=== PATIENT | male | born 1935 | race Caucasian/White ===

== ENCOUNTER 2018-09-13 08:19 | Inpatient (IN) | payer OTHER, MEDICARE ==
[2018-09-13] MEDS ORDERED: ONDANSETRON 4 MG/2 ML VIAL IVP STA (08:33)
[2018-09-13] MEDS ORDERED: SODIUM CHLORIDE 0.9% 1,000 ML IV STA (08:33)
--- NOTE | 2018-09-13 08:35 | ED ---
Abdominal Pain HPI - General Source: patient, RN notes reviewed Mode of arrival: wheelchair Limitations: no limitations <Wenceslao Pierre - Last Filed: 09/13/18 11:32> <Ashwin Spicer - Last Filed: 09/13/18 12:13> - General Chief Complaint: Abdominal Pain Stated Complaint: abdominal pain/SOB Time Seen by Provider: 09/13/18 08:27 - History of Present Illness Initial Comments: This 82-year-old male presents emergency Department with chief complaint of nausea vomiting diarrhea. Patient states that started shortly after eating some strawberries last night. Patient states he has some abdominal cramping. Patient had multiple episodes of vomiting and diarrhea. Denies any melena, hematochezia, hematemesis or coffee-ground emesis denies chest pain shortness of breath denies any fevers or chills. Patient denies any contacts with some symptoms. Patient states only medication he currently takes his morphine. Lonnie navarrete denies any history of hypertension, hyperlipidemia, diabetes. (Wenceslao Pierre) - Related Data Home Medications Medication Instructions Recorded Confirmed Aspirin [Adult Low Dose Aspirin EC] 81 mg PO DAILY 02/04/16 09/13/18 Ferrous Sulfate [Feosol] 325 mg PO DAILY 02/04/16 09/13/18 Lisinopril [Zestril] 5 mg PO DAILY 02/04/16 09/13/18 Lovastatin [Mevacor] 40 mg PO HS 02/04/16 09/13/18 Morphine Sulfate [Morphine Sulfate 30 mg PO BID 02/04/16 09/13/18 ER] [place]-3 Fatty Acids/Fish Oil [Fish 1 cap PO DAILY 02/04/16 09/13/18 Oil 1,000 mg Softgel] Omeprazole 20 mg PO DAILY 02/04/16 09/13/18 Cholecalciferol [Vitamin D3 (25 1,000 unit PO DAILY 09/13/18 09/13/18 Mcg = 1000 Iu)] Morphine Sulfate ER [Ms Contin] 15 mg PO DAILY@1200 09/13/18 09/13/18 Allergies Allergy/AdvReac Type Severity Reaction Status Date / Time No Known Allergies Allergy Verified 09/13/18 09:16 Review of Systems ROS Other: All systems not noted in ROS Statement are negative. <Wenceslao Pierre - Last Filed: 09/13/18 11:32> ROS Other: All systems not noted in ROS Statement are negative. <NayanAshwin - Last Filed: 09/13/18 12:13> ROS Statement: Those systems with pertinent positive or pertinent negative responses have been documented in the HPI. Past Medical History Past Medical History: Chest Pain / Angina, GI Bleed, Hyperlipidemia, Hypertension History of Any Multi-Drug Resistant Organisms: None Reported Past Surgical History: Back Surgery Past Anesthesia/Blood Transfusion Reactions: No Reported Reaction Smoking Status: Current every day smoker Past Alcohol Use History: None Reported - Past Family History Mother Family Medical History: Cancer <IgnacioWenceslao Avila - Last Filed: 09/13/18 11:32> General Exam Limitations: no limitations General appearance: alert, in no apparent distress Head exam: Present: atraumatic, normocephalic, normal inspection Eye exam: Present: normal appearance, PERRL, EOMI. Absent: scleral icterus, conjunctival injection, periorbital swelling ENT exam: Present: normal exam, normal oropharynx, mucous membranes moist, TM's normal bilaterally Neck exam: Present: normal inspection, full ROM. Absent: tenderness, meningismus, lymphadenopathy Respiratory exam: Present: normal lung sounds bilaterally. Absent: respiratory distress, wheezes, rales, rhonchi, stridor Cardiovascular Exam: Present: normal rhythm, tachycardia, normal heart sounds. Absent: systolic murmur, diastolic murmur, rubs, gallop, clicks GI/Abdominal exam: Present: soft, tenderness (Mild lower abdominal tenderness), normal bowel sounds. Absent: distended, guarding, rebound, rigid Back exam: Absent: CVA tenderness (R), CVA tenderness (L) Neurological exam: Present: alert, oriented X3, CN II-XII intact Skin exam: Present: warm, dry, intact, normal color. Absent: rash <IgnacioWenceslao Avila - Last Filed: 09/13/18 11:32> Course <Ashwin Spicer - Last Filed: 09/13/18 12:13> Vital Signs 09/13/18 09/13/18 09/13/18 08:23 09:26 10:00 Temperature 98.0 F Pulse Rate 120 H 105 H 93 Respiratory 18 22 20 Rate Blood Pressure 143/110 149/91 142/92 O2 Sat by Pulse 98 95 96 Oximetry 09/13/18 09/13/18 11:00 11:32 Temperature Pulse Rate 101 H 105 H Respiratory 20 20 Rate Blood Pressure 143/79 134/88 O2 Sat by Pulse 99 98 Oximetry - Reevaluation(s) Reevaluation #1: 09/13/18 11:53 PA supervision: I proceeded [id number] evaluation the patient did discuss findings with the patient and family as well as with Dr. Medellin and Dr. Rucker. (Ashwin Spicer) Medical Decision Making - Lab Data Result diagrams: 09/13/18 09:00 09/13/18 09:00 <Wenceslao Pierre - Last Filed: 09/13/18 11:32> - Lab Data Result diagrams: 09/13/18 09:00 09/13/18 09:00 <Ashwin Spicer - Last Filed: 09/13/18 12:13> - Medical Decision Making 82-year-old male presented for abdominal discomfort. Patient will be admitted for a NSTEMI, kidney stone possible sepsis. (Wenceslao Pierre) - Lab Data Lab Results 09/13/18 09/13/18 09/13/18 Range/Units 09:00 09:00 09:00 WBC 18.1 H (3.8-10.6) k/uL RBC 5.22 (4.30-5.90) m/uL Hgb 15.6 (13.0-17.5) gm/dL Hct 46.8 (39.0-53.0) % MCV 89.8 (80.0-100.0) fL MCH 30.0 (25.0-35.0) pg MCHC 33.4 (31.0-37.0) g/dL RDW 14.3 (11.5-15.5) % Plt Count 227 (150-450) k/uL Neutrophils % 91 % Lymphocytes % 4 % Monocytes % 4 % Eosinophils % 1 % Basophils % 0 % Neutrophils # 16.5 H (1.3-7.7) k/uL Lymphocytes # 0.6 L (1.0-4.8) k/uL Monocytes # 0.7 (0-1.0) k/uL Eosinophils # 0.1 (0-0.7) k/uL Basophils # 0.0 (0-0.2) k/uL Sodium 139 (137-145) mmol/L Potassium 5.1 (3.5-5.1) mmol/L Chloride 103 (98-107) mmol/L Carbon Dioxide 24 (22-30) mmol/L Anion Gap 12 mmol/L BUN 23 H (9-20) mg/dL Creatinine 1.08 (0.66-1.25) mg/dL Est GFR (CKD-EPI)AfAm 75 (>60 ml/min/1.73 sqM) Est GFR (CKD-EPI)NonAf 64 (>60 ml/min/1.73 sqM) Glucose 187 H (74-99) mg/dL Plasma Lactic Acid Billy 3.1 H* (0.7-2.0) mmol/L Calcium 10.1 (8.4-10.2) mg/dL Total Bilirubin 0.8 (0.2-1.3) mg/dL AST 30 (17-59) U/L ALT 25 (21-72) U/L Alkaline Phosphatase 66 (38-126) U/L Troponin I (0.000-0.034) ng/mL Total Protein 7.3 (6.3-8.2) g/dL Albumin 4.4 (3.5-5.0) g/dL Amylase 35 (30-110) U/L Lipase 25 (23-300) U/L Urine Color Urine Appearance (Clear) Urine pH (5.0-8.0) Ur Specific [place] (1.001-1.035) Urine Protein (Negative) Urine Glucose (UA) (Negative) Urine Ketones (Negative) Urine Blood (Negative) Urine Nitrite (Negative) Urine Bilirubin (Negative) Urine Urobilinogen (<2.0) mg/dL Ur Leukocyte Esterase (Negative) Urine RBC (0-5) /hpf Urine WBC (0-5) /hpf Ur Squamous Epith Cells (0-4) /hpf Hyaline Casts (0-2) /lpf Urine Mucus (None) /hpf 09/13/18 09/13/18 Range/Units 09:00 09:14 WBC (3.8-10.6) k/uL RBC (4.30-5.90) m/uL Hgb (13.0-17.5) gm/dL Hct (39.0-53.0) % MCV (80.0-100.0) fL MCH (25.0-35.0) pg MCHC (31.0-37.0) g/dL RDW (11.5-15.5) % Plt Count (150-450) k/uL Neutrophils % % Lymphocytes % % Monocytes % % Eosinophils % % Basophils % % Neutrophils # (1.3-7.7) k/uL Lymphocytes # (1.0-4.8) k/uL Monocytes # (0-1.0) k/uL Eosinophils # (0-0.7) k/uL Basophils # (0-0.2) k/uL Sodium (137-145) mmol/L Potassium (3.5-5.1) mmol/L Chloride (98-107) mmol/L Carbon Dioxide (22-30) mmol/L Anion Gap mmol/L BUN (9-20) mg/dL Creatinine (0.66-1.25) mg/dL Est GFR (CKD-EPI)AfAm (>60 ml/min/1.73 sqM) Est GFR (CKD-EPI)NonAf (>60 ml/min/1.73 sqM) Glucose (74-99) mg/dL Plasma Lactic Acid Billy (0.7-2.0) mmol/L Calcium (8.4-10.2) mg/dL Total Bilirubin (0.2-1.3) mg/dL AST (17-59) U/L ALT (21-72) U/L Alkaline Phosphatase (38-126) U/L Troponin I 0.371 H* (0.000-0.034) ng/mL Total Protein (6.3-8.2) g/dL Albumin (3.5-5.0) g/dL Amylase (30-110) U/L Lipase (23-300) U/L Urine Color Yellow Urine Appearance Cloudy (Clear) Urine pH 5.5 (5.0-8.0) Ur Specific [place] 1.023 (1.001-1.035) Urine Protein 1+ H (Negative) Urine Glucose (UA) Trace H (Negative) Urine Ketones Trace H (Negative) Urine Blood Moderate H (Negative) Urine Nitrite Negative (Negative) Urine Bilirubin Negative (Negative) Urine Urobilinogen <2.0 (<2.0) mg/dL Ur Leukocyte Esterase Trace H (Negative) Urine RBC 18 H (0-5) /hpf Urine WBC 10 H (0-5) /hpf Ur Squamous Epith Cells 1 (0-4) /hpf Hyaline Casts 4 H (0-2) /lpf Urine Mucus Rare H (None) /hpf - EKG Data EKG Comments: EKG performed at 8:46 wide QRS rhythm with a right bundle block rate of 108 NV 1 28 QTC is QTC 350/469 (Wenceslao Pierre) Critical Care Time Critical Care Time: Yes Total Critical Care Time: 35 <Wenceslao Pierre - Last Filed: 09/13/18 11:32> Critical Care Time: To 35 minutes of critical care time were used to evaluate the patient, discussed history with EMS, review vitals. Labs including CBC, CMP, troponin, lactic acid, urinalysis were ordered along with CT abdomen and pelvis. Patient's found to have lactic acidosis, leukocytosis and tachycardia was likely related to septic stone, sepsis. Patient also found to have an unsteady. Case discussed with admitting hospitalist Dr. Soto, urology Dr. Medellin and cardiology Dr. Rucker patient will be admitted for further evaluation and treatment. Patient was started on heparin, Rocephin antibiotics (Wenceslao Pierre) Disposition <Wenceslao Pierre - Last Filed: 09/13/18 11:32> <Ashwin Spicer - Last Filed: 09/13/18 12:13> Clinical Impression: NSTEMI (non-ST elevated myocardial infarction), Kidney stone on left side, Abdominal pain, Sepsis Disposition: ADMITTED IP TO THIS HOSP Condition: Fair
[2018-09-13 09:20] LABS: Basophils % (A) 0 %; Eosinophils # (A) 0.1 k/uL (0-0.7); Eosinophils % (A) 1 %; HCT 46.8 % (39.0-53.0); HGB 15.6 gm/dL (13.0-17.5); Lymphocytes # (A) 0.6 k/uL (1.0-4.8); Lymphocytes % (A) 4 %; MCHC 33.4 g/dL (31.0-37.0); MCV 89.8 fL (80.0-100.0); Mean Platelet Volume 8.1; Monocytes # (A) 0.7 k/uL (0-1.0); Monocytes % (A) 4 %; Neutrophils # (A) 16.5 k/uL (1.3-7.7); Neutrophils % (A) 91 %; Platelet Count 227 k/uL (150-450); RBC 5.22 m/uL (4.30-5.90); RDW 14.3 % (11.5-15.5); WBC 18.1 k/uL (3.8-10.6)
[2018-09-13 09:31] LABS: Albumin 4.4 g/dL (3.5-5.0); Calcium 10.1 mg/dL (8.4-10.2); Total Bilirubin 0.8 mg/dL (0.2-1.3); Total Protein 7.3 g/dL (6.3-8.2)
[2018-09-13 09:31] LABS: Appearance,Urine Cloudy (Clear); Bilirubin,Urine Negative (Negative); Blood,Urine Moderate (Negative); Color,Urine Yellow; Glucose,Urine (UA) Trace (Negative); Hyaline Casts,Urine 4 /lpf (0-2); Ketones,Urine Trace (Negative); Leukocyte Esterase,Urine Trace (Negative); Mucus,Urine Rare /hpf; Nitrite,Urine Negative (Negative); PH, Urine 5.5 (5.0-8.0); Protein,Urine 1+ (Negative); RBC,Urine 18 /hpf (0-5); Specific Gravity,Urine 1.023 (1.001-1.035); Squamous Epithelial Cell,Urine 1 /hpf (0-4); Urobilinogen,Urine <2.0 mg/dL (<2.0); WBC,Urine 10 /hpf (0-5)
[2018-09-13 09:33] LABS: Potassium 5.1 mmol/L (3.5-5.1)
--- NOTE | 2018-09-13 10:07 | CT ---
EXAMINATION TYPE: CT abdomen pelvis w con DATE OF EXAM: 09/13/2018 COMPARISON: None HISTORY: Left midline to left sided abdominal pain CT DLP: 1188 mGycm CONTRAST: CT scan of the abdomen and pelvis is performed without Oral Contrast and with IV Contrast, patient in jected with 100 mL of Isovue 300. FINDINGS: LUNG BASES-: No visible nodule. No infiltrate. The heart is enlarged. LIVER/GB: The gallbladder surgically absent. No space occupying hepatic lesion. Biliary tree is of normal caliber. PANCREAS: No inflammation. No distinct mass. SPLEEN: No splenic enlargement. No lesion seen. ADRENALS: No nodule. No thickening. KIDNEYS/BLADDER: 3 mm distal left ureteral calculus approximately 2.5 to 3 cm from the left UVJ resul ts in moderate left-sided hydronephrosis and perinephric stranding. Mild left-sided renal edema. Nono bstructing calculus lower pole right kidney. BOWEL: Normal appendix. Normal bowel caliber. No inflammation. GENITAL ORGANS: No gross abnormality. LYMPH NODES: No greater than 1cm abdominal or pelvic lymph nodes are appreciated. AORTA: No significant abnormality. OSSEOUS STRUCTURES: No significant abnormality is seen. OTHER: No significant additional abnormality is seen. IMPRESSION: 1. Obstructing distal left ureteral calculus measuring 3 mm resulting in moderate left-sided hydronep hrosis. There is mild renal edema and perinephric stranding noted.
[2018-09-13] MEDS ORDERED: cefTRIAXone IN SWFI 1,000 MG/10 ML SYRINGE IVP STA (10:11)
[2018-09-13] MEDS ORDERED: NITROGLYCERIN SL TABS 0.4 MG TAB SUBLINGUAL PRN (11:34)
[2018-09-13] MEDS ORDERED: ASPIRIN 81 MG PO STA (11:34)
[2018-09-13] MEDS ORDERED: HEPARIN SODIUM,PORCINE 5,000 UNIT/ML 1 ML VIAL IV ONE (11:34)
[2018-09-13] MEDS: SODIUM CHLORIDE 0.9% 1,000 ML IV SCH (12:57)
[2018-09-13] MEDS: MORPHINE SULFATE 4 MG/ML SYRINGE IV PRN (12:59)
[2018-09-13] MEDS: HEPARIN SOD,PORK IN 0.45% NACL 25,000 UNIT in 0.45% NACL 1 250ML.BAG IV SCH (13:01)
--- NOTE | 2018-09-13 14:38 | P.HPIM ---
History of Present Illness this is a pleasant 82 years old male with past medical history ofGI bleed, status post colonoscopy in 01/2016, diverticular disease, hemorrhoids, osteoarthritis, hypertension, hyperlipidemia, GERD, Status post colonoscopy on 01/2016 whopresents with abdominal painof one-day duration, the pain mainly in the lower abdomen about 8/10 in both sides, more on the left side, nonradiating, with 8/10 in severity, relieved with pain medication down to 2/10, associated with polyuria but no dysuria. He also has nausea and vomited 8 times with no blood in it although he wasn't sure. He had no chest pain or dyspnea, no dizziness, he has chronic cough with mucous phlegm 4 months. On admission patient is moderately tachycardic at 102, blood pressure 161/80, saturating 99% on 2 L and he is afebrile. labs reviewed showing leukocytosis of 18.1, hemoglobin 15.6,creatinine is normal at 1.0, electrolytes within normal limits and lactic acid is elevated at 3.1, troponin is elevated at 0.37.urinalysis is suspicious for infection. EKG s howing wide QRS with right bundle branch block, sinus rhythm at 108, with QTC 469.CAT scan of the abdomen and pelvis showing distal left ureteral stone of 3 mm with moderate left-sided hydronephrosis. And nonobstructive calculus on the right side Review of Systems CONSTITUTIONAL: No fever, no malaise, no fatigue. HEENT: No recent visual problems or hearing problems. Denied any sore throat. CARDIOVASCULAR: No orthopnea, PND, no palpitations, no syncope. PULMONARY: No shortness of breath, no cough, no hemoptysis. GASTROINTESTINAL: No diarrhea, no nausea, no vomiting, no abdominal pain. Normoactive bowel sounds. NEUROLOGICAL: No headaches, no weakness, no numbness. HEMATOLOGICAL: Denies any bleeding or petechiae. GENITOURINARY: Denies any burning micturition, frequency, or urgency. MUSCULOSKELETAL/RHEUMATOLOGICAL: Denies any joint pain, swelling, or any muscle pain. ENDOCRINE: Denies any polyuria or polydipsia. Past Medical History Past Medical History: GERD/Reflux, GI Bleed, Hyperlipidemia, Hypertension, Osteoarthritis (OA) Additional Past Medical History / Comment(s): Fractured back twice, arthritis in hands/wrists/ankles, lower GI bleed, diverticular disease/colon polyps, hemorrhoids, constipation. History of Any Multi-Drug Resistant Organisms: None Reported Past Surgical History: Back Surgery, Cholecystectomy, Orthopedic Surgery Additional Past Surgical History / Comment(s): Lumbar laminectomy, EGD, colonoscopies/benign polypectomies, L shoulder arthroscopy. Past Anesthesia/Blood Transfusion Reactions: No Reported Reaction Smoking Status: Former smoker - Past Family History Mother Family Medical History: Cancer Additional Family Medical History / Comment(s): Mother from some form of cancer at the age of 78yrs. Father History Unknown: Yes Additional Family Medical History / Comment(s): Father left when pt was 7 yrs old. Medications and Allergies Home Medications Medication Instructions Recorded Confirmed Type Aspirin [Adult Low Dose Aspirin EC] 81 mg PO DAILY 02/04/16 09/13/18 History Ferrous Sulfate [Feosol] 325 mg PO DAILY 02/04/16 09/13/18 History Lisinopril [Zestril] 5 mg PO DAILY 02/04/16 09/13/18 History Lovastatin [Mevacor] 40 mg PO HS 02/04/16 09/13/18 History Morphine Sulfate [Morphine Sulfate 30 mg PO BID 02/04/16 09/13/18 History ER] [place]-3 Fatty Acids/Fish Oil [Fish 1 cap PO DAILY 02/04/16 09/13/18 History Oil 1,000 mg Softgel] Omeprazole 20 mg PO DAILY 02/04/16 09/13/18 History Cholecalciferol [Vitamin D3 (25 1,000 unit PO DAILY 09/13/18 09/13/18 History Mcg = 1000 Iu)] Morphine Sulfate ER [Ms Contin] 15 mg PO DAILY@1200 09/13/18 09/13/18 History Allergies Allergy/AdvReac Type Severity Reaction Status Date / Time No Known Allergies Allergy Verified 09/13/18 09:16 Physical Exam Vitals: Vital Signs Temp Pulse Resp BP Pulse Ox 09/13/18 13:00 98.9 F 102 H 20 161/80 99 09/13/18 12:00 99 20 144/82 99 09/13/18 11:32 105 H 20 134/88 98 09/13/18 11:00 101 H 20 143/79 99 09/13/18 10:00 93 20 142/92 96 09/13/18 09:26 105 H 22 149/91 95 09/13/18 08:23 98.0 F 120 H 18 143/110 98 Intake and Output 09/12/18 09/13/18 09/13/18 22:59 06:59 14:59 Other: Weight 96.162 kg GENERAL: The patient is alert and oriented x3, not in any acute distress. Well developed, well nourished. -HEENT: Pupils are round and equally reacting to light. EOMI. No scleral icterus. No conjunctival pallor. Normocephalic, atraumatic. No pharyngeal erythema. No thyromegaly. dehydration CARDIOVASCULAR: S1 and S2 present. No murmurs, rubs, or gallops. PULMONARY: Chest is clear to auscultation, no wheezing or crackles. -ABDOMEN: Soft, mild lower abdominal tenderness, with left flank tenderness, no rebound tenderness, nondistended, normoactive bowel sounds. No palpable organomegaly. no tenderness at CVA angle MUSCULOSKELETAL: No joint swelling or deformity. EXTREMITIES: No cyanosis, clubbing, or pedal edema. NEUROLOGICAL: Gross neurological examination did not reveal any focal deficits. SKIN: No rashes. Results CBC & Chem 7: 09/13/18 09:00 09/13/18 09:00 Labs: Abnormal Lab Results - Last 24 Hours (Table) 09/13/18 09/13/18 09/13/18 Range/Units 09:00 09:00 09:00 WBC 18.1 H (3.8-10.6) k/uL Neutrophils # 16.5 H (1.3-7.7) k/uL Lymphocytes # 0.6 L (1.0-4.8) k/uL BUN 23 H (9-20) mg/dL Glucose 187 H (74-99) mg/dL Plasma Lactic Acid Billy 3.1 H* (0.7-2.0) mmol/L Troponin I (0.000-0.034) ng/mL Urine Protein (Negative) Urine Glucose (UA) (Negative) Urine Ketones (Negative) Urine Blood (Negative) Ur Leukocyte Esterase (Negative) Urine RBC (0-5) /hpf Urine WBC (0-5) /hpf Hyaline Casts (0-2) /lpf Urine Mucus (None) /hpf 09/13/18 09/13/18 Range/Units 09:00 09:14 WBC (3.8-10.6) k/uL Neutrophils # (1.3-7.7) k/uL Lymphocytes # (1.0-4.8) k/uL BUN (9-20) mg/dL Glucose (74-99) mg/dL Plasma Lactic Acid Billy (0.7-2.0) mmol/L Troponin I 0.371 H* (0.000-0.034) ng/mL Urine Protein 1+ H (Negative) Urine Glucose (UA) Trace H (Negative) Urine Ketones Trace H (Negative) Urine Blood Moderate H (Negative) Ur Leukocyte Esterase Trace H (Negative) Urine RBC 18 H (0-5) /hpf Urine WBC 10 H (0-5) /hpf Hyaline Casts 4 H (0-2) /lpf Urine Mucus Rare H (None) /hpf Thrombosis Risk Factor Assmnt - Choose All That Apply Any of the Below Risk Factors Present?: Yes Each Factor Represents 1 point: Acute [place], Obesity (BMI >25), Sepsis (< 1month) Other Risk Factors: Yes Each Risk Factor Represents 3 Points: Age 75 years or older Other congenital or acquired thrombophilia - If yes, enter type in comment: No Thrombosis Risk Factor Assessment Total Risk Factor Score: 6 Thrombosis Risk Factor Assessment Level: High Risk Assessment and Plan Assessment: left hydronephrosis, with obstructive uropathy sepsis with leukocytosis and elevated lactic acid and tachycardia Acute urinary tract infection Kidney stone, on both sides abdominal painsecondary to above elevated troponin, concerning for non-STEMI Elevated lactic acid hypertension Hyperlipidemia History of GI bleed history of diverticular disease History of osteoarthritis chronic hemorrhoids Plan: this is a pleasant 82 years old male who presents with obstructive uropathy and sepsis. start patient on antibiotics ceftriaxone , continue with IV fluids, follow-up blood culture and urine culture. Continue with IV fluids and follow- up lactic acid. Call cardiology consult, serial troponins. Urologist already is been contacted by emergency room team. . Labs and medication were reviewed.. Continue same treatment. Continue with symptomatic treatment. Resume home medication. Monitor lytes and vitals. DVT and GI prophylaxis. Further recommendations of the clinical course of the patient DVT prophylaxis: Subcutaneous heparin GI Prophylaxis: Pepcid PT/OT: Pending Prognosis is guarded
--- NOTE | 2018-09-13 17:34 | CONS ---
CONSULTATION CHIEF COMPLAINT: Elevated troponin. Klaus is an 82-year-old gentleman who is admitted to hospital with lower abdominal pain. Cardiology has been consulted for mildly elevated troponin. The patient denies chest pain, difficulty in breathing, palpitations, dizziness or syncope. His white cell count is elevated at 18.1. His EKG shows wide-complex tachycardia with right bundle branch block which could be due to either an underlying atrial fibrillation or accelerated junctional tachycardia. There is no prior cardiac history. PAST MEDICAL HISTORY: Significant for hypertension, back pain. The patient is on MS Contin, Mevacor, Zestril, iron and aspirin. ALLERGIES: There are NO KNOWN DRUG ALLERGIES. FAMILY HISTORY: Negative for premature coronary artery disease. SOCIAL HISTORY: Negative for current smoking. There is no history of EtOH abuse or drug abuse. REVIEW OF SYSTEMS: HEENT is unremarkable. CARDIAC: As described above. RESPIRATORY: Negative. GI: As described above. GENITOURINARY: Negative. ALLERGY/IMMUNOLOGIC: Negative. SKIN: Negative. MUSCULOSKELETAL: Significant for back pain. PSYCHOSOCIAL: Negative. ENDOCRINE: Negative. DERMATOLOGICAL: Negative. CONSTITUTIONAL: Negative. ONCOLOGICAL: Negative. Rest of the system review is not relevant. PHYSICAL EXAMINATION: Patient's heart rate is 100 beats per minute, blood pressure 134/88, respiratory rate 18. There is no jugular venous distention. Chest exam reveals good air entry bilaterally. Heart exam reveals first and second heart sounds. No gallop. No murmur. Abdomen is soft, nontender. Examination of extremities did not reveal any edema. Peripheral pulses are felt. EKG shows right bundle branch block with tachyarrhythmia. It is unclear if this represents an atrial fibrillation. One set of troponin is elevated. White cell count is elevated. Hemoglobin is 15.6. Creatinine is 1. ASSESSMENT: 1. Elevated troponin of unclear clinical significance. 2. Abdominal pain. Workup per primary. 3. Tachyarrhythmia. PLAN: I will start the patient on a beta ac. I will obtain a 2D echo. I will obtain serial troponins and watch him on telemetry. MMODL / IJN: [id number] /
[2018-09-13] MEDS ORDERED: HEPARIN SODIUM,PORCINE 5,000 UNIT/ML 1 ML VIAL IV PRN (19:02)
--- NOTE | 2018-09-13 20:31 | P.GSCN ---
History of Present Illness Consult date: 09/13/18 Reason for Consult: Left ureteral calculus i History of present illness: The patient is an 82-year-old male who developed left lower quadrant abdominal pain last night at approximately 6 PM. He rated the pain as an 8 out of 10. He also complained of urinary frequency and urgency. He had no gross hematuria or dysuria. He presented to the emergency room for further evaluation. His white blood count was 18,000. BUN/creatinine were 23/1.08. Urinalysis showed microscopic hematuria. CT scan of the abdomen and pelvis with IV contrast id entified a 3-3.5 mm distal ureteral calculus with mild to moderate left hydronephrosis. A 1-1.5 mm nonobstructive calculus was also noted in the lower pole of the right kidney. In addition to the above the patient was noted to have a troponin of 0.371 and a lactic acid of 3.1. He was suspected to have a myocardial infarction without ST elevation and has been admitted for observation and serial troponins. His troponin this afternoon was 0.734. He says that his abdominal pain has decreased and is currently rated as a 2 out of 10. He continues to have some urgency to void. The patient has no previous history of urolithiasis or gross hematuria. He says he usually voids every 2-3 hours during the day and 4 or 5 times at night. Review of Systems - Constitutional Denies chills, Denies fever - Cardiovascular Denies chest pain, Denies shortness of breath - Respiratory Denies wheezing - Gastrointestinal Reports as per HPI, Denies change in bowel habits - Genitourinary Reports as per HPI Past Medical History Past Medical History: GERD/Reflux, GI Bleed, Hyperlipidemia, Hypertension, Osteoarthritis (OA) Additional Past Medical History / Comment(s): Fractured back twice, arthritis in hands/wrists/ankles, lower GI bleed, diverticular disease/colon polyps, hemorrhoids, constipation. History of Any Multi-Drug Resistant Organisms: None Reported Past Surgical History: Back Surgery, Cholecystectomy, Orthopedic Surgery Additional Past Surgical History / Comment(s): Lumbar laminectomy, EGD, c olonoscopies/benign polypectomies, L shoulder arthroscopy. Past Anesthesia/Blood Transfusion Reactions: No Reported Reaction Smoking Status: Former smoker - Past Family History Mother Family Medical History: Cancer Additional Family Medical History / Comment(s): Mother from some form of cancer at the age of 78yrs. Father History Unknown: Yes Additional Family Medical History / Comment(s): Father left when pt was 7 yrs old. Medications and Allergies Home Medications Medication Instructions Recorded Confirmed Type Aspirin [Adult Low Dose Aspirin EC] 81 mg PO DAILY 02/04/16 09/13/18 History Ferrous Sulfate [Feosol] 325 mg PO DAILY 02/04/16 09/13/18 History Lisinopril [Zestril] 5 mg PO DAILY 02/04/16 09/13/18 History Lovastatin [Mevacor] 40 mg PO HS 02/04/16 09/13/18 History Morphine Sulfate [Morphine Sulfate 30 mg PO BID 02/04/16 09/13/18 History ER] [place]-3 Fatty Acids/Fish Oil [Fish 1 cap PO DAILY 02/04/16 09/13/18 History Oil 1,000 mg Softgel] Omeprazole 20 mg PO DAILY 02/04/16 09/13/18 History Cholecalciferol [Vitamin D3 (25 1,000 unit PO DAILY 09/13/18 09/13/18 History Mcg = 1000 Iu)] Morphine Sulfate ER [Ms Contin] 15 mg PO DAILY@1200 09/13/18 09/13/18 History Allergies Allergy/AdvReac Type Severity Reaction Status Date / Time No Known Allergies Allergy Verified 09/13/18 09:16 Surgical - Exam Vital Signs Temp Pulse Resp BP Pulse Ox 98.0 F 120 H 18 143/110 98 09/13/18 08:23 09/13/18 08:23 09/13/18 08:23 09/13/18 08:23 09/13/18 08:23 - General well developed, well nourished, no distress - ENT no hearing loss - Neck no masses, no lymphadectomy - Respiratory normal respiratory effort - Abdomen Abdomen: soft, non tender, no organomegaly Hernia: none - Genitourinary normal penis with no external lesions, testicles non-tender Results - Labs 09/13/18 09:00 09/13/18 09:00 Abnormal Lab Results - Last 24 Hours (Table) 09/13/18 09/13/18 09/13/18 Range/Units 09:00 09:00 09:00 WBC 18.1 H (3.8-10.6) k/uL Neutrophils # 16.5 H (1.3-7.7) k/uL Lymphocytes # 0.6 L (1.0-4.8) k/uL APTT (22.0-30.0) sec BUN 23 H (9-20) mg/dL Glucose 187 H (74-99) mg/dL Plasma Lactic Acid Billy 3.1 H* (0.7-2.0) mmol/L Troponin I (0.000-0.034) ng/mL Urine Protein (Negative) Urine Glucose (UA) (Negative) Urine Ketones (Negative) Urine Blood (Negative) Ur Leukocyte Esterase (Negative) Urine RBC (0-5) /hpf Urine WBC (0-5) /hpf Hyaline Casts (0-2) /lpf Urine Mucus (None) /hpf 09/13/18 09/13/18 09/13/18 Range/Units 09:00 09:14 14:17 WBC (3.8-10.6) k/uL Neutrophils # (1.3-7.7) k/uL Lymphocytes # (1.0-4.8) k/uL APTT (22.0-30.0) sec BUN (9-20) mg/dL Glucose (74-99) mg/dL Plasma Lactic Acid Billy (0.7-2.0) mmol/L Troponin I 0.371 H* 0.734 H* (0.000-0.034) ng/mL Urine Protein 1+ H (Negative) Urine Glucose (UA) Trace H (Negative) Urine Ketones Trace H (Negative) Urine Blood Moderate H (Negative) Ur Leukocyte Esterase Trace H (Negative) Urine RBC 18 H (0-5) /hpf Urine WBC 10 H (0-5) /hpf Hyaline Casts 4 H (0-2) /lpf Urine Mucus Rare H (None) /hpf 09/13/18 Range/Units 18:23 WBC (3.8-10.6) k/uL Neutrophils # (1.3-7.7) k/uL Lymphocytes # (1.0-4.8) k/uL APTT 42.3 H (22.0-30.0) sec BUN (9-20) mg/dL Glucose (74-99) mg/dL Plasma Lactic Acid Billy (0.7-2.0) mmol/L Troponin I (0.000-0.034) ng/mL Urine Protein (Negative) Urine Glucose (UA) (Negative) Urine Ketones (Negative) Urine Blood (Negative) Ur Leukocyte Esterase (Negative) Urine RBC (0-5) /hpf Urine WBC (0-5) /hpf Hyaline Casts (0-2) /lpf Urine Mucus (None) /hpf Microbiology - Last 24 Hours (Table) 09/13/18 10:30 Urine Culture - Preliminary Urine,Voided Diabetes panel 09/13/18 Range/Units 09:00 Sodium 139 (137-145) mmol/L Potassium 5.1 (3.5-5.1) mmol/L Chloride 103 (98-107) mmol/L Carbon Dioxide 24 (22-30) mmol/L BUN 23 H (9-20) mg/dL Creatinine 1.08 (0.66-1.25) mg/dL Glucose 187 H (74-99) mg/dL Calcium 10.1 (8.4-10.2) mg/dL AST 30 (17-59) U/L ALT 25 (21-72) U/L Alkaline Phosphatase 66 (38-126) U/L Total Protein 7.3 (6.3-8.2) g/dL Albumin 4.4 (3.5-5.0) g/dL Calcium panel 09/13/18 Range/Units 09:00 Calcium 10.1 (8.4-10.2) mg/dL Albumin 4.4 (3.5-5.0) g/dL Pituitary panel 09/13/18 Range/Units 09:00 Sodium 139 (137-145) mmol/L Potassium 5.1 (3.5-5.1) mmol/L Chloride 103 (98-107) mmol/L Carbon Dioxide 24 (22-30) mmol/L BUN 23 H (9-20) mg/dL Creatinine 1.08 (0.66-1.25) mg/dL Glucose 187 H (74-99) mg/dL Calcium 10.1 (8.4-10.2) mg/dL Adrenal panel 09/13/18 Range/Units 09:00 Sodium 139 (137-145) mmol/L Potassium 5.1 (3.5-5.1) mmol/L Chloride 103 (98-107) mmol/L Carbon Dioxide 24 (22-30) mmol/L BUN 23 H (9-20) mg/dL Creatinine 1.08 (0.66-1.25) mg/dL Glucose 187 H (74-99) mg/dL Calcium 10.1 (8.4-10.2) mg/dL Total Bilirubin 0.8 (0.2-1.3) mg/dL AST 30 (17-59) U/L ALT 25 (21-72) U/L Alkaline Phosphatase 66 (38-126) U/L Total Protein 7.3 (6.3-8.2) g/dL Albumin 4.4 (3.5-5.0) g/dL Assessment and Plan (1) Left ureteral calculus Narrative/Plan: The patient's left lower quadrant pain and urinary urgency are most likely related to a 3-3.5 mm calculus which was located in the distal left ureter at the time of the CT scan. The patient's pain has improved and is possible that the calculus has migrated even further towards the bladder. The likelihood of spontaneous passage of a calculus this size is very good. I encouraged the patient to strain his urine so that he can tell if he has actually passed the stone. It is likely that the patient may have underlying acute cardiac disease and in view of this further conservative management of the stone would appear the best option, especially as the patient's pain is much less at the present time. Current Visit: Yes Status: Acute Code(s): N20.1 - CALCULUS OF URETER SNOMED Code(s): 62116240
[2018-09-13] MEDS: ATORVASTATIN 10 MG TAB PO SCH (21:06)
[2018-09-13] MEDS ORDERED: traMADol 50 MG TAB PO PRN (21:29)
[2018-09-13] MEDS: ACETAMINOPHEN TAB 325 MG TAB PO PRN (21:57)
[2018-09-13] MEDS ORDERED: traMADol 50 MG TAB PO SCH (22:00)
[2018-09-14] MEDS: ACETAMINOPHEN TAB 325 MG TAB PO PRN ×3 (04:01→21:54)
[2018-09-14] MEDS: HEPARIN SOD,PORK IN 0.45% NACL 25,000 UNIT in 0.45% NACL 1 250ML.BAG IV SCH (04:32)
[2018-09-14] MEDS: PANTOPRAZOLE 40 MG TABLET PO SCH (06:48)
[2018-09-14] MEDS: SODIUM CHLORIDE 0.9% 1,000 ML IV SCH ×3 (07:40→16:33)
[2018-09-14 07:56] LABS: Basophils # (A) 0.1 k/uL (0-0.2); Basophils % (A) 0 %; Eosinophils # (A) 0.1 k/uL (0-0.7); Eosinophils % (A) 1 %; HCT 42.4 % (39.0-53.0); HGB 13.8 gm/dL (13.0-17.5); Lymphocytes # (A) 1.7 k/uL (1.0-4.8); Lymphocytes % (A) 13 %; MCH 29.2 pg (25.0-35.0); MCHC 32.5 g/dL (31.0-37.0); MCV 89.6 fL (80.0-100.0); Mean Platelet Volume 7.8; Monocytes # (A) 0.9 k/uL (0-1.0); Monocytes % (A) 7 %; Neutrophils # (A) 10.5 k/uL (1.3-7.7); Neutrophils % (A) 78 %; Platelet Count 209 k/uL (150-450); RBC 4.73 m/uL (4.30-5.90); RDW 13.3 % (11.5-15.5); WBC 13.4 k/uL (3.8-10.6)
--- NOTE | 2018-09-14 08:30 | P.PN ---
Subjective this is a pleasant 82 years old male with past medical history ofGI bleed, status post colonoscopy in 01/2016, diverticular disease, hemorrhoids, os teoarthritis, hypertension, hyperlipidemia, GERD, Status post colonoscopy on 01/2016 whopresents with abdominal painof one-day duration, the pain mainly in the lower abdomen about 8/10 in both sides, more on the left side, nonradiating, with 8/10 in severity, relieved with pain medication down to 2/10, associated with polyuria but no dysuria. He also has nausea and vomited 8 times with no blood in it although he wasn't sure. He had no chest pain or dyspnea, no dizziness, he has chronic cough with mucous phlegm 4 months. On admission patient is moderately tachycardic at 102, blood pressure 161/80, saturating 99% on 2 L and he is afebrile. labs reviewed showing leukocytosis of 18.1, hemoglobin 15.6,creatinine is normal at 1.0, electrolytes within normal limits and lactic acid is elevated at 3.1, troponin is elevated at 0.37.urinalysis is suspicious for infection. EKG showing wide QRS with right bundle branch block, sinus rhythm at 108, with QTC 469.CAT scan of the abdomen and pelvis showing distal left ureteral stone of 3 mm with moderate left-sided hydronephrosis. And nonobstructive calculus on the right side 09/14/2018 Patient is awake, Patient admitted yesterday with UTI and renal colic secondary to left renal stones and hydronephrosis. Patient has been evaluated by Dr. Bob and he thinks that the stone has pattern is going to pass on. Patient did be cleared by neurology for discharge soon. Patient is to have episodic renal colic in his lower abdomen this morning. No dysuria or change in urinary frequency. No nausea or vomiting. However patient still been treated with IV antibiotics for UTI and he is on heparin drip for elevated troponin. Cardiology team are following the patient closely. Patient denies chest pain or dyspnea this morning. Patient is hemodynamically stable and is afebrile. Left showing improving leukocytosis come to 16.4 K. Troponin is 0.7, 1.0 and 1.7. Review of systems CONSTITUTIONAL: No fever, no malaise, no fatigue. HEENT: No recent visual problems or hearing problems. Denied any sore throat. CARDIOVASCULAR: No orthopnea, PND, no palpitations, no syncope. PULMONARY: No shortness of breath, no cough, no hemoptysis. GASTROINTESTINAL: No diarrhea, no nausea, no vomiting, no abdominal pain. Normoactive bowel sounds. NEUROLOGICAL: No headaches, no weakness, no numbness. HEMATOLOGICAL: Denies any bleeding or petechiae. GENITOURINARY: Denies any burning micturition, frequency, or urgency. MUSCULOSKELETAL/RHEUMATOLOGICAL: Denies any joint pain, swelling, or any muscle pain. ENDOCRINE: Denies any polyuria or polydipsia. Active Medications Generic Name Dose Route Start Last Admin Trade Name Freq PRN Reason Stop Dose Admin Acetaminophen 650 mg 09/13/18 21:11 09/14/18 04:01 Tylenol Tab PO 650 mg Q6HR PRN Administration Fever and/ or MILD Pain Aspirin 325 mg 09/14/18 09:00 Aspirin PO DAILY [facility] Atorvastatin Calcium 10 mg 09/13/18 21:00 09/13/18 21:06 Lipitor PO 10 mg HS LIAT Administration Cholecalciferol 1,000 unit 09/14/18 09:00 Vitamin D3 (25 Mcg = 1000 Iu) PO DAILY [facility] Ferrous Sulfate 325 mg 09/14/18 09:00 Feosol PO DAILY [facility] Heparin Sodium (Porcine) 0 unit 09/13/18 19:02 09/13/18 19:07 Heparin IV 2,337.5 unit PER PROTOCOL PRN Administration Low PTT Protocol Heparin Sodium/Sodium Chloride 250 mls @ 10.001 mls/hr 09/13/18 11:45 09/14/18 08:16 25,000 unit/ Sodium Chloride IV 12.4 units/kg/hr .Q24H LIAT 11.924 mls/hr Titration Protocol 10.4 UNITS/KG/HR Sodium Chloride 1,000 mls @ 75 mls/hr 09/13/18 11:45 09/14/18 07:41 Saline 0.9% IV Not Given .[id number] [facility] Ceftriaxone Sodium 1 gm/ 50 mls @ 100 mls/hr 09/14/18 09:00 Sodium Chloride IVPB Q24HR [facility] Lisinopril 5 mg 09/14/18 09:00 Zestril PO DAILY [facility] Morphine Sulfate 4 mg 09/13/18 11:34 09/13/18 12:59 Morphine Sulfate (Inj) IV 4 mg Q4HR PRN Administration Pain Nitroglycerin 0.4 mg 09/13/18 11:34 Nitrostat SUBLINGUAL Q5M PRN Chest Pain Pantoprazole Sodium 40 mg 09/14/18 07:30 09/14/18 06:48 Protonix PO 40 mg [id number] LIAT Administration Tramadol HCl 50 mg 09/13/18 21:29 Ultram PO QID PRN MODERATE Pain Objective - Vital Signs Vital signs: Vital Signs Temp 98.1 F 09/14/18 08:00 Pulse 59 L 09/14/18 08:00 Resp 16 09/14/18 08:00 BP 155/72 09/14/18 08:00 Pulse Ox 95 09/14/18 08:00 Intake & Output 09/13/18 09/14/18 09/14/18 18:59 06:59 18:59 Intake Total 259.506 414.073 154.516 Output Total 450 Balance 259.506 -35.927 154.516 Weight 93.5 kg 93.5 kg Intake: IV 10 Invasive Line 1 10 Intake, IV Titration 59.506 114.073 44.516 Amount Heparin Sod,Pork in 0.45% 59.506 114.073 44.516 NaCl 25,000 unit In 0.45 % NaCl 1 250ml.bag @ 10.4 UNITS/KG/HR 10.001 mls/ hr IV .Q24H [facility] Rx#: [id number] Oral 200 300 100 Output: Urine 450 Other: Voiding Method Urinal Urinal Urinal - Exam GENERAL: The patient is alert and oriented x3, not in any acute distress. Well developed, well nourished. -HEENT: Pupils are round and equally reacting to light. EOMI. No scleral icterus. No conjunctival pallor. Normocephalic, atraumatic. No pharyngeal erythema. No thyromegaly. dehydration CARDIOVASCULAR: S1 and S2 present. No murmurs, rubs, or gallops. PULMONARY: Chest is clear to auscultation, no wheezing or crackles. -ABDOMEN: Soft, mild lower abdominal tenderness, with left flank tenderness, no rebound tenderness, nondistended, normoactive bowel sounds. No palpable organomegaly. no tenderness at CVA angle MUSCULOSKELETAL: No joint swelling or deformity. EXTREMITIES: No cyanosis, clubbing, or pedal edema. NEUROLOGICAL: Gross neurological examination did not reveal any focal deficits. SKIN: No rashes. - Labs CBC & Chem 7: 09/14/18 07:22 09/13/18 09:00 Labs: Abnormal Lab Results - Last 24 Hours (Table) 09/13/18 09/13/18 09/13/18 Range/Units 09:00 09:00 09:00 WBC 18.1 H (3.8-10.6) k/uL Neutrophils # 16.5 H (1.3-7.7) k/uL Lymphocytes # 0.6 L (1.0-4.8) k/uL APTT (22.0-30.0) sec BUN 23 H (9-20) mg/dL Glucose 187 H (74-99) mg/dL Plasma Lactic Acid Billy 3.1 H* (0.7-2.0) mmol/L Troponin I (0.000-0.034) ng/mL Urine Protein (Negative) Urine Glucose (UA) (Negative) Urine Ketones (Negative) Urine Blood (Negative) Ur Leukocyte Esterase (Negative) Urine RBC (0-5) /hpf Urine WBC (0-5) /hpf Hyaline Casts (0-2) /lpf Urine Mucus (None) /hpf 09/13/18 09/13/18 09/13/18 Range/Units 09:00 09:14 14:17 WBC (3.8-10.6) k/uL Neutrophils # (1.3-7.7) k/uL Lymphocytes # (1.0-4.8) k/uL APTT (22.0-30.0) sec BUN (9-20) mg/dL Glucose (74-99) mg/dL Plasma Lactic Acid Billy (0.7-2.0) mmol/L Troponin I 0.371 H* 0.734 H* (0.000-0.034) ng/mL Urine Protein 1+ H (Negative) Urine Glucose (UA) Trace H (Negative) Urine Ketones Trace H (Negative) Urine Blood Moderate H (Negative) Ur Leukocyte Esterase Trace H (Negative) Urine RBC 18 H (0-5) /hpf Urine WBC 10 H (0-5) /hpf Hyaline Casts 4 H (0-2) /lpf Urine Mucus Rare H (None) /hpf 09/13/18 09/13/18 09/14/18 Range/Units 18:23 21:24 00:40 WBC (3.8-10.6) k/uL Neutrophils # (1.3-7.7) k/uL Lymphocytes # (1.0-4.8) k/uL APTT 42.3 H 70.6 H (22.0-30.0) sec BUN (9-20) mg/dL Glucose (74-99) mg/dL Plasma Lactic Acid Billy (0.7-2.0) mmol/L Troponin I 1.040 H* (0.000-0.034) ng/mL Urine Protein (Negative) Urine Glucose (UA) (Negative) Urine Ketones (Negative) Urine Blood (Negative) Ur Leukocyte Esterase (Negative) Urine RBC (0-5) /hpf Urine WBC (0-5) /hpf Hyaline Casts (0-2) /lpf Urine Mucus (None) /hpf 09/14/18 09/14/18 09/14/18 Range/Units 04:09 07:22 07:22 WBC 13.4 H (3.8-10.6) k/uL Neutrophils # 10.5 H (1.3-7.7) k/uL Lymphocytes # (1.0-4.8) k/uL APTT 60.7 H (22.0-30.0) sec BUN (9-20) mg/dL Glucose (74-99) mg/dL Plasma Lactic Acid Billy (0.7-2.0) mmol/L Troponin I 1.710 H* (0.000-0.034) ng/mL Urine Protein (Negative) Urine Glucose (UA) (Negative) Urine Ketones (Negative) Urine Blood (Negative) Ur Leukocyte Esterase (Negative) Urine RBC (0-5) /hpf Urine WBC (0-5) /hpf Hyaline Casts (0-2) /lpf Urine Mucus (None) /hpf Microbiology - Last 24 Hours (Table) 09/13/18 10:30 Urine Culture - Preliminary Urine,Voided Assessment and Plan Assessment: left hydronephrosis, with obstructive uropathy sepsis with leukocytosis and elevated lactic acid and tachycardia Acute urinary tract infection Kidney stone, on both sides abdominal painsecondary to above elevated troponin, concerning for non-STEMI Elevated lactic acid hypertension Hyperlipidemia History of GI bleed history of diverticular disease History of osteoarthritis chronic hemorrhoids Plan: this is a pleasant 82 years old male who presents with obstructive uropathy and sepsis. start patient on antibiotics ceftriaxone , continue with IV fluids, follow-up blood culture and urine culture. Continue with IV fluids and follow- up lactic acid showing its back to normal level. Urologist input is appreciated and they recommended to continue medical management. Cardiology following the patient will follow the recommendation. Continue with heparin drip and aspirin currently. Labs and medication were reviewed.. Continue same treatment. Continue with symptomatic treatment. Resume home medication. Monitor lytes and vitals. DVT and GI prophylaxis. Further recommendations of the clinical course of the patient DVT prophylaxis:heparin GI Prophylaxis: Pepcid PT/OT: Pending Prognosis is guarded
[2018-09-14] MEDS: LISINOPRIL 5 MG TAB PO SCH (08:41)
[2018-09-14] MEDS: FERROUS SULFATE 325 MG TAB PO SCH (08:41)
[2018-09-14] MEDS: CHOLECALCIFEROL 1,000 UNIT TAB PO SCH (08:42)
[2018-09-14 08:49] LABS: Calcium 9.5 mg/dL (8.4-10.2); Potassium 4.5 mmol/L (3.5-5.1)
[2018-09-14] MEDS ORDERED: ASPIRIN 325 MG TAB PO SCH (09:00)
[2018-09-14] MEDS ORDERED: NON FORMULARY DRUG (Omega-3 Fatty Acids/Fish Oil [Fish Oil 1,000 Mg Softgel] 1 CAP) PO SCH (09:00)
--- NOTE | 2018-09-14 11:49 | ECHOF ---
Referral Reason:EKG MEASUREMENTS -------- HEIGHT: 182.9 cm WEIGHT: 96.2 kg BP: 156/84 RVIDd: 3.1 cm (< 3.3) IVSd: 1.3 cm (0.6 - 1.1) LVIDd: 4.6 cm (3.9 - 5.3) LVPWd: 1.3 cm (0.6 - 1.1) IVSs: 2.1 cm LVIDs: 3.0 cm LVPWs: 1.8 cm LA Diam: 3.7 cm (2.7 - 3.8) LAESV Index (A-L): 26.85 ml/m Ao Diam: 3.2 cm (2.0 - 3.7) AV Cusp: 2.1 cm (1.5 - 2.6) MV EXCURSION: 18.438 mm (> 18.000) MV EF SLOPE: 61 mm/s (70 - 150) EPSS: 0.5 cm MV E Eulogio: 1.13 m/s MV DecT: 97 ms MV A Eulogio: 0.32 m/s MV E/A Ratio: 3.53 RAP: 5.00 mmHg RVSP: 29.49 mmHg FINDINGS -------- Sinus rhythm. This was a technically difficult study with suboptimal views. The left ventricular size is normal. There is mild concentric left ventricular hypertrophy. Overa ll left ventricular systolic function is normal with, an EF between 55 - 60 %. The right ventricle is normal in size. Normal LA size by volume 22+/-6 ml/m2. The right atrium is normal in size. 5 ml of Lumason was utilized for enhancement of images. Interatrial and interventricular septum intact. There is mild aortic valve sclerosis. Mild mitral annular calcification present. Mild mitral regurgitation is present. Mild tricuspid regurgitation present. Right ventricular systolic pressure is normal at < 35 mmHg. Trace/mild (physiologic) pulmonic regurgitation. The aortic root size is normal. IVC Not well visulized. Echo free space indicative of a pericardial fat pad. CONCLUSIONS -------- 1. Sinus rhythm. 2. This was a technically difficult study with suboptimal views. 3. The left ventricular size is normal. 4. There is mild concentric left ventricular hypertrophy. 5. Overall left ventricular systolic function is normal with, an EF between 55 - 60 %. 6. The right ventricle is normal in size. 7. Normal LA size by volume 22+/-6 ml/m2. 8. The right atrium is normal in size. 9. 5 ml of Lumason was utilized for enhancement of images. 10. Interatrial and interventricular septum intact. 11. There is mild aortic valve sclerosis. 12. Mild mitral annular calcification present. 13. Mild mitral regurgitation is present. 14. Mild tricuspid regurgitation present. 15. Right ventricular systolic pressure is normal at < 35 mmHg. 16. Trace/mild (physiologic) pulmonic regurgitation. 17. The aortic root size is normal. 18. IVC Not well visulized. 19. Echo free space indicative of a pericardial fat pad. [employer] SPECIALIST: Elaine Muñoz RDCS
[2018-09-14] MEDS: MORPHINE SULFATE 4 MG/ML SYRINGE IV PRN ×2 (12:04→16:30)
--- NOTE | 2018-09-14 15:11 | P.PN ---
Subjective Progress Note Date: 09/14/18 This is a pleasant 82-year-old gentleman admitted to the hospital with symptoms of lower abdominal discomfort in the left lower quadrant area which started last evening. On presentation he rated the pain 8 out of 10, he also was complaining of some urinary frequency and urgency. He presented to the hospital for further evaluation. No gross hematuria. His white blood cell count was 18,000, BUN 23, creatinine 1.0, urinalysis showed microscopic hematuria. CT of the abdomen and pelvis with IV contrast identified a 3-3.5 mm distal ureteral calculus with mild to moderate left hydronephrosis. A 1-1.5 mm nonobstructive calculus was also noted in the lower pole of the right kidney. In addition to the above the patient was noted to have abnormality in troponin for which cardiology consultation was requested. His lactic acid was also 3.1. According to the patient, his pain dissipated quite a bit through the night last night however at the time of my examination this afternoon he again complains of significant pain in that left lower quadrant area. EKG shows a sinus tachycardia with a right bundle branch block pattern and left anterior fascicular block. Echo cardiac gram with Doppler study was performed which revealed a normal left ventricular systolic function. Blood pressure this morning 155/70 with a heart rate of 60, 95% on room air. White blood cell count 13.4, hemoglobin 13.8, platelet count 209. Sodium 140, potassium 4.5, BUN 24 and creatinine 1.4. Troponins 0.37, 0.73, 1.04, 1.7. Patient denies having any chest discomfort prior to coming to the hospital or at the time of my examination today, his breathing is overall stable. Objective - Vital Signs Vital signs: Vital Signs Temp 98.1 F 09/14/18 08:00 Pulse 60 09/14/18 11:43 Resp 16 09/14/18 11:43 BP 155/72 09/14/18 08:00 Pulse Ox 97 09/14/18 14:00 Intake & Output 09/13/18 09/14/18 09/14/18 18:59 06:59 18:59 Intake Total 259.506 414.073 814.516 Output Total 450 200 Balance 259.506 -35.927 614.516 Weight 93.5 kg 93.5 kg Intake: IV 670 Invasive Line 1 20 Sodium Chloride 0.9% 1, 600 000 ml @ 75 mls/hr IV . [id number] [facility] Rx#:[id number] cefTRIAXone 1 gm In 50 Sodium Chloride 0.9% 50 ml @ 100 mls/hr IVPB Q24HR [facility] Rx#:[id number] Intake, IV Titration 59.506 114.073 44.516 Amount Heparin Sod,Pork in 0.45% 59.506 114.073 44.516 NaCl 25,000 unit In 0.45 % NaCl 1 250ml.bag @ 10.4 UNITS/KG/HR 10.001 mls/ hr IV .Q24H [facility] Rx#: [id number] Oral 200 300 100 Output: Urine 450 200 Other: Voiding Method Urinal Urinal Urinal - Exam PHYSICAL EXAMINATION: GENERAL: 82-year-old gentleman in no acute distress at the time of my examination HEENT: Head is atraumatic, normocephalic. Pupils equal, round. Sclera anicteric. Conjunctiva are clear. Mucous membranes of the mouth are moist. Neck is supple. There is no elevated jugular venous pressure. No carotid bruit is heard. HEART EXAMINATION: Heart S1, S2 normal. No murmur or gallop heard. CHEST EXAMINATION: Lungs are clear to auscultation and precussion. No chest wall tenderness is noted on palpation or with deep breathing. ABDOMEN: Soft, left lower quadrant tenderness. Bowel sounds are heard. No organomegaly noted. EXTREMITIES: 2+ peripheral pulses with no evidence of peripheral edema and no calf tenderness noted. NEUROLOGIC patient is awake, alert and oriented 3 . . - Labs CBC & Chem 7: 09/14/18 07:22 09/14/18 07:22 Labs: Abnormal Lab Results - Last 24 Hours (Table) 09/13/18 09/13/18 09/13/18 Range/Units 14:17 18:23 21:24 WBC (3.8-10.6) k/uL Neutrophils # (1.3-7.7) k/uL APTT 42.3 H (22.0-30.0) sec BUN (9-20) mg/dL Creatinine (0.66-1.25) mg/dL Troponin I 0.734 H* 1.040 H* (0.000-0.034) ng/mL 09/14/18 09/14/18 09/14/18 Range/Units 00:40 04:09 07:22 WBC 13.4 H (3.8-10.6) k/uL Neutrophils # 10.5 H (1.3-7.7) k/uL APTT 70.6 H (22.0-30.0) sec BUN (9-20) mg/dL Creatinine (0.66-1.25) mg/dL Troponin I 1.710 H* (0.000-0.034) ng/mL 09/14/18 09/14/18 Range/Units 07:22 07:22 WBC (3.8-10.6) k/uL Neutrophils # (1.3-7.7) k/uL APTT 60.7 H (22.0-30.0) sec BUN 24 H (9-20) mg/dL Creatinine 1.46 H (0.66-1.25) mg/dL Troponin I (0.000-0.034) ng/mL Microbiology - Last 24 Hours (Table) 09/13/18 11:09 Blood Culture - Preliminary Blood No Growth after 24 hours 09/13/18 10:30 Urine Culture - Final Urine,Voided Assessment and Plan Plan: Assessment and plan #1 abdominal pain with a evidence of left ureteral calculus #2 abnormality in troponin, could be secondary to tachycardia and hypertension, cannot completely rule out underlying coronary artery disease in this 82-year-old gentleman. Patient denied having any chest discomfort, EKG shows a sinus tachycardia with a right bundle branch block pattern and left anterior fascicular block. #3 hypertension #4 hyperlipidemia #5 GERD Plan EchoCardiogram with Doppler study revealed a normal left ventricular systolic function. Once the patient is stable from his ureteral calculus perspective, he will require further cardiac testing in the form of stress test or heart ca theterization. We'll continue IV heparin for 24 hours, continue baby aspirin, statin, lisinopril, add a small dose beta ac. Further recommendations to follow. DNP note has been reviewed, I agree with a documented findings and plan of care. Patient was seen and examined.
--- NOTE | 2018-09-14 19:53 | P.PN ---
Progress Note - Text Progress Note Date: 09/14/18 The patient is afebrile. He denies chest pain however his troponin has risen progressively since he was admitted. He continues to have some left lower quadrant pain however this is much less in intensity than it was at the time of his admission. He continues to have urinary frequency and urgency. BUN/creatinine are 24/1.46. The patient's left lower quadrant pain and urgency appeared to be related to the small calculus in the distal left ureter. Urine culture has grown less than 50,000 colonies of skin contaminants and so his antibiotics can be discontinued. If the patient's pain remains mild I believe that further observation would be reasonable as there is a greater than 70% likelihood that the patient will spontaneously pass the stone. If his pain worsens then ureteroscopy with lithotripsy under general anesthesia could be set up provided that the patient is not felt to have any cardiac issue which would increase his risk.
[2018-09-14] MEDS ORDERED: METOPROLOL TARTRATE 25 MG TAB PO SCH (21:00)
[2018-09-14] MEDS: ATORVASTATIN 10 MG TAB PO SCH (21:54)
[2018-09-14] MEDS: METOPROLOL TARTRATE 12.5 MG TAB PO SCH (21:54)
[2018-09-15] MEDS: HEPARIN SOD,PORK IN 0.45% NACL 25,000 UNIT in 0.45% NACL 1 250ML.BAG IV SCH (01:36)
[2018-09-15 07:54] LABS: Basophils # (A) 0.1 k/uL (0-0.2); Basophils % (A) 0 %; Eosinophils % (A) 0 %; HCT 38.2 % (39.0-53.0); HGB 12.4 gm/dL (13.0-17.5); Lymphocytes # (A) 1.4 k/uL (1.0-4.8); Lymphocytes % (A) 12 %; MCH 29.5 pg (25.0-35.0); MCHC 32.5 g/dL (31.0-37.0); MCV 90.8 fL (80.0-100.0); Mean Platelet Volume 8.5; Monocytes # (A) 0.8 k/uL (0-1.0); Monocytes % (A) 7 %; Neutrophils # (A) 9.4 k/uL (1.3-7.7); Neutrophils % (A) 79 %; Platelet Count 190 k/uL (150-450); RBC 4.21 m/uL (4.30-5.90); RDW 14.4 % (11.5-15.5); WBC 11.9 k/uL (3.8-10.6)
[2018-09-15 07:59] LABS: Calcium 9.2 mg/dL (8.4-10.2); Potassium 4.1 mmol/L (3.5-5.1)
--- NOTE | 2018-09-15 08:05 | P.PN ---
Subjective this is a pleasant 82 years old male with past medical history ofGI bleed, status post colonoscopy in 01/2016, diverticular disease, hemorrhoids, os teoarthritis, hypertension, hyperlipidemia, GERD, Status post colonoscopy on 01/2016 whopresents with abdominal painof one-day duration, the pain mainly in the lower abdomen about 8/10 in both sides, more on the left side, nonradiating, with 8/10 in severity, relieved with pain medication down to 2/10, associated with polyuria but no dysuria. He also has nausea and vomited 8 times with no blood in it although he wasn't sure. He had no chest pain or dyspnea, no dizziness, he has chronic cough with mucous phlegm 4 months. On admission patient is moderately tachycardic at 102, blood pressure 161/80, saturating 99% on 2 L and he is afebrile. labs reviewed showing leukocytosis of 18.1, hemoglobin 15.6,creatinine is normal at 1.0, electrolytes within normal limits and lactic acid is elevated at 3.1, troponin is elevated at 0.37.urinalysis is suspicious for infection. EKG showing wide QRS with right bundle branch block, sinus rhythm at 108, with QTC 469.CAT scan of the abdomen and pelvis showing distal left ureteral stone of 3 mm with moderate left-sided hydronephrosis. And nonobstructive calculus on the right side 09/14/2018 Patient is awake, Patient admitted yesterday with UTI and renal colic secondary to left renal stones and hydronephrosis. Patient has been evaluated by Dr. Bob and he thinks that the stone has pattern is going to pass on. Patient did be cleared by neurology for discharge soon. Patient is to have episodic renal colic in his lower abdomen this morning. No dysuria or change in urinary frequency. No nausea or vomiting. However patient still been treated with IV antibiotics for UTI and he is on heparin drip for elevated troponin. Cardiology team are following the patient closely. Patient denies chest pain or dyspnea this morning. Patient is hemodynamically stable and is afebrile. Left showing improving leukocytosis come to 16.4 K. Troponin is 0.7, 1.0 and 1.7. 09/15/2018 Patient lying in bed feeling better. No chest pain or dyspnea. No abdominal pain. His flank pain has been resolved since yesterday. There is no stone passed and noticed in the urine however he has some bloody urine while he is on heparin drip. He is hemodynamically stable and blood pressure 136/72 and heart rate 72 after starting low-dose metoprolol yesterday. Leukocytosis improvement of 11.9 K, hemoglobin 12.4 and creatinine back to normal at 1.0. We will discontinue the ceftriaxone suspicion is been afebrile and urine culture showing only normal skin wanda. Patient is still on heparin drip for his possible non- STEMI. Cardiology team R following the case closely. Patient will require cardiac workup once his urology problem stabilized. Review of systems CONSTITUTIONAL: No fever, no malaise, no fatigue. HEENT: No recent visual problems or hearing problems. Denied any sore throat. CARDIOVASCULAR: No orthopnea, PND, no palpitations, no syncope. PULMONARY: No shortness of breath, no cough, no hemoptysis. GASTROINTESTINAL: No diarrhea, no nausea, no vomiting, no abdominal pain. Normoactive bowel sounds. NEUROLOGICAL: No headaches, no weakness, no numbness. HEMATOLOGICAL: Denies any bleeding or petechiae. GENITOURINARY: Denies any burning micturition, frequency, or urgency. MUSCULOSKELETAL/RHEUMATOLOGICAL: Denies any joint pain, swelling, or any muscle pain. ENDOCRINE: Denies any polyuria or polydipsia. Active Medications Generic Name Dose Route Start Last Admin Trade Name Freq PRN Reason Stop Dose Admin Acetaminophen 650 mg 09/13/18 21:11 09/14/18 04:01 Tylenol Tab PO 650 mg Q6HR PRN Administration Fever and/ or MILD Pain Aspirin 325 mg 09/14/18 09:00 Aspirin PO DAILY [facility] Atorvastatin Calcium 10 mg 09/13/18 21:00 09/13/18 21:06 Lipitor PO 10 mg HS [facility] Administration Cholecalciferol 1,000 unit 09/14/18 09:00 Vitamin D3 (25 Mcg = 1000 Iu) PO DAILY [facility] Ferrous Sulfate 325 mg 09/14/18 09:00 Feosol PO DAILY [facility] Heparin Sodium (Porcine) 0 unit 09/13/18 19:02 09/13/18 19:07 Heparin IV 2,337.5 unit PER PROTOCOL PRN Administration Low PTT Protocol Heparin Sodium/Sodium Chloride 250 mls @ 10.001 mls/hr 09/13/18 11:45 09/14/18 08:16 25,000 unit/ Sodium Chloride IV 12.4 units/kg/hr .Q24H [facility] 11.924 mls/hr Titration Protocol 10.4 UNITS/KG/HR Sodium Chloride 1,000 mls @ 75 mls/hr 09/13/18 11:45 09/14/18 07:41 Saline 0.9% IV Not Given .[id number] [facility] Ceftriaxone Sodium 1 gm/ 50 mls @ 100 mls/hr 09/14/18 09:00 Sodium Chloride IVPB Q24HR [facility] Lisinopril 5 mg 09/14/18 09:00 Zestril PO DAILY [facility] Morphine Sulfate 4 mg 09/13/18 11:34 09/13/18 12:59 Morphine Sulfate (Inj) IV 4 mg Q4HR PRN Administration Pain Nitroglycerin 0.4 mg 09/13/18 11:34 Nitrostat SUBLINGUAL Q5M PRN Chest Pain Pantoprazole Sodium 40 mg 09/14/18 07:30 09/14/18 06:48 Protonix PO 40 mg [id number] [facility] Administration Tramadol HCl 50 mg 09/13/18 21:29 Ultram PO QID PRN MODERATE Pain Objective - Vital Signs Vital signs: Vital Signs Temp 98 F 09/15/18 04:00 Pulse 72 09/15/18 04:00 Resp 16 09/15/18 04:00 BP 134/72 09/15/18 04:00 Pulse Ox 97 09/15/18 04:00 Intake & Output 09/14/18 09/15/18 09/15/18 18:59 06:59 18:59 Intake Total 924.516 405.484 Output Total 650 500 Balance 274.516 -94.516 Weight 93.4 kg Intake: IV 680 Invasive Line 1 20 Invasive Line 2 10 Sodium Chloride 0.9% 1, 600 000 ml @ 75 mls/hr IV . [id number] [facility] Rx#:[id number] cefTRIAXone 1 gm In 50 Sodium Chloride 0.9% 50 ml @ 100 mls/hr IVPB Q24HR [facility] Rx#:[id number] Intake, IV Titration 44.516 205.484 Amount Heparin Sod,Pork in 0.45% 44.516 205.484 NaCl 25,000 unit In 0.45 % NaCl 1 250ml.bag @ 10.4 UNITS/KG/HR 10.001 mls/ hr IV .Q24H [facility] Rx#: [id number] Oral 200 200 Output: Urine 650 500 Other: Voiding Method Urinal Urinal # Voids 1 1 - Exam GENERAL: The patient is alert and oriented x3, not in any acute distress. Well developed, well nourished. -HEENT: Pupils are round and equally reacting to light. EOMI. No scleral icterus. No conjunctival pallor. Normocephalic, atraumatic. No pharyngeal erythema. No thyromegaly. dehydration CARDIOVASCULAR: S1 and S2 present. No murmurs, rubs, or gallops. PULMONARY: Chest is clear to auscultation, no wheezing or crackles. -ABDOMEN: Soft, mild lower abdominal tenderness, with left flank tenderness, no rebound tenderness, nondistended, normoactive bowel sounds. No palpable organomegaly. no tenderness at CVA angle MUSCULOSKELETAL: No joint swelling or deformity. EXTREMITIES: No cyanosis, clubbing, or pedal edema. NEUROLOGICAL: Gross neurological examination did not reveal any focal deficits. SKIN: No rashes. - Labs CBC & Chem 7: 09/15/18 06:27 09/15/18 06:27 Labs: Abnormal Lab Results - Last 24 Hours (Table) 09/14/18 09/14/18 09/15/18 Range/Units 07:22 07:22 06:27 WBC 11.9 H (3.8-10.6) k/uL RBC 4.21 L (4.30-5.90) m/uL Hgb 12.4 L (13.0-17.5) gm/dL Hct 38.2 L (39.0-53.0) % Neutrophils # 9.4 H (1.3-7.7) k/uL APTT 60.7 H (22.0-30.0) sec BUN 24 H (9-20) mg/dL Creatinine 1.46 H (0.66-1.25) mg/dL 09/15/18 09/15/18 Range/Units 06:27 06:27 WBC (3.8-10.6) k/uL RBC (4.30-5.90) m/uL Hgb (13.0-17.5) gm/dL Hct (39.0-53.0) % Neutrophils # (1.3-7.7) k/uL APTT 52.5 H (22.0-30.0) sec BUN 23 H (9-20) mg/dL Creatinine (0.66-1.25) mg/dL Microbiology - Last 24 Hours (Table) 09/13/18 11:09 Blood Culture - Preliminary Blood No Growth after 24 hours 09/13/18 10:30 Urine Culture - Final Urine,Voided Assessment and Plan Assessment: left hydronephrosis, with obstructive uropathy sepsis with leukocytosis and elevated lactic acid and tachycardia. Improving Acute urinary tract infection. Resolved Kidney stone, on both sides abdominal painsecondary to above. Resolved elevated troponin, concerning for non-STEMI Elevated lactic acid hypertension Hyperlipidemia History of GI bleed history of diverticular disease History of osteoarthritis chronic hemorrhoids Plan: this is a pleasant 82 years old male who presents with obstructive uropathy and sepsis. DC antibiotics ceftriaxone for negative urine culture. Continue with IV fluids . Urologist input is appreciated and they recommended to continue medica l management. Cardiology following the patient will follow the recommendation. Patient will need cartilage workup was his urological problem resolved. Mostly we will discontinue heparin drip and continue with aspirin currently. Labs and medication were reviewed.. Continue same treatment. Continue with symptomatic treatment. Resume home medication. Monitor lytes and vitals. DVT and GI prophylaxis. Further recommendations of the clinical course of the patient DVT prophylaxis:heparin GI Prophylaxis: Pepcid Prognosis is guarded
--- NOTE | 2018-09-15 09:18 | PN ---
PROGRESS NOTE Klaus is an 82-year-old gentleman who was admitted to hospital with abdominal pain secondary to urinary calculus and Cardiology had been consulted because of mildly elevated troponin. The patient does not have any cardiac symptoms. His peak troponin was 1.7, which started off at 0.3, went up to 1 and 1.7. This morning patient appears comfortable at rest. White cell count is coming down. His echocardiogram shows normal LV systolic function. Creatinine has improved to 1. He does not have any cardiac symptoms. PHYSICAL EXAMINATION: On exam, patient is comfortable at rest. Vital signs are stable. There is no jugular venous distention. Chest exam reveals good air entry bilaterally. Heart exam reveals first and second heart sounds. No gallop. No murmur. Abdomen is soft, nontender. Examination of extremities did not reveal any edema. Peripheral pulses are felt. ASSESSMENT: 1. Non ST-segment elevation myocardial infarction. 2. Urinary calculus. 3. Renal insufficiency. PLAN: The patient had a non ST-segment elevation NC on this admission but he never had any chest pain or difficulty in breathing. Echo looks. He will need invasive angiography, but I will wait until his white cell count improves and his creatinine gets better. We may do this over the weekend or if he is still here on Tuesday or this can even be done in the outpatient setting. MMODL / IJN: [id number] /
[2018-09-15] MEDS: SODIUM CHLORIDE 0.9% 1,000 ML IV SCH ×2 (09:20→16:07)
[2018-09-15] MEDS: ASPIRIN 81 MG PO SCH (09:23)
[2018-09-15] MEDS: CHOLECALCIFEROL 1,000 UNIT TAB PO SCH (09:23)
[2018-09-15] MEDS: PANTOPRAZOLE 40 MG TABLET PO SCH (09:23)
[2018-09-15] MEDS: LISINOPRIL 5 MG TAB PO SCH (09:23)
[2018-09-15] MEDS: FERROUS SULFATE 325 MG TAB PO SCH (09:24)
[2018-09-15] MEDS: METOPROLOL TARTRATE 12.5 MG TAB PO SCH ×2 (10:22→21:10)
--- NOTE | 2018-09-15 13:24 | CDI ---
Documentation Clarification Form Date: 09/15/2018 12:48:11 PM From: Nory Norton Phone: '[phone] Admit Date: 09/13/2018 11:34:00 AM Patient Name: Klaus Ni Visit Number: [id number] Discharge Date: ATTENTION: The Clinical Documentation Specialists (CDI) and [employer] Coding Staff appreciate your assistance in clarifying documentation. Please respond to the clarification below the line at the bottom and electronically sign. The CDI & [employer] Coding staff will review the response and follow-up if needed. Please note: Queries are made part of the Legal Health Record. If you have any questions, please contact the author of this message via ITS. Dr. Rg Miramontes Myocardial infarction is documented in your progress note 09/15/2018 Patient History/Risk Factors: 82 year old male presents to the ED with nausea, vomiting and diarrhea. Medical history Gerd, Gi blee, hyperlipidemia , HTN OA, Diverticular disease Clinical Indicators: Troponin: 0.371; 0.734; 1.040; 1.710; EKG Results: Wide QRS rhythm, Right bundle branch block , Left anterior fascicular block Treatment: Heparin ivpb , Nitrostat, Lopressor, Baby Aspirin In order to capture the severity of condition and necessary documentation specificity, please clarify: Type 1 NSTEMI Type 2 NSTEMI ( due to demand ischemia or secondary to ischemic imbalance) Nstemi ruled out Unable to determine Other, please specify (Last Revision: November 2016) MTDD
[2018-09-15] MEDS: ATORVASTATIN 10 MG TAB PO SCH (21:10)
[2018-09-16] MEDS: amLODIPine 5 MG TAB PO SCH ×2 (00:52→08:41)
[2018-09-16] MEDS ORDERED: MELATONIN 3 MG TABLET PO ONE (00:57)
[2018-09-16] MEDS: SODIUM CHLORIDE 0.9% 1,000 ML IV SCH (06:38)
[2018-09-16] MEDS: PANTOPRAZOLE 40 MG TABLET PO SCH (06:40)
[2018-09-16 06:43] LABS: Basophils # (A) 0.1 k/uL (0-0.2); Basophils % (A) 1 %; Eosinophils # (A) 0.1 k/uL (0-0.7); Eosinophils % (A) 1 %; HCT 36.7 % (39.0-53.0); HGB 11.8 gm/dL (13.0-17.5); Lymphocytes # (A) 1.6 k/uL (1.0-4.8); Lymphocytes % (A) 18 %; MCV 90.6 fL (80.0-100.0); Mean Platelet Volume 7.9; Monocytes # (A) 0.5 k/uL (0-1.0); Monocytes % (A) 6 %; Neutrophils # (A) 6.4 k/uL (1.3-7.7); Neutrophils % (A) 73 %; Platelet Count 190 k/uL (150-450); RBC 4.05 m/uL (4.30-5.90); RDW 13.3 % (11.5-15.5); WBC 8.8 k/uL (3.8-10.6)
[2018-09-16 07:18] LABS: African American GFR (CKD) >90 (>60 ml/min/1.73 sqM); Anion Gap 5 mmol/L; Blood Urea Nitrogen 25 mg/dL (9-20); Calcium 9.3 mg/dL (8.4-10.2); Carbon Dioxide 29 mmol/L (22-30); Chloride 107 mmol/L (98-107); Glucose 81 mg/dL (74-99); Non-African American GFR(CKD) 87 (>60 ml/min/1.73 sqM); Potassium 3.7 mmol/L (3.5-5.1); Sodium 141 mmol/L (137-145)
[2018-09-16] MEDS: CHOLECALCIFEROL 1,000 UNIT TAB PO SCH (08:41)
[2018-09-16] MEDS: LISINOPRIL 5 MG TAB PO SCH (08:41)
[2018-09-16] MEDS: METOPROLOL TARTRATE 12.5 MG TAB PO SCH ×2 (08:41→21:39)
[2018-09-16] MEDS: FERROUS SULFATE 325 MG TAB PO SCH (08:41)
[2018-09-16] MEDS: ASPIRIN 81 MG PO SCH (08:41)
[2018-09-16] MEDS ORDERED: NITROGLYCERIN SL TABS 0.4 MG TAB SUBLINGUAL PRN (10:52)
[2018-09-16] MEDS ORDERED: ALPRAZolam 0.5 MG TAB PO PRN (10:52)
[2018-09-16] MEDS ORDERED: SODIUM CHLORIDE 0.9% 1,000 ML in EMPTY BAG 1 BAG IV ONE (10:52)
[2018-09-16] MEDS ORDERED: ASPIRIN 325 MG TAB PO STA (10:52)
[2018-09-16] MEDS ORDERED: ALPRAZolam 0.25 MG TAB PO PRN (10:52)
[2018-09-16] MEDS ORDERED: ATORVASTATIN 80 MG TAB PO STA (10:52)
--- NOTE | 2018-09-16 10:52 | P.PN ---
Subjective Progress Note Date: 09/16/18 This is a pleasant 82-year-old gentleman admitted to the hospital with symptoms of lower abdominal discomfort in the left lower quadrant area which started last evening. On presentation he rated the pain 8 out of 10, he also was complaining of some urinary frequency and urgency. He presented to the hospital for further evaluation. No gross hematuria. His white blood cell count was 18,000, BUN 23, creatinine 1.0, urinalysis showed microscopic hematuria. CT of the abdomen and pelvis with IV contrast identified a 3-3.5 mm distal ureteral calculus with mild to moderate left hydronephrosis. A 1-1.5 mm nonobstructive calculus was also noted in the lower pole of the right kidney. In addition to the above the patient was noted to have abnormality in troponin for which cardiology consultation was requested. His lactic acid was also 3.1. According to the patient, his pain dissipated quite a bit through the night last night however at the time of my examination this afternoon he again complains of significant pain in that left lower quadrant area. EKG shows a sinus tachycardia with a right bundle branch block pattern and left anterior fascicular block. Echo cardiac gram with Doppler study was performed which revealed a normal left ventricular systolic function. Blood pressure this morning 155/70 with a heart rate of 60, 95% on room air. White blood cell count 13.4, hemoglobin 13.8, platelet count 209. Sodium 140, potassium 4.5, BUN 24 and creatinine 1.4. Troponins 0.37, 0.73, 1.04, 1.7. Patient denies having any chest discomfort prior to coming to the hospital or at the time of my examination today, his breathing is overall stable. 09/16/2018 Patient seen and examined this morning, overall feeling considerably better. Denies any further abdominal discomfort. It does appear that the patient has past 2 kidney stones. His white blood cell count this morning is 8.8, hemoglobin 11.8, platelet count 190, sodium 141, potassium 3.7, BUN 25 and creatinine 0.7. Blood pressure this morning 170/70 with a heart rate of 60, 99% on room air. Objective - Vital Signs Vital signs: Vital Signs Temp 98 F 09/16/18 08:30 Pulse 47 L 09/16/18 08:30 Resp 18 09/16/18 08:35 BP 174/73 09/16/18 08:30 Pulse Ox 99 09/16/18 08:30 Intake & Output 09/15/18 09/16/18 09/16/18 18:59 06:59 18:59 Intake Total 1807.014 800 240 Output Total 575 Balance 1807.014 225 240 Weight 92.3 kg Intake: IV 600 Sodium Chloride 0.9% 1, 600 000 ml @ 40 mls/hr IV . Q24H [facility] Rx#:[id number] Intake, IV Titration 167.014 Amount Heparin Sod,Pork in 0.45% 92.014 NaCl 25,000 unit In 0.45 % NaCl 1 250ml.bag @ 10.4 UNITS/KG/HR 10.001 mls/ hr IV .Q24H [facility] Rx#: [id number] Sodium Chloride 0.9% 1, 75 000 ml @ 40 mls/hr IV . Q24H [facility] Rx#:[id number] Oral 1040 800 240 Output: Urine 575 Other: Voiding Method Urinal Urinal Urinal - Exam PHYSICAL EXAMINATION: GENERAL: 82-year-old gentleman in no acute distress at the time of my examination HEENT: Head is atraumatic, normocephalic. Pupils equal, round. Sclera anicteric. Conjunctiva are clear. Mucous membranes of the mouth are moist. Neck is supple. There is no elevated jugular venous pressure. No carotid bruit is heard. HEART EXAMINATION: Heart S1, S2 normal. No murmur or gallop heard. CHEST EXAMINATION: Lungs are clear to auscultation and precussion. No chest wall tenderness is noted on palpation or with deep breathing. ABDOMEN: Soft, no abdominal tenderness, bowel sounds are heard EXTREMITIES: 2+ peripheral pulses with no evidence of peripheral edema and no calf tenderness noted. NEUROLOGIC patient is awake, alert and oriented 3 . . - Labs CBC & Chem 7: 09/16/18 05:36 09/16/18 05:36 Labs: Abnormal Lab Results - Last 24 Hours (Table) 09/16/18 09/16/18 Range/Units 05:36 05:36 RBC 4.05 L (4.30-5.90) m/uL Hgb 11.8 L (13.0-17.5) gm/dL Hct 36.7 L (39.0-53.0) % BUN 25 H (9-20) mg/dL Microbiology - Last 24 Hours (Table) 09/13/18 11:09 Blood Culture - Preliminary Blood No Growth after 48 hours Assessment and Plan Plan: Assessment and plan #1 abdominal pain with a evidence of left ureteral calculus #2 abnormality in troponin, could be secondary to tachycardia and hypertension, cannot completely rule out underlying coronary artery disease in this 82-year-old gentleman. Patient denied having any chest discomfort, EKG shows a sinus tachycardia with a right bundle branch block pattern and left anterior fascicular block. #3 hypertension #4 hyperlipidemia #5 GERD Plan EchoCardiogram with Doppler study revealed a normal left ventricular systolic function. From cardiology's perspective, we'll continue with current medications at this time. Patient will be scheduled to undergo cardiac catheterization on Tuesday. The risks and the benefits were explained to the patient in detail as his family members. DNP note has been reviewed, I agree with a documented findings and plan of care. Patient was seen and examined.
--- NOTE | 2018-09-16 11:19 | P.PN ---
Subjective this is a pleasant 82 years old male with past medical history ofGI bleed, status post colonoscopy in 01/2016, diverticular disease, hemorrhoids, os teoarthritis, hypertension, hyperlipidemia, GERD, Status post colonoscopy on 01/2016 whopresents with abdominal painof one-day duration, the pain mainly in the lower abdomen about 8/10 in both sides, more on the left side, nonradiating, with 8/10 in severity, relieved with pain medication down to 2/10, associated with polyuria but no dysuria. He also has nausea and vomited 8 times with no blood in it although he wasn't sure. He had no chest pain or dyspnea, no dizziness, he has chronic cough with mucous phlegm 4 months. On admission patient is moderately tachycardic at 102, blood pressure 161/80, saturating 99% on 2 L and he is afebrile. labs reviewed showing leukocytosis of 18.1, hemoglobin 15.6,creatinine is normal at 1.0, electrolytes within normal limits and lactic acid is elevated at 3.1, troponin is elevated at 0.37.urinalysis is suspicious for infection. EKG showing wide QRS with right bundle branch block, sinus rhythm at 108, with QTC 469.CAT scan of the abdomen and pelvis showing distal left ureteral stone of 3 mm with moderate left-sided hydronephrosis. And nonobstructive calculus on the right side 09/14/2018 Patient is awake, Patient admitted yesterday with UTI and renal colic secondary to left renal stones and hydronephrosis. Patient has been evaluated by Dr. Bob and he thinks that the stone has pattern is going to pass on. Patient did be cleared by neurology for discharge soon. Patient is to have episodic renal colic in his lower abdomen this morning. No dysuria or change in urinary frequency. No nausea or vomiting. However patient still been treated with IV antibiotics for UTI and he is on heparin drip for elevated troponin. Cardiology team are following the patient closely. Patient denies chest pain or dyspnea this morning. Patient is hemodynamically stable and is afebrile. Left showing improving leukocytosis come to 16.4 K. Troponin is 0.7, 1.0 and 1.7. 09/15/2018 Patient lying in bed feeling better. No chest pain or dyspnea. No abdominal pain. His flank pain has been resolved since yesterday. There is no stone passed and noticed in the urine however he has some bloody urine while he is on heparin drip. He is hemodynamically stable and blood pressure 136/72 and heart rate 72 after starting low-dose metoprolol yesterday. Leukocytosis improvement of 11.9 K, hemoglobin 12.4 and creatinine back to normal at 1.0. We will discontinue the ceftriaxone suspicion is been afebrile and urine culture showing only normal skin wanda. Patient is still on heparin drip for his possible non- STEMI. Cardiology team R following the case closely. Patient will require cardiac workup once his urology problem stabilized. 09/16/2018 Patient is doing well clinically with no chest pain or dyspnea, fully awake. His urinary symptoms have resolved as well as his lower abdominal pain. His urine is bacterial color again with no urinary symptoms. Patient still is a little weak and is pending cardiac cath. Discussed the case with cardiology team possible cardiac cath on Tuesday. Patient is complaining of from insomnia he wants something for sleep. increased melatonin 3 to 6 mg edges Objective - Vital Signs Vital signs: Vital Signs Temp 98 F 09/16/18 08:30 Pulse 47 L 09/16/18 08:30 Resp 18 09/16/18 08:35 BP 174/73 09/16/18 08:30 Pulse Ox 99 09/16/18 08:30 Intake & Output 09/15/18 09/16/18 09/16/18 18:59 06:59 18:59 Intake Total 1807.014 800 240 Output Total 575 Balance 1807.014 225 240 Weight 92.3 kg Intake: IV 600 Sodium Chloride 0.9% 1, 600 000 ml @ 40 mls/hr IV . Q24H LIAT Rx#:[id number] Intake, IV Titration 167.014 Amount Heparin Sod,Pork in 0.45% 92.014 NaCl 25,000 unit In 0.45 % NaCl 1 250ml.bag @ 10.4 UNITS/KG/HR 10.001 mls/ hr IV .Q24H LIAT Rx#: [id number] Sodium Chloride 0.9% 1, 75 000 ml @ 40 mls/hr IV . Q24H LIAT Rx#:[id number] Oral 1040 800 240 Output: Urine 575 Other: Voiding Method Urinal Urinal Urinal - Exam GENERAL: The patient is alert and oriented x3, not in any acute distress. Well developed, well nourished. -HEENT: Pupils are round and equally reacting to light. EOMI. No scleral icterus. No conjunctival pallor. Normocephalic, atraumatic. No pharyngeal erythema. No thyromegaly. dehydration CARDIOVASCULAR: S1 and S2 present. No murmurs, rubs, or gallops. PULMONARY: Chest is clear to auscultation, no wheezing or crackles. -ABDOMEN: Soft, mild lower abdominal tenderness, with left flank tenderness, no rebound tenderness, nondistended, normoactive bowel sounds. No palpable organomegaly. no tenderness at CVA angle MUSCULOSKELETAL: No joint swelling or deformity. EXTREMITIES: No cyanosis, clubbing, or pedal edema. NEUROLOGICAL: Gross neurological examination did not reveal any focal deficits. SKIN: No rashes. - Labs CBC & Chem 7: 09/16/18 05:36 09/16/18 05:36 Labs: Abnormal Lab Results - Last 24 Hours (Table) 09/16/18 09/16/18 Range/Units 05:36 05:36 RBC 4.05 L (4.30-5.90) m/uL Hgb 11.8 L (13.0-17.5) gm/dL Hct 36.7 L (39.0-53.0) % BUN 25 H (9-20) mg/dL Microbiology - Last 24 Hours (Table) 09/13/18 11:09 Blood Culture - Preliminary Blood No Growth after 48 hours Assessment and Plan Assessment: left hydronephrosis, with obstructive uropathy sepsis with leukocytosis and elevated lactic acid and tachycardia. Improving Acute urinary tract infection. Resolved Kidney stone, on both sides abdominal painsecondary to above. Resolved elevated troponin, concerning for non-STEMI Elevated lactic acid hypertension Hyperlipidemia History of GI bleed history of diverticular disease History of osteoarthritis chronic hemorrhoids Plan: this is a pleasant 82 years old male who presents with obstructive uropathy and sepsis. DC antibiotics ceftriaxone for negative urine culture. . Urologist input is appreciated and they recommended to continue medical management. Cardiology following the patient will follow the recommendation. Patient will need cardiac cath on Tuesday. Mostly we will discontinue heparin drip and continue with aspirin currently. Labs and medication were reviewed.. Continue same treatment. Continue with symptomatic treatment. Resume home medication. Monitor lytes and vitals. DVT and GI prophylaxis. Further recommendations of the clinical course of the patient DVT prophylaxis:heparin GI Prophylaxis: Pepcid Prognosis is guarded
[2018-09-16] MEDS: ATORVASTATIN 10 MG TAB PO SCH (20:18)
[2018-09-16] MEDS: MELATONIN 3 MG TABLET PO SCH (20:18)
[2018-09-17 06:14] LABS: Basophils # (A) 0.1 k/uL (0-0.2); Basophils % (A) 1 %; Eosinophils # (A) 0.1 k/uL (0-0.7); Eosinophils % (A) 2 %; HCT 38.5 % (39.0-53.0); HGB 12.3 gm/dL (13.0-17.5); Lymphocytes # (A) 1.6 k/uL (1.0-4.8); Lymphocytes % (A) 17 %; MCH 28.5 pg (25.0-35.0); MCHC 31.8 g/dL (31.0-37.0); MCV 89.7 fL (80.0-100.0); Mean Platelet Volume 8.5; Monocytes # (A) 0.5 k/uL (0-1.0); Monocytes % (A) 6 %; Neutrophils # (A) 6.6 k/uL (1.3-7.7); Neutrophils % (A) 73 %; Platelet Count 210 k/uL (150-450); RBC 4.29 m/uL (4.30-5.90); RDW 13.3 % (11.5-15.5)
[2018-09-17 06:40] LABS: African American GFR (CKD) >90 (>60 ml/min/1.73 sqM); Anion Gap 5 mmol/L; Blood Urea Nitrogen 25 mg/dL (9-20); Calcium 9.4 mg/dL (8.4-10.2); Carbon Dioxide 27 mmol/L (22-30); Chloride 108 mmol/L (98-107); Glucose 86 mg/dL (74-99); Non-African American GFR(CKD) >90 (>60 ml/min/1.73 sqM); Potassium 3.6 mmol/L (3.5-5.1); Sodium 140 mmol/L (137-145)
[2018-09-17] MEDS: ASPIRIN 81 MG PO SCH (09:14)
[2018-09-17] MEDS: LISINOPRIL 5 MG TAB PO SCH (09:14)
[2018-09-17] MEDS: amLODIPine 5 MG TAB PO SCH (09:14)
[2018-09-17] MEDS: METOPROLOL TARTRATE 12.5 MG TAB PO SCH ×2 (09:14→20:01)
[2018-09-17] MEDS: CHOLECALCIFEROL 1,000 UNIT TAB PO SCH (09:14)
[2018-09-17] MEDS: FERROUS SULFATE 325 MG TAB PO SCH (09:14)
[2018-09-17] MEDS: PANTOPRAZOLE 40 MG TABLET PO SCH (09:14)
[2018-09-17] MEDS: SODIUM CHLORIDE 0.9% 1,000 ML IV SCH (09:15)
--- NOTE | 2018-09-17 10:50 | P.PN ---
Subjective this is a pleasant 82 years old male with past medical history ofGI bleed, status post colonoscopy in 01/2016, diverticular disease, hemorrhoids, os teoarthritis, hypertension, hyperlipidemia, GERD, Status post colonoscopy on 01/2016 whopresents with abdominal painof one-day duration, the pain mainly in the lower abdomen about 8/10 in both sides, more on the left side, nonradiating, with 8/10 in severity, relieved with pain medication down to 2/10, associated with polyuria but no dysuria. He also has nausea and vomited 8 times with no blood in it although he wasn't sure. He had no chest pain or dyspnea, no dizziness, he has chronic cough with mucous phlegm 4 months. On admission patient is moderately tachycardic at 102, blood pressure 161/80, saturating 99% on 2 L and he is afebrile. labs reviewed showing leukocytosis of 18.1, hemoglobin 15.6,creatinine is normal at 1.0, electrolytes within normal limits and lactic acid is elevated at 3.1, troponin is elevated at 0.37.urinalysis is suspicious for infection. EKG showing wide QRS with right bundle branch block, sinus rhythm at 108, with QTC 469.CAT scan of the abdomen and pelvis showing distal left ureteral stone of 3 mm with moderate left-sided hydronephrosis. And nonobstructive calculus on the right side 09/14/2018 Patient is awake, Patient admitted yesterday with UTI and renal colic secondary to left renal stones and hydronephrosis. Patient has been evaluated by Dr. Bob and he thinks that the stone has pattern is going to pass on. Patient did be cleared by neurology for discharge soon. Patient is to have episodic renal colic in his lower abdomen this morning. No dysuria or change in urinary frequency. No nausea or vomiting. However patient still been treated with IV antibiotics for UTI and he is on heparin drip for elevated troponin. Cardiology team are following the patient closely. Patient denies chest pain or dyspnea this morning. Patient is hemodynamically stable and is afebrile. Left showing improving leukocytosis come to 16.4 K. Troponin is 0.7, 1.0 and 1.7. 09/15/2018 Patient lying in bed feeling better. No chest pain or dyspnea. No abdominal pain. His flank pain has been resolved since yesterday. There is no stone passed and noticed in the urine however he has some bloody urine while he is on heparin drip. He is hemodynamically stable and blood pressure 136/72 and heart rate 72 after starting low-dose metoprolol yesterday. Leukocytosis improvement of 11.9 K, hemoglobin 12.4 and creatinine back to normal at 1.0. We will discontinue the ceftriaxone suspicion is been afebrile and urine culture showing only normal skin wanda. Patient is still on heparin drip for his possible non- STEMI. Cardiology team R following the case closely. Patient will require cardiac workup once his urology problem stabilized. 09/16/2018 Patient is doing well clinically with no chest pain or dyspnea, fully awake. His urinary symptoms have resolved as well as his lower abdominal pain. His urine is bacterial color again with no urinary symptoms. Patient still is a little weak and is pending cardiac cath. Discussed the case with cardiology team possible cardiac cath on Tuesday. Patient is complaining of from insomnia he wants something for sleep. increased melatonin 3 to 6 mg edges 09/17/2018 Patient urinary problem is been resolving with his urine bacteria low and no urinary symptoms. The lower abdominal pain has gone. Patient is pending cardiac cath tomorrow by cardiology team. He has no chest pain or dyspnea to day. Vitals looks stable. No significant change in the labs. Patient complains from insomnia he wants something stronger than melatonin for sleep. Her start Restoril when necessary Objective - Vital Signs Vital signs: Vital Signs Temp 98.3 F 09/17/18 09:00 Pulse 48 L 09/17/18 09:00 Resp 18 09/17/18 09:00 BP 178/76 09/17/18 09:00 Pulse Ox 99 09/17/18 09:00 Intake & Output 09/16/18 09/17/18 09/17/18 18:59 06:59 18:59 Intake Total 980 1280 Balance 980 1280 Weight 91.8 kg Intake: IV 200 Sodium Chloride 0.9% 1, 200 000 ml @ 40 mls/hr IV . Q24H LIAT Rx#:[id number] Intake, IV Titration 480 Amount Sodium Chloride 0.9% 1, 480 000 ml @ 40 mls/hr IV . Q24H LIAT Rx#:[id number] Oral 780 800 Other: Voiding Method Urinal Urinal Urinal # Voids 2 - Exam GENERAL: The patient is alert and oriented x3, not in any acute distress. Well developed, well nourished. -HEENT: Pupils are round and equally reacting to light. EOMI. No scleral icterus. No conjunctival pallor. Normocephalic, atraumatic. No pharyngeal erythema. No thyromegaly. dehydration CARDIOVASCULAR: S1 and S2 present. No murmurs, rubs, or gallops. PULMONARY: Chest is clear to auscultation, no wheezing or crackles. -ABDOMEN: Soft, mild lower abdominal tenderness, with left flank tenderness, no rebound tenderness, nondistended, normoactive bowel sounds. No palpable organomegaly. no tenderness at CVA angle MUSCULOSKELETAL: No joint swelling or deformity. EXTREMITIES: No cyanosis, clubbing, or pedal edema. NEUROLOGICAL: Gross neurological examination did not reveal any focal deficits. SKIN: No rashes. - Labs CBC & Chem 7: 09/17/18 05:48 09/17/18 05:48 Labs: Abnormal Lab Results - Last 24 Hours (Table) 09/17/18 09/17/18 Range/Units 05:48 05:48 RBC 4.29 L (4.30-5.90) m/uL Hgb 12.3 L (13.0-17.5) gm/dL Hct 38.5 L (39.0-53.0) % Chloride 108 H (98-107) mmol/L BUN 25 H (9-20) mg/dL Creatinine 0.63 L (0.66-1.25) mg/dL Microbiology - Last 24 Hours (Table) 09/13/18 11:09 Blood Culture - Preliminary Blood No Growth after 72 hours Assessment and Plan Assessment: left hydronephrosis, with obstructive uropathy sepsis with leukocytosis and elevated lactic acid and tachycardia. Improving Acute urinary tract infection. Resolved Kidney stone, on both sides abdominal pain secondary to above. Resolved elevated troponin, concerning for non-STEMI Elevated lactic acid hypertension Hyperlipidemia History of GI bleed history of diverticular disease History of osteoarthritis chronic hemorrhoids Plan: this is a pleasant 82 years old male who presents with obstructive uropathy and sepsis. DC antibiotics ceftriaxone for negative urine culture. . Urologist input is appreciated and they recommended to continue medical management. Cardiology following the patient will follow the recommendation. Patient will need cardiac cath on [place]. we will discontinue heparin drip and continue with aspirin currently. Labs and medication were reviewed.. Continue same treatment. Continue with symptomatic treatment. Resume home medication. Monitor lytes and vitals. DVT and GI prophylaxis. Further recommendations of the clinical course of the patient DVT prophylaxis:heparin GI Prophylaxis: Pepcid Prognosis is guarded
--- NOTE | 2018-09-17 11:03 | P.PN ---
Subjective Progress Note Date: 09/17/18 This is a pleasant 82-year-old gentleman admitted to the hospital with symptoms of lower abdominal discomfort in the left lower quadrant area which started last evening. On presentation he rated the pain 8 out of 10, he also was complaining of some urinary frequency and urgency. He presented to the hospital for further evaluation. No gross hematuria. His white blood cell count was 18,000, BUN 23, creatinine 1.0, urinalysis showed microscopic hematuria. CT of the abdomen and pelvis with IV contrast identified a 3-3.5 mm distal ureteral calculus with mild to moderate left hydronephrosis. A 1-1.5 mm nonobstructive calculus was also noted in the lower pole of the right kidney. In addition to the above the patient was noted to have abnormality in troponin for which cardiology consultation was requested. His lactic acid was also 3.1. According to the patient, his pain dissipated quite a bit through the night last night however at the time of my examination this afternoon he again complains of significant pain in that left lower quadrant area. EKG shows a sinus tachycardia with a right bundle branch block pattern and left anterior fascicular block. Echo cardiac gram with Doppler study was performed which revealed a normal left ventricular systolic function. Blood pressure this morning 155/70 with a heart rate of 60, 95% on room air. White blood cell count 13.4, hemoglobin 13.8, platelet count 209. Sodium 140, potassium 4.5, BUN 24 and creatinine 1.4. Troponins 0.37, 0.73, 1.04, 1.7. Patient denies having any chest discomfort prior to coming to the hospital or at the time of my examination today, his breathing is overall stable. 09/16/2018 Patient seen and examined this morning, overall feeling considerably better. Denies any further abdominal discomfort. It does appear that the patient has past 2 kidney stones. His white blood cell count this morning is 8.8, hemoglobin 11.8, platelet count 190, sodium 141, potassium 3.7, BUN 25 and creatinine 0.7. Blood pressure this morning 170/70 with a heart rate of 60, 99% on room air. 09/17/2018 Patient seen and examined this morning, no complaints, no abdominal discomfort, breathing is stable. Blood pressure 178/70 with a heart rate in the 40s, 99% on room air. We will increase the Norvasc to 5 mg daily for more optimal blood pressure control today. White blood cell count is normal, hemoglobin 12.3, platelet count 210, sodium 140, potassium 3.6, BUN 25 creatinine 0.6. Objective - Vital Signs Vital signs: Vital Signs Temp 98.3 F 09/17/18 09:00 Pulse 48 L 09/17/18 09:00 Resp 18 09/17/18 09:00 BP 178/76 09/17/18 09:00 Pulse Ox 99 09/17/18 09:00 Intake & Output 09/16/18 09/17/18 09/17/18 18:59 06:59 18:59 Intake Total 980 1280 Balance 980 1280 Weight 91.8 kg Intake: IV 200 Sodium Chloride 0.9% 1, 200 000 ml @ 40 mls/hr IV . Q24H LIAT Rx#:[id number] Intake, IV Titration 480 Amount Sodium Chloride 0.9% 1, 480 000 ml @ 40 mls/hr IV . Q24H LIAT Rx#:[id number] Oral 780 800 Other: Voiding Method Urinal Urinal Urinal # Voids 2 - Exam PHYSICAL EXAMINATION: GENERAL: 82-year-old gentleman in no acute distress at the time of my examination HEENT: Head is atraumatic, normocephalic. Pupils equal, round. Sclera anicteric. Conjunctiva are clear. Mucous membranes of the mouth are moist. Neck is supple. There is no elevated jugular venous pressure. No carotid bruit is heard. HEART EXAMINATION: Heart S1, S2 normal. No murmur or gallop heard. CHEST EXAMINATION: Lungs are clear to auscultation and precussion. No chest wall tenderness is noted on palpation or with deep breathing. ABDOMEN: Soft, no abdominal tenderness, bowel sounds are heard EXTREMITIES: 2+ peripheral pulses with no evidence of peripheral edema and no calf tenderness noted. NEUROLOGIC patient is awake, alert and oriented 3 . . - Labs CBC & Chem 7: 09/17/18 05:48 09/17/18 05:48 Labs: Abnormal Lab Results - Last 24 Hours (Table) 09/17/18 09/17/18 Range/Units 05:48 05:48 RBC 4.29 L (4.30-5.90) m/uL Hgb 12.3 L (13.0-17.5) gm/dL Hct 38.5 L (39.0-53.0) % Chloride 108 H (98-107) mmol/L BUN 25 H (9-20) mg/dL Creatinine 0.63 L (0.66-1.25) mg/dL Microbiology - Last 24 Hours (Table) 09/13/18 11:09 Blood Culture - Preliminary Blood No Growth after 72 hours Assessment and Plan Plan: Assessment and plan #1 abdominal pain with a evidence of left ureteral calculus #2 abnormality in troponin, could be secondary to tachycardia and hypertension, cannot completely rule out underlying coronary artery disease in this 82-year-old gentleman. Patient denied having any chest discomfort, EKG shows a sinus tachycardia with a right bundle branch block pattern and left anterior fascicular block. #3 hypertension #4 hyperlipidemia #5 GERD Plan EchoCardiogram with Doppler study revealed a normal left ventricular systolic function. From cardiology's perspective, we'll increase the Norvasc to 5 mg daily for more optimal blood pressure control. Patient will be scheduled to undergo cardiac catheterization on Tuesday. The risks and the benefits were explained to the patient in detail as his family members. DNP note has been reviewed, I agree with a documented findings and plan of care. Patient was seen and examined.
[2018-09-17] MEDS ORDERED: TEMAZEPAM 7.5 MG CAP PO PRN (18:38)
[2018-09-17] MEDS: MELATONIN 3 MG TABLET PO SCH (19:52)
[2018-09-17] MEDS: ATORVASTATIN 10 MG TAB PO SCH (20:01)
[2018-09-17] MEDS ORDERED: TEMAZEPAM 7.5 MG CAP PO SCH (21:00)
[2018-09-18] MEDS ORDERED: ATORVASTATIN 80 MG TAB PO STA (06:41)
[2018-09-18] MEDS ORDERED: ASPIRIN 325 MG TAB PO STA (06:41)
[2018-09-18] MEDS: PANTOPRAZOLE 40 MG TABLET PO SCH (06:44)
[2018-09-18] MEDS: LISINOPRIL 5 MG TAB PO SCH (06:44)
[2018-09-18] MEDS: CHOLECALCIFEROL 1,000 UNIT TAB PO SCH (06:44)
[2018-09-18] MEDS: FERROUS SULFATE 325 MG TAB PO SCH (06:44)
[2018-09-18] MEDS: ASPIRIN 81 MG PO SCH (06:45)
[2018-09-18] MEDS: SODIUM CHLORIDE 0.9% 1,000 ML IV SCH (06:46)
[2018-09-18 07:57] LABS: Basophils # (A) 0.1 k/uL (0-0.2); Basophils % (A) 1 %; Eosinophils # (A) 0.2 k/uL (0-0.7); Eosinophils % (A) 2 %; HGB 11.7 gm/dL (13.0-17.5); Lymphocytes # (A) 1.3 k/uL (1.0-4.8); Lymphocytes % (A) 16 %; MCH 29.9 pg (25.0-35.0); MCHC 32.6 g/dL (31.0-37.0); MCV 91.7 fL (80.0-100.0); Mean Platelet Volume 8.5; Monocytes # (A) 0.5 k/uL (0-1.0); Monocytes % (A) 6 %; Neutrophils # (A) 6.1 k/uL (1.3-7.7); Neutrophils % (A) 75 %; Platelet Count 208 k/uL (150-450); RBC 3.92 m/uL (4.30-5.90); RDW 14.1 % (11.5-15.5); WBC 8.2 k/uL (3.8-10.6)
[2018-09-18 08:13] LABS: African American GFR (CKD) >90 (>60 ml/min/1.73 sqM); Anion Gap 6 mmol/L; Blood Urea Nitrogen 22 mg/dL (9-20); Calcium 8.9 mg/dL (8.4-10.2); Carbon Dioxide 28 mmol/L (22-30); Chloride 108 mmol/L (98-107); Glucose 89 mg/dL (74-99); Non-African American GFR(CKD) >90 (>60 ml/min/1.73 sqM); Potassium 3.7 mmol/L (3.5-5.1); Sodium 142 mmol/L (137-145)
[2018-09-18 08:57] VITALS: RESP 18
[2018-09-18] MEDS ORDERED: amLODIPine 5 MG TAB PO SCH (09:00)
[2018-09-18] MEDS ORDERED: amLODIPine 5 MG TAB PO STA (09:24)
[2018-09-18] MEDS: METOPROLOL TARTRATE 12.5 MG TAB PO SCH (09:25)
[2018-09-18] MEDS ORDERED: LIDOCAINE 1% INJ 10MG/ML (20 ML MDV) ONE (09:58)
[2018-09-18] MEDS ORDERED: fentaNYL (PF) 50 MCG/ML 2 ML AMP ONE (10:20)
[2018-09-18] MEDS ORDERED: MIDAZOLAM PF (FBP) 2 MG/2 ML VIAL IVP ONE (10:26)
[2018-09-18] MEDS ORDERED: fentaNYL (PF) 50 MCG/ML 2 ML AMP IVP ONE (10:26)
[2018-09-18] MEDS ORDERED: LIDOCAINE 1% INJ 10MG/ML (20 ML MDV) SQ ONE (10:26)
[2018-09-18] MEDS ORDERED: IV FLUID CONTINUATION 300 ML IV ONE (10:28)
[2018-09-18] MEDS ORDERED: IOPAMIDOL-370 125ML BTL INJ ONE (10:35)
[2018-09-18] MEDS ORDERED: RX INFO: IV CONTRAST WAS GIVEN 1 EACH MISC MISCELLANE PRN (10:42)
[2018-09-18] MEDS ORDERED: SODIUM CHLORIDE 0.9% 1,000 ML IV SCH (10:45)
--- NOTE | 2018-09-18 11:06 | CC ---
CARDIAC CATHETERIZATION REPORT INDICATION: Non ST-segment elevation myocardial infarction. After obtaining informed consent, left heart catheterization, coronary angiogram are performed via the right femoral artery using standard Conrad catheters. Left coronary artery was engaged using a size 4.5 Conrad catheter. Patient tolerated the procedure well without any immediate complications. Patient underwent femoral angiogram and Angio-Seal was deployed for hemostasis. FINDINGS: HEMODYNAMICS: Left ventricular end-diastolic pressure is 12 to 14 mm there is no significant gradient across the aortic valve. LEFT VENTRICULOGRAM: Left ventriculogram was not performed. ANGIOGRAPHIC DATA LEFT MAIN CORONARY ARTERY: Left main coronary artery is a normal-sized vessel and is free of stenosis. Divides into left anterior descending coronary artery and circumflex coronary artery. LAD and its branches, circumflex coronary artery and its branches are free of significant disease. Right coronary artery is a large dominant vessel and is free of significant stenosis. CONCLUSION: 1. Normal left ventricular end-diastolic pressure. 2. Normal coronary arteries. Patient received moderate conscious sedation. Total sedation time was 15 minutes. Patient elevated troponins are of unclear etiology and clinical significance. He needs optimal medical therapy including optimal control of his blood pressures. Please increase the dose of lisinopril to 10 mg daily and Norvasc to 10 mg daily on discharge. Follow up with me in a week's time. MMODL / IJN: [id number] /
[2018-09-18 11:34] VITALS: PULSE 42; TEMP 98.1
[2018-09-18 12:29] VITALS: BP 153/76
--- NOTE | 2018-09-18 17:03 | P.DS ---
Providers Date of admission: 09/13/18 11:34 Expected date of discharge: 09/18/18 Attending physician: Cedric Soto MD Consults: 09/13/18 11:34 Consult Physician Urgent Consulting Provider: Dallin Medellin Consult Reason/Comments: Ureteral calculi Do you want consulting provider notified?: Already Contacted 09/13/18 11:35 Consult Physician Urgent Consulting Provider: Rg Miramontes Consult Reason/Comments: NSTEMI Do you want consulting provider notified?: Already Contacted Primary care physician: [facility] Course: Discharge diagnosis left hydronephrosis, with obstructive uropathy. Patient was able to pass stone. sepsis with leukocytosis and elevated lactic acid and tachycardia. Improved. Acute urinary tract infection. Resolved Kidney stone, on both sides. Seen by urology. No surgical intervention required at this time. abdominal pain secondary to above. Resolved elevated troponin, concerning for non-STEMI. Status post cardiac catheteriza tion showed no significant stenosis. Elevated lactic acid resolved hypertension Hyperlipidemia History of GI bleed history of diverticular disease History of osteoarthritis chronic hemorrhoids Hospital course this is a pleasant 82 years old male with past medical history ofGI bleed, status post colonoscopy in 01/2016, diverticular disease, hemorrhoids, osteoarthritis, hypertension, hyperlipidemia, GERD, Status post colonoscopy on 01/2016 whopresents with abdominal painof one-day duration, the pain mainly in the lower abdomen about 8/10 in both sides, more on the left side, nonradiating, with 8/10 in severity, relieved with pain medication down to 2/10, associated with polyuria but no dysuria. He also has nausea and vomited 8 times with no blood in it although he wasn't sure. He had no chest pain or dyspnea, no dizziness, he has chronic cough with mucous phlegm 4 months. On admission patient is moderately tachycardic at 102, blood pressure 161/80, saturating 99% on 2 L and he is afebrile. labs reviewed showing leukocytosis of 18.1, hemoglobin 15.6,creatinine is normal at 1.0, electrolytes within normal limits and lactic acid is elevated at 3.1, troponin is elevated at 0.37.urinalysis is suspicious for infection. EKG showing wide QRS with right bundle branch block, sinus rhythm at 108, with QTC 469.CAT scan of the abdomen and pelvis showing distal left ureteral stone of 3 mm with moderate left-sided hydronephrosis. And nonobstructive calculus on the right side 09/14/2018 Patient is awake, Patient admitted yesterday with UTI and renal colic secondary to left renal stones and hydronephrosis. Patient has been evaluated by Dr. Bob and he thinks that the stone has pattern is going to pass on. Patient did be cleared by neurology for discharge soon. Patient is to have episodic renal colic in his lower abdomen this morning. No dysuria or change in urinary frequency. No nausea or vomiting. However patient still been treated with IV antibiotics for UTI and he is on heparin drip for elevated troponin. Cardiology team are following the patient closely. Patient denies chest pain or dyspnea this morning. Patient is hemodynamically stable and is afebrile. Left showing improving leukocytosis come to 16.4 K. Troponin is 0.7, 1.0 and 1.7. 09/15/2018 Patient lying in bed feeling better. No chest pain or dyspnea. No abdominal pain. His flank pain has been resolved since yesterday. There is no stone passed and noticed in the urine however he has some bloody urine while he is on heparin drip. He is hemodynamically stable and blood pressure 136/72 and heart rate 72 after starting low-dose metoprolol yesterday. Leukocytosis improvement of 11.9 K, hemoglobin 12.4 and creatinine back to normal at 1.0. We will discontinue the ceftriaxone suspicion is been afebrile and urine culture showing only normal skin wanda. Patient is still on heparin drip for his possible non- STEMI. Cardiology team R following the case closely. Patient will require c ardiac workup once his urology problem stabilized. 09/16/2018 Patient is doing well clinically with no chest pain or dyspnea, fully awake. His urinary symptoms have resolved as well as his lower abdominal pain. His urine is bacterial color again with no urinary symptoms. Patient still is a little weak and is pending cardiac cath. Discussed the case with cardiology team possible cardiac cath on Tuesday. Patient is complaining of from insomnia he wants something for sleep. increased melatonin 3 to 6 mg edges 09/17/2018 Patient urinary problem is been resolving with his urine bacteria low and no urinary symptoms. The lower abdominal pain has gone. Patient is pending cardiac cath tomorrow by cardiology team. He has no chest pain or dyspnea today. Vitals looks stable. No significant change in the labs. Patient complains from insomnia he wants something stronger than melatonin for sleep. Her start Restoril when necessary 09/18/2018 Patient says that he feels better today. Blood pressure is elevated and dose of Norvasc and lisinopril was increased. Patient is status post cardiac catheterization today with no evidence of significant coronary artery disease. Patient be continued on medical management. No complains of abdominal pain. Patient will need to follow with primary care physician and cardiology as outpatient. Patient wants to be discharged home. He mechanically stable currently. PHYSICAL EXAMINATION: Patient is lying in the bed comfortably, no acute distress, awake alert and oriented.. HEENT: Normocephalic. Neck is supple. Pupils reactive. Nostrils clear. Oral cavity is moist. Ears reveal no drainage. Neck reveals no JVD, carotid bruits, or thyromegaly. CHEST EXAMINATION: Trachea is central. Symmetrical expansion. Lung schroeder clear to auscultation and percussion. CARDIAC: Normal S1, S2 with no gallops. No murmurs ABDOMEN: Soft. Bowel sounds normal. No organomegaly. No abdominal bruits. Extremities: reveal no edema. No clubbing or cyanosis Neurologically awake, alert, oriented x3 with well-coordinated movements. No focal deficits noted Skin: No rash or skin lesions. Psychiatric: Coperative. Nonsuicidal Musculoskeletal: No joint swelling or deformity. Normal range of motion. Vital Signs 09/18/18 09/18/18 09/18/18 11:13 11:28 11:33 Temperature 98.1 F Pulse Rate [ 42 L Pulse Oximetery ] Respiratory 18 Rate Blood Pressure 133/74 158/67 158/67 [Left Arm] O2 Sat by Pulse 99 Oximetry 09/18/18 09/18/18 09/18/18 11:58 12:00 12:28 Temperature Pulse Rate [ Pulse Oximetery ] Respiratory 18 Rate Blood Pressure 147/72 153/76 [Left Arm] O2 Sat by Pulse Oximetry Total time taken greater than 35 minutes including 18 minutes for counseling and coordination of care. Patient Condition at Discharge: Fair Plan - Discharge Summary Discharge Rx Participant: No New Discharge Prescriptions: New amLODIPine [Norvasc] 10 mg PO DAILY #30 tab Lisinopril [Zestril] 10 mg PO DAILY #30 tab Metoprolol Tartrate [Lopressor] 12.5 mg PO DAILY #30 tab Continue Lovastatin [Mevacor] 40 mg PO HS Ferrous Sulfate [Iron (65 MG Elemental)] 325 mg PO DAILY Aspirin [Adult Low Dose Aspirin EC] 81 mg PO DAILY Omeprazole 20 mg PO DAILY [place]-3 Fatty Acids/Fish Oil [Fish Oil 1,000 mg Softgel] 1 cap PO DAILY Morphine Sulfate [Morphine Sulfate ER] 30 mg PO BID Morphine Sulfate ER [Ms Contin] 15 mg PO DAILY@1200 Cholecalciferol [Vitamin D3 (25 Mcg = 1000 Iu)] 1,000 unit PO DAILY Discontinued Lisinopril [Zestril] 5 mg PO DAILY Discharge Medication List Aspirin [Adult Low Dose Aspirin EC] 81 mg PO DAILY 02/04/16 [History] Ferrous Sulfate [Iron (65 MG Elemental)] 325 mg PO DAILY 02/04/16 [History] Lovastatin [Mevacor] 40 mg PO HS 02/04/16 [History] Morphine Sulfate [Morphine Sulfate ER] 30 mg PO BID 02/04/16 [History] [place]-3 Fatty Acids/Fish Oil [Fish Oil 1,000 mg Softgel] 1 cap PO DAILY 02/04/16 [History] Omeprazole 20 mg PO DAILY 02/04/16 [History] Cholecalciferol [Vitamin D3 (25 Mcg = 1000 Iu)] 1,000 unit PO DAILY 09/13/18 [History] Morphine Sulfate ER [Ms Contin] 15 mg PO DAILY@1200 09/13/18 [History] Lisinopril [Zestril] 10 mg PO DAILY #30 tab 09/18/18 [Rx] Metoprolol Tartrate [Lopressor] 12.5 mg PO DAILY #30 tab 09/18/18 [Rx] amLODIPine [Norvasc] 10 mg PO DAILY #30 tab 09/18/18 [Rx] Follow up Appointment(s)/Referral(s): Dallin Medellin MD [STAFF PHYSICIAN] - 10 Days (Spoke to fire watcher. Office will call you with appointment time) Rg Miramontes MD [STAFF PHYSICIAN] - 09/26/18 1:30 pm (Tuesday) [facility] [Primary Care Provider] - 09/25/18 10:00 am (Tuesday) Patient Instructions/Handouts: Heart Attack (DC), Kidney Stones (DC) Activity/Diet/Wound Care/Special Instructions: [facility]; may need indigent funds at discharge, contact CM at discharge Discharge Disposition: HOME SELF-CARE
[2018-09-19] MEDS ORDERED: LISINOPRIL 10 MG TAB PO SCH (09:00)
[2018-09-19] MEDS ORDERED: amLODIPine 10 MG TAB PO SCH (09:00)
--- NOTE | 2018-09-19 10:21 | CDI ---
Documentation Clarification Form Date: 09/15/2018 12:48:00 PM From: Nory Norton Phone: [phone] Admit Date: 09/13/2018 11:34:00 AM Patient Name: Klaus Ni Visit Number: [id number] Discharge Date: 09/18/2018 3:57:00 PM ATTENTION: The Clinical Documentation Specialists (CDI) and [facility] Coding Staff appreciate your assistance in clarifying documentation. Please respond to the clarification below the line at the bottom and electronically sign. The CDI & [facility] Coding staff will review the response and follow-up if needed. Please note: Queries are made part of the Legal Health Record. If you have any questions, please contact the author of this message via ITS. Dr. Rg Miramontes Myocardial infarction is documented in your progress note 09/15/2018 Patient History/Risk Factors: 82 year old male presents to the ED with nausea, vomiting and diarrhea. Medical history Gerd, Gi blee, hyperlipidemia , HTN OA, Diverticular disease Clinical Indicators: Troponin: 0.371; 0.734; 1.040; 1.710; EKG Results: Wide QRS rhythm, Right bundle branch block , Left anterior fascicular block Treatment: Heparin ivpb , Nitrostat, Lopressor, Baby Aspirin In order to capture the severity of condition and necessary documentation specificity, please clarify: * Type 1 NSTEMI * Type 2 NSTEMI ( due to demand ischemia or secondary to ischemic imbalance) * Nstemi ruled out * Unable to determine * Other, please specify (Last Revision: November 2016) type1 NSTEMI MTDD
== END 2018-09-18 15:57 | disposition home or self-care (01) | DRG 871 ==
LOC: EC 08:19 → 3SCARD 11:34
PROVIDERS: ADMIT Internal Medicine; ATTEND Internal Medicine
PROC: 4A023N7 Measurement of Cardiac Sampling and Pressure, Left Heart, Percutaneous Approach (ICD-10-PCS; principal; 2018-09-18 10:10)
PROC: B2111ZZ Fluoroscopy of Multiple Coronary Arteries using Low Osmolar Contrast (ICD-10-PCS; principal; 2018-09-18 10:10)
DX: A41.9 Sepsis, unspecified organism (principal); I21.4 Non-ST elevation (NSTEMI) myocardial infarction; N13.6 Pyonephrosis; E78.5 Hyperlipidemia, unspecified; F17.200 Nicotine dependence, unspecified, uncomplicated; G47.00 Insomnia, unspecified; I10 Essential (primary) hypertension; I45.10 Unspecified right bundle-branch block; K21.9 Gastro-esophageal reflux disease without esophagitis; K64.9 Unspecified hemorrhoids; Z79.82 Long term (current) use of aspirin; Z79.899 Other long term (current) drug therapy; Z86.010 Personal history of colon polyps; Z87.442 Personal history of urinary calculi; Z79.891 Long term (current) use of opiate analgesic; Z90.49 Acquired absence of other specified parts of digestive tract
CPT/HCPCS: 36415; 74177; 80048; 80053; 80061; 81001; 82150; 83605; 83690; 84484; 85025; 85730; 87040; 87086; 93005; 93306; 93458; 96361; 96365; 96366; 96375; 96376; 99291

== ENCOUNTER 2018-10-27 15:28 | Emergency (ER) | payer MEDICARE, OTHER ==
[2018-10-27] MEDS ORDERED: SODIUM CHLORIDE 0.9% 1,000 ML IV STA (16:19)
--- NOTE | 2018-10-27 16:19 | ED ---
Dizziness HPI - General Chief Complaint: Syncope Stated Complaint: dizziness x 1 hour Time Seen by Provider: 10/27/18 15:30 Source: patient Mode of arrival: wheelchair Limitations: no limitations - History of Present Illness Initial Comments: The patient is an 83-year-old male with past medical history of NSTEMI and septic stone who presents to the emergency room with reported vertiginous symptoms. The patient states that he was with a friend, ambulate around a store when he had sudden onset of room spinning. He states that he felt off balance while ambulating. He reportedly walked back to the car as he was afraid he was given a fall. He denies the sensation that he was going to pass out. He denies any chest pain or shortness of breath. He denied any vision changes, headache, unilateral numbness or weakness. Denied any generalized weakness. Did admit that his symptoms were worsened with positional changes. No history of similar in the past. He did not take any medications to alleviate his symptoms. He denies any recent head trauma. No ripping or tearing sensation in his back. Denies any weakness in his lower extremities. No back pain. He denies any flank pain or changes in his urination. No hematuria, dysuria or difficulty voiding. Denies any changes in his bowel movements to include diarrhea, constipation, melanotic stools or hematochezia. States he's had a good appetite. No recent weight loss. Symptoms are somewhat improved while sitting down. He also reports to right-sided neck pain for the past 5 days. States it is worse with neck movement. No midline neck pain. Denies any neck stiffness, fevers or chills. Denies any blunt trauma. No recent chiropractic manipulations. Denies any thoracic or lumbar back pain. He does take morphine at home and has for the past 30 years. States he's been taking his home medications which didn't help his pain. There are no other alleviating, precipitating or modifying factors - Related Data Home Medications Medication Instructions Recorded Confirmed Aspirin [Adult Low Dose Aspirin EC] 81 mg PO DAILY 02/04/16 09/13/18 Ferrous Sulfate [Iron (65 MG 325 mg PO DAILY 02/04/16 09/13/18 Elemental)] Lovastatin [Mevacor] 40 mg PO HS 02/04/16 09/13/18 Morphine Sulfate [Morphine Sulfate 30 mg PO BID 02/04/16 09/13/18 ER] [place]-3 Fatty Acids/Fish Oil [Fish 1 cap PO DAILY 02/04/16 09/13/18 Oil 1,000 mg Softgel] Omeprazole 20 mg PO DAILY 02/04/16 09/13/18 Cholecalciferol [Vitamin D3 (25 1,000 unit PO DAILY 09/13/18 09/13/18 Mcg = 1000 Iu)] Morphine Sulfate ER [Ms Contin] 15 mg PO DAILY@1200 09/13/18 09/13/18 Previous Rx's Medication Instructions Recorded Lisinopril [Zestril] 10 mg PO DAILY #30 tab 09/18/18 Metoprolol Tartrate [Lopressor] 12.5 mg PO DAILY #30 tab 09/18/18 amLODIPine [Norvasc] 10 mg PO DAILY #30 tab 09/18/18 Meclizine [Antivert] 25 mg PO TID PRN #15 tab 10/27/18 Allergies Allergy/AdvReac Type Severity Reaction Status Date / Time No Known Allergies Allergy Verified 10/27/18 15:33 Review of Systems ROS Statement: Those systems with pertinent positive or pertinent negative responses have been documented in the HPI. ROS Other: All systems not noted in ROS Statement are negative. Past Medical History Past Medical History: GERD/Reflux, GI Bleed, Hyperlipidemia, Hypertension, Osteoarthritis (OA) Additional Past Medical History / Comment(s): Fractured back twice, arthritis in hands/wrists/ankles, lower GI bleed, diverticular disease/colon polyps, hemorrhoids, constipation. History of Any Multi-Drug Resistant Organisms: None Reported Past Surgical History: Back Surgery, Cholecystectomy, Orthopedic Surgery Additional Past Surgical History / Comment(s): Lumbar laminectomy, EGD, col onoscopies/benign polypectomies, L shoulder arthroscopy. Past Anesthesia/Blood Transfusion Reactions: No Reported Reaction Smoking Status: Former smoker - Past Family History Mother Family Medical History: Cancer Additional Family Medical History / Comment(s): Mother from some form of cancer at the age of 78yrs. Father History Unknown: Yes Additional Family Medical History / Comment(s): Father left when pt was 7 yrs old. General Exam Limitations: no limitations General appearance: alert, in no apparent distress Head exam: Present: atraumatic, normocephalic, normal inspection Eye exam: Present: normal appearance, PERRL, EOMI. Absent: scleral icterus, conjunctival injection, periorbital swelling ENT exam: Present: normal exam, mucous membranes moist Neck exam: Present: normal inspection, tenderness (paraspinal within the trapezius muscle belly on the right). Absent: meningismus, lymphadenopathy Respiratory exam: Present: normal lung sounds bilaterally. Absent: respiratory distress, wheezes, rales, rhonchi, stridor Cardiovascular Exam: Present: regular rate, normal rhythm, normal heart sounds. Absent: systolic murmur, diastolic murmur, rubs, gallop, clicks GI/Abdominal exam: Present: soft, normal bowel sounds. Absent: distended, tenderness, guarding, rebound, rigid Extremities exam: Present: normal inspection, full ROM, normal capillary refill. Absent: tenderness, pedal edema, joint swelling, calf tenderness Back exam: Present: normal inspection Neurological exam: Present: alert, oriented X3, CN II-XII intact, normal gait, other (no pronator drift. No truncal ataxia) Psychiatric exam: Present: normal affect, normal mood Skin exam: Present: warm, dry, intact, normal color. Absent: rash Course Vital Signs 10/27/18 10/27/18 10/27/18 15:29 16:00 16:55 Temperature 98 F Pulse Rate 62 51 L Pulse Rate [ 56 L Sitting Pulse Oximetery] Pulse Rate [ 59 L Standing Pulse Oximetery] Pulse Rate [ 44 L Supine Pulse Oximetery] Respiratory 16 18 Rate Blood Pressure 153/60 120/55 Blood Pressure 104/50 [Right Arm Sitting] Blood Pressure 100/52 [Right Arm Standing] Blood Pressure 113/50 [Right Arm Supine] O2 Sat by Pulse 99 99 Oximetry 10/27/18 10/27/18 10/27/18 17:00 18:00 19:03 Temperature 98.1 F Pulse Rate 52 L 65 69 Pulse Rate [ Sitting Pulse Oximetery] Pulse Rate [ Standing Pulse Oximetery] Pulse Rate [ Supine Pulse Oximetery] Respiratory 20 20 18 Rate Blood Pressure 111/52 155/65 136/64 Blood Pressure [Right Arm Sitting] Blood Pressure [Right Arm Standing] Blood Pressure [Right Arm Supine] O2 Sat by Pulse 100 95 99 Oximetry EKG Findings - EKG Comments: EKG Findings:: EKG demonstrates a sinus rhythm with a ventricular rate of 70. OK interval 368. QRS 140. QTC 449. There is a right bundle branch block present. No acute ST segment elevations. Medical Decision Making - Medical Decision Making Upon arrival the patient is placed in room 2. He is hooked up to continuous pulse ox and cardiac monitoring. A thorough history and physical exam was performed. Peripheral IV was established. A 12-lead EKG was performed which demonstrated no acute findings. The patient was given a liter bolus of 0.9% normal saline, 1 mg of Dilaudid for his neck pain and 25 mg of meclizine for his vertiginous symptoms. I did recommend laboratory studies. I did send the patient over for chest x-ray as well as CT of his brain, C-spine and CT angios of his head and neck. Upon return results I did discuss them with the patient. I did discuss the diagnosis, differential and treatment options. Patient's white blood cell count is mildly elevated 11.7. Remainder of the exam performed is unremarkable. The patient is ambulated around the emergency department. He reports to market improvement with his symptoms. I did recommend hospital a dmission for evaluation of the patient's new onset vertigo and continue to trend the patient's troponins. As neurology is not available at our facility did recommend transfer to a facility with neurology coverage. I informed the patient he may need an MRI. The patient refused stating that he does feel well at this time. He is requesting a prescription meclizine as this did help his symptoms improve. The patient is aware of the risks of refusing transfer and further evaluation. The patient reports that if he has any new or worsening symptoms that he return to the emergency department. I did instruct the patient that he must follow-up with his primary care physician without fail. If he has any new or worsening symptoms, he should return sooner. He he does have his at home who was available to assist him. The patient was then discharged home in stable condition - Lab Data Result diagrams: 10/27/18 16:10 10/27/18 16:10 Lab Results 10/27/18 10/27/18 10/27/18 Range/Units 16:10 16:10 16:10 WBC 11.5 H (3.8-10.6) k/uL RBC 4.65 (4.30-5.90) m/uL Hgb 13.8 (13.0-17.5) gm/dL Hct 41.2 (39.0-53.0) % MCV 88.6 (80.0-100.0) fL MCH 29.7 (25.0-35.0) pg MCHC 33.5 (31.0-37.0) g/dL RDW 13.3 (11.5-15.5) % Plt Count 179 (150-450) k/uL Neutrophils % 75 % Lymphocytes % 16 % Monocytes % 5 % Eosinophils % 2 % Basophils % 1 % Neutrophils # 8.7 H (1.3-7.7) k/uL Lymphocytes # 1.8 (1.0-4.8) k/uL Monocytes # 0.6 (0-1.0) k/uL Eosinophils # 0.2 (0-0.7) k/uL Basophils # 0.1 (0-0.2) k/uL PT (9.0-12.0) sec INR (<1.2) Sodium 137 (137-145) mmol/L Potassium 5.0 (3.5-5.1) mmol/L Chloride 102 (98-107) mmol/L Carbon Dioxide 27 (22-30) mmol/L Anion Gap 8 mmol/L BUN 20 (9-20) mg/dL Creatinine 0.69 (0.66-1.25) mg/dL Est GFR (CKD-EPI)AfAm >90 (>60 ml/min/1.73 sqM) Est GFR (CKD-EPI)NonAf 89 (>60 ml/min/1.73 sqM) Glucose 92 (74-99) mg/dL Calcium 9.7 (8.4-10.2) mg/dL Total Bilirubin 0.7 (0.2-1.3) mg/dL AST 22 (17-59) U/L ALT 22 (21-72) U/L Alkaline Phosphatase 73 (38-126) U/L Troponin I <0.012 (0.000-0.034) ng/mL Total Protein 7.0 (6.3-8.2) g/dL Albumin 4.2 (3.5-5.0) g/dL 10/27/18 Range/Units 16:10 WBC (3.8-10.6) k/uL RBC (4.30-5.90) m/uL Hgb (13.0-17.5) gm/dL Hct (39.0-53.0) % MCV (80.0-100.0) fL MCH (25.0-35.0) pg MCHC (31.0-37.0) g/dL RDW (11.5-15.5) % Plt Count (150-450) k/uL Neutrophils % % Lymphocytes % % Monocytes % % Eosinophils % % Basophils % % Neutrophils # (1.3-7.7) k/uL Lymphocytes # (1.0-4.8) k/uL Monocytes # (0-1.0) k/uL Eosinophils # (0-0.7) k/uL Basophils # (0-0.2) k/uL PT 11.5 (9.0-12.0) sec INR 1.1 (<1.2) Sodium (137-145) mmol/L Potassium (3.5-5.1) mmol/L Chloride (98-107) mmol/L Carbon Dioxide (22-30) mmol/L Anion Gap mmol/L BUN (9-20) mg/dL Creatinine (0.66-1.25) mg/dL Est GFR (CKD-EPI)AfAm (>60 ml/min/1.73 sqM) Est GFR (CKD-EPI)NonAf (>60 ml/min/1.73 sqM) Glucose (74-99) mg/dL Calcium (8.4-10.2) mg/dL Total Bilirubin (0.2-1.3) mg/dL AST (17-59) U/L ALT (21-72) U/L Alkaline Phosphatase (38-126) U/L Troponin I (0.000-0.034) ng/mL Total Protein (6.3-8.2) g/dL Albumin (3.5-5.0) g/dL Disposition Clinical Impression: Vertigo Disposition: HOME SELF-CARE Condition: Stable Additional Instructions: Please follow-up with your primary care doctor in 2-4 days. Return to the emergency room for any new or worsening symptoms. I did recommend hospital admission. If your symptoms persist, you may need further workup. Prescriptions: Meclizine [Antivert] 25 mg PO TID PRN #15 tab PRN Reason: Vertigo Is patient prescribed a controlled substance at d/c from ED?: No Referrals: [facility] [Primary Care Provider] - 1-2 days Time of Disposition: 18:39
[2018-10-27] MEDS ORDERED: HYDROmorphone 1 MG/ML 1 ML SYRINGE IVP STA (16:20)
[2018-10-27 16:53] LABS: Basophils # (A) 0.1 k/uL (0-0.2); Basophils % (A) 1 %; Eosinophils # (A) 0.2 k/uL (0-0.7); Eosinophils % (A) 2 %; HCT 41.2 % (39.0-53.0); HGB 13.8 gm/dL (13.0-17.5); Lymphocytes # (A) 1.8 k/uL (1.0-4.8); Lymphocytes % (A) 16 %; MCH 29.7 pg (25.0-35.0); MCHC 33.5 g/dL (31.0-37.0); MCV 88.6 fL (80.0-100.0); Mean Platelet Volume 7.7; Monocytes # (A) 0.6 k/uL (0-1.0); Monocytes % (A) 5 %; Neutrophils # (A) 8.7 k/uL (1.3-7.7); Neutrophils % (A) 75 %; Platelet Count 179 k/uL (150-450); RBC 4.65 m/uL (4.30-5.90); RDW 13.3 % (11.5-15.5); WBC 11.5 k/uL (3.8-10.6)
[2018-10-27] MEDS ORDERED: MECLIZINE 12.5 MG TAB PO STA ×2 (17:00→18:39)
[2018-10-27 17:02] LABS: ALT 22 U/L (21-72); AST 22 U/L (17-59); African American GFR (CKD) >90 (>60 ml/min/1.73 sqM); Albumin 4.2 g/dL (3.5-5.0); Alkaline Phosphatase 73 U/L (38-126); Anion Gap 8 mmol/L; Blood Urea Nitrogen 20 mg/dL (9-20); Calcium 9.7 mg/dL (8.4-10.2); Carbon Dioxide 27 mmol/L (22-30); Chloride 102 mmol/L (98-107); Glucose 92 mg/dL (74-99); Sodium 137 mmol/L (137-145); Total Bilirubin 0.7 mg/dL (0.2-1.3)
[2018-10-27 17:03] LABS: INR 1.1 (<1.2); Prothrombin Time 11.5 sec (9.0-12.0)
--- NOTE | 2018-10-27 17:39 | XR ---
EXAMINATION TYPE: XR chest 2V DATE OF EXAM: 10/27/2018 COMPARISON: 07/25/2009 HISTORY: Dizziness TECHNIQUE: Frontal and lateral views of the chest are obtained. FINDINGS: There is no heart failure nor confluent pneumonic infiltrate. Costophrenic angles are mike r. Bony thorax is intact. Heart size is normal. IMPRESSION: No active cardiopulmonary disease. No change.
--- NOTE | 2018-10-27 17:40 | CT ---
EXAMINATION TYPE: CT brain ana sharpe DATE OF EXAM: 10/27/2018 COMPARISON: None HISTORY: Dizziness and neck pain. CT DLP: 1429.8 mGycm Automated exposure control for dose reduction was used. TECHNIQUE: CT scan of the head and cervical spine are performed without contrast. FINDINGS: There is diffuse cerebral cortical atrophy. There is no mass effect nor midline shift. Th ere is no sign of intracranial hemorrhage. The calvarium is intact. Atrophy more severe in the frontal and temporal lobes. Cervical vertebra have normal alignment. Disc spaces are fairly normal for age. Posterior elements ar e intact. There is minimal facet arthropathy. Skull base is intact. There is no sign of cervical spin e fracture. IMPRESSION: Cerebral atrophy. No acute intracranial abnormality. Minor degenerative changes in the cervical spine. No fracture.
--- NOTE | 2018-10-27 17:49 | CT ---
EXAMINATION TYPE: CT angio head neck DATE OF EXAM: 10/27/2018 HISTORY: Dizziness and neck pain. COMPARISON: None CT DLP: 486.4 mGycm. Automated Exposure Control for Dose Reduction was Utilized. TECHNIQUE: CTA scan of the neck is performed with IV Contrast, patient injected with 50 mL of Isovue 370, axial images are obtained, coronal and sagittal reformatted images are reviewed. Three-D recons tructed images are created on an independent workstation and reviewed. FINDINGS: There is normal branching pattern of the great vessels on the aortic arch. There is bilateral arteria l flow in the subclavian arteries. There is bilateral arterial flow in the vertebral arteries. There is bilateral arterial flow in the common internal and external carotid arteries. The carotid artery b ifurcations appear widely patent. I see no evidence of carotid or vertebral artery aneurysm or dissec tion. Basilar artery fills more from the left side. There is arterial flow in the anterior middle and posterior cerebral arteries. There is arterial flow in the vertebrobasilar artery system. There is bilateral patency of the posterior communicating baljinder elisa. I see no intracranial mass effect. There is no sign of intracranial aneurysm or neovascularity. There is moderate frontal and temporal lobe cerebral cortical atrophy. I see no evidence of intracra nial arterial stenosis. There is normal contrast opacification of the venous sinuses. IMPRESSION: Negative CT angiogram of the neck. Negative CT angiogram of the brain. No evidence of hemodynamic susan nosis.
[2018-10-27] MEDS ORDERED: MECLIZINE 25 MG TAB PO STA (18:41)
[2018-10-27 19:05] VITALS: BP 136/64; PULSE 69; RESP 18; TEMP 98.1
== END 2018-10-27 19:03 | disposition home or self-care (01) ==
LOC: EC 15:28
DX: D72.829 Elevated white blood cell count, unspecified (principal); M54.2 Cervicalgia; K21.9 Gastro-esophageal reflux disease without esophagitis; E78.5 Hyperlipidemia, unspecified; M19.042 Primary osteoarthritis, left hand; M19.041 Primary osteoarthritis, right hand; M19.032 Primary osteoarthritis, left wrist; M19.031 Primary osteoarthritis, right wrist; M19.072 Primary osteoarthritis, left ankle and foot; M19.071 Primary osteoarthritis, right ankle and foot; Z87.891 Personal history of nicotine dependence; Z53.29 Procedure and treatment not carried out because of patient's decision for other reasons; Z79.82 Long term (current) use of aspirin; Z79.891 Long term (current) use of opiate analgesic; Z79.899 Other long term (current) drug therapy
CPT/HCPCS: 99284; 96374; 96361 ×2; 36415; 93005; 80053; 84484; 85025; 85610; 71046; 72125; 70496; 70450; 70498; J1170; Q9967

== ENCOUNTER → 2018-11-13 | Outpatient (CLI) | payer OTHER ==
[2018-11-13 13:01] LABS: Potassium 5.3 mmol/L (3.5-5.1)
[2018-11-13 13:25] LABS: HCT 41.9 % (39.0-53.0); HGB 13.6 gm/dL (13.0-17.5); MCH 29.4 pg (25.0-35.0); MCHC 32.3 g/dL (31.0-37.0); MCV 90.9 fL (80.0-100.0); Mean Platelet Volume 8.1; Platelet Count 234 k/uL (150-450); RBC 4.61 m/uL (4.30-5.90); RDW 13.6 % (11.5-15.5); WBC 9.3 k/uL (3.8-10.6)
== END | disposition home or self-care (01) ==
LOC: LABPAT 11:46
PROVIDERS: ATTEND Internal Medicine Interventional Cardiology
DX: Z01.812 Encounter for preprocedural laboratory examination (principal); R00.1 Bradycardia, unspecified
CPT/HCPCS: 36415; 80051; 82565; 82947; 84520; 85027

== ENCOUNTER 2018-11-15 08:51 | Day surgery (SDC) | payer OTHER ==
[2018-11-14 11:15] VITALS: BMI 26.8
[2018-11-15] MEDS: SODIUM CHLORIDE 0.9% 1,000 ML IV SCH ×2 (09:07→12:06)
[2018-11-15] MEDS ORDERED: LIDOCAINE 1% INJ 10MG/ML (20 ML MDV) ONE ×4 (09:46→10:56)
[2018-11-15] MEDS ORDERED: fentaNYL (PF) 50 MCG/ML 2 ML AMP ONE (09:47)
[2018-11-15] MEDS ORDERED: IOPAMIDOL-370 50ML BTL INJ ONE (09:55)
[2018-11-15] MEDS: MIDAZOLAM (PF) 2 MG/2 ML VIAL IV ONE ×2 (10:14→10:38)
[2018-11-15] MEDS ORDERED: LIDOCAINE 1% INJ 10MG/ML (20 ML MDV) SQ ONE ×2 (10:27→10:37)
[2018-11-15] MEDS: ceFAZolin 1,000 MG in SODIUM CHLORIDE 0.9% IRRIGATIO 250 ML IRRIGATION ONE ×2 (10:43→10:50)
[2018-11-15] MEDS: LIDOCAINE 1% INJ 10MG/ML (20 ML MDV) SQ ONE ×2 (10:45→10:48)
[2018-11-15] MEDS: fentaNYL (PF) 50 MCG/ML 2 ML AMP IV ONE ×2 (10:47→10:58)
[2018-11-15] MEDS ORDERED: ACETAMINOPHEN TAB 325 MG TAB PO PRN (12:21)
--- NOTE | 2018-11-15 12:47 | XR ---
EXAMINATION TYPE: XR chest 1V portable DATE OF EXAM: 11/15/2018 COMPARISON: Chest x-ray October 27, 2018 HISTORY: Arrhythmia, lead placement check TECHNIQUE: Single AP portable frontal supine view of the chest is obtained. FINDINGS: There is no dual-lead pacemaker with leads projecting over the right atrium and right ventr icle. There is chronic parenchymal change without suspicious new focal air space opacity or pneumoth orax seen. Persistent blunting right lateral costophrenic angle. Left costophrenic angle not included making evaluation suboptimal. The cardiac silhouette size remains enlarged. The osseous structures are intact. IMPRESSION: New pacemaker leads project over right atrium and right ventricle on frontal projection.
--- NOTE | 2018-11-15 12:50 | CC ---
PERMANENT DUAL CHAMBER PACEMAKER REPORT DATE OF SERVICE: 11/15/2018. PROCEDURES PERFORMED: 1. Transvenous temporary pacemaker from right femoral venous approach. 2. Dual-chamber permanent pacemaker from left infraclavicular approach. PERFORMED BY: Dr. Ángela Watkins. SEDATION: Moderate conscious sedation time was 112 minutes. Patient was administered Versed and fentanyl. His oxygen saturation, hemodynamics and EKG were monitored closely. CLINICAL INFORMATION: Mr. Klaus Ni is an 83-year-old gentleman with history of hypertension, hyperlipidemia, and significant symptoms of symptomatic bradycardia with near syncopal episode. He has a high-grade second-degree AV block with an underlying IN interval in the range of 280 milliseconds and a right bundle branch block pattern. He has been hospitalized with several episodes of symptomatic bradycardia because of high- grade AV block and he was advised a dual-chamber pacemaker after due discussion regarding risks, benefits, and options with the patient and his daughter. He was brought in for the procedure electively. PROCEDURE NOTE: Under local anesthesia and strict precautions, a 6-Latvian introducer was placed in the right femoral vein. Under fluoroscopic guidance, a balloon temporary pacemaker was advanced and positioned in the right ventricular apex. Good thresholds were obtained. This pacemaker was set at a backup rate of 40 with a mA of 5.0. The threshold was 0.4 mV. Subsequently, I unscrubbed and rescrubbed and started the permanent pacemaker procedure. Under fluoroscopic guidance, using a micropuncture needle technique, under strict aseptic precautions and local anesthesia, access was achieved in the left axillary vein. Subsequently, a 3 inch linear incision was made medial and parallel to the left deltopectoral groove. Blunt dissection was carried all the way to the level of the fascia. A pocket was made using a combination of blunt dissection and cautery. Good hemostasis was secured. I then obtained a second access point using a micropuncture needle technique and fluoroscopic guidance and 2 guidewires were left in the inferior vena cava. Under fluoroscopic guidance, a 6-Latvian introducer was placed in the axillary vein and through it a ventricular lead was advanced and positioned in the interventricular septum. Good thresholds and sensitivities were obtained. The lead was then screwed in and secured to the underlying muscle with 0 silk suture. The diaphragmatic pacing was performed and the lead position was checked both in the [place] and [place]SON projection. Subsequently, a 6-Latvian introducer was placed over the second guidewire under fluoroscopic guidance and an atrial lead was then advanced and positioned in the right atrium. Good thresholds and sensitivities were obtained. The lead was screwed in. The lead position was checked both in [place] and [place]SON projection. Diaphragmatic pacing was also performed. The lead was then secured to the underlying muscle with 0 silk suture. After rechecking the thresholds and sensitivities of both the leads, the surgical pocket that was made was irrigated with Cefazolin antibiotic. Prior to this, two sponges drenched in antibiotic were kept in the pocket. Subsequently, the pulse generator was attached to the 2 leads. The pulse generator was then secured in the line of the suture with a 0 silk to the underlying muscle. The wound was then closed in 2 layers with a 2.0 and 3.0 Vicryl. Excellent hemostasis was achieved. The lead positions on the pulse generator positions were again rechecked. Patient tolerated the procedure well without complications. He will have a portable chest x-ray today and a repeat two-view chest x-ray tomorrow followed by a device check. 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 Atrial lead, state trooper [employer], model Tendril 2088 TC/46, serial #[id number]. Ventricle lead state trooper. [employer], model Tendril [id number] TC/58 cm serial #[id number]. The atrial threshold was 1.0 V at 0.5 milliseconds. The P-waves were 3.3 mV. Atrial lead impedance was 560 ohms. The ventricular lead threshold was 0.5 V at 0.5 milliseconds. The R-waves were 9.4 mV. The lead impedance was 640 ohms. The pacemaker was set at a low rate of 50, high rate of 120, paced AV delay of 275 milliseconds with the understanding that he would pace in the ventricle pretty much all the time and the ventricular lead is in a septal location. The pacemaker was set at DDD mode. Patient tolerated procedure well without complication. Findings and details were discussed with the patient and family. MMODL / IJN: [id number] / MTDD
[2018-11-15 18:41] LABS: African American GFR (CKD) >90 (>60 ml/min/1.73 sqM); Anion Gap 7 mmol/L; Basophils % (A) 0 %; Blood Urea Nitrogen 16 mg/dL (9-20); Calcium 9.7 mg/dL (8.4-10.2); Carbon Dioxide 29 mmol/L (22-30); Chloride 103 mmol/L (98-107); Eosinophils # (A) 0.3 k/uL (0-0.7); Eosinophils % (A) 3 %; Glucose 115 mg/dL (74-99); HCT 41.1 % (39.0-53.0); HGB 13.6 gm/dL (13.0-17.5); Lymphocytes # (A) 2.4 k/uL (1.0-4.8); Lymphocytes % (A) 24 %; MCH 29.3 pg (25.0-35.0); MCHC 33.2 g/dL (31.0-37.0); MCV 88.4 fL (80.0-100.0); Mean Platelet Volume 7.8; Monocytes # (A) 0.6 k/uL (0-1.0); Monocytes % (A) 6 %; Neutrophils # (A) 6.2 k/uL (1.3-7.7); Neutrophils % (A) 64 %; Platelet Count 220 k/uL (150-450); Potassium 4.4 mmol/L (3.5-5.1); RBC 4.65 m/uL (4.30-5.90); RDW 15.7 % (11.5-15.5); Sodium 139 mmol/L (137-145); WBC 9.7 k/uL (3.8-10.6)
[2018-11-15] MEDS ORDERED: ATORVASTATIN 10 MG TAB PO SCH (21:00)
[2018-11-15] MEDS: MORPHINE SULFATE IR 15 MG TABLET PO SCH (22:38)
[2018-11-16] MEDS: MORPHINE SULFATE IR 15 MG TABLET PO SCH ×3 (00:41→08:04)
[2018-11-16] MEDS: SODIUM CHLORIDE 0.9% 1,000 ML IV SCH ×2 (02:40)
[2018-11-16 08:02] VITALS: BP 149/70; PULSE 60; RESP 16; TEMP 98
--- NOTE | 2018-11-16 08:49 | XR ---
EXAMINATION TYPE: XR chest 2V DATE OF EXAM: 11/16/2018 COMPARISON: 11/15/2018 INDICATION: Pacemaker placement TECHNIQUE: Frontal and lateral views of the chest are obtained. FINDINGS: The heart size is normal. The pulmonary vasculature is normal. The lungs are clear. No pneumothorax is evident. A 2-lead pacemaker is present. No pneumothorax is e vident. IMPRESSION: 1. No pneumothorax post pacemaker placement. 2. No acute pulmonary process.
[2018-11-16] MEDS ORDERED: NON FORMULARY DRUG (Omega-3 Fatty Acids/Fish Oil [Fish Oil 1,000 Mg Softgel] 1 CAP) PO SCH (09:00)
[2018-11-16] MEDS ORDERED: PANTOPRAZOLE 40 MG TABLET PO SCH (09:00)
[2018-11-16] MEDS ORDERED: FERROUS SULFATE 325 MG TAB PO SCH (09:00)
[2018-11-16] MEDS ORDERED: CHOLECALCIFEROL 1,000 UNIT TAB PO SCH (09:00)
[2018-11-16] MEDS ORDERED: amLODIPine 10 MG TAB PO SCH (09:00)
[2018-11-16] MEDS ORDERED: ASPIRIN 81 MG PO SCH (09:00)
--- NOTE | 2018-11-16 09:39 | DS ---
DISCHARGE SUMMARY DATE OF ADMISSION: 11/15/2018 DATE OF DISCHARGE: 11/16/2018 DIAGNOSES: 1. High-grade AV block with symptomatic bradycardia. 2. Hypertension. 3. Hyperlipidemia. PROCEDURES PERFORMED: 1. Transvenous temporary pacemaker from right femoral approach. 2. Permanent dual-chamber pacemaker from left infraclavicular approach. Mr. Ni was brought in electively for a permanent pacemaker yesterday. I performed a temporary pacemaker from the right femoral approach. I then perform the permanent pacemaker on the left infraclavicular approach uneventfully. Postprocedure course was uneventful. The pacemaker device has been checked this morning. It is functioning very well with good thresholds and sensitivities. His chest x-ray is unremarkable. He is ambulating without symptoms. The patient's pacemaker site is clean and dry. Right femoral venous site is also clean and dry. Patient can be discharged and he will see Dr. Miramontes in one week in the office along with a pacemaker check. PHYSICAL EXAMINATION: Revealed blood pressure 130/70, pulse rate is 56 per minute, no JVD or carotid bruit, S1-S2 heard normally. Lungs revealed decent air entry. Abdomen and lower extremity exam is unchanged. Pacemaker site is clean and dry. Right femoral venous access site is clean and dry. Distal pulses are palpable. Patient will be discharged today, same home medications. Discharge instructions regarding activity, diet and medications were given. He will be seen by Dr. Miramontes in one week. DIVINE / KATEN: [id number] /
== END 2018-11-16 09:32 | disposition home or self-care (01) ==
LOC: CATHEP 08:51 → 1SOBS 11:44 → CATHEP 11-16 09:32
PROVIDERS: ATTEND Internal Medicine Interventional Cardiology
DX: I44.39 Other atrioventricular block (principal); I45.10 Unspecified right bundle-branch block; I49.5 Sick sinus syndrome; I10 Essential (primary) hypertension; E78.5 Hyperlipidemia, unspecified; E78.00 Pure hypercholesterolemia, unspecified; F17.220 Nicotine dependence, chewing tobacco, uncomplicated; Z79.82 Long term (current) use of aspirin; Z79.899 Other long term (current) drug therapy; Z79.1 Long term (current) use of non-steroidal anti-inflammatories (NSAID)
CPT/HCPCS: 33208; 80048; 85025; 71045; 71046; C1894; C1769 ×3; C1898; C1785; J0690 ×2; J2001; J3010; Q9967; J2250

== ENCOUNTER 2019-10-05 12:08 | Emergency (ER) | payer OTHER ==
[2019-10-05] MEDS ORDERED: ALBUTEROL NEBULIZED 2.5 MG/3 ML INHALATION STA (13:03)
[2019-10-05] MEDS ORDERED: IPRATROPIUM-ALBUTEROL 3 ML NEB INHALATION STA (13:03)
--- NOTE | 2019-10-05 13:24 | ED ---
General Adult HPI - General Chief complaint: Shortness of Breath Stated complaint: difficulty breathing Time Seen by Provider: 10/05/19 12:50 Source: patient, family, RN notes reviewed, old records reviewed Mode of arrival: ambulatory Limitations: no limitations - History of Present Illness Initial comments: 83-year-old male presenting with dyspnea. He states his back has been ongoing for many months, maybe longer. He himself has minimal smoking history but he was exposed to secondhand smoke for 25 years. He states he's had a cough which is mostly nonproductive. No fever. No chest pain, no lower extremity pain or swelling. - Related Data Home Medications Medication Instructions Recorded Confirmed Aspirin [Adult Low Dose Aspirin EC] 81 mg PO DAILY 02/04/16 11/15/18 Ferrous Sulfate [Iron (65 MG 325 mg PO DAILY 02/04/16 11/15/18 Elemental)] Lovastatin [Mevacor] 40 mg PO HS 02/04/16 11/15/18 Morphine Sulfate [Morphine Sulfate 15 mg PO 5XD 02/04/16 11/15/18 ER] [place]-3 Fatty Acids/Fish Oil [Fish 1 cap PO DAILY 02/04/16 11/15/18 Oil 1,000 mg Softgel] Omeprazole 20 mg PO DAILY 02/04/16 11/15/18 Cholecalciferol [Vitamin D3 (25 1,000 unit PO DAILY 09/13/18 11/15/18 Mcg = 1000 Iu)] Meloxicam [Mobic] 7.5 mg PO DAILY 11/14/18 11/15/18 Prevagen Supplement 1 tab PO DAILY 11/14/18 11/15/18 Previous Rx's Medication Instructions Recorded amLODIPine [Norvasc] 10 mg PO DAILY #30 tab 09/18/18 lisinopriL [Zestril] 10 mg PO DAILY #30 tab 09/18/18 Albuterol Inhaler [Ventolin Hfa 1 - 2 puff INHALATION QID PRN #1 10/05/19 Inhaler] inh predniSONE 50 mg PO DAILY #5 tab 10/05/19 Allergies Allergy/AdvReac Type Severity Reaction Status Date / Time No Known Allergies Allergy Verified 10/05/19 12:26 Review of Systems ROS Statement: Those systems with pertinent positive or pertinent negative responses have been documented in the HPI. ROS Other: All systems not noted in ROS Statement are negative. Past Medical History Past Medical History: GERD/Reflux, GI Bleed, Hyperlipidemia, Hypertension, Osteoarthritis (OA) Additional Past Medical History / Comment(s): Fractured back twice, arthritis in hands/wrists/ankles, lower GI bleed, diverticular disease/colon polyps, h emorrhoids, constipation, kidney stones History of Any Multi-Drug Resistant Organisms: None Reported Past Surgical History: Back Surgery, Cholecystectomy, Orthopedic Surgery Additional Past Surgical History / Comment(s): Lumbar laminectomy, EGD, colonoscopies/benign polypectomies, L shoulder arthroscopy. Past Anesthesia/Blood Transfusion Reactions: No Reported Reaction Past Psychological History: No Psychological Hx Reported Smoking Status: Never smoker Past Alcohol Use History: None Reported Past Drug Use History: None Reported - Past Family History Mother Family Medical History: Cancer Additional Family Medical History / Comment(s): Mother from some form of cancer at the age of 78yrs. Father History Unknown: Yes Additional Family Medical History / Comment(s): Father left when pt was 7 yrs old. General Exam Limitations: no limitations General appearance: alert, in no apparent distress Head exam: Present: atraumatic, normocephalic Eye exam: Present: normal appearance, PERRL ENT exam: Present: normal exam Neck exam: Present: normal inspection. Absent: tenderness, meningismus Respiratory exam: Present: decreased breath sounds. Absent: wheezes, rales Cardiovascular Exam: Present: regular rate, normal rhythm GI/Abdominal exam: Present: soft. Absent: distended, guarding, rebound Extremities exam: Present: normal inspection, normal capillary refill. Absent: pedal edema Neurological exam: Present: alert, oriented X3, CN II-XII intact. Absent: motor sensory deficit Psychiatric exam: Present: normal affect, normal mood Skin exam: Present: warm, dry, intact. Absent: cyanosis, diaphoretic Course Vital Signs 10/05/19 10/05/19 10/05/19 12:21 13:17 13:20 Temperature 98.3 F Pulse Rate 78 69 Respiratory 18 22 Rate Blood Pressure 103/59 O2 Sat by Pulse 98 Oximetry 10/05/19 13:35 Temperature Pulse Rate 72 Respiratory Rate Blood Pressure O2 Sat by Pulse Oximetry EKG Findings - EKG Comments: EKG Findings:: EKG: Sinus rhythm with first-degree AV block, right bundle-branch block, left anterior fascicular block, bifascicular block, LVH, rate of 65, VA interval 213, QRS duration 140 QTC 418, no ST segment elevation. Medical Decision Making - Medical Decision Making 82-year-old male with chronic cough, dyspnea. Workup reveals EKG which is negative for ST segment elevation. Chest x-ray showing hyperinflation consistent with COPD, no focal pneumonia. Patient has a normal white blood cell count, his CO2 is elevated at 32 consistent with chronic CO2 retention. His tro ponin is negative, BNP is normal, d-dimer is 0.32 which is normal. I did offer observation for treatment of COPD and reactive airway. Patient prefers discharge with outpatient follow-up. He will be prescribed an albuterol inhaler, and a course of steroids. He will follow-up with his primary care physician and return with worsening or changing symptoms. - Lab Data Result diagrams: 10/05/19 13:14 10/05/19 13:14 Lab Results 10/05/19 10/05/19 10/05/19 Range/Units 13:14 13:14 13:14 WBC 8.6 (3.8-10.6) k/uL RBC 4.82 (4.30-5.90) m/uL Hgb 14.5 (13.0-17.5) gm/dL Hct 44.6 (39.0-53.0) % MCV 92.6 (80.0-100.0) fL MCH 30.1 (25.0-35.0) pg MCHC 32.5 (31.0-37.0) g/dL RDW 13.1 (11.5-15.5) % Plt Count 210 (150-450) k/uL Neutrophils % 76 % Lymphocytes % 16 % Monocytes % 5 % Eosinophils % 1 % Basophils % 0 % Neutrophils # 6.5 (1.3-7.7) k/uL Lymphocytes # 1.4 (1.0-4.8) k/uL Monocytes # 0.5 (0-1.0) k/uL Eosinophils # 0.1 (0-0.7) k/uL Basophils # 0.0 (0-0.2) k/uL PT 11.0 (9.0-12.0) sec INR 1.1 (<1.2) APTT 24.3 (22.0-30.0) sec D-Dimer 0.32 (<0.60) mg/L FEU Sodium 138 (137-145) mmol/L Potassium 4.3 (3.5-5.1) mmol/L Chloride 101 (98-107) mmol/L Carbon Dioxide 32 H (22-30) mmol/L Anion Gap 5 mmol/L BUN 22 H (9-20) mg/dL Creatinine 0.62 L (0.66-1.25) mg/dL Est GFR (CKD-EPI)AfAm >90 (>60 ml/min/1.73 sqM) Est GFR (CKD-EPI)NonAf >90 (>60 ml/min/1.73 sqM) Glucose 107 H (74-99) mg/dL Plasma Lactic Acid Billy (0.7-2.0) mmol/L Calcium 10.3 H (8.4-10.2) mg/dL Magnesium 2.1 (1.6-2.3) mg/dL Total Bilirubin 0.5 (0.2-1.3) mg/dL AST 25 (17-59) U/L ALT 29 (4-49) U/L Alkaline Phosphatase 71 (38-126) U/L Troponin I (0.000-0.034) ng/mL NT-Pro-B Natriuret Pep pg/mL Total Protein 6.4 (6.3-8.2) g/dL Albumin 3.9 (3.5-5.0) g/dL 10/05/19 10/05/19 10/05/19 Range/Units 13:14 13:14 13:14 WBC (3.8-10.6) k/uL RBC (4.30-5.90) m/uL Hgb (13.0-17.5) gm/dL Hct (39.0-53.0) % MCV (80.0-100.0) fL MCH (25.0-35.0) pg MCHC (31.0-37.0) g/dL RDW (11.5-15.5) % Plt Count (150-450) k/uL Neutrophils % % Lymphocytes % % Monocytes % % Eosinophils % % Basophils % % Neutrophils # (1.3-7.7) k/uL Lymphocytes # (1.0-4.8) k/uL Monocytes # (0-1.0) k/uL Eosinophils # (0-0.7) k/uL Basophils # (0-0.2) k/uL PT (9.0-12.0) sec INR (<1.2) APTT (22.0-30.0) sec D-Dimer (<0.60) mg/L FEU Sodium (137-145) mmol/L Potassium (3.5-5.1) mmol/L Chloride (98-107) mmol/L Carbon Dioxide (22-30) mmol/L Anion Gap mmol/L BUN (9-20) mg/dL Creatinine (0.66-1.25) mg/dL Est GFR (CKD-EPI)AfAm (>60 ml/min/1.73 sqM) Est GFR (CKD-EPI)NonAf (>60 ml/min/1.73 sqM) Glucose (74-99) mg/dL Plasma Lactic Acid Billy 1.3 (0.7-2.0) mmol/L Calcium (8.4-10.2) mg/dL Magnesium (1.6-2.3) mg/dL Total Bilirubin (0.2-1.3) mg/dL AST (17-59) U/L ALT (4-49) U/L Alkaline Phosphatase (38-126) U/L Troponin I <0.012 (0.000-0.034) ng/mL NT-Pro-B Natriuret Pep 73 pg/mL Total Protein (6.3-8.2) g/dL Albumin (3.5-5.0) g/dL Disposition Clinical Impression: Acute exacerbation of chronic obstructive pulmonary disease Disposition: HOME SELF-CARE Condition: Fair Instructions (If sedation given, give patient instructions): COPD (Chronic Obstructive Pulmonary Disease) (ED) Prescriptions: predniSONE 50 mg PO DAILY #5 tab Albuterol Inhaler [Ventolin Hfa Inhaler] 1 - 2 puff INHALATION QID PRN #1 inh PRN Reason: Wheezing Is patient prescribed a controlled substance at d/c from ED?: No Referrals: [facility],Clinic [Primary Care Provider] - 1-2 days Time of Disposition: 14:27
[2019-10-05 13:33] LABS: Basophils % (A) 0 %; Eosinophils # (A) 0.1 k/uL (0-0.7); Eosinophils % (A) 1 %; HCT 44.6 % (39.0-53.0); HGB 14.5 gm/dL (13.0-17.5); Lymphocytes # (A) 1.4 k/uL (1.0-4.8); Lymphocytes % (A) 16 %; MCH 30.1 pg (25.0-35.0); MCHC 32.5 g/dL (31.0-37.0); MCV 92.6 fL (80.0-100.0); Mean Platelet Volume 8.5; Monocytes # (A) 0.5 k/uL (0-1.0); Monocytes % (A) 5 %; Neutrophils # (A) 6.5 k/uL (1.3-7.7); Neutrophils % (A) 76 %; Platelet Count 210 k/uL (150-450); RBC 4.82 m/uL (4.30-5.90); RDW 13.1 % (11.5-15.5); WBC 8.6 k/uL (3.8-10.6)
[2019-10-05 13:35] LABS: ALT 29 U/L (4-49); AST 25 U/L (17-59); African American GFR (CKD) >90 (>60 ml/min/1.73 sqM); Albumin 3.9 g/dL (3.5-5.0); Alkaline Phosphatase 71 U/L (38-126); Anion Gap 5 mmol/L; Blood Urea Nitrogen 22 mg/dL (9-20); Calcium 10.3 mg/dL (8.4-10.2); Carbon Dioxide 32 mmol/L (22-30); Chloride 101 mmol/L (98-107); Glucose 107 mg/dL (74-99); Magnesium 2.1 mg/dL (1.6-2.3); Non-African American GFR(CKD) >90 (>60 ml/min/1.73 sqM); Potassium 4.3 mmol/L (3.5-5.1); Sodium 138 mmol/L (137-145); Total Bilirubin 0.5 mg/dL (0.2-1.3); Total Protein 6.4 g/dL (6.3-8.2)
[2019-10-05 13:43] LABS: D-Dimer 0.32 mg/L FEU (<0.60); INR 1.1 (<1.2); Partial Thromboplastin Time 24.3 sec (22.0-30.0)
--- NOTE | 2019-10-05 14:00 | XR ---
EXAMINATION TYPE: XR chest 2V DATE OF EXAM: 10/05/2019 COMPARISON: 11/16/2018 HISTORY: 83-year-old male shortness of breath, difficulty breathing TECHNIQUE: PA and lateral views FINDINGS: Left anterior chest wall pacemaker generator with right atrial and right ventricular leads. Heart nor mal size. Aorta within normal limits. Mild hyperinflation. Strandy atelectasis right base. No consoli dation or pleural effusion. IMPRESSION: Correlate for underlying COPD. No acute process seen.
[2019-10-05] MEDS ORDERED: DEXAMETHASONE SOD PHOSPHATE 10 MG/ML 1 ML VIAL IV STA (14:18)
[2019-10-05 14:45] VITALS: BP 110/58; PULSE 93; RESP 16; TEMP 98
== END 2019-10-05 14:44 | disposition home or self-care (01) ==
LOC: EC 12:08
DX: J44.1 Chronic obstructive pulmonary disease with (acute) exacerbation (principal); R79.81 Abnormal blood-gas level; M19.90 Unspecified osteoarthritis, unspecified site; E78.5 Hyperlipidemia, unspecified; K21.9 Gastro-esophageal reflux disease without esophagitis; Z79.891 Long term (current) use of opiate analgesic; Z79.82 Long term (current) use of aspirin; Z79.899 Other long term (current) drug therapy; Z79.1 Long term (current) use of non-steroidal anti-inflammatories (NSAID); Z87.891 Personal history of nicotine dependence; Z77.22 Contact with and (suspected) exposure to environmental tobacco smoke (acute) (chronic)
CPT/HCPCS: 99285; 96374; 36415; 94640; 93005; 85379; 83880; 80053; 83605; 83735; 84484; 85025; 85610; 85730; 71046; J1100

== ENCOUNTER 2019-10-06 14:25 | Inpatient (IN) | payer OTHER ==
[2019-10-06] MEDS ORDERED: SODIUM CHLORIDE 0.9% 500 ML 500 ML IV STA (14:47)
[2019-10-06] MEDS ORDERED: methylPREDNISolone SOD SUCCI 125 MG/2 ML VIAL IV STA (14:47)
[2019-10-06] MEDS ORDERED: IPRATROPIUM-ALBUTEROL 3 ML NEB INHALATION STA (14:48)
--- NOTE | 2019-10-06 15:04 | ED ---
General Adult HPI - General Source: patient, RN notes reviewed Mode of arrival: wheelchair Limitations: no limitations <Raul Lemus - Last Filed: 10/06/19 22:45> <Nettie Guerra - Last Filed: 10/08/19 22:36> - General Chief complaint: Shortness of Breath Stated complaint: Revisit SOB Time Seen by Provider: 10/06/19 14:38 - History of Present Illness Initial comments: 83-year-old male presents to the emergency department for multiple complaints. Patient has been short of breath for the last couple months. States that he has had a productive cough as well. Patient was exposed to secondhand smoke for abo ut 25 years but otherwise was not an excessive smoker. He was seen here yesterday and refused admission for reactive airway disease. he went home and subsequently had a near syncopal episode after standing up to go to the bathroom. He hit his head on the door. States he just feels generally weak and short of breath. He states he should've stayed yesterday.Patient has no other complaints at this time including shortness of breath, chest pain, abdominal pain, nausea or vomiting, headache, or visual changes. (Raul Lemus) - Related Data Home Medications Medication Instructions Recorded Confirmed Aspirin [Adult Low Dose Aspirin EC] 81 mg PO DAILY 02/04/16 10/06/19 Lovastatin [Mevacor] 40 mg PO HS 02/04/16 10/06/19 [place]-3 Fatty Acids/Fish Oil [Fish 1 cap PO DAILY 02/04/16 10/06/19 Oil 1,000 mg Softgel] Omeprazole 20 mg PO DAILY 02/04/16 10/06/19 Cholecalciferol [Vitamin D3 (25 1,000 unit PO DAILY 09/13/18 10/06/19 Mcg = 1000 Iu)] Meloxicam [Mobic] 7.5 mg PO DAILY PRN 11/14/18 10/06/19 Albuterol Inhaler [Ventolin Hfa 2 puff INHALATION RT-QID PRN 10/06/19 10/06/19 Inhaler] Ferrous Sulfate [Iron] 325 mg PO DAILY 10/06/19 10/06/19 Meclizine HCl 25 mg PO TID PRN 10/06/19 10/06/19 Morphine Sulfate ER [Ms Contin] 15 mg PO Q12HR 10/06/19 10/06/19 Previous Rx's Medication Instructions Recorded amLODIPine [Norvasc] 10 mg PO DAILY #30 tab 09/18/18 lisinopriL [Zestril] 10 mg PO DAILY #30 tab 09/18/18 predniSONE 50 mg PO DAILY #5 tab 10/05/19 Allergies Allergy/AdvReac Type Severity Reaction Status Date / Time No Known Allergies Allergy Verified 10/06/19 14:29 Review of Systems ROS Other: All systems not noted in ROS Statement are negative. <Raul Lemus P - Last Filed: 10/06/19 22:45> ROS Other: All systems not noted in ROS Statement are negative. <Nettie Guerra - Last Filed: 10/08/19 22:36> ROS Statement: Those systems with pertinent positive or pertinent negative responses have been documented in the HPI. Past Medical History Past Medical History: GERD/Reflux, GI Bleed, Hyperlipidemia, Hypertension, Osteoarthritis (OA) Additional Past Medical History / Comment(s): Fractured back twice, arthritis in hands/wrists/ankles, lower GI bleed, diverticular disease/colon polyps, hemorrhoids, constipation, kidney stones History of Any Multi-Drug Resistant Organisms: None Reported Past Surgical History: Back Surgery, Cholecystectomy, Orthopedic Surgery Additional Past Surgical History / Comment(s): Lumbar laminectomy, EGD, colonoscopies/benign polypectomies, L shoulder arthroscopy. Past Anesthesia/Blood Transfusion Reactions: No Reported Reaction Past Psychological History: No Psychological Hx Reported Smoking Status: Never smoker Past Alcohol Use History: None Reported Past Drug Use History: None Reported - Past Family History Mother Family Medical History: Cancer Additional Family Medical History / Comment(s): Mother from some form of cancer at the age of 78yrs. Father History Unknown: Yes Additional Family Medical History / Comment(s): Father left when pt was 7 yrs old. <Raul Lemus P - Last Filed: 10/06/19 22:45> General Exam Limitations: no limitations General appearance: alert, in no apparent distress Head exam: Present: atraumatic, normocephalic, normal inspection Eye exam: Present: normal appearance, PERRL, EOMI. Absent: scleral icterus, conjunctival injection, periorbital swelling ENT exam: Present: normal exam, mucous membranes moist Neck exam: Present: normal inspection, full ROM. Absent: tenderness, meningismus, lymphadenopathy Respiratory exam: Present: wheezes (minimal wheezing noted in bilateral lower lung schroeder.). Absent: respiratory distress, rales, rhonchi, stridor Cardiovascular Exam: Present: regular rate, normal rhythm, normal heart sounds. Absent: systolic murmur, diastolic murmur, rubs, gallop, clicks GI/Abdominal exam: Present: soft, normal bowel sounds. Absent: distended, tenderness, guarding, rebound, rigid Neurological exam: Present: alert <aRul Lemus - Last Filed: 10/06/19 22:45> Course Vital Signs 10/06/19 10/06/19 10/06/19 14:27 15:21 15:29 Temperature 98.4 F Pulse Rate 101 H 98 81 Respiratory 18 20 Rate Blood Pressure 97/51 102/56 O2 Sat by Pulse 98 97 Oximetry 10/06/19 10/06/19 15:30 17:34 Temperature 98.3 F Pulse Rate 100 78 Respiratory 16 Rate Blood Pressure 110/58 O2 Sat by Pulse 98 Oximetry EKG Findings - EKG Comments: EKG Findings:: EKG shows a sinus rhythm with a first-degree AV block, right bundle branch block, ventricular rate is 89, VT interval 328, QTc 43. This was compared to previous EKG from October 05 2019 at 1311 which is similar in appearance. <Raul Lemus - Last Filed: 10/06/19 22:45> Medical Decision Making - Lab Data Result diagrams: 10/06/19 15:15 10/06/19 15:15 <Raul Lemus - Last Filed: 10/06/19 22:45> - Lab Data Result diagrams: 10/08/19 07:29 10/08/19 07:29 <Nettie Guerra - Last Filed: 10/08/19 22:36> - Medical Decision Making HPI and physical exam as documented. Vitals are stable. Patient is found to have a leukocytosis of 21.4 however did start steroids yesterday. CMP does show evidence of dehydration. Troponin is negative. BNP is 495. Urinalysis does show evidence of urinary tract infection. This will be cultured and patient will be started on Rocephin. chest x-ray is unremarkable.CT brain shows moderate cerebral atrophy without acute intracranial abnormality. CT of the cervical spine is negative. No fracture.at this time patient will be admitted for treatment of reactive airway disease. Cardiology was consulted as patient did have an episode of near syncope earlier today. (Raul Lemus) I was available for consultation in the emergency department. The history and physical exam were done by the midlevel provider. I was consulted for this patients care. I reviewed the case with the midlevel provider and based on their presentation of the patient, I agree with the assessment, medical decision making and plan of care as documented. Chart was dictated using Liquid dictation software. Attempts were made to correct any dictation errors however some typographical errors may persist. Patient was seen during a national state of emergency due to the Covid-19 pandemic. (Nettie Guerra) - Lab Data Lab Results 10/06/19 10/06/19 10/06/19 Range/Units 15:15 15:15 15:15 WBC 21.4 H (3.8-10.6) k/uL RBC 4.56 (4.30-5.90) m/uL Hgb 13.3 (13.0-17.5) gm/dL Hct 42.0 (39.0-53.0) % MCV 92.1 (80.0-100.0) fL MCH 29.2 (25.0-35.0) pg MCHC 31.7 (31.0-37.0) g/dL RDW 13.5 (11.5-15.5) % Plt Count 233 (150-450) k/uL Neutrophils % 95 % Lymphocytes % 3 % Monocytes % 2 % Eosinophils % 0 % Basophils % 0 % Neutrophils # 20.2 H (1.3-7.7) k/uL Lymphocytes # 0.7 L (1.0-4.8) k/uL Monocytes # 0.3 (0-1.0) k/uL Eosinophils # 0.1 (0-0.7) k/uL Basophils # 0.0 (0-0.2) k/uL PT 10.7 (9.0-12.0) sec INR 1.0 (<1.2) APTT 21.8 L (22.0-30.0) sec Sodium 137 (137-145) mmol/L Potassium 4.1 (3.5-5.1) mmol/L Chloride 99 (98-107) mmol/L Carbon Dioxide 29 (22-30) mmol/L Anion Gap 9 mmol/L BUN 38 H (9-20) mg/dL Creatinine 1.23 (0.66-1.25) mg/dL Est GFR (CKD-EPI)AfAm 64 (>60 ml/min/1.73 sqM) Est GFR (CKD-EPI)NonAf 55 (>60 ml/min/1.73 sqM) Glucose 120 H (74-99) mg/dL POC Glucose (mg/dL) (75-99) mg/dL POC Glu Vp [employer] ID Calcium 10.9 H (8.4-10.2) mg/dL Magnesium 2.0 (1.6-2.3) mg/dL Total Bilirubin 0.4 (0.2-1.3) mg/dL AST 24 (17-59) U/L ALT 29 (4-49) U/L Alkaline Phosphatase 61 (38-126) U/L Troponin I (0.000-0.034) ng/mL NT-Pro-B Natriuret Pep pg/mL Total Protein 6.1 L (6.3-8.2) g/dL Albumin 3.8 (3.5-5.0) g/dL Urine Color Urine Appearance (Clear) Urine pH (5.0-8.0) Ur Specific [place] (1.001-1.035) Urine Protein (Negative) Urine Glucose (UA) (Negative) Urine Ketones (Negative) Urine Blood (Negative) Urine Nitrite (Negative) Urine Bilirubin (Negative) Urine Urobilinogen (<2.0) mg/dL Ur Leukocyte Esterase (Negative) Urine RBC (0-5) /hpf Urine WBC (0-5) /hpf Ur Squamous Epith Cells (0-4) /hpf Amorphous Sediment (None) /hpf Urine Bacteria (None) /hpf Hyaline Casts (0-2) /lpf Urine Mucus (None) /hpf 10/06/19 10/06/19 10/06/19 Range/Units 15:15 15:15 16:25 WBC (3.8-10.6) k/uL RBC (4.30-5.90) m/uL Hgb (13.0-17.5) gm/dL Hct (39.0-53.0) % MCV (80.0-100.0) fL MCH (25.0-35.0) pg MCHC (31.0-37.0) g/dL RDW (11.5-15.5) % Plt Count (150-450) k/uL Neutrophils % % Lymphocytes % % Monocytes % % Eosinophils % % Basophils % % Neutrophils # (1.3-7.7) k/uL Lymphocytes # (1.0-4.8) k/uL Monocytes # (0-1.0) k/uL Eosinophils # (0-0.7) k/uL Basophils # (0-0.2) k/uL PT (9.0-12.0) sec INR (<1.2) APTT (22.0-30.0) sec Sodium (137-145) mmol/L Potassium (3.5-5.1) mmol/L Chloride (98-107) mmol/L Carbon Dioxide (22-30) mmol/L Anion Gap mmol/L BUN (9-20) mg/dL Creatinine (0.66-1.25) mg/dL Est GFR (CKD-EPI)AfAm (>60 ml/min/1.73 sqM) Est GFR (CKD-EPI)NonAf (>60 ml/min/1.73 sqM) Glucose (74-99) mg/dL POC Glucose (mg/dL) (75-99) mg/dL POC Glu Vp [employer] ID Calcium (8.4-10.2) mg/dL Magnesium (1.6-2.3) mg/dL Total Bilirubin (0.2-1.3) mg/dL AST (17-59) U/L ALT (4-49) U/L Alkaline Phosphatase (38-126) U/L Troponin I <0.012 (0.000-0.034) ng/mL NT-Pro-B Natriuret Pep 495 pg/mL Total Protein (6.3-8.2) g/dL Albumin (3.5-5.0) g/dL Urine Color [place] Urine Appearance Slightly Cloudy (Clear) Urine pH 5.0 (5.0-8.0) Ur Specific [place] 1.025 (1.001-1.035) Urine Protein 1+ (Negative) Urine Glucose (UA) Negative (Negative) Urine Ketones Negative (Negative) Urine Blood Negative (Negative) Urine Nitrite Negative (Negative) Urine Bilirubin Negative (Negative) Urine Urobilinogen 2.0 (<2.0) mg/dL Ur Leukocyte Esterase Large (Negative) Urine RBC 4 (0-5) /hpf Urine WBC 27 H (0-5) /hpf Ur Squamous Epith Cells 2 (0-4) /hpf Amorphous Sediment Rare H (None) /hpf Urine Bacteria Many H (None) /hpf Hyaline Casts 237 H (0-2) /lpf Urine Mucus Few H (None) /hpf 10/06/19 10/07/19 10/07/19 Range/Units 19:42 06:29 11:34 WBC (3.8-10.6) k/uL RBC (4.30-5.90) m/uL Hgb (13.0-17.5) gm/dL Hct (39.0-53.0) % MCV (80.0-100.0) fL MCH (25.0-35.0) pg MCHC (31.0-37.0) g/dL RDW (11.5-15.5) % Plt Count (150-450) k/uL Neutrophils % % Lymphocytes % % Monocytes % % Eosinophils % % Basophils % % Neutrophils # (1.3-7.7) k/uL Lymphocytes # (1.0-4.8) k/uL Monocytes # (0-1.0) k/uL Eosinophils # (0-0.7) k/uL Basophils # (0-0.2) k/uL PT (9.0-12.0) sec INR (<1.2) APTT (22.0-30.0) sec Sodium (137-145) mmol/L Potassium (3.5-5.1) mmol/L Chloride (98-107) mmol/L Carbon Dioxide (22-30) mmol/L Anion Gap mmol/L BUN (9-20) mg/dL Creatinine (0.66-1.25) mg/dL Est GFR (CKD-EPI)AfAm (>60 ml/min/1.73 sqM) Est GFR (CKD-EPI)NonAf (>60 ml/min/1.73 sqM) Glucose (74-99) mg/dL POC Glucose (mg/dL) 108 H 190 H (75-99) mg/dL POC Glu Vp [employer] ID [address]la [address] [place] Calcium (8.4-10.2) mg/dL Magnesium (1.6-2.3) mg/dL Total Bilirubin (0.2-1.3) mg/dL AST (17-59) U/L ALT (4-49) U/L Alkaline Phosphatase (38-126) U/L Troponin I <0.012 (0.000-0.034) ng/mL NT-Pro-B Natriuret Pep pg/mL Total Protein (6.3-8.2) g/dL Albumin (3.5-5.0) g/dL Urine Color Urine Appearance (Clear) Urine pH (5.0-8.0) Ur Specific [place] (1.001-1.035) Urine Protein (Negative) Urine Glucose (UA) (Negative) Urine Ketones (Negative) Urine Blood (Negative) Urine Nitrite (Negative) Urine Bilirubin (Negative) Urine Urobilinogen (<2.0) mg/dL Ur Leukocyte Esterase (Negative) Urine RBC (0-5) /hpf Urine WBC (0-5) /hpf Ur Squamous Epith Cells (0-4) /hpf Amorphous Sediment (None) /hpf Urine Bacteria (None) /hpf Hyaline Casts (0-2) /lpf Urine Mucus (None) /hpf 10/07/19 10/08/19 10/08/19 Range/Units 21:22 07:15 07:29 WBC 17.1 H (3.8-10.6) k/uL RBC 4.29 L (4.30-5.90) m/uL Hgb 12.8 L (13.0-17.5) gm/dL Hct 39.9 (39.0-53.0) % MCV 93.2 (80.0-100.0) fL MCH 29.8 (25.0-35.0) pg MCHC 32.0 (31.0-37.0) g/dL RDW 13.6 (11.5-15.5) % Plt Count 202 (150-450) k/uL Neutrophils % 95 % Lymphocytes % 3 % Monocytes % 2 % Eosinophils % 0 % Basophils % 0 % Neutrophils # 16.2 H (1.3-7.7) k/uL Lymphocytes # 0.5 L (1.0-4.8) k/uL Monocytes # 0.3 (0-1.0) k/uL Eosinophils # 0.0 (0-0.7) k/uL Basophils # 0.0 (0-0.2) k/uL PT (9.0-12.0) sec INR (<1.2) APTT (22.0-30.0) sec Sodium (137-145) mmol/L Potassium (3.5-5.1) mmol/L Chloride (98-107) mmol/L Carbon Dioxide (22-30) mmol/L Anion Gap mmol/L BUN (9-20) mg/dL Creatinine (0.66-1.25) mg/dL Est GFR (CKD-EPI)AfAm (>60 ml/min/1.73 sqM) Est GFR (CKD-EPI)NonAf (>60 ml/min/1.73 sqM) Glucose (74-99) mg/dL POC Glucose (mg/dL) 198 H 110 H (75-99) mg/dL POC Glu Vp [employer] ID Domingo, Perla [address], Perla Calcium (8.4-10.2) mg/dL Magnesium (1.6-2.3) mg/dL Total Bilirubin (0.2-1.3) mg/dL AST (17-59) U/L ALT (4-49) U/L Alkaline Phosphatase (38-126) U/L Troponin I (0.000-0.034) ng/mL NT-Pro-B Natriuret Pep pg/mL Total Protein (6.3-8.2) g/dL Albumin (3.5-5.0) g/dL Urine Color Urine Appearance (Clear) Urine pH (5.0-8.0) Ur Specific [place] (1.001-1.035) Urine Protein (Negative) Urine Glucose (UA) (Negative) Urine Ketones (Negative) Urine Blood (Negative) Urine Nitrite (Negative) Urine Bilirubin (Negative) Urine Urobilinogen (<2.0) mg/dL Ur Leukocyte Esterase (Negative) Urine RBC (0-5) /hpf Urine WBC (0-5) /hpf Ur Squamous Epith Cells (0-4) /hpf Amorphous Sediment (None) /hpf Urine Bacteria (None) /hpf Hyaline Casts (0-2) /lpf Urine Mucus (None) /hpf 08/17/20 08/17/20 Range/Units 07:29 11:36 WBC (3.8-10.6) k/uL RBC (4.30-5.90) m/uL Hgb (13.0-17.5) gm/dL Hct (39.0-53.0) % MCV (80.0-100.0) fL MCH (25.0-35.0) pg MCHC (31.0-37.0) g/dL RDW (11.5-15.5) % Plt Count (150-450) k/uL Neutrophils % % Lymphocytes % % Monocytes % % Eosinophils % % Basophils % % Neutrophils # (1.3-7.7) k/uL Lymphocytes # (1.0-4.8) k/uL Monocytes # (0-1.0) k/uL Eosinophils # (0-0.7) k/uL Basophils # (0-0.2) k/uL PT (9.0-12.0) sec INR (<1.2) APTT (22.0-30.0) sec Sodium 136 L (137-145) mmol/L Potassium 4.7 (3.5-5.1) mmol/L Chloride 103 (98-107) mmol/L Carbon Dioxide 29 (22-30) mmol/L Anion Gap 4 mmol/L BUN 46 H (9-20) mg/dL Creatinine 0.73 (0.66-1.25) mg/dL Est GFR (CKD-EPI)AfAm >90 (>60 ml/min/1.73 sqM) Est GFR (CKD-EPI)NonAf 87 (>60 ml/min/1.73 sqM) Glucose 108 H (74-99) mg/dL POC Glucose (mg/dL) 126 H (75-99) mg/dL POC Glu Vp [employer] ID Cele Rivera Calcium 10.0 (8.4-10.2) mg/dL Magnesium (1.6-2.3) mg/dL Total Bilirubin (0.2-1.3) mg/dL AST (17-59) U/L ALT (4-49) U/L Alkaline Phosphatase (38-126) U/L Troponin I (0.000-0.034) ng/mL NT-Pro-B Natriuret Pep pg/mL Total Protein (6.3-8.2) g/dL Albumin (3.5-5.0) g/dL Urine Color Urine Appearance (Clear) Urine pH (5.0-8.0) Ur Specific [place] (1.001-1.035) Urine Protein (Negative) Urine Glucose (UA) (Negative) Urine Ketones (Negative) Urine Blood (Negative) Urine Nitrite (Negative) Urine Bilirubin (Negative) Urine Urobilinogen (<2.0) mg/dL Ur Leukocyte Esterase (Negative) Urine RBC (0-5) /hpf Urine WBC (0-5) /hpf Ur Squamous Epith Cells (0-4) /hpf Amorphous Sediment (None) /hpf Urine Bacteria (None) /hpf Hyaline Casts (0-2) /lpf Urine Mucus (None) /hpf Disposition Is patient prescribed a controlled substance at d/c from ED?: No Time of Disposition: 16:57 <Raul Lemus P - Last Filed: 10/06/19 22:45> <Nettie Guerra - Last Filed: 10/08/19 22:36> Clinical Impression: Shortness of breath, Near syncope, UTI (urinary tract infection), Reactive airway disease Disposition: ADMITTED IP TO THIS HOSP Condition: Fair
[2019-10-06 15:43] LABS: Basophils % (A) 0 %; Eosinophils # (A) 0.1 k/uL (0-0.7); Eosinophils % (A) 0 %; HGB 13.3 gm/dL (13.0-17.5); Lymphocytes # (A) 0.7 k/uL (1.0-4.8); Lymphocytes % (A) 3 %; MCH 29.2 pg (25.0-35.0); MCHC 31.7 g/dL (31.0-37.0); MCV 92.1 fL (80.0-100.0); Mean Platelet Volume 8.9; Monocytes # (A) 0.3 k/uL (0-1.0); Monocytes % (A) 2 %; Neutrophils # (A) 20.2 k/uL (1.3-7.7); Neutrophils % (A) 95 %; Platelet Count 233 k/uL (150-450); RBC 4.56 m/uL (4.30-5.90); RDW 13.5 % (11.5-15.5); WBC 21.4 k/uL (3.8-10.6)
[2019-10-06 15:51] LABS: Prothrombin Time 10.7 sec (9.0-12.0)
[2019-10-06 15:53] LABS: Albumin 3.8 g/dL (3.5-5.0); Calcium 10.9 mg/dL (8.4-10.2); Potassium 4.1 mmol/L (3.5-5.1); Total Bilirubin 0.4 mg/dL (0.2-1.3); Total Protein 6.1 g/dL (6.3-8.2)
--- NOTE | 2019-10-06 15:58 | XR ---
EXAMINATION TYPE: XR chest 1V portable DATE OF EXAM: 10/06/2019 COMPARISON: 10/05/2019 HISTORY: Chest pain TECHNIQUE: FINDINGS: There is no heart failure nor confluent pneumonic infiltrate. Costophrenic angles are clear . There is left axillary pacemaker. The bony thorax is intact. There is slight blunting of the costop hrenic angles. IMPRESSION: Minimal pleural reaction or fluid at the lung bases unchanged. Normal heart.
--- NOTE | 2019-10-06 16:02 | CT ---
EXAMINATION TYPE: CT brain cspine wo con DATE OF EXAM: 10/06/2019 COMPARISON: 10/27/2018 HISTORY: Head injury CT DLP: 1313.4 mGycm Automated exposure control for dose reduction was used. There is cerebral cortical atrophy. There is no mass effect nor midline shift. There is no sign of in tracranial hemorrhage. The calvarium is intact. Cervical vertebra have normal alignment. Disc spaces are fairly normal. Posterior elements are intact . Facet joints are intact. There is minimal facet arthropathy. Prevertebral soft tissues appear intac t. IMPRESSION: Moderate cerebral atrophy. No acute intracranial abnormality. Negative CT scan of the cervical spine. No fracture. Brain and cervical spine unchanged compared to old exam.
[2019-10-06 16:03] LABS: Partial Thromboplastin Time 21.8 sec (22.0-30.0)
[2019-10-06 16:46] LABS: Amorphous Sediment,Urine Rare /hpf; Appearance,Urine Slightly Cloudy (Clear); Bacteria,Urine Many /hpf; Color,Urine Amber; Hyaline Casts,Urine 237 /lpf (0-2); Mucus,Urine Few /hpf; RBC,Urine 4 /hpf (0-5); Squamous Epithelial Cell,Urine 2 /hpf (0-4); WBC,Urine 27 /hpf (0-5)
[2019-10-06 16:47] LABS: Bilirubin,Urine Negative (Negative); Blood,Urine Negative (Negative); Glucose,Urine (UA) Negative (Negative); Ketones,Urine Negative (Negative); Nitrite,Urine Negative (Negative); Protein,Urine 1+ (Negative); Specific Gravity,Urine 1.025 (1.001-1.035)
[2019-10-06 16:48] LABS: Leukocyte Esterase,Urine Large (Negative)
[2019-10-06] MEDS ORDERED: SODIUM CHLORIDE 0.9% 1,000 ML IV STA (17:00)
[2019-10-06] MEDS ORDERED: cefTRIAXone IN SWFI 1,000 MG/10 ML SYRINGE IVP STA (17:00)
[2019-10-06] MEDS: methylPREDNISolone SOD SUCCI 125 MG/2 ML VIAL IV SCH (19:53)
[2019-10-06] MEDS ORDERED: ALBUTEROL HFA INHALER INHALATION PRN (19:59)
[2019-10-06] MEDS ORDERED: MELOXICAM 7.5 MG TAB PO PRN (19:59)
[2019-10-06] MEDS: IPRATROPIUM-ALBUTEROL 3 ML NEB INHALATION SCH (20:21)
[2019-10-06] MEDS ORDERED: IPRATROPIUM-ALBUTEROL 3 ML NEB INHALATION PRN (20:23)
[2019-10-06] MEDS: MORPHINE SULFATE ER 15 MG TABLET PO SCH (20:53)
[2019-10-06] MEDS: ATORVASTATIN 10 MG TAB PO SCH (20:54)
[2019-10-07] MEDS ORDERED: MECLIZINE 25 MG TAB PO PRN (00:31)
[2019-10-07] MEDS ORDERED: ALPRAZolam 0.25 MG TAB PO PRN (00:33)
[2019-10-07] MEDS ORDERED: HYDROcodone/APAP 5-325MG 1 EACH TAB PO PRN (00:33)
[2019-10-07] MEDS ORDERED: ACETAMINOPHEN TAB 500 MG TAB PO PRN (00:33)
[2019-10-07] MEDS: methylPREDNISolone SOD SUCCI 125 MG/2 ML VIAL IV SCH ×4 (02:35→18:31)
[2019-10-07] MEDS: HEPARIN SODIUM,PORCINE 5,000 UNIT/ML 1 ML VIAL SQ SCH ×3 (02:36→21:28)
[2019-10-07 06:31] LABS: Glucose,Whole Blood 108 mg/dL (75-99)
[2019-10-07] MEDS: INSULIN ASPART (NovoLOG) 100 UNIT/ML VIAL SQ SCH ×4 (06:32→21:28)
[2019-10-07] MEDS: FORMOTEROL FUMARATE 20 MCG/2 ML NEBU INHALATION SCH ×2 (07:37→19:31)
[2019-10-07] MEDS: BUDESONIDE 1 MG/2 ML NEBU INHALATION SCH ×2 (07:37→19:31)
[2019-10-07] MEDS: IPRATROPIUM-ALBUTEROL 3 ML NEB INHALATION SCH ×4 (07:37→19:31)
--- NOTE | 2019-10-07 08:14 | HP ---
HISTORY AND PHYSICAL DATE OF SERVICE: 10/06/2019 CHIEF COMPLAINTS: Shortness of breath. HISTORY OF PRESENT ILLNESS: This 83-year-old gentleman with a past medical history of GERD, GI bleed, hypertension, DJD, history of ( ), history of back surgery, being followed by Dr. Tamez in the outpatient is complaining of increasing shortness of breath. The patient has been short of breath for the last couple months which is increasing with some productive cough also and the patient was in the ER yesterday but refused admission, went home and had a syncopal episode while going to the bathroom. He hit his head on the floor and the patient was increasing shortness of breath and the patient came back and was admitted for evaluation and treatment. A chest x-ray done today which was reviewed personally by me showed increased bronchovascular markings and a CT of the head and spine was also done which showed no acute abnormality. The patient is started on bronchodilators. There is no history of fever, rigors. No history of headache or seizures at this time. PAST MEDICAL HISTORY: History of GERD, history of GI bleed, hypertension, hyperlipidemia, DJD, history of fractured back twice. MEDICATIONS: 1. Prednisone 50 mg daily. 2. Zestril. 3. Norvasc. 4. Omeprazole. 5. [place]-3 fatty acids. 6. Morphine sulfate. 7. Mobic. 8. Meclizine. 9. Mevacor. 10.Cholecalciferol. 11.Aspirin. 12.Albuterol inhaler. ALLERGIES: None. FAMILY HISTORY: History of cancer in the family. SOCIAL HISTORY: Patient chews tobacco up to 18 a day, according to him cutting down. Previous history of smoking also. No history of any alcohol intake. REVIEW OF SYSTEMS: ENT No history of diminished hearing or vision. CARDIOVASCULAR As mentioned earlier. RESPIRATORY As mentioned earlier. GI No nausea, vomiting, or diarrhea. No dysuria or hematuria. NERVOUS No numbness or weakness. ALLERGY/IMMUNOLOGY No asthma or hayfever. MUSCULOSKELETAL As mentioned earlier. HEMATOLOGY/ONCOLOGY Negative. ENDOCRINE No history of diabetes or hypothyroidism. CONSTITUTIONAL As mentioned earlier. DERMATOLOGY Negative. RHEUMATOLOGY Negative, PSYCHIATRY As mentioned earlier. PHYSICAL EXAMINATION: Alert and oriented x3. Pulse is 88, blood pressure 130/61, respiration 20, temperature 98.2, pulse ox 98% on room air. HEENT: Conjunctivae normal. Oral mucosa moist. NECK: No jugular venous distention. No lymph node enlargement. CARDIOVASCULAR: S1, S2, muffled. No S3, no S4, RESPIRATORY: Diminished breath sounds at the bases. A few scattered rhonchi and crackles. Expiratory wheezing also. ABDOMEN: Soft, nontender. No mass palpable. LEGS: No edema, no swelling. NERVOUS SYSTEM: Higher functions mentioned earlier. Moves all four limbs. No focal motor or sensory deficits. LYMPHATICS: No lymph node in neck or axilla. SKIN: No rash. JOINTS: No active deforming arthropathy. LABS: WBC 21.4, sodium 137, calcium is 10.9. UA noted. ASSESSMENT: 1. Chronic obstructive pulmonary disease acute exacerbation with acute purulent tracheobronchitis with bronchopneumonia with failure of outpatient treatment. 2. Increased WBC. 3. Near syncope for evaluation. Continue on telemetry. 4. Possible acute urinary tract infection present on admission. 5. Increased BUN with possibly dehydration present on admission. 6. Gastroesophageal reflux disease. 7. History of gastrointestinal bleed. 8. Syncope and fall. 9. Hypertension. 10.Hyperlipidemia. 11.History of degenerative joint disease. 12.History of diverticular disease and colonic polyps. 13.History of nephrolithiasis. 14.History of hydronephrosis. 15.History of cholecystectomy. 16.History of lumbar degenerative joint disease. 17.Remote history of nicotine dependence. RECOMMENDATIONS AND DISCUSSION: This 83-year-old gentleman who presented with multiple complex medical issues, we will monitor the patient closely, continue the current management, continue symptomatic treatment, continue empiric antibiotics. Otherwise, I would also recommend IV steroids. Optimize the bronchodilator treatment. Consult Dr. Tipton. Otherwise, consult Cardiology for near-syncope. Overall prognosis extremely guarded because of multiple complex medical issues. Resume the home medications and further recommendations to follow. MMODL / IJN: [id number] /
--- NOTE | 2019-10-07 08:19 | P.HPIM ---
History of Present Illness this is a pleasant 83 years old malewith past medical history of hypertension, hyperlipidemia, high-grade AV block with symptomatic bradycardia, status post permanent pacemaker, GERD, gi bleed, osteoarthritis kidney stones. [facility]. He Is a patient of . He presents because of dyspnea for about 4-5 month getting worse recently, associated with little cough and thick phlegm of unknown color . no chest pain No abdominal pain, he has constipation. No urinary symptoms like urgency or dysuria or increased frequency. Yesterday he fell when he felt dizzy, nonspecific dizziness. He hit his head and his left forearm with 2 small wounds on his left forearm. Patient is nonsmoker however he chews tobacco reactive no alcohol Heart rate is fluctuating between tachycardia-bradycardia +101 yesterday and 58- 62 today. Rest of vitals are stable. Labs showed leukocytosis of 21.4, yesterday was 8.6. BMP is unremarkable with creatinine 1.2, liver enzymes are not elevated. Troponins 2 are negative with less than 0.012, proBNP is 495, urinalysis is suspicious of infections with the Barbara high at 27 and many bacteria. Urine cultures pending. EKG showing first-degree AV block with sinus rhythm at 89, right bundle branch block and left anterior fascicular block and QTC 433. Chest x-ray: Negative computed tomography scan of the cervical spine with no fracture, moderate cerebral atrophy of the brain with no acute intracranial of the multiple radiologist. And the emergency room patient was started on Rocephin and aspirin 81 mg Cardiology and pulmonary were consulted Review of Systems CONSTITUTIONAL: No fever, no malaise, no fatigue. HEENT: No recent visual problems or hearing problems. Denied any sore throat. CARDIOVASCULAR: No orthopnea, PND, no palpitations, no syncope. PULMONARY: No shortness of breath, no cough, no hemoptysis. GASTROINTESTINAL: No diarrhea, no nausea, no vomiting, no abdominal pain. Normoactive bowel sounds. NEUROLOGICAL: No headaches, no weakness, no numbness. HEMATOLOGICAL: Denies any bleeding or petechiae. GENITOURINARY: Denies any burning micturition, frequency, or urgency. MUSCULOSKELETAL/RHEUMATOLOGICAL: Denies any joint pain, swelling, or any muscle pain. ENDOCRINE: Denies any polyuria or polydipsia. Past Medical History Past Medical History: GERD/Reflux, GI Bleed, Hyperlipidemia, Hypertension, Osteoarthritis (OA) Additional Past Medical History / Comment(s): Fractured back twice, arthritis in hands/wrists/ankles, lower GI bleed, diverticular disease/colon polyps, hemorrhoids, constipation, kidney stones Last Myocardial Infarction Date:: 2018 History of Any Multi-Drug Resistant Organisms: None Reported Past Surgical History: Back Surgery, Cholecystectomy, Orthopedic Surgery Additional Past Surgical History / Comment(s): Lumbar laminectomy, EGD, colonoscopies/benign polypectomies, L shoulder arthroscopy. Past Anesthesia/Blood Transfusion Reactions: No Reported Reaction Past Psychological History: No Psychological Hx Reported Smoking Status: Never smoker Past Alcohol Use History: None Reported Past Drug Use History: None Reported - Past Family History Mother Family Medical History: Cancer Additional Family Medical History / Comment(s): Mother from some form of cancer at the age of 78yrs. Father History Unknown: Yes Additional Family Medical History / Comment(s): Father left when pt was 7 yrs old. Medications and Allergies Home Medications Medication Instructions Recorded Confirmed Type Aspirin [Adult Low Dose Aspirin EC] 81 mg PO DAILY 02/04/16 10/06/19 History Lovastatin [Mevacor] 40 mg PO HS 02/04/16 10/06/19 History [place]-3 Fatty Acids/Fish Oil [Fish 1 cap PO DAILY 02/04/16 10/06/19 History Oil 1,000 mg Softgel] Omeprazole 20 mg PO DAILY 02/04/16 10/06/19 History Cholecalciferol [Vitamin D3 (25 1,000 unit PO DAILY 09/13/18 10/06/19 History Mcg = 1000 Iu)] amLODIPine [Norvasc] 10 mg PO DAILY #30 tab 09/18/18 10/06/19 Rx lisinopriL [Zestril] 10 mg PO DAILY #30 tab 09/18/18 10/06/19 Rx Meloxicam [Mobic] 7.5 mg PO DAILY PRN 11/14/18 10/06/19 History predniSONE 50 mg PO DAILY #5 tab 10/05/19 10/06/19 Rx Albuterol Inhaler [Ventolin Hfa 2 puff INHALATION RT-QID PRN 10/06/19 10/06/19 History Inhaler] Ferrous Sulfate [Iron] 325 mg PO DAILY 10/06/19 10/06/19 History Meclizine HCl 25 mg PO TID PRN 10/06/19 10/06/19 History Morphine Sulfate ER [Ms Contin] 15 mg PO Q12HR 10/06/19 10/06/19 History Allergies Allergy/AdvReac Type Severity Reaction Status Date / Time No Known Allergies Allergy Verified 10/06/19 14:29 Physical Exam Vitals: Vital Signs Temp Pulse Pulse Resp BP BP Pulse Ox 10/07/19 03:00 97.9 F 69 18 108/46 99 10/07/19 00:33 97.9 F 69 18 108/46 99 10/06/19 20:33 98.2 F 88 20 112/61 98 10/06/19 20:27 99 10/06/19 20:23 96 10/06/19 18:29 62 16 10/06/19 18:05 97.8 F 62 16 106/56 94 L 10/06/19 17:34 98.3 F 78 16 110/58 98 10/06/19 15:30 100 10/06/19 15:29 81 20 102/56 97 10/06/19 15:21 98 10/06/19 14:27 98.4 F 101 H 18 97/51 98 Intake and Output 10/06/19 10/07/19 10/07/19 22:59 06:59 14:59 Intake Total 240 Balance 240 Intake: Oral 240 Other: Voiding Method Toilet Toilet # Voids 1 Weight 79.379 kg GENERAL: The patient is alert and oriented x3, not in any acute distress. Well developed, well nourished. HEENT: Pupils are round and equally reacting to light. EOMI. No scleral icterus. No conjunctival pallor. Normocephalic, atraumatic. No pharyngeal erythema. No thyromegaly. CARDIOVASCULAR: S1 and S2 present. No murmurs, rubs, or gallops. PULMONARY: Chest is clear to auscultation, no wheezing or crackles. ABDOMEN: Soft, nontender, nondistended, normoactive bowel sounds. No palpable organomegaly. MUSCULOSKELETAL: No joint swelling or deformity. EXTREMITIES: No cyanosis, clubbing, or pedal edema. NEUROLOGICAL: Gross neurological examination did not reveal any focal deficits. SKIN: No rashes. No petechiae Results CBC & Chem 7: 10/06/19 15:15 10/06/19 15:15 Labs: Abnormal Lab Results - Last 24 Hours (Table) 10/06/19 10/06/19 10/06/19 Range/Units 15:15 15:15 15:15 WBC 21.4 H (3.8-10.6) k/uL Neutrophils # 20.2 H (1.3-7.7) k/uL Lymphocytes # 0.7 L (1.0-4.8) k/uL APTT 21.8 L (22.0-30.0) sec BUN 38 H (9-20) mg/dL Glucose 120 H (74-99) mg/dL POC Glucose (mg/dL) (75-99) mg/dL Calcium 10.9 H (8.4-10.2) mg/dL Total Protein 6.1 L (6.3-8.2) g/dL Urine WBC (0-5) /hpf Amorphous Sediment (None) /hpf Urine Bacteria (None) /hpf Hyaline Casts (0-2) /lpf Urine Mucus (None) /hpf 10/06/19 10/07/19 Range/Units 16:25 06:29 WBC (3.8-10.6) k/uL Neutrophils # (1.3-7.7) k/uL Lymphocytes # (1.0-4.8) k/uL APTT (22.0-30.0) sec BUN (9-20) mg/dL Glucose (74-99) mg/dL POC Glucose (mg/dL) 108 H (75-99) mg/dL Calcium (8.4-10.2) mg/dL Total Protein (6.3-8.2) g/dL Urine WBC 27 H (0-5) /hpf Amorphous Sediment Rare H (None) /hpf Urine Bacteria Many H (None) /hpf Hyaline Casts 237 H (0-2) /lpf Urine Mucus Few H (None) /hpf Microbiology - Last 24 Hours (Table) 10/06/19 16:25 Urine Culture - Preliminary Urine,Voided Thrombosis Risk Factor Assmnt - Choose All That Apply Any of the Below Risk Factors Present?: No Other Risk Factors: Yes Each Risk Factor Represents 3 Points: Age 75 years or older Thrombosis Risk Factor Assessment Total Risk Factor Score: 3 Thrombosis Risk Factor Assessment Level: Moderate Risk Assessment and Plan Assessment: Possible acute purulent tracheobronchitis Near syncope Asymptomatic abnormal UA, bacteriuria Tachycardia-bradycardia with Bifascicular block on EKG Hypertension Hyperlipidemia History of high-grade AV block with symptomatic bradycardia status post pacemaker GERD Osteoarthritis Kidney stone Diverticular disease with history of GI bleed Plan: This is a pleasant and 22s old male who presents with respiratory symptoms and no syncope. Has also possible elements of UTI or reactive airway disease/acute bronchitis. Continue with ceftriaxone, and follow-up culture results. continue with steroids. Serial troponins. Cardiology and pulmonary consult is called and follow the recommendation. Labs and medication were reviewed.. Continue same treatment. Continue with symptomatic treatment. Resume home medication. Monitor lytes and vitals. DVT and GI prophylaxis. Further recommendations of the clinical course of the patient DVT prophylaxis: Subcutaneous heparin GI Prophylaxis: Ppi PT/OT: Pending Prognosis is guarded
[2019-10-07] MEDS: MORPHINE SULFATE ER 15 MG TABLET PO SCH ×2 (08:20→21:38)
[2019-10-07] MEDS: ASPIRIN 81 MG PO SCH (08:20)
[2019-10-07] MEDS: CHOLECALCIFEROL 1,000 UNIT TAB PO SCH (08:20)
[2019-10-07] MEDS: lisinopriL 10 MG TAB PO SCH (08:21)
[2019-10-07] MEDS: PANTOPRAZOLE 40 MG TABLET PO SCH (08:21)
[2019-10-07] MEDS: amLODIPine 10 MG TAB PO SCH (08:21)
[2019-10-07] MEDS: FERROUS SULFATE 325 MG TAB PO SCH (08:21)
[2019-10-07] MEDS ORDERED: cefTRIAXone 1,000 MG VIAL (IM USE) IM SCH (09:00)
[2019-10-07] MEDS ORDERED: predniSONE 50 MG TAB PO SCH (09:00)
[2019-10-07] MEDS ORDERED: NON FORMULARY DRUG (Omega-3 Fatty Acids/Fish Oil [Fish Oil 1,000 Mg Softgel] 1 CAP) PO SCH (09:00)
--- NOTE | 2019-10-07 09:43 | P.CRDCN ---
History of Present Illness Consult date: 10/07/19 Requesting physician: Rios Antony Reason for Consult (text): near syncope Chief complaint: shortness of breath History of present illness: This is a pleasant 83-year-old gentleman who is somewhat poor historian and therefore most of the patient's history were obtained from the chart. [facility] but also says that he follows with a polysilicon preparation worker here who he believes is Dr. garcia but when asked when the last time he saw him once he said it was yesterday. It is unclear when his last device interrogation was I'm not sure she's even had an in office device interrogation since implant. He has a history of an admission about a year ago at which time he had some l ower abdominal pain as well as evidence of a wide complex tachycardia with right bundle branch block on EKG that was felt to be due to either underlying atrial fibrillation or accelerated junctional tachycardia at that time he also had elevated troponins. He underwent coronary angiography which showed normal coronaries. He also has a history of hypertension, hyperlipidemia and symptomatic bradycardia with near syncopal episode at that time and evidence of high-grade second-degree AV block and subsequent placement of dual-chamber pacemaker. He presented to the emergency department this admission with complaints of shortness of breath that he been experiencing over the last 4 months or so. Apparently he presented initially on 10/05/2019 for the same complaint but signed out as he did not want to stay in hospital. He subsequently went home and was using the bathroom at which time he stood became quite dizzy and fell hitting his head on the floor. The patient has apparently been experiencing a decreased appetite and has not been eating or drinking well recently. Chest x-ray on admission showed minimal pleural reaction or fluid at the lung bases unchanged, normal heart. Computed tomography scan of the brain and C-spine showed moderate cerebral atrophy, no acute intracranial abnormality, negative computed tomography scan of the cervical spine, no fracture, brain and cervical spine unchanged compared to old exam. Labs on admission showed a white blood cell count 21,400, recently started on prednisone, potassium 4.1, BUN 38, creatinine 1.23, troponin negative 2 and NT proBNP of 495. Blood pressure was low on admission 97/51 with a heart rate of 101. He has been afebrile. Upon examination this morning patient is resting comfortably in bed. He has no current complaints. Past Medical History Past Medical History: GERD/Reflux, GI Bleed, Hyperlipidemia, Hypertension, Osteoarthritis (OA) Additional Past Medical History / Comment(s): Fractured back twice, arthritis in hands/wrists/ankles, lower GI bleed, diverticular disease/colon polyps, hemorrhoids, constipation, kidney stones Last Myocardial Infarction Date:: 2018 History of Any Multi-Drug Resistant Organisms: None Reported Past Surgical History: Back Surgery, Cholecystectomy, Orthopedic Surgery Additional Past Surgical History / Comment(s): Lumbar laminectomy, EGD, colonoscopies/benign polypectomies, L shoulder arthroscopy. Past Anesthesia/Blood Transfusion Reactions: No Reported Reaction Past Psychological History: No Psychological Hx Reported Smoking Status: Never smoker Past Alcohol Use History: None Reported Past Drug Use History: None Reported - Past Family History Mother Family Medical History: Cancer Additional Family Medical History / Comment(s): Mother from some form of cancer at the age of 78yrs. Father History Unknown: Yes Additional Family Medical History / Comment(s): Father left when pt was 7 yrs old. Medications and Allergies Home Medications Medication Instructions Recorded Confirmed Type Aspirin [Adult Low Dose Aspirin EC] 81 mg PO DAILY 02/04/16 10/06/19 History Lovastatin [Mevacor] 40 mg PO HS 02/04/16 10/06/19 History [place]-3 Fatty Acids/Fish Oil [Fish 1 cap PO DAILY 02/04/16 10/06/19 History Oil 1,000 mg Softgel] Omeprazole 20 mg PO DAILY 02/04/16 10/06/19 History Cholecalciferol [Vitamin D3 (25 1,000 unit PO DAILY 09/13/18 10/06/19 History Mcg = 1000 Iu)] amLODIPine [Norvasc] 10 mg PO DAILY #30 tab 09/18/18 10/06/19 Rx lisinopriL [Zestril] 10 mg PO DAILY #30 tab 09/18/18 10/06/19 Rx Meloxicam [Mobic] 7.5 mg PO DAILY PRN 11/14/18 10/06/19 History predniSONE 50 mg PO DAILY #5 tab 10/05/19 10/06/19 Rx Albuterol Inhaler [Ventolin Hfa 2 puff INHALATION RT-QID PRN 10/06/19 10/06/19 History Inhaler] Ferrous Sulfate [Iron] 325 mg PO DAILY 10/06/19 10/06/19 History Meclizine HCl 25 mg PO TID PRN 10/06/19 10/06/19 History Morphine Sulfate ER [Ms Contin] 15 mg PO Q12HR 10/06/19 10/06/19 History Allergies Allergy/AdvReac Type Severity Reaction Status Date / Time No Known Allergies Allergy Verified 10/06/19 14:29 Physical Exam Vitals: Vital Signs Temp Pulse Pulse Resp BP BP Pulse Ox 10/07/19 08:48 73 16 10/07/19 08:15 97.6 F 73 16 125/61 95 10/07/19 07:56 63 18 10/07/19 07:46 62 18 10/07/19 07:38 58 L 18 10/07/19 03:00 97.9 F 69 18 108/46 99 10/07/19 00:33 97.9 F 69 18 108/46 99 10/06/19 20:33 98.2 F 88 20 112/61 98 10/06/19 20:27 99 10/06/19 20:23 96 10/06/19 18:29 62 16 10/06/19 18:05 97.8 F 62 16 106/56 94 L 10/06/19 17:34 98.3 F 78 16 110/58 98 10/06/19 15:30 100 10/06/19 15:29 81 20 102/56 97 10/06/19 15:21 98 10/06/19 14:27 98.4 F 101 H 18 97/51 98 Intake and Output 10/06/19 10/07/19 10/07/19 22:59 06:59 14:59 Intake Total 240 Balance 240 Intake: Oral 240 Other: Voiding Method Toilet Toilet Toilet # Voids 1 Weight 79.379 kg PHYSICAL EXAMINATION: This is a 83-year-old male in no apparent distress at the time of my examination. VITAL SIGNS: Blood pressure 125/60, heart rate 73, respirations 16, temp 97.6F. Patient is 95 % on room air. HEENT: Head is atraumatic, normocephalic. Pupils are equal, round. Sclerae anicteric. Conjunctivae are clear. Mucous membranes of the mouth are moist. Neck is supple. There is no elevated jugular venous pressure. No carotid bruit is heard. CHEST EXAMINATION: Clear to auscultation bilaterally. No wheezes rales or rhonchi. Respirations even and nonlabored. HEART EXAMINATION: Heart regular, positive S1 and S2 with a systolic murmur. ABDOMEN: Soft, nontender. Bowel sounds are heard. No organomegaly noted. EXTREMITIES: 2+ peripheral pulses with no evidence of peripheral edema and no calf tenderness noted. NEUROLOGIC EXAMINATION: Patient is awake, alert and oriented x3 but patient is a poor historian. Results 10/06/19 15:15 10/06/19 15:15 Cardiac Enzymes 10/06/19 10/06/19 10/06/19 Range/Units 15:15 15: 19:42 AST 24 (17-59) U/L Troponin I <0.012 <0.012 (0.000-0.034) ng/mL Coagulation 10/06/19 Range/Units 15:15 PT 10.7 (9.0-12.0) sec APTT 21.8 L (22.0-30.0) sec CBC 10/06/19 Range/Units 15:15 WBC 21.4 H (3.8-10.6) k/uL RBC 4.56 (4.30-5.90) m/uL Hgb 13.3 (13.0-17.5) gm/dL Hct 42.0 (39.0-53.0) % Plt Count 233 (150-450) k/uL Comprehensive Metabolic Panel 10/06/19 Range/Units 15:15 Sodium 137 (137-145) mmol/L Potassium 4.1 (3.5-5.1) mmol/L Chloride 99 (98-107) mmol/L Carbon Dioxide 29 (22-30) mmol/L BUN 38 H (9-20) mg/dL Creatinine 1.23 (0.66-1.25) mg/dL Glucose 120 H (74-99) mg/dL Calcium 10.9 H (8.4-10.2) mg/dL AST 24 (17-59) U/L ALT 29 (4-49) U/L Alkaline Phosphatase 61 (38-126) U/L Total Protein 6.1 L (6.3-8.2) g/dL Albumin 3.8 (3.5-5.0) g/dL Current Medications Generic Name Dose Route Start Last Admin Trade Name Freq PRN Reason Stop Dose Admin Acetaminophen 500 mg 10/07/19 00:33 Tylenol Tab PO Q6HR PRN Fever and/ or Pain Hydrocodone Bitart/Acetaminophen 1 each 10/07/19 00:33 [place] 5-325 PO Q6HR PRN Pain Albuterol/Ipratropium 3 ml 10/06/19 20:00 10/07/19 07:37 Duoneb 0.5 Mg-3 Mg/3 Ml Soln INHALATION 3 ml RT-QID LIAT Administration Albuterol/Ipratropium 3 ml 10/06/19 20:23 Duoneb 0.5 Mg-3 Mg/3 Ml Soln INHALATION RT-Q2H PRN Shortness Of Breath Or Wheezing Alprazolam 0.25 mg 10/07/19 00:33 Xanax PO TID PRN Anxiety Amlodipine Besylate 10 mg 10/07/19 09:00 10/07/19 08:21 Norvasc PO 10 mg DAILY LIAT Administration Aspirin 81 mg 10/07/19 09:00 10/07/19 08:20 Aspirin PO 81 mg DAILY LIAT Administration Atorvastatin Calcium 10 mg 10/06/19 21:00 10/06/19 20:54 Lipitor PO 10 mg HS LIAT Administration Budesonide 1 mg 10/07/19 08:00 10/07/19 07:37 Pulmicort INHALATION 1 mg RT-BID LIAT Administration Cholecalciferol 1,000 unit 10/07/19 09:00 10/07/19 08:20 Vitamin D3 (25 Mcg = 1000 Iu) PO 1,000 unit DAILY LIAT Administration Ferrous Sulfate 325 mg 10/07/19 09:00 10/07/19 08:21 Feosol PO 325 mg DAILY LIAT Administration Formoterol Fumarate 20 mcg 10/07/19 08:00 10/07/19 07:37 Perforomist INHALATION 20 mcg RT-BID LIAT Administration Heparin Sodium (Porcine) 5,000 unit 10/07/19 00:45 10/07/19 08:21 Heparin SQ 5,000 unit Q12HR LIAT Administration Ceftriaxone Sodium 1 gm/ 50 mls @ 100 mls/hr 10/07/19 09:00 10/07/19 08:21 Sodium Chloride IVPB 100 mls/hr DAILY LIAT Administration Insulin Aspart 0 unit 10/07/19 07:30 10/07/19 06:32 Novolog SQ 10/08/19 12:00 Not Given ACHS LIAT Protocol Lisinopril 10 mg 10/07/19 09:00 10/07/19 08:21 Zestril PO 10 mg DAILY LIAT Administration Meclizine HCl 25 mg 10/07/19 00:31 Antivert PO TID PRN Vertigo Meloxicam 7.5 mg 10/06/19 19:59 Mobic PO DAILY PRN Pain Methylprednisolone Sodium Succinate 60 mg 10/06/19 19:30 10/07/19 07:02 Solu-Medrol IV 60 mg Q6HR LIAT Administration Morphine Sulfate 15 mg 10/06/19 21:00 10/07/19 08:20 Ms Contin PO Not Given Q12HR LIAT Pantoprazole Sodium 40 mg 10/07/19 09:00 10/07/19 08:21 Protonix PO 40 mg DAILY LIAT Administration Intake and Output 10/06/19 10/07/19 10/07/19 22:59 06:59 14:59 Intake Total 240 Balance 240 Intake: Oral 240 Other: Voiding Method Toilet Toilet Toilet # Voids 1 Weight 79.379 kg 10/06/19 15:15 10/06/19 15:15 EKG Interpretations (text) Sinus rhythm, right bundle branch block, first-degree AV block Assessment and Plan Assessment: #1 symptoms of shortness of breath with exertion, NT proBNP normal and evidence of underlying COPD and chest x-ray #2 symptoms of dizziness and fall, positional #3 permanent pacemaker implantation in October 2018 #4 hypertension #5 hyperlipidemia #6 normal coronaries seen on cardiac catheterization in August 2018 Plan: From cardiology perspective we'll obtain a 2-D echo with Doppler to assess cardiac structure and function. No clinical evidence to suggest congestive hea rt failure however patient could have pacemaker induced cardiomyopathy if he has a high pacing percentage with RV pacing only. We will check orthostatic blood pressures which are likely positive. Patient is likely somewhat dehydrated and would benefit from some IV fluids. We will interrogate the pacemaker to assess for arrhythmias and to assess RV pacing percentage. Further recommendations to follow. GLASS TECHNICIAN note has been reviewed, I agree with a documented findings and plan of care. Patient was seen and examined.
[2019-10-07] MEDS: SODIUM CHLORIDE 0.9% 1,000 ML IV SCH (10:47)
[2019-10-07 11:36] LABS: Glucose,Whole Blood 190 mg/dL (75-99)
--- NOTE | 2019-10-07 13:13 | P.CNPUL ---
History of Present Illness Consult date: 10/07/19 Requesting physician: Cedric E Sheet Reason for consult: dyspnea Chief complaint: Shortness of breath chronic. 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 Questionable history of underlying COPD, usually followed at the OR. Patient presented to the ER, initially on 10/05/19, and he was complaining of chronic shortness of breath with dry hacking cough. No fever no chills no hemoptysis no chest pain. Patient signed himself out, did not want to stay in the hospital, however as he went home, he developed an episode of what seems to be orthostatic hypotension, patient passed out or nearly passed out when he was trying to go to the bathroom, felt lightheaded, dizzy, and he fell hitting his head and his left forearm with 2 small ones on his left forearm. And he came back to the ER, workup is basically nondiagnostic including chest x-ray, d-dimer, and troponins were all negative. Patient was admitted, and this consult was initiated. Seen by cardiology, landing echocardiogram and planning to interrogate his pacemaker. Patient was also noted to have a urinary tract infection based on his urinalysis, final cultures are pending. EKG on this admission showed basically a first-degree AV block and bifascicular block. Patient was empirically started on Rocephin for presumptive urinary tract infection, he is also placed on bronchodilators, again he had a remote smoking history, and now he chews tobacco. Has been on inhalers by his OR physician, cannot recall what inhalers he was placed on. Review of Systems CONSTITUTIONAL: No fever, no malaise, no fatigue. However he describes about 25 pound weight loss over the last couple of years. HEENT: Denies sore throat headaches or blurred vision dizziness.. CARDIOVASCULAR: As noted in HPI. PULMONARY: As noted in HPI. GASTROINTESTINAL: Denies nausea vomiting abdominal pain melena or hematemesis. NEUROLOGICAL: No headaches, no weakness, no numbness. HEMATOLOGICAL: Denies any bleeding or petechiae. GENITOURINARY: Denies any burning micturition, frequency, or urgency. MUSCULOSKELETAL/RHEUMATOLOGICAL: Denies any joint pain, swelling, or any muscle pain. ENDOCRINE: Denies any polyuria or polydipsia. Past Medical History Past Medical History: GERD/Reflux, GI Bleed, Hyperlipidemia, Hypertension, Osteoarthritis (OA) Additional Past Medical History / Comment(s): Fractured back twice, arthritis in hands/wrists/ankles, lower GI bleed, diverticular disease/colon polyps, hemorrhoids, constipation, kidney stones Last Myocardial Infarction Date:: 2018 History of Any Multi-Drug Resistant Organisms: None Reported Past Surgical History: Back Surgery, Cholecystectomy, Orthopedic Surgery Additional Past Surgical History / Comment(s): Lumbar laminectomy, EGD, colonoscopies/benign polypectomies, L shoulder arthroscopy. Past Anesthesia/Blood Transfusion Reactions: No Reported Reaction Past Psychological History: No Psychological Hx Reported Smoking Status: Never smoker Past Alcohol Use History: None Reported Past Drug Use History: None Reported - Past Family History Mother Family Medical History: Cancer Additional Family Medical History / Comment(s): Mother from some form of cancer at the age of 78yrs. Father History Unknown: Yes Additional Family Medical History / Comment(s): Father left when pt was 7 yrs old. Medications and Allergies Home Medications Medication Instructions Recorded Confirmed Type Aspirin [Adult Low Dose Aspirin EC] 81 mg PO DAILY 02/04/16 10/06/19 History Lovastatin [Mevacor] 40 mg PO HS 02/04/16 10/06/19 History Challis-3 Fatty Acids/Fish Oil [Fish 1 cap PO DAILY 02/04/16 10/06/19 History Oil 1,000 mg Softgel] Omeprazole 20 mg PO DAILY 02/04/16 10/06/19 History Cholecalciferol [Vitamin D3 (25 1,000 unit PO DAILY 09/13/18 10/06/19 History Mcg = 1000 Iu)] amLODIPine [Norvasc] 10 mg PO DAILY #30 tab 09/18/18 10/06/19 Rx lisinopriL [Zestril] 10 mg PO DAILY #30 tab 09/18/18 10/06/19 Rx Meloxicam [Mobic] 7.5 mg PO DAILY PRN 11/14/18 10/06/19 History predniSONE 50 mg PO DAILY #5 tab 10/05/19 10/06/19 Rx Albuterol Inhaler [Ventolin Hfa 2 puff INHALATION RT-QID PRN 10/06/19 10/06/19 History Inhaler] Ferrous Sulfate [Iron] 325 mg PO DAILY 10/06/19 10/06/19 History Meclizine HCl 25 mg PO TID PRN 10/06/19 10/06/19 History Morphine Sulfate ER [Ms Contin] 15 mg PO Q12HR 10/06/19 10/06/19 History Allergies Allergy/AdvReac Type Severity Reaction Status Date / Time No Known Allergies Allergy Verified 10/06/19 14:29 Physical Exam Vitals: Vital Signs Temp Pulse Pulse Pulse Pulse Pulse Resp 10/07/19 11:48 85 16 10/07/19 11:41 83 16 10/07/19 09:30 65 94 63 10/07/19 08:48 73 16 10/07/19 08:15 97.6 F 73 16 10/07/19 07:56 63 18 10/07/19 07:46 62 18 10/07/19 07:38 58 L 18 10/07/19 03:00 97.9 F 69 18 10/07/19 00:33 97.9 F 69 18 10/06/19 20:33 98.2 F 88 20 10/06/19 20:27 99 10/06/19 20:23 96 10/06/19 18:29 62 16 10/06/19 18:05 97.8 F 62 16 10/06/19 17:34 98.3 F 78 16 10/06/19 15:30 100 10/06/19 15:29 81 20 10/06/19 15:21 98 10/06/19 14:27 98.4 F 101 H 18 BP BP BP BP BP Pulse Ox 10/07/19 11:48 10/07/19 11:41 10/07/19 09:30 119/61 98/58 124/62 10/07/19 08:48 10/07/19 08:15 125/61 95 10/07/19 07:56 10/07/19 07:46 10/07/19 07:38 10/07/19 03:00 108/46 99 10/07/19 00:33 108/46 99 10/06/19 20:33 112/61 98 10/06/19 20:27 10/06/19 20:23 10/06/19 18:29 10/06/19 18:05 106/56 94 L 10/06/19 17:34 110/58 98 10/06/19 15:30 10/06/19 15:29 102/56 97 10/06/19 15:21 10/06/19 14:27 97/51 98 Intake and Output 10/06/19 10/07/19 10/07/19 22:59 06:59 14:59 Intake Total 240 240 Balance 240 240 Intake: Oral 240 240 Other: Voiding Method Toilet Toilet Toilet # Voids 1 2 Weight 79.379 kg Physical Exam: Revealed an 83-year-old white male in no distress. Head: Atraumatic, normocephalic. HEENT:[Neck is supple.] [No neck masses.] [No thyromegaly.] [No JVD.] Chest: [Symmetrical chest expansion, diminished at the bases, rhonchi on forced expiratory maneuver, patient seems to cough with every exhalation. Cardiac Exam: [Normal S1 and S2, no S3 gallop, 2/6 systolic murmur thought the precordium. Abdomen: [Soft, nontender, no megaly, no rebound, no guarding, normal bowel sounds.] Extremities: [No clubbing, no edema, no cyanosis.] Neurological Exam: [No focal neurologic deficit.] Alert and oriented 3, no gross focal neurologic deficits. Psychiatric: Normal mood, affect and normal mental status examination. Skin: No rashes. Lymphatics: No cervical or supraclavicular lymphadenopathy. Results - Laboratory Findings CBC and BMP: 10/06/19 15:15 10/06/19 15:15 PT/INR, D-dimer PT 10.7 sec (9.0-12.0) 10/06/19 15:15 INR 1.0 (<1.2) 10/06/19 15:15 Abnormal lab findings: Abnormal Labs 10/06/19 10/06/19 10/06/19 15:15 15:15 15:15 WBC 21.4 H Neutrophils # 20.2 H Lymphocytes # 0.7 L APTT 21.8 L BUN 38 H Glucose 120 H POC Glucose (mg/dL) Calcium 10.9 H Total Protein 6.1 L Urine WBC Amorphous Sediment Urine Bacteria Hyaline Casts Urine Mucus 10/06/19 10/07/19 10/07/19 16:25 06:29 11:34 WBC Neutrophils # Lymphocytes # APTT BUN Glucose POC Glucose (mg/dL) 108 H 190 H Calcium Total Protein Urine WBC 27 H Amorphous Sediment Rare H Urine Bacteria Many H Hyaline Casts 237 H Urine Mucus Few H - Diagnostic Findings Chest x-ray: image reviewed (As noted in HPI) Assessment and Plan Assessment: Impression: Suspect underlying chronic obstructive pulmonary disease, severity of which is not clear, and his symptoms are chronic. Possible acute tracheobronchitis with intermittent episodes of cough. Suspect acute urinary tract infection/asymptomatic. History of tachycardia bradycardia syndrome, and pacemaker implantation. Being investigated by cardiology. Possible cardiomyopathy and LV dysfunction, and that is yet to be further addressed by cardiology, echocardiogram is pending. Near syncopal episode most likely secondary to orthostatic hypotension. History of degenerative joint disease. Remote smoking history, patient presently chews tobacco. Dyslipidemia. Benign essential hypertension. History of diverticular disease. Recommendation: Continue present treatment plan, Agree with bronchodilators. Agree with antibiotics. Consider further evaluation on outpatient basis and have the patient go through a full PFT and assess his underlying COPD. Cardiology to address his pacemaker and echocardiogram. Consider discharge planning in the next 24 hours, and follow-up on outpatient basis. If discharged home, would consider a trial of bronchodilators including DuoNeb updrafts 4 times a day and when necessary, Symbicort 160/4.52 puffs twice a day, and prednisone 30 mg tapered over 2 weeks. Please arrange for follow-up with me in the office in 2 weeks Time with Patient: Greater than 30
[2019-10-07 14:07] VITALS: BMI 23.7
--- NOTE | 2019-10-07 16:17 | PN ---
PROGRESS NOTE DATE OF SERVICE: 10/07/2019 This 83-year-old gentleman who was admitted with COPD acute exacerbation as well as possible bronchopneumonia, is being closely monitored at this time. Cardiology/pulmonary following the patient closely. The patient on broad spectrum IV antibiotics. White count is elevated up to 21. UA is also abnormal. Cultures are pending at this time. The patient also had a near syncopal episode. Past medical history reviewed. REVIEW OF SYSTEMS: CARDIOVASCULAR: No angina. RESPIRATORY: as mentioned earlier. GI: As mentioned. no dysuria. NERVOUS SYSTEM: No numbness, weakness. CURRENT MEDICATIONS: 1. Tylenol. 2. Dragoon 5 mg. 3. DuoNeb q.i.d. 4. Xanax. 5. Norvasc. 6. Aspirin. 7. Lipitor. 8. Pulmicort. 9. Rocephin. 10.Perforomist. 11.Heparin. 13.Solu-Medrol. 14.MS Contin. 15.Protonix. PHYSICAL EXAM: Patient is alert and oriented times three. Pulse 75, blood pressure 110/62, orthostatic changes present. Respiration 20, temperature normal, pulse ox 98% on room air. HEENT: Normal. Oral mucosa moist. NECK is no jugular venous distention. No carotid bruit. No lymph node enlargement. CARDIOVASCULAR: S1, S2 muffled. RESPIRATION: Breath sounds diminished in the bases. Scattered rhonchi and crackles. ABDOMEN: Soft. Nontender. LEGS are no edema. No swelling. NERVOUS SYSTEM: No focal deficits. LABS: At this time shows WBC 21.4. Sodium 137 and glucose 120, calcium is 10.9. ASSESSMENT: 1. Chronic obstructive pulmonary disease acute exacerbation with acute purulent tracheobronchitis with possible bronchopneumonia with failure of outpatient treatment. 2. Increased WBC. 3. Near syncope secondary to orthostatic hypotension. 4. Possible acute urinary tract infection present on admission. 5. Increased BUN, possibly dehydration present on admission. 6. Gastroesophageal reflux disease. 7. History of gastrointestinal bleed. 8. Syncope and fall. 9. Diminished p.o. intake. 10.Hypertension. 11.Hyperlipidemia. 12.History of degenerative joint disease. 13.History of diverticular disease and no colonic polyps. 14.History of nephrolithiasis. 15.History of hydronephrosis. 16.History of cholecystectomy. 17.History of lumbar degenerative joint disease. 18.Remote history of nicotine dependence. RECOMMENDATIONS AND DISCUSSION: Recommend to continue current medications. Continue with monitoring and symptomatic treatment. Otherwise at this time I recommend to continue the IV fluids cautiously. Monitor blood pressure closely. Continue the rest of the medications. Continue empiric antibiotics. Follow the cultures. Follow closely. Bronchodilators. Prognosis guarded because of multiple complex medical issues. Further recommendations to follow. MMODL / IJN: [id number] / VENUS
[2019-10-07 21:25] LABS: Glucose,Whole Blood 198 mg/dL (75-99)
[2019-10-07] MEDS: ATORVASTATIN 10 MG TAB PO SCH (21:28)
[2019-10-08] MEDS: methylPREDNISolone SOD SUCCI 125 MG/2 ML VIAL IV SCH ×5 (00:03→23:17)
[2019-10-08] MEDS: IPRATROPIUM-ALBUTEROL 3 ML NEB INHALATION SCH ×4 (05:58→19:05)
[2019-10-08] MEDS: BUDESONIDE 1 MG/2 ML NEBU INHALATION SCH ×2 (06:03→19:05)
[2019-10-08] MEDS: FORMOTEROL FUMARATE 20 MCG/2 ML NEBU INHALATION SCH ×2 (06:03→19:05)
[2019-10-08] MEDS: SODIUM CHLORIDE 0.9% 1,000 ML IV SCH ×2 (07:01→23:27)
[2019-10-08 07:17] LABS: Glucose,Whole Blood 110 mg/dL (75-99)
[2019-10-08] MEDS: amLODIPine 10 MG TAB PO SCH (08:10)
[2019-10-08] MEDS: FERROUS SULFATE 325 MG TAB PO SCH (08:10)
[2019-10-08] MEDS: lisinopriL 10 MG TAB PO SCH (08:10)
[2019-10-08] MEDS: ASPIRIN 81 MG PO SCH (08:10)
[2019-10-08] MEDS: PANTOPRAZOLE 40 MG TABLET PO SCH (08:10)
[2019-10-08] MEDS: HEPARIN SODIUM,PORCINE 5,000 UNIT/ML 1 ML VIAL SQ SCH ×2 (08:11→20:55)
[2019-10-08] MEDS: CHOLECALCIFEROL 1,000 UNIT TAB PO SCH (08:11)
[2019-10-08] MEDS: MORPHINE SULFATE ER 15 MG TABLET PO SCH ×2 (08:14→20:50)
[2019-10-08 08:23] LABS: Basophils % (A) 0 %; Eosinophils % (A) 0 %; HCT 39.9 % (39.0-53.0); HGB 12.8 gm/dL (13.0-17.5); Lymphocytes # (A) 0.5 k/uL (1.0-4.8); Lymphocytes % (A) 3 %; MCH 29.8 pg (25.0-35.0); MCV 93.2 fL (80.0-100.0); Mean Platelet Volume 10.3; Monocytes # (A) 0.3 k/uL (0-1.0); Monocytes % (A) 2 %; Neutrophils # (A) 16.2 k/uL (1.3-7.7); Neutrophils % (A) 95 %; Platelet Count 202 k/uL (150-450); RBC 4.29 m/uL (4.30-5.90); RDW 13.6 % (11.5-15.5); WBC 17.1 k/uL (3.8-10.6)
[2019-10-08 08:34] LABS: African American GFR (CKD) >90 (>60 ml/min/1.73 sqM); Anion Gap 4 mmol/L; Blood Urea Nitrogen 46 mg/dL (9-20); Carbon Dioxide 29 mmol/L (22-30); Chloride 103 mmol/L (98-107); Glucose 108 mg/dL (74-99); Non-African American GFR(CKD) 87 (>60 ml/min/1.73 sqM); Potassium 4.7 mmol/L (3.5-5.1); Sodium 136 mmol/L (137-145)
--- NOTE | 2019-10-08 08:50 | P.PN ---
Subjective Progress Note Date: 10/08/19 Principal diagnosis: Syncope This is a very pleasant 83-year-old gentleman with a past medical history significant for chronic obstructive pulmonary disease as well as history of permanent pacemaker was admitted to the hospital with increasing in the shortness of breath as well as symptoms of dizziness and lightheadedness and presyncope. The patient was seen today October [id number]. He stated that he is feeling better indeterminable shortness of breath and he denies any symptoms of chest pain or chest discomfort. The pressure continues to be marginal. He underwent an echocardiogram and will follow-up on that. The pacemaker was interrogated yesterday and seems to be functioning normally. Also orthostatic blood pressure was checked and came in to be unremarkable Objective - Vital Signs Vital signs: Vital Signs Temp 97.8 F 10/08/19 03:00 Pulse 76 10/08/19 06:07 Resp 17 10/08/19 03:00 BP 138/68 10/08/19 03:00 Pulse Ox 95 10/08/19 03:00 Intake & Output 10/07/19 10/08/19 10/08/19 18:59 06:59 18:59 Intake Total 460 780 Balance 460 780 Weight 79.379 kg Intake: Oral 460 780 Other: Voiding Method Toilet Toilet # Voids 2 2 - Constitutional General appearance: Present: no acute distress - Respiratory Respiratory: bilateral: diminished - Cardiovascular Rhythm: regular Heart sounds: normal: S1, S2 - Labs CBC & Chem 7: 10/08/19 07:29 10/08/19 07:29 Labs: Abnormal Lab Results - Last 24 Hours (Table) 10/07/19 10/07/19 10/08/19 Range/Units 11:34 21:22 07:15 WBC (3.8-10.6) k/uL RBC (4.30-5.90) m/uL Hgb (13.0-17.5) gm/dL Neutrophils # (1.3-7.7) k/uL Lymphocytes # (1.0-4.8) k/uL Sodium (137-145) mmol/L BUN (9-20) mg/dL Glucose (74-99) mg/dL POC Glucose (mg/dL) 190 H 198 H 110 H (75-99) mg/dL 08/17/20 08/17/20 Range/Units 07:29 07:29 WBC 17.1 H (3.8-10.6) k/uL RBC 4.29 L (4.30-5.90) m/uL Hgb 12.8 L (13.0-17.5) gm/dL Neutrophils # 16.2 H (1.3-7.7) k/uL Lymphocytes # 0.5 L (1.0-4.8) k/uL Sodium 136 L (137-145) mmol/L BUN 46 H (9-20) mg/dL Glucose 108 H (74-99) mg/dL POC Glucose (mg/dL) (75-99) mg/dL Microbiology - Last 24 Hours (Table) 10/06/19 16:25 Urine Culture - Preliminary Urine,Voided Gram Neg Bacilli 10/07/19 19:00 Gram Stain - Preliminary Sputum Sputum Culture - Preliminary 10/06/19 17:23 Blood Culture - Preliminary Blood No Growth after 24 hours Assessment and Plan Assessment: Assessment Shortness of breath Dizziness and lightheadedness and presyncope Status post permanent pacemaker implantation Plan Orthostatic blood pressure was performed and came in to be unremarkable Follow-up on the echocardiogram Follow-up with the patient
[2019-10-08] MEDS: INSULIN ASPART (NovoLOG) 100 UNIT/ML VIAL SQ SCH (09:02)
--- NOTE | 2019-10-08 10:21 | ECHOF ---
Referral Reason:near syncope MEASUREMENTS -------- HEIGHT: 182.9 cm WEIGHT: 79.4 kg BP: RVIDd: 3.8 cm (< 3.3) IVSd: 1.3 cm (0.6 - 1.1) LVIDd: 4.5 cm (3.9 - 5.3) LVPWd: 1.1 cm (0.6 - 1.1) EDV(Teich): 90 ml IVSs: 1.6 cm LVIDs: 3.8 cm LVPWs: 1.9 cm %IVS Thck: 30 % ESV(Teich): 62 ml EF(Teich): 31 % %FS: 15 % SV(Teich): 28 ml MV EXCURSION: 22.560 mm (> 18.000) MV EF SLOPE: 80 mm/s (70 - 150) EPSS: 0.7 cm MV E Eulogio: 0.48 m/s MV DecT: 216 ms MV Dec Bladen: 2.2 m/s MV A Eulogio: 0.97 m/s MV E/A Ratio: 0.50 MV PHT: 63 ms TR Vmax: 1.66 m/s TR maxP.07 mmHg RAP: 5.00 mmHg RVSP: 16.07 mmHg FINDINGS -------- Paced rhythm. This was a techncally difficult study with suboptimal views, , Lumason utilized for enhancement of im ages. There is mild concentric left ventricular hypertrophy. Overall left ventricular systolic function i s low-normal with, an EF between 50 - 55 %. The right ventricle is mildly enlarged. The left atrial size is normal. The right atrial size is normal. 5.0mg OF Lumason UTLIZED: 2 OR MORE WALL SEGMENTS NOT VISUALIZED. The aortic valve is trileaflet, and appears structurally normal. No aortic stenosis or regurgitation. Mild mitral regurgitation is present. Mild tricuspid regurgitation present. Right ventricular systolic pressure is normal at < 35 mmHg. The pulmonic valve was not well visualized. The aortic root size is normal. There is no pericardial effusion. CONCLUSIONS -------- 1. This was a techncally difficult study with suboptimal views, , Lumason utilized for enhancement of images. 2. There is mild concentric left ventricular hypertrophy. 3. Overall left ventricular systolic function is low-normal with, an EF between 50 - 55 %. 4. The right ventricle is mildly enlarged. 5. The left atrial size is normal. 6. The right atrial size is normal. 7. 5.0mg OF Lumason UTLIZED: 2 OR MORE WALL SEGMENTS NOT VISUALIZED. 8. Mild mitral regurgitation is present. 9. Mild tricuspid regurgitation present. PHARMACY GRADUATE INTERN: Maribeth Corona RDCS
[2019-10-08 11:38] LABS: Glucose,Whole Blood 126 mg/dL (75-99)
--- NOTE | 2019-10-08 13:07 | PN ---
PROGRESS NOTE DATE OF SERVICE: 10/08/2019 This 83-year-old gentleman was admitted with COPD acute exacerbation and also had near syncope. The patient is also being evaluated by Cardiology. A 2D echo with Doppler was done which showed ejection fraction about 50-55 percent and only minimal valvular abnormalities. Patient is being closely monitored at this time. The patient is complaining of weakness. PT OT is evaluating the patient. There is also some dizziness. PHYSICAL EXAMINATION: GENERAL: Patient is alert and oriented times three. VITAL SIGNS: Pulse 67, blood pressure 149/65, respirations 16, temperature is normal, pulse ox 94% on room air. HEENT: Conjunctivae normal. NECK: No jugular venous distention. RESPIRATORY: Breath sounds diminished at the bases. A few scattered rhonchi and crackles. HEART: S1 and S2, muffled. ABDOMEN: Soft, no tenderness. EXTREMITIES: No edema, no swelling. NERVOUS: No focal deficits. LABS: WBC 17.2, hemoglobin 12.8, sodium 136. ASSESSMENT: 1. Chronic obstructive pulmonary disease acute exacerbation with acute purulent tracheobronchitis with possible bronchopneumonia with failure of outpatient treatment. 2. Increased WBC. 3. Near-syncope secondary to orthostatic hypotension. 4. Possible acute urinary tract infection present on admission. 5. Increased BUN, possibly dehydration present on admission. 6. Gastroesophageal reflux disease. 7. History of gastrointestinal bleed. 8. History of syncope and fall. 9. Diminished p.o. intake. 10.Hypertension. 11.Hyperlipidemia. 12.History of degenerative joint disease. 13.History of diverticular disease and colonic polyps. 14.History of nephrolithiasis. 15.History of hydronephrosis. 16.History of cholecystectomy. 17.History of lumbar degenerative joint disease. 18.Remote history of nicotine dependence. RECOMMENDATIONS AND DISCUSSION: I recommend to continue current medications, continue symptomatic treatment, continue bronchodilators. Continue the rest of the medications. Repeat labs. PT/OT evaluation. Cardiology input appreciated. Prognosis guarded. Further recommendations to follow. MMODL / IJN: [id number] /
--- NOTE | 2019-10-08 13:52 | PN ---
PROGRESS NOTE PULMONARY/CRITICAL CARE PROGRESS NOTE: DATE OF SERVICE: October 08, 2019 This is an 83-year-old gentleman who was seen by my partner yesterday in consultation. His impression was that the patient had underlying COPD, acute tracheobronchitis, and possible urinary tract infection. The patient does have a history of tachy- ferdinand syndrome and is being evaluated by Cardiology. He is status post pacemaker implantation. In addition, he has a history of cardiomyopathy, near syncope, DJD, remote tobacco use, hyperlipidemia, hypertension, and diverticular disease. The patient is doing relatively well. The patient is not on any supplemental oxygen. His respiratory status is stable. He denies being short of breath. He is not coughing or wheezing. Not coughing up any phlegm. There is no fever or chills. There is no chest pain. PHYSICAL EXAMINATION: VITAL SIGNS: Current vital signs are reviewed. Temperature is 98.2, heart rate 67, respiratory rate 16, blood pressure 149/65 with a mean 93 and room air saturation 94%. GENERAL: Appears in no acute distress. HEENT: Examination is grossly unremarkable. NECK: Supple. Full range of motion. Neck veins are flat. CARDIOVASCULAR: Examination reveals regular rhythm and rate. Heart rate 67 beats per minute. Heart sounds are distant. S1, S2 normal. LUNGS: A few scattered rhonchi. No wheezes or crackles. Breath sounds equal bilaterally. ABDOMEN: Soft. Bowel sounds are heard. EXTREMITIES are intact. No cyanosis, clubbing, or edema. SKIN: Without rash. NEUROLOGIC: Neurologic examination for all practical purposes is nonfocal. LABORATORY DATA: White count 17.1, hemoglobin 12.8, hematocrit 39.9, platelet count 202,000. Sodium 136, potassium 4.7, chloride 103, CO2 29, anion gap is 4. BUN and creatinine were 46 and 0.73. Microbiology showing gram-negative bacilli in the urine. It has not been identified yet. No recent chest x-rays to report. Chest x-ray done back on October 05 shows some minimal pleural reaction at the lung bases. Medications are reviewed. ASSESSMENT: 1. Probable underlying chronic obstructive pulmonary disease, the severity of which is not known. 2. Mild acute tracheobronchitis. 3. Gram-negative bacilli in the urine, consistent with a possible urinary tract infection. 4. History of tachy-ferdinand syndrome, status post pacemaker implantation. 5. 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 6. Near syncope. 7. History of degenerative joint disease. 8. History of remote tobacco use, currently chews tobacco. 9. Hyperlipidemia. 10.Benign essential hypertension. 11.History of diverticular disease. Plan: Currently, the patient looks like he is doing very well. He states that his breathing is fine. He denies any shortness of breath difficulty breathing coughing wheezing or phlegm production. He is fine. He is currently on DuoNeb 4 times a day and p.r.n. as well as Symbicort 160/4.5, two puffs twice a day. He is also on a prednisone taper. He will need follow up with Dr. Tipton post discharge. MMODL / IJN: [id number] / VENUS
[2019-10-08 16:43] LABS: Glucose,Whole Blood 151 mg/dL (75-99)
[2019-10-08] MEDS: ATORVASTATIN 10 MG TAB PO SCH (20:55)
[2019-10-08 21:03] LABS: Glucose,Whole Blood 186 mg/dL (75-99)
[2019-10-09] MEDS: methylPREDNISolone SOD SUCCI 125 MG/2 ML VIAL IV SCH ×2 (06:00→12:45)
[2019-10-09 06:12] LABS: Glucose,Whole Blood 94 mg/dL (75-99)
[2019-10-09 06:33] LABS: Basophils % (A) 0 %; Eosinophils # (A) 0.1 k/uL (0-0.7); Eosinophils % (A) 0 %; HCT 42.5 % (39.0-53.0); HGB 13.5 gm/dL (13.0-17.5); Lymphocytes # (A) 0.4 k/uL (1.0-4.8); Lymphocytes % (A) 2 %; MCH 29.8 pg (25.0-35.0); MCHC 31.8 g/dL (31.0-37.0); MCV 93.7 fL (80.0-100.0); Monocytes # (A) 0.3 k/uL (0-1.0); Monocytes % (A) 2 %; Neutrophils # (A) 15.8 k/uL (1.3-7.7); Neutrophils % (A) 95 %; Platelet Count 205 k/uL (150-450); RBC 4.54 m/uL (4.30-5.90); RDW 13.6 % (11.5-15.5); WBC 16.6 k/uL (3.8-10.6)
[2019-10-09 06:48] LABS: African American GFR (CKD) >90 (>60 ml/min/1.73 sqM); Anion Gap 3 mmol/L; Blood Urea Nitrogen 46 mg/dL (9-20); Calcium 10.5 mg/dL (8.4-10.2); Carbon Dioxide 32 mmol/L (22-30); Chloride 104 mmol/L (98-107); Glucose 110 mg/dL (74-99); Non-African American GFR(CKD) 87 (>60 ml/min/1.73 sqM); Potassium 4.7 mmol/L (3.5-5.1); Sodium 139 mmol/L (137-145)
[2019-10-09] MEDS ORDERED: NITROGLYCERIN SL TABS 0.4 MG TAB SUBLINGUAL STA (06:50)
[2019-10-09] MEDS: IPRATROPIUM-ALBUTEROL 3 ML NEB INHALATION SCH ×2 (07:09→11:06)
[2019-10-09] MEDS: FORMOTEROL FUMARATE 20 MCG/2 ML NEBU INHALATION SCH (07:13)
[2019-10-09] MEDS: BUDESONIDE 1 MG/2 ML NEBU INHALATION SCH (07:13)
[2019-10-09] MEDS ORDERED: NITROGLYCERIN SL TABS 0.4 MG TAB SUBLINGUAL ONE (07:30)
[2019-10-09 08:01] VITALS: BP 122/62; RESP 18; TEMP 98.4
[2019-10-09] MEDS: CHOLECALCIFEROL 1,000 UNIT TAB PO SCH (09:27)
[2019-10-09] MEDS: amLODIPine 10 MG TAB PO SCH (09:27)
[2019-10-09] MEDS: PANTOPRAZOLE 40 MG TABLET PO SCH (09:27)
[2019-10-09] MEDS: ASPIRIN 81 MG PO SCH (09:27)
[2019-10-09] MEDS: HEPARIN SODIUM,PORCINE 5,000 UNIT/ML 1 ML VIAL SQ SCH (09:28)
[2019-10-09] MEDS: lisinopriL 10 MG TAB PO SCH (09:28)
[2019-10-09] MEDS: FERROUS SULFATE 325 MG TAB PO SCH (09:28)
[2019-10-09] MEDS: MORPHINE SULFATE ER 15 MG TABLET PO SCH (09:34)
--- NOTE | 2019-10-09 09:58 | P.PN ---
Subjective Progress Note Date: 10/09/19 Principal diagnosis: Syncope This is a very pleasant 83-year-old gentleman with a past medical history significant for chronic obstructive pulmonary disease as well as history of permanent pacemaker was admitted to the hospital with increasing in the shortness of breath as well as symptoms of dizziness and lightheadedness and presyncope. The patient was seen today October [id number]. Overall he is feeling better. He denies any symptoms of chest pain or chest discomfort. Hemodynamically he continues to be stable with normal blood pressure and heart rate. Orthostatic blood pressure was checked and came in to be unremarkable. From a cardiovascular standpoint of view, the patient can be discharged home. Objective - Vital Signs Vital signs: Vital Signs Temp 98.4 F 10/09/19 07:59 Pulse 94 10/09/19 07:59 Resp 18 10/09/19 07:59 BP 122/62 10/09/19 07:59 Pulse Ox 98 10/09/19 07:59 Intake & Output 10/08/19 10/09/19 10/09/19 18:59 06:59 18:59 Output Total 0 Balance 0 Output: Urine 0 Other: Voiding Method Toilet Toilet Toilet # Voids 2 0 - Constitutional General appearance: Present: no acute distress - Respiratory Respiratory: bilateral: CTA - Cardiovascular Rhythm: regular Heart sounds: normal: S1, S2 - Labs CBC & Chem 7: 10/09/19 06:15 10/09/19 06:15 Labs: Abnormal Lab Results - Last 24 Hours (Table) 10/08/19 10/08/19 10/08/19 Range/Units 11:36 16:41 21:01 WBC (3.8-10.6) k/uL Neutrophils # (1.3-7.7) k/uL Lymphocytes # (1.0-4.8) k/uL Carbon Dioxide (22-30) mmol/L BUN (9-20) mg/dL Glucose (74-99) mg/dL POC Glucose (mg/dL) 126 H 151 H 186 H (75-99) mg/dL Calcium (8.4-10.2) mg/dL 10/09/19 10/09/19 Range/Units 06:15 06:15 WBC 16.6 H (3.8-10.6) k/uL Neutrophils # 15.8 H (1.3-7.7) k/uL Lymphocytes # 0.4 L (1.0-4.8) k/uL Carbon Dioxide 32 H (22-30) mmol/L BUN 46 H (9-20) mg/dL Glucose 110 H (74-99) mg/dL POC Glucose (mg/dL) (75-99) mg/dL Calcium 10.5 H (8.4-10.2) mg/dL Microbiology - Last 24 Hours (Table) 10/07/19 19:00 Gram Stain - Final Sputum Sputum Culture - Final 10/06/19 16:25 Urine Culture - Final Urine,Voided Escherichia coli 10/06/19 17:23 Blood Culture - Preliminary Blood No Growth after 48 hours Assessment and Plan Assessment: Assessment Shortness of breath Dizziness and lightheadedness and presyncope Status post permanent pacemaker implantation Plan Orthostatic blood pressure was performed and came in to be unremarkable Follow-up on the echocardiogram Follow-up with the patient
--- NOTE | 2019-10-09 10:34 | PN ---
PROGRESS NOTE PULMONARY/CRITICAL CARE PROGRESS NOTE: DATE OF SERVICE: 10/09/2019 This is an 83-year-old male who was seen by my partner over the weekend. The patient has a history of underlying COPD and acute tracheobronchitis. He also may have a urinary tract infection. From the pulmonary standpoint, doing much better. He has been weaned off of O2. The patient has been seen by Cardiology as well. The patient is feeling much improved. He denies any shortness of breath, cough, wheezing, or phlegm production. Currently, the patient is not requiring any supplemental oxygen. There is no fever or chills. He is not coughing up any phlegm. PHYSICAL EXAMINATION: VITAL SIGNS: His current vital signs appear to be stable. Temperature 98.4, heart rate 76, respiratory rate 18, blood pressure 122/62, mean 82, 2 L saturation 98%. Appears in no acute distress. HEENT: Examination is grossly unremarkable. NECK: Supple. Full range of motion. CARDIOVASCULAR: Examination reveals regular rhythm and rate. Lungs are relatively clear. A few scattered rhonchi. No wheezes or crackles. ABDOMEN: Soft. Bowel sounds are heard. EXTREMITIES: Intact. There is no cyanosis, clubbing, or edema. SKIN: Without rash. NEUROLOGIC: Examination is brief but nonfocal. LABS: Reviewed. White count 16.6, hemoglobin 13.5, hematocrit 42.5, platelet count 205,000. Sodium, potassium, chloride normal. CO2 32, anion gap is 3. BUN and creatinine were 46 and 0.73. Calcium 10.5. Urine is positive for E coli. The E coli is sensitive to most antibiotics. Currently, the patient is on Rocephin which is effective against the E coli in the urine. IMAGING: No recent chest x-ray to report. ASSESSMENT: 1. Chronic obstructive pulmonary disease, probable, the severity of which is not known. 2. Mild acute tracheobronchitis, resolved. 3. E coli urinary tract infection, currently on ceftriaxone, which is effective. 4. History of tachy-ferdinand syndrome, status post pacemaker implantation. 5. Cardiomyopathy with left ventricular dysfunction. 6. Near syncope. 7. History of degenerative joint disease. 8. History of remote tobacco use, currently chews tobacco. 9. Hyperlipidemia. 10.Benign essential hypertension. 11.History of diverticular disease. PLAN: The patient has been weaned off oxygen. She is doing very well. The patient has currently been weaned off oxygen. He feels much better. The patient could possibly be discharged in next day or so. The patient should follow up with Dr. Tipton in the office. He will need a complete pulmonary function test. We encourage him to stop chewing tobacco. He does not smoke anymore. Additional recommendations and suggestions are forthcoming. Overall prognosis is guarded. MMODL / IJN: [id number] /
[2019-10-09 10:50] LABS: Glucose,Whole Blood 106 mg/dL (75-99)
[2019-10-09 11:08] VITALS: PULSE 74
--- NOTE | 2019-10-09 14:53 | P.DS ---
Providers Date of admission: 10/08/19 13:34 Expected date of discharge: 10/09/19 Attending physician: Rios Antony Consults: 10/06/19 16:56 Consult Physician Routine Consulting Provider: [facility] Consult Reason/Comments: near synope Do you want consulting provider notified?: Yes 10/07/19 00:32 Consult Physician Routine Consulting Provider: Becca Tipton Reason/Comments: copd Do you want consulting provider notified?: Yes Primary care physician: [facility] Hospital Course: Final diagnosis COPD acute exacerbation with acute purulent tracheobronchitis with possible bronchopneumonia with failure of outpatient treatment Increased WBC Near syncope secondary to orthostatic hypotension Possible acute urinary tract infection, present on admission Increased BUN, possibly dehydration, present on admission GERD History of GI bleed History of syncope and fall Diminished by mouth intake Hypertension Hyperlipidemia history of DJD History of diverticular disease and colonic polyps History of nephrolithiasis History of hydronephrosis history of cholecystectomy Remote history of nicotine dependence Discharge disposition Patient is being discharged in a stable condition with guarded prognosis to home. Patient will follow-up with [facility] upon discharge. Patient will continue on oral antibiotics in the form o Ceftin 500 mg twice daily for the next 5 days to complete the course. patient instructed to follow-up wit pulmonary along with cardiology in the outpatient setting. patient will continue with breathing inhalational treatments along with a prednisone taper upon discharge. Total time taken is 35 minutes. History of present illness This is a 83-year-old male who was recently admitted with COPD acute exacerbation and also syncope and was being closely monitored. She was evaluated by pulmonary along with cardiology and underwent a 2-D echo showing ejection fraction of 50-55% with some minimal valvular abnormalities. Patient was also evaluated by pulmonary recommending continued breathing inhalational treatments along with steroids. Patient follows with the [facility] and will need to fax documents to receive a nebulizer. Per patient will also need to follow-up at the [facility] clinic to be able to follow with pulmonary and cardiology in the outpatient setting. Patient will continue with inhalers along with a prednisone taper upon discharge. Patient will be following up with cardiology in the outpatient setting for further testing once approved by the [facility]. Currently no reports of chest pain, shortness of breath, or palpitations. Patient is afebrile. No reports of nausea or vomiting and patient is tolerating diet. Guarded prognosis. On exam vital signs are stable. Temp is 98.4F, pulse is 94, respirations are 18, blood pressure is 122/62, oxygen saturation is 93% on room air. Cardio S1, S2 are muffled. Respiratory shows diminished breath sounds at the bases with some wheezing and rhonchi noted. Abdomen is soft and nontender. Nervous system shows no focal deficits. Please refer to medication reconciliation sheet for a list of medications. Patient Condition at Discharge: Fair Plan - Discharge Summary Discharge Rx Participant: Yes New Discharge Prescriptions: New Fluticasone/Salmeterol [Airduo Respiclick 232-14 Mcg] 1 puff INHALATION BID 30 Days #1 device Cefuroxime Axetil [Ceftin] 500 mg PO BID 5 Days #10 tab predniSONE 10 mg PO DIRECTED #30 tab Continue Lovastatin [Mevacor] 40 mg PO HS Aspirin [Adult Low Dose Aspirin EC] 81 mg PO DAILY Omeprazole 20 mg PO DAILY [place]-3 Fatty Acids/Fish Oil [Fish Oil 1,000 mg Softgel] 1 cap PO DAILY Cholecalciferol [Vitamin D3 (25 Mcg = 1000 Iu)] 1,000 unit PO DAILY amLODIPine [Norvasc] 10 mg PO DAILY #30 tab lisinopriL [Zestril] 10 mg PO DAILY #30 tab Meloxicam [Mobic] 7.5 mg PO DAILY PRN PRN Reason: Pain Morphine Sulfate ER [Ms Contin] 15 mg PO Q12HR Albuterol Inhaler [Ventolin Hfa Inhaler] 2 puff INHALATION RT-QID PRN PRN Reason: Wheezing Ferrous Sulfate [Iron] 325 mg PO DAILY Meclizine HCl 25 mg PO TID PRN PRN Reason: Vertigo Discontinued predniSONE 50 mg PO DAILY #5 tab Discharge Medication List Aspirin [Adult Low Dose Aspirin EC] 81 mg PO DAILY 02/04/16 [History] Lovastatin [Mevacor] 40 mg PO HS 02/04/16 [History] Wy[place]o-3 Fatty Acids/Fish Oil [Fish Oil 1,000 mg Softgel] 1 cap PO DAILY 02/04/16 [History] Omeprazole 20 mg PO DAILY 02/04/16 [History] Cholecalciferol [Vitamin D3 (25 Mcg = 1000 Iu)] 1,000 unit PO DAILY 09/13/18 [History] amLODIPine [Norvasc] 10 mg PO DAILY #30 tab 09/18/18 [Rx] lisinopriL [Zestril] 10 mg PO DAILY #30 tab 09/18/18 [Rx] Meloxicam [Mobic] 7.5 mg PO DAILY PRN 11/14/18 [History] Albuterol Inhaler [Ventolin Hfa Inhaler] 2 puff INHALATION RT-QID PRN 10/06/19 [History] Ferrous Sulfate [Iron] 325 mg PO DAILY 10/06/19 [History] Meclizine HCl 25 mg PO TID PRN 10/06/19 [History] Morphine Sulfate ER [Ms Contin] 15 mg PO Q12HR 10/06/19 [History] Cefuroxime Axetil [Ceftin] 500 mg PO BID 5 Days #10 tab 10/09/19 [Rx] Fluticasone/Salmeterol [Airduo Respiclick 232-14 Mcg] 1 puff INHALATION BID 30 Days #1 device 10/09/19 [Rx] predniSONE 10 mg PO DIRECTED #30 tab 10/09/19 [Rx] Follow up Appointment(s)/Referral(s): Becca Tipton MD [STAFF PHYSICIAN] - 10/12/19 9:45 am Rg Miramontes MD [STAFF PHYSICIAN] - 10/25/19 3:00 pm [facility] [Primary Care Provider] - 10/18/19 2:30 pm (This was next available appointment, will be a telephone call. ) Patient Instructions/Handouts: How to Quit Using Smokeless Tobacco (DC) Activity/Diet/Wound Care/Special Instructions: Contact CM at id if indigent funds needed Activity Limited until follow-up Follow-up with PRIMARY care provider upon discharge Follow-up with cardiology and pulmonary in the outpatient setting Continue with antibiotics for 5 days until finished Continue with prednisone taper Discharge Disposition: HOME SELF-CARE
== END 2019-10-09 14:31 | disposition home or self-care (01) | DRG 194 ==
LOC: EC 14:25 → 3NCARDOBS 17:02 → OBSVTOIN 10-08 13:34
PROVIDERS: ADMIT Hospitalist; ATTEND Hospitalist
PROC: 4B02XSZ Measurement of Cardiac Pacemaker, External Approach (ICD-10-PCS; principal; 2019-10-07)
DX: J18.0 Bronchopneumonia, unspecified organism (principal); J44.0 Chronic obstructive pulmonary disease with (acute) lower respiratory infection; N39.0 Urinary tract infection, site not specified; I45.2 Bifascicular block; I42.9 Cardiomyopathy, unspecified; J44.1 Chronic obstructive pulmonary disease with (acute) exacerbation; I49.5 Sick sinus syndrome; I11.9 Hypertensive heart disease without heart failure; I44.1 Atrioventricular block, second degree; J20.9 Acute bronchitis, unspecified; N20.0 Calculus of kidney; I95.1 Orthostatic hypotension; B96.20 Unspecified Escherichia coli [E. coli] as the cause of diseases classified elsewhere; E86.0 Dehydration; K21.9 Gastro-esophageal reflux disease without esophagitis; E78.5 Hyperlipidemia, unspecified; M19.042 Primary osteoarthritis, left hand; M19.041 Primary osteoarthritis, right hand; M19.032 Primary osteoarthritis, left wrist; M19.031 Primary osteoarthritis, right wrist; M19.072 Primary osteoarthritis, left ankle and foot; M19.071 Primary osteoarthritis, right ankle and foot; M47.816 Spondylosis without myelopathy or radiculopathy, lumbar region; K57.90 Diverticulosis of intestine, part unspecified, without perforation or abscess without bleeding; K64.9 Unspecified hemorrhoids; I25.2 Old myocardial infarction; K59.00 Constipation, unspecified; F17.220 Nicotine dependence, chewing tobacco, uncomplicated; Z79.82 Long term (current) use of aspirin; Z79.1 Long term (current) use of non-steroidal anti-inflammatories (NSAID); Z79.891 Long term (current) use of opiate analgesic; Z79.899 Other long term (current) drug therapy; Z77.22 Contact with and (suspected) exposure to environmental tobacco smoke (acute) (chronic); Z87.19 Personal history of other diseases of the digestive system; Z87.442 Personal history of urinary calculi; Z90.49 Acquired absence of other specified parts of digestive tract; Z86.010 Personal history of colon polyps; Z87.448 Personal history of other diseases of urinary system; Z87.81 Personal history of (healed) traumatic fracture; Z87.39 Personal history of other diseases of the musculoskeletal system and connective tissue; Z95.0 Presence of cardiac pacemaker; Z98.890 Other specified postprocedural states; W18.30XA Fall on same level, unspecified, initial encounter; Y92.002 Bathroom of unspecified non-institutional (private) residence as the place of occurrence of the external cause; Z80.9 Family history of malignant neoplasm, unspecified
CPT/HCPCS: 36415; 70450; 71045; 72125; 80048; 80053; 81001; 83735; 83880; 84484; 85025; 85610; 85730; 87040; 87070; 87077; 87086; 87186; 87205; 93005; 93306; 94640; 94760; 96361; 96374; 96375; 99285

== ENCOUNTER 2019-10-19 21:09 | Emergency (ER) | payer OTHER ==
[2019-10-19 21:24] VITALS: TEMP 98.3
[2019-10-19] MEDS ORDERED: IPRATROPIUM-ALBUTEROL 3 ML NEB INHALATION STA (22:15)
[2019-10-19] MEDS ORDERED: SODIUM CHLORIDE 0.9% 1,000 ML IV STA (22:15)
--- NOTE | 2019-10-19 22:16 | ED ---
SOB HPI - General Chief Complaint: Shortness of Breath Stated Complaint: SOB, Near Syncope Time Seen by Provider: 10/19/19 22:13 Source: patient, family, RN notes reviewed, old records reviewed Limitations: no limitations - History of Present Illness Initial Comments: This is an 82-year-old male DF for shortness of breath patient is in shortness with anxiety while at home prior to arrival patient came the ER with daughter on Route ER patient's symptoms apparently improved he states he felt good enough to go home. No chest pain shortness of breath no recent fevers multiple recent hospital admissions. MD Complaint: shortness of breath, cough, anxiety -: hour(s) Severity: mild Severity scale (1-10): 3 Consistency: constant, now resolved Improves With: oxygen (Patient felt better once placed on oxygen) Worsens With: nothing Context: recent URI Associated Symptoms: denies other symptoms - Related Data Home Medications Medication Instructions Recorded Confirmed Aspirin [Adult Low Dose Aspirin EC] 81 mg PO DAILY 02/04/16 10/19/19 Lovastatin [Mevacor] 40 mg PO DAILY 02/04/16 10/19/19 [place]-3 Fatty Acids/Fish Oil [Fish 1 cap PO DAILY 02/04/16 10/19/19 Oil 1,000 mg Softgel] Omeprazole 20 mg PO DAILY 02/04/16 10/19/19 Cholecalciferol [Vitamin D3 (25 1,000 unit PO DAILY 09/13/18 10/19/19 Mcg = 1000 Iu)] Meloxicam [Mobic] 7.5 mg PO DAILY PRN 11/14/18 10/19/19 Albuterol Inhaler [Ventolin Hfa 2 puff INHALATION RT-QID PRN 10/06/19 10/19/19 Inhaler] Ferrous Sulfate [Iron] 325 mg PO DAILY 10/06/19 10/19/19 Meclizine HCl 25 mg PO TID PRN 10/06/19 10/19/19 Previous Rx's Medication Instructions Recorded amLODIPine [Norvasc] 10 mg PO DAILY #30 tab 09/18/18 lisinopriL [Zestril] 10 mg PO DAILY #30 tab 09/18/18 Allergies Allergy/AdvReac Type Severity Reaction Status Date / Time No Known Allergies Allergy Verified 10/19/19 23:11 Review of Systems ROS Statement: Those systems with pertinent positive or pertinent negative responses have been documented in the HPI. ROS Other: All systems not noted in ROS Statement are negative. Past Medical History Past Medical History: GERD/Reflux, GI Bleed, Hyperlipidemia, Hypertension, Osteoarthritis (OA) Additional Past Medical History / Comment(s): Fractured back twice, arthritis in hands/wrists/ankles, lower GI bleed, diverticular disease/colon polyps, hemorrhoids, constipation, kidney stones Last Myocardial Infarction Date:: 2018 History of Any Multi-Drug Resistant Organisms: None Reported Past Surgical History: Back Surgery, Cholecystectomy, Orthopedic Surgery Additional Past Surgical History / Comment(s): Lumbar laminectomy, EGD, colonoscopies/benign polypectomies, L shoulder arthroscopy. Past Anesthesia/Blood Transfusion Reactions: No Reported Reaction Past Psychological History: No Psychological Hx Reported Smoking Status: Never smoker Past Alcohol Use History: None Reported Past Drug Use History: None Reported - Past Family History Mother Family Medical History: Cancer Additional Family Medical History / Comment(s): Mother from some form of cancer at the age of 78yrs. Father History Unknown: Yes Additional Family Medical History / Comment(s): Father left when pt was 7 yrs old. General Exam Limitations: no limitations General appearance: alert, in no apparent distress Head exam: Present: atraumatic, normocephalic, normal inspection Eye exam: Present: normal appearance, PERRL, EOMI. Absent: scleral icterus, conjunctival injection, periorbital swelling ENT exam: Present: normal exam, mucous membranes moist Neck exam: Present: normal inspection. Absent: tenderness, meningismus, lymphadenopathy Respiratory exam: Present: normal lung sounds bilaterally. Absent: respiratory distress, wheezes, rales, rhonchi, stridor Cardiovascular Exam: Present: regular rate, normal rhythm, normal heart sounds. Absent: systolic murmur, diastolic murmur, rubs, gallop, clicks GI/Abdominal exam: Present: soft, normal bowel sounds. Absent: distended, tenderness, guarding, rebound, rigid Extremities exam: Present: normal inspection, full ROM, normal capillary refill. Absent: tenderness, pedal edema, joint swelling, calf tenderness Back exam: Present: normal inspection Neurological exam: Present: alert, oriented X3, CN II-XII intact Psychiatric exam: Present: normal affect, normal mood Skin exam: Present: warm, dry, intact, normal color. Absent: rash Course Vital Signs 10/19/19 10/19/19 10/19/19 21:22 22:05 23:29 Temperature 98.3 F Pulse Rate 87 87 76 Respiratory 18 22 Rate Blood Pressure 109/72 125/73 O2 Sat by Pulse 98 99 Oximetry 10/19/19 23:45 Temperature Pulse Rate 71 Respiratory Rate Blood Pressure O2 Sat by Pulse Oximetry - Reevaluation(s) Reevaluation #1: 10/19/19 23:53 Medical record is reviewed 10/19/19 23:53 Hospitalization is reviewed Reevaluation #2: 10/19/19 23:53 Patient feels better with oxygen breathing treatment here in the ER Reevaluation #3: 10/19/19 23:53 Reevaluated, patient states he would prefer discharged Reevaluation #4: 10/19/19 23:53 Spoke with patient and daughter state patient is at baseline, questions answered Medical Decision Making - Medical Decision Making 84 male for shortness of breath symptoms resolved here in the ER, patient be discharged home - Lab Data Result diagrams: 10/19/19 22:24 10/19/19 22:24 Lab Results 10/19/19 10/19/19 10/19/19 Range/Units 22:24 22:24 22:24 WBC 14.1 H (3.8-10.6) k/uL RBC 4.72 (4.30-5.90) m/uL Hgb 14.0 (13.0-17.5) gm/dL Hct 43.9 (39.0-53.0) % MCV 93.0 (80.0-100.0) fL MCH 29.5 (25.0-35.0) pg MCHC 31.8 (31.0-37.0) g/dL RDW 13.8 (11.5-15.5) % Plt Count 213 (150-450) k/uL Neutrophils % 82 % Lymphocytes % 13 % Monocytes % 4 % Eosinophils % 1 % Basophils % 0 % Neutrophils # 11.5 H (1.3-7.7) k/uL Lymphocytes # 1.8 (1.0-4.8) k/uL Monocytes # 0.5 (0-1.0) k/uL Eosinophils # 0.1 (0-0.7) k/uL Basophils # 0.0 (0-0.2) k/uL PT 11.0 (9.0-12.0) sec INR 1.1 (<1.2) APTT 23.9 (22.0-30.0) sec Sodium 138 (137-145) mmol/L Potassium 4.0 (3.5-5.1) mmol/L Chloride 101 (98-107) mmol/L Carbon Dioxide 33 H (22-30) mmol/L Anion Gap 4 mmol/L BUN 26 H (9-20) mg/dL Creatinine 0.65 L (0.66-1.25) mg/dL Est GFR (CKD-EPI)AfAm >90 (>60 ml/min/1.73 sqM) Est GFR (CKD-EPI)NonAf >90 (>60 ml/min/1.73 sqM) Glucose 149 H (74-99) mg/dL Plasma Lactic Acid Billy (0.7-2.0) mmol/L Calcium 10.2 (8.4-10.2) mg/dL Magnesium 2.1 (1.6-2.3) mg/dL Total Bilirubin 0.8 (0.2-1.3) mg/dL AST 25 (17-59) U/L ALT 40 (4-49) U/L Alkaline Phosphatase 60 (38-126) U/L Creatine Kinase <20 L (55-170) U/L Troponin I (0.000-0.034) ng/mL NT-Pro-B Natriuret Pep pg/mL Total Protein 5.6 L (6.3-8.2) g/dL Albumin 3.5 (3.5-5.0) g/dL 10/19/19 10/19/19 10/19/19 Range/Units 22:24 22:24 22:24 WBC (3.8-10.6) k/uL RBC (4.30-5.90) m/uL Hgb (13.0-17.5) gm/dL Hct (39.0-53.0) % MCV (80.0-100.0) fL MCH (25.0-35.0) pg MCHC (31.0-37.0) g/dL RDW (11.5-15.5) % Plt Count (150-450) k/uL Neutrophils % % Lymphocytes % % Monocytes % % Eosinophils % % Basophils % % Neutrophils # (1.3-7.7) k/uL Lymphocytes # (1.0-4.8) k/uL Monocytes # (0-1.0) k/uL Eosinophils # (0-0.7) k/uL Basophils # (0-0.2) k/uL PT (9.0-12.0) sec INR (<1.2) APTT (22.0-30.0) sec Sodium (137-145) mmol/L Potassium (3.5-5.1) mmol/L Chloride (98-107) mmol/L Carbon Dioxide (22-30) mmol/L Anion Gap mmol/L BUN (9-20) mg/dL Creatinine (0.66-1.25) mg/dL Est GFR (CKD-EPI)AfAm (>60 ml/min/1.73 sqM) Est GFR (CKD-EPI)NonAf (>60 ml/min/1.73 sqM) Glucose (74-99) mg/dL Plasma Lactic Acid Billy 1.4 (0.7-2.0) mmol/L Calcium (8.4-10.2) mg/dL Magnesium (1.6-2.3) mg/dL Total Bilirubin (0.2-1.3) mg/dL AST (17-59) U/L ALT (4-49) U/L Alkaline Phosphatase (38-126) U/L Creatine Kinase (55-170) U/L Troponin I <0.012 (0.000-0.034) ng/mL NT-Pro-B Natriuret Pep 141 pg/mL Total Protein (6.3-8.2) g/dL Albumin (3.5-5.0) g/dL - EKG Data -: EKG Interpreted by Me (EKG shows sinus rhythm rate of 89, [place] 08 QRS 122 QTC 445) - Radiology Data Radiology results: report reviewed (Chest x-rays negative for acute disease), image reviewed Disposition Clinical Impression: Acute exacerbation of chronic obstructive pulmonary disease Disposition: HOME SELF-CARE Condition: Good Instructions (If sedation given, give patient instructions): Chronic Bronchitis (ED) Is patient prescribed a controlled substance at d/c from ED?: No Referrals: [facility] [Primary Care Provider] - 1-2 days
[2019-10-19 22:32] LABS: Basophils % (A) 0 %; Eosinophils # (A) 0.1 k/uL (0-0.7); Eosinophils % (A) 1 %; HCT 43.9 % (39.0-53.0); Lymphocytes # (A) 1.8 k/uL (1.0-4.8); Lymphocytes % (A) 13 %; MCH 29.5 pg (25.0-35.0); MCHC 31.8 g/dL (31.0-37.0); Mean Platelet Volume 8.6; Monocytes # (A) 0.5 k/uL (0-1.0); Monocytes % (A) 4 %; Neutrophils # (A) 11.5 k/uL (1.3-7.7); Neutrophils % (A) 82 %; Platelet Count 213 k/uL (150-450); RBC 4.72 m/uL (4.30-5.90); RDW 13.8 % (11.5-15.5); WBC 14.1 k/uL (3.8-10.6)
[2019-10-19 22:41] LABS: INR 1.1 (<1.2); Partial Thromboplastin Time 23.9 sec (22.0-30.0)
[2019-10-19 22:42] LABS: ALT 40 U/L (4-49); AST 25 U/L (17-59); African American GFR (CKD) >90 (>60 ml/min/1.73 sqM); Albumin 3.5 g/dL (3.5-5.0); Alkaline Phosphatase 60 U/L (38-126); Anion Gap 4 mmol/L; Blood Urea Nitrogen 26 mg/dL (9-20); Calcium 10.2 mg/dL (8.4-10.2); Carbon Dioxide 33 mmol/L (22-30); Chloride 101 mmol/L (98-107); Creatine Kinase <20 U/L (55-170); Glucose 149 mg/dL (74-99); Magnesium 2.1 mg/dL (1.6-2.3); Non-African American GFR(CKD) >90 (>60 ml/min/1.73 sqM); Sodium 138 mmol/L (137-145); Total Bilirubin 0.8 mg/dL (0.2-1.3); Total Protein 5.6 g/dL (6.3-8.2)
--- NOTE | 2019-10-19 23:17 | XR ---
EXAMINATION TYPE: XR chest 1V portable DATE OF EXAM: 10/19/2019 COMPARISON: 10/12/2019 HISTORY: COPD. Short of breath TECHNIQUE: FINDINGS: There is no heart failure nor confluent pneumonic infiltrate. Costophrenic angles are clear . There is a left axillary pacemaker. There are chest leads. IMPRESSION: No active cardiopulmonary disease. Normal heart. No change.
[2019-10-19] MEDS ORDERED: DEXAMETHASONE SOD PHOSPHATE 10 MG/ML 1 ML VIAL IV STA (23:54)
[2019-10-20 00:10] VITALS: BP 141/66; PULSE 76; RESP 20
== END 2019-10-20 00:12 | disposition home or self-care (01) ==
LOC: EC 21:09
DX: J44.1 Chronic obstructive pulmonary disease with (acute) exacerbation (principal); K21.9 Gastro-esophageal reflux disease without esophagitis; E78.5 Hyperlipidemia, unspecified; I10 Essential (primary) hypertension; M19.90 Unspecified osteoarthritis, unspecified site; F41.9 Anxiety disorder, unspecified; Z79.82 Long term (current) use of aspirin; Z79.51 Long term (current) use of inhaled steroids; Z79.899 Other long term (current) drug therapy; Z87.19 Personal history of other diseases of the digestive system; Z90.49 Acquired absence of other specified parts of digestive tract
CPT/HCPCS: 36415; 94640; 93005; 83880; 80053; 82550; 83605; 83735; 84484; 85025; 85610; 85730; 71045; 99285; 96374; 96361 ×2; J1100

== ENCOUNTER 2019-10-21 06:48 | Observation (INO) | payer OTHER ==
[2019-10-21] MEDS ORDERED: methylPREDNISolone SOD SUCCI 125 MG/2 ML VIAL IV STA (07:03)
[2019-10-21] MEDS ORDERED: IPRATROPIUM-ALBUTEROL 3 ML NEB INHALATION STA (07:03)
--- NOTE | 2019-10-21 07:06 | ED ---
SOB HPI - General Source: patient, RN notes reviewed Mode of arrival: wheelchair Limitations: no limitations <Wenceslao Pierre - Last Filed: 10/21/19 07:40> <Ashwin Spicer - Last Filed: 10/21/19 07:45> - General Chief Complaint: Shortness of Breath Stated Complaint: JASPREET Time Seen by Provider: 10/21/19 06:51 - History of Present Illness Initial Comments: 84-year-old male presents emergency Department chief complaint of shortness of breath. Patient has had multiple recent ER visits and hospital stays. Patient's has a history of COPD. Patient states his been using his inhaler but states is not helping. Patient denies any fevers or chills she's had increased congestion. Denies any abdominal pain no leg swelling or leg pain. Denies any history of PE or DVT. Patient states that oxygen does help him but he does not have oxygen at home. Patient denies any other complaints. (Wenceslao Pierre) - Related Data Home Medications Medication Instructions Recorded Confirmed Aspirin [Adult Low Dose Aspirin EC] 81 mg PO DAILY 02/04/16 10/19/19 Lovastatin [Mevacor] 40 mg PO DAILY 02/04/16 10/19/19 [place]-3 Fatty Acids/Fish Oil [Fish 1 cap PO DAILY 02/04/16 10/19/19 Oil 1,000 mg Softgel] Omeprazole 20 mg PO DAILY 02/04/16 10/19/19 Cholecalciferol [Vitamin D3 (25 1,000 unit PO DAILY 09/13/18 10/19/19 Mcg = 1000 Iu)] Meloxicam [Mobic] 7.5 mg PO DAILY PRN 11/14/18 10/19/19 Albuterol Inhaler [Ventolin Hfa 2 puff INHALATION RT-QID PRN 10/06/19 10/19/19 Inhaler] Ferrous Sulfate [Iron] 325 mg PO DAILY 10/06/19 10/19/19 Meclizine HCl 25 mg PO TID PRN 10/06/19 10/19/19 Previous Rx's Medication Instructions Recorded amLODIPine [Norvasc] 10 mg PO DAILY #30 tab 09/18/18 lisinopriL [Zestril] 10 mg PO DAILY #30 tab 09/18/18 Allergies Allergy/AdvReac Type Severity Reaction Status Date / Time No Known Allergies Allergy Verified 10/21/19 06:59 Review of Systems ROS Other: All systems not noted in ROS Statement are negative. <Wenceslao Pierre - Last Filed: 10/21/19 07:40> ROS Other: All systems not noted in ROS Statement are negative. <NayanAshwin - Last Filed: 10/21/19 07:45> ROS Statement: Those systems with pertinent positive or pertinent negative responses have been documented in the HPI. Past Medical History Past Medical History: GERD/Reflux, GI Bleed, Hyperlipidemia, Hypertension, Os teoarthritis (OA) Additional Past Medical History / Comment(s): Fractured back twice, arthritis in hands/wrists/ankles, lower GI bleed, diverticular disease/colon polyps, hemo rrhoids, constipation, kidney stones Last Myocardial Infarction Date:: 2019 History of Any Multi-Drug Resistant Organisms: None Reported Past Surgical History: Back Surgery, Cholecystectomy, Orthopedic Surgery Additional Past Surgical History / Comment(s): Lumbar laminectomy, EGD, colonoscopies/benign polypectomies, L shoulder arthroscopy. Past Anesthesia/Blood Transfusion Reactions: No Reported Reaction Past Psychological History: No Psychological Hx Reported Smoking Status: Never smoker Past Alcohol Use History: None Reported Past Drug Use History: None Reported - Past Family History Mother Family Medical History: Cancer Additional Family Medical History / Comment(s): Mother from some form of cancer at the age of 78yrs. Father History Unknown: Yes Additional Family Medical History / Comment(s): Father left when pt was 7 yrs old. <Wenceslao Pierre Austin - Last Filed: 10/21/19 07:40> General Exam Limitations: no limitations General appearance: alert, in no apparent distress Head exam: Present: atraumatic, normocephalic, normal inspection Eye exam: Present: normal appearance, PERRL, EOMI. Absent: scleral icterus, conjunctival injection, periorbital swelling ENT exam: Present: normal exam, normal oropharynx, mucous membranes moist Neck exam: Present: normal inspection, full ROM. Absent: tenderness, meningismus, lymphadenopathy Respiratory exam: Present: wheezes, decreased breath sounds. Absent: normal lung sounds bilaterally, respiratory distress, rales, rhonchi, stridor Cardiovascular Exam: Present: regular rate, normal rhythm, normal heart sounds. Absent: systolic murmur, diastolic murmur, rubs, gallop, clicks Extremities exam: Absent: pedal edema Neurological exam: Present: alert, oriented X3 <Wenceslao Pierre - Last Filed: 10/21/19 07:40> Course <Ashwin Spicer - Last Filed: 10/21/19 07:45> Vital Signs 10/21/19 10/21/19 10/21/19 06:56 07:17 07:20 Temperature 97.8 F Pulse Rate 86 72 Respiratory 16 18 18 Rate Blood Pressure 151/80 141/57 O2 Sat by Pulse 96 98 Oximetry 10/21/19 07:41 Temperature Pulse Rate 74 Respiratory Rate Blood Pressure O2 Sat by Pulse Oximetry - Reevaluation(s) Reevaluation #1: 10/21/19 07:44 PA supervision: I proceeded [id number] evaluation the patient did present with complaints of shortness of breath that was refractory to his home medication. He has had problems like this multiple times recently. X-ray shows no definite infiltrate. He does have elevated white blood cell count. He denies any fevers chills or sweats. Patient will be admitted I did discuss the case with Dr. Soto (Ashwin Spicer) Medical Decision Making - Lab Data Result diagrams: 10/21/19 07:15 10/21/19 07:15 - EKG Data -: EKG Interpreted by Me <Wenceslao Pierre - Last Filed: 10/21/19 07:40> - Lab Data Result diagrams: 10/21/19 07:15 10/21/19 07:15 <Ashwin Spicer - Last Filed: 10/21/19 07:45> - Medical Decision Making 84-year-old male presented from for shortness breath. Patient has acute exacerbation of COPD. X-ray doesn't show definite infiltrate. Patient does have mild leukocytosis. Patient will be admitted for IV steroids, breathing treatment (Wenceslao Pierre) - Lab Data Lab Results 10/21/19 10/21/19 10/21/19 Range/Units 07:15 07:15 07:15 WBC 15.0 H (3.8-10.6) k/uL RBC 4.71 (4.30-5.90) m/uL Hgb 13.5 (13.0-17.5) gm/dL Hct 43.5 (39.0-53.0) % MCV 92.4 (80.0-100.0) fL MCH 28.7 (25.0-35.0) pg MCHC 31.0 (31.0-37.0) g/dL RDW 14.0 (11.5-15.5) % Plt Count 207 (150-450) k/uL Neutrophils % 86 % Lymphocytes % 10 % Monocytes % 3 % Eosinophils % 0 % Basophils % 0 % Neutrophils # 12.9 H (1.3-7.7) k/uL Lymphocytes # 1.5 (1.0-4.8) k/uL Monocytes # 0.4 (0-1.0) k/uL Eosinophils # 0.0 (0-0.7) k/uL Basophils # 0.0 (0-0.2) k/uL Sodium 143 (137-145) mmol/L Potassium 4.1 (3.5-5.1) mmol/L Chloride 101 (98-107) mmol/L Carbon Dioxide 36 H (22-30) mmol/L Anion Gap 6 mmol/L BUN 36 H (9-20) mg/dL Creatinine 0.69 (0.66-1.25) mg/dL Est GFR (CKD-EPI)AfAm >90 (>60 ml/min/1.73 sqM) Est GFR (CKD-EPI)NonAf 89 (>60 ml/min/1.73 sqM) Glucose 104 H (74-99) mg/dL Plasma Lactic Acid Billy 2.8 H* (0.7-2.0) mmol/L Calcium 10.7 H (8.4-10.2) mg/dL Magnesium 2.2 (1.6-2.3) mg/dL Total Bilirubin 0.8 (0.2-1.3) mg/dL AST 23 (17-59) U/L ALT 36 (4-49) U/L Alkaline Phosphatase 62 (38-126) U/L Total Protein 6.3 (6.3-8.2) g/dL Albumin 4.1 (3.5-5.0) g/dL - EKG Data EKG Comments: EKG performed at 07/23/1953 sinus rhythm with first-degree block, bifascicular block, rate of 84 VA 304 QRS 126 QT/QTC 380/449 (Wenceslao Pierre) Disposition <Wenceslao Pierre - Last Filed: 10/21/19 07:40> <Ashwin Spiecr - Last Filed: 10/21/19 07:45> Clinical Impression: Acute exacerbation of chronic obstructive pulmonary disease, Dehydration, Lactic acidosis Disposition: ADMITTED IP TO THIS HOSP Condition: Fair Referrals: [facility],Clinic [Primary Care Provider] - 1-2 days
[2019-10-21 07:23] LABS: Basophils % (A) 0 %; Eosinophils % (A) 0 %; HCT 43.5 % (39.0-53.0); HGB 13.5 gm/dL (13.0-17.5); Lymphocytes # (A) 1.5 k/uL (1.0-4.8); Lymphocytes % (A) 10 %; MCH 28.7 pg (25.0-35.0); MCV 92.4 fL (80.0-100.0); Mean Platelet Volume 8.4; Monocytes # (A) 0.4 k/uL (0-1.0); Monocytes % (A) 3 %; Neutrophils # (A) 12.9 k/uL (1.3-7.7); Neutrophils % (A) 86 %; Platelet Count 207 k/uL (150-450); RBC 4.71 m/uL (4.30-5.90)
[2019-10-21 07:33] LABS: ALT 36 U/L (4-49); AST 23 U/L (17-59); African American GFR (CKD) >90 (>60 ml/min/1.73 sqM); Albumin 4.1 g/dL (3.5-5.0); Alkaline Phosphatase 62 U/L (38-126); Anion Gap 6 mmol/L; Blood Urea Nitrogen 36 mg/dL (9-20); Calcium 10.7 mg/dL (8.4-10.2); Carbon Dioxide 36 mmol/L (22-30); Chloride 101 mmol/L (98-107); Glucose 104 mg/dL (74-99); Magnesium 2.2 mg/dL (1.6-2.3); Non-African American GFR(CKD) 89 (>60 ml/min/1.73 sqM); Potassium 4.1 mmol/L (3.5-5.1); Sodium 143 mmol/L (137-145); Total Bilirubin 0.8 mg/dL (0.2-1.3); Total Protein 6.3 g/dL (6.3-8.2)
--- NOTE | 2019-10-21 07:39 | XR ---
EXAMINATION TYPE: XR chest 2V DATE OF EXAM: 10/21/2019 COMPARISON: 10/19/2019 INDICATION: Difficulty breathing short of breath TECHNIQUE: Frontal and lateral views of the chest are obtained. FINDINGS: The heart size is normal. The pulmonary vasculature is normal. The lungs are clear. Pacemaker overlies left chest. IMPRESSION: 1. No acute pulmonary process.
[2019-10-21] MEDS ORDERED: cefTRIAXone IN SWFI 1,000 MG/10 ML SYRINGE IVP STA (07:40)
[2019-10-21] MEDS: IPRATROPIUM-ALBUTEROL 3 ML NEB INHALATION SCH ×4 (07:43→19:07)
[2019-10-21 07:49] LABS: Prothrombin Time 10.5 sec (9.0-12.0)
[2019-10-21 07:51] LABS: Partial Thromboplastin Time 20.3 sec (22.0-30.0)
--- NOTE | 2019-10-21 08:25 | P.HPIM ---
History of Present Illness This is a pleasant 84 years old male with past medical history of hypertension, history of heart block status post permanent pacemaker, COPD. Hyperlipidemia. He follow-up with the [facility] Presents because of dyspnea of one-day duration, he could not sleep last night. the fifth attack of acute dyspnea this year. This is associated with coughing and thick phlegm, not sure about the color. No chest pain. He chews tobacco with no smoking, and recently he cut back. He denies alcohol Vitas looks stable and he is saturating 98% on 2 L oxygen via nasal cannula. Labs showing mild leukocytosis of 15 K, however patient has chronic leukocytosis since 10/05 where it was 20 1.4K. INR is 1.0, BMP is unremarkable, elevated lactic acid 2.8, liver enzymes not elevated. Troponin is negative less than 0.012. Chest x-ray: No acute process. EKG showing sinus rhythm with first- degree AV block, bifascicular block In the emergency room he received Rocephin, bronchodilator and Solu-Medrol 60 mg Review of Systems CONSTITUTIONAL: No fever, no malaise, no fatigue. HEENT: No recent visual problems or hearing problems. Denied any sore throat. CARDIOVASCULAR: No orthopnea, PND, no palpitations, no syncope. PULMONARY: no hemoptysis. GASTROINTESTINAL: No diarrhea, no nausea, no vomiting, no abdominal pain. Normoactive bowel sounds. NEUROLOGICAL: No headaches, no weakness, no numbness. HEMATOLOGICAL: Denies any bleeding or petechiae. GENITOURINARY: Denies any burning micturition, frequency, or urgency. MUSCULOSKELETAL/RHEUMATOLOGICAL: Denies any joint pain, swelling, or any muscle pain. ENDOCRINE: Denies any polyuria or polydipsia. Past Medical History Past Medical History: GERD/Reflux, GI Bleed, Hyperlipidemia, Hypertension, Os teoarthritis (OA) Additional Past Medical History / Comment(s): Fractured back twice, arthritis in hands/wrists/ankles, lower GI bleed, diverticular disease/colon polyps, hemo rrhoids, constipation, kidney stones Last Myocardial Infarction Date:: 2018 History of Any Multi-Drug Resistant Organisms: None Reported Past Surgical History: Back Surgery, Cholecystectomy, Orthopedic Surgery Additional Past Surgical History / Comment(s): Lumbar laminectomy, EGD, colonoscopies/benign polypectomies, L shoulder arthroscopy. Past Anesthesia/Blood Transfusion Reactions: No Reported Reaction Past Psychological History: No Psychological Hx Reported Smoking Status: Never smoker Past Alcohol Use History: None Reported Past Drug Use History: None Reported - Past Family History Mother Family Medical History: Cancer Additional Family Medical History / Comment(s): Mother from some form of cancer at the age of 78yrs. Father History Unknown: Yes Additional Family Medical History / Comment(s): Father left when pt was 7 yrs old. Medications and Allergies Home Medications Medication Instructions Recorded Confirmed Type Aspirin [Adult Low Dose Aspirin EC] 81 mg PO DAILY 02/04/16 10/19/19 History Lovastatin [Mevacor] 40 mg PO DAILY 02/04/16 10/19/19 History [place]-3 Fatty Acids/Fish Oil [Fish 1 cap PO DAILY 02/04/16 10/19/19 History Oil 1,000 mg Softgel] Omeprazole 20 mg PO DAILY 02/04/16 10/19/19 History Cholecalciferol [Vitamin D3 (25 1,000 unit PO DAILY 09/13/18 10/19/19 History Mcg = 1000 Iu)] amLODIPine [Norvasc] 10 mg PO DAILY #30 tab 09/18/18 10/19/19 Rx lisinopriL [Zestril] 10 mg PO DAILY #30 tab 09/18/18 10/19/19 Rx Meloxicam [Mobic] 7.5 mg PO DAILY PRN 11/14/18 10/19/19 History Albuterol Inhaler [Ventolin Hfa 2 puff INHALATION RT-QID PRN 10/06/19 10/19/19 History Inhaler] Ferrous Sulfate [Iron] 325 mg PO DAILY 10/06/19 10/19/19 History Meclizine HCl 25 mg PO TID PRN 10/06/19 10/19/19 History Allergies Allergy/AdvReac Type Severity Reaction Status Date / Time No Known Allergies Allergy Verified 10/21/19 06:59 Physical Exam Vitals: Vital Signs Temp Pulse Resp BP Pulse Ox 10/21/19 07:41 74 10/21/19 07:20 72 18 141/57 98 10/21/19 07:17 18 10/21/19 06:56 97.8 F 86 16 151/80 96 Intake and Output 10/20/19 10/21/1920 22:59 06:59 14:59 Other: Weight 74.843 kg GENERAL: The patient is alert and oriented x3, not in any acute distress. Well developed, well nourished. HEENT: Pupils are round and equally reacting to light. EOMI. No scleral icterus. No conjunctival pallor. Normocephalic, atraumatic. No pharyngeal erythema. No thyromegaly. CARDIOVASCULAR: S1 and S2 present. No murmurs, rubs, or gallops. -PULMONARY: Chest is clear to auscultation, bilateral scattered wheezing ABDOMEN: Soft, nontender, nondistended, normoactive bowel sounds. No palpable organomegaly. MUSCULOSKELETAL: No joint swelling or deformity. EXTREMITIES: No cyanosis, clubbing, or pedal edema. NEUROLOGICAL: Gross neurological examination did not reveal any focal deficits. SKIN: No rashes. No petechiae Results CBC & Chem 7: 10/21/19 07:15 10/21/19 07:15 Labs: Abnormal Lab Results - Last 24 Hours (Table) 10/21/19 10/21/19 10/21/19 Range/Units 07:15 07:15 07:15 WBC 15.0 H (3.8-10.6) k/uL Neutrophils # 12.9 H (1.3-7.7) k/uL APTT 20.3 L (22.0-30.0) sec Carbon Dioxide 36 H (22-30) mmol/L BUN 36 H (9-20) mg/dL Glucose 104 H (74-99) mg/dL Plasma Lactic Acid Billy (0.7-2.0) mmol/L Calcium 10.7 H (8.4-10.2) mg/dL 10/21/19 Range/Units 07:15 WBC (3.8-10.6) k/uL Neutrophils # (1.3-7.7) k/uL APTT (22.0-30.0) sec Carbon Dioxide (22-30) mmol/L BUN (9-20) mg/dL Glucose (74-99) mg/dL Plasma Lactic Acid Billy 2.8 H* (0.7-2.0) mmol/L Calcium (8.4-10.2) mg/dL Assessment and Plan Assessment: Acute COPD exacerbation Leukocytosis, due to steroid effect, reactive or tracheobronchitis Elevated lactic acid Hypertension Hyperlipidemia History of heart block status post permanent pacemaker. With normal cardiac cath in 2019 Plan: This is a pleasant 84 years old male with acute COPD exacerbation. Continue with steroids, bronchodilators, oxygen as needed. Pulmonary consult Labs and medication were reviewed.. Continue same treatment. Continue with symptomatic treatment. Resume home medication. Monitor lytes and vitals. DVT and GI prophylaxis. Further recommendations of the clinical course of the patient DVT prophylaxis: Subcutaneous heparin GI Prophylaxis: Pepcid PT/OT: Pending Prognosis is guarded
[2019-10-21] MEDS ORDERED: ONDANSETRON 4 MG/2 ML VIAL IVP PRN (09:05)
[2019-10-21] MEDS ORDERED: RX INFO: IV CONTRAST WAS GIVEN 1 EACH MISC MISCELLANE PRN (09:28)
--- NOTE | 2019-10-21 10:30 | P.CNPUL ---
History of Present Illness Consult date: 10/21/19 Reason for consult: COPD History of present illness: 84-year-old male patient with known history of COPD and previous history of a pacemaker insertion for a high degree AV block, an ex-smoker used to smoke cigars and chewing tobacco, comes in to the hospital because of worsening shortness of breath. The patient was in the hospital few weeks ago for the same. No chest pain. No pleurisy. No hemoptysis. He was having some mild leukocytosis with a white cell count of 15.0. Coagulation profile is within normal limits. BUN is at 36 her creatinine is 0.69. The lactic acid level was slightly elevated at 2.8 and this is being monitored. Calcium level is at 10.7, slightly elevated. 2 sets of troponins are negative. The EKG showing normal sinus rhythm with a first-degree AV block. There is a right bundle branch block pattern and no paced rhythm, the chest x-ray shows some nonspecific pleural abnormality the left lower lobe. The pacemaker is located in the left anterior chest area. He is afebrile. No exposure to covid 19. Somewhat depressed and the patient lost his . The patient was discharged home from his last admis nehemiah when nebulizer and he was asked to complete a prednisone burst taper and start the maintenance of AIrduo. . He was supposed to follow with Dr. Tipton in the office and he hasn't done that still. Review of Systems CONSTITUTIONAL: No fever, no malaise, no fatigue. However he describes about 25 pound weight loss over the last couple of years. HEENT: Denies sore throat headaches or blurred vision dizziness.. CARDIOVASCULAR: As noted in HPI. PULMONARY: As noted in HPI. GASTROINTESTINAL: Denies nausea vomiting abdominal pain melena or hematemesis. NEUROLOGICAL: No headaches, no weakness, no numbness. HEMATOLOGICAL: Denies any bleeding or petechiae. GENITOURINARY: Denies any burning micturition, frequency, or urgency. MUSCULOSKELETAL/RHEUMATOLOGICAL: Denies any joint pain, swelling, or any muscle pain. ENDOCRINE: Denies any polyuria or polydipsia. Past Medical History Past Medical History: COPD, GERD/Reflux, GI Bleed, Hyperlipidemia, Hypertension, Osteoarthritis (OA) Additional Past Medical History / Comment(s): Fractured back twice, arthritis in hands/wrists/ankles, lower GI bleed, diverticular disease/colon polyps, hemorrhoids, constipation, kidney stones. 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 Past Anesthesia/Blood Transfusion Reactions: No Reported Reaction Past Psychological History: No Psychological Hx Reported Smoking Status: Former smoker (chews tobacco and smoked cigars ) Past Alcohol Use History: None Reported Past Drug Use History: None Reported - Past Family History Mother Family Medical History: Cancer Additional Family Medical History / Comment(s): Mother from some form of cancer at the age of 78yrs. Father History Unknown: Yes Additional Family Medical History / Comment(s): Father left when pt was 7 yrs old. Medications and Allergies Home Medications Medication Instructions Recorded Confirmed Type Aspirin [Adult Low Dose Aspirin EC] 81 mg PO DAILY 02/04/16 10/21/19 History Lovastatin [Mevacor] 40 mg PO DAILY 02/04/16 10/21/19 History [place]-3 Fatty Acids/Fish Oil [Fish 1 cap PO DAILY 02/04/16 10/21/19 History Oil 1,000 mg Softgel] Omeprazole 20 mg PO DAILY 02/04/16 10/21/19 History Cholecalciferol [Vitamin D3 (25 1,000 unit PO DAILY 09/13/18 10/21/19 History Mcg = 1000 Iu)] amLODIPine [Norvasc] 10 mg PO DAILY #30 tab 09/18/18 10/21/19 Rx lisinopriL [Zestril] 10 mg PO DAILY #30 tab 09/18/18 10/21/19 Rx Meloxicam [Mobic] 7.5 mg PO DAILY PRN 11/14/18 10/21/19 History Albuterol Inhaler [Ventolin Hfa 2 puff INHALATION RT-QID PRN 10/06/19 10/21/19 History Inhaler] Ferrous Sulfate [Iron] 325 mg PO DAILY 10/06/19 10/21/19 History Meclizine HCl 25 mg PO TID PRN 10/06/19 10/21/19 History Fluticasone/Salmeterol [Airduo 1 puff INHALATION RT-BID 10/21/19 10/21/19 History Respiclick 232-14 Mcg] predniSONE See Taper PO DAILY 10/21/19 10/21/19 History Allergies Allergy/AdvReac Type Severity Reaction Status Date / Time No Known Allergies Allergy Verified 10/21/19 09:14 Physical Exam Vitals: Vital Signs Temp Pulse Pulse Resp BP BP Pulse Ox 10/21/19 08:47 97.6 F 70 16 130/63 93 L 10/21/19 08:09 97.7 F 68 18 137/54 96 10/21/19 07:55 68 10/21/19 07:41 74 10/21/19 07:20 72 18 141/57 98 10/21/19 07:17 18 10/21/19 06:56 97.8 F 86 16 151/80 96 Intake and Output 10/20/19 10/21/19 10/21/19 22:59 06:59 14:59 Other: Weight 74.843 kg 74.843 kg Physical Exam: Revealed an 83-year-old white male in no distress. Head: Atraumatic, normocephalic. HEENT:[Neck is supple.] [No neck masses.] [No thyromegaly.] [No JVD.] Chest: [Symmetrical chest expansion, diminished at the bases, rhonchi on forced expiratory maneuver, patient seems to cough with every exhalation. Cardiac Exam: [Normal S1 and S2, no S3 gallop, 2/6 systolic murmur thought the precordium. Abdomen: [Soft, nontender, no megaly, no rebound, no guarding, normal bowel sounds.] Extremities: [No clubbing, no edema, no cyanosis.] Neurological Exam: [No focal neurologic deficit.] Alert and oriented 3, no gross focal neurologic deficits. Psychiatric: Normal mood, affect and normal mental status examination. Skin: No rashes. Lymphatics: No cervical or supraclavicular lymphadenopathy. Results - Laboratory Findings CBC and BMP: 10/21/19 07:15 10/21/19 07:15 PT/INR, D-dimer PT 10.5 sec (9.0-12.0) 10/21/19 07:15 INR 1.0 (<1.2) 10/21/19 07:15 Abnormal lab findings: Abnormal Labs 10/21/19 10/21/19 10/21/19 07:15 07:15 07:15 WBC 15.0 H Neutrophils # 12.9 H APTT 20.3 L Carbon Dioxide 36 H BUN 36 H Glucose 104 H Plasma Lactic Acid Billy Calcium 10.7 H 10/21/19 07:15 WBC Neutrophils # APTT Carbon Dioxide BUN Glucose Plasma Lactic Acid Billy 2.8 H* Calcium - Diagnostic Findings Chest x-ray: image reviewed Assessment and Plan Plan: 1 COPD acute exacerbation secondary shortness of breath. Chest x-ray was reviewed and there is some limited movement in the left lower lobe, probably pleural thickening with calcification versus lesions and the CAT scan of the chest will be ordered accordingly. 2 history of pacemaker insertion for a high degree AV block 3 History of GI bleed 4 Hypertension 5 Hyperlipidemia 6 history of DJD 7 History of diverticular disease and colonic polyps 8 History of nephrolithiasis 9 History of hydronephrosis 10 history of cholecystectomy 11 Remote history of nicotine dependence 12 nonspecific leukocytosis, being monitored 13 mild lactic acidosis, recovered 14 metabolic alkalosis, likely secondary to intravascular depletion/dehydration as the patient's BNP is also elevated at 36. Plan Minus COPD exacerbation with accommodation bronchodilators and steroids Check CAT scan of the chest with contrast IV fluids Resume all medications We'll continue to follow
[2019-10-21] MEDS: methylPREDNISolone SOD SUCCI 125 MG/2 ML VIAL IV SCH ×2 (12:13→17:47)
--- NOTE | 2019-10-21 12:49 | CT ---
EXAMINATION TYPE: CT chest w con DATE OF EXAM: 10/21/2019 COMPARISON: Chest x-rays 10/05/2019 HISTORY: history of mass CT DLP: 415.3 mGycm, Automated exposure control for dose reduction was used. CONTRAST: Performed injected with 100 mL of Isovue 300. TECHNIQUE: Axial images were obtained at 5 mm thick sections. Reconstructed images are reviewed on [employer] computer in the coronal plane. FINDINGS: Portion of the thyroid visualized is normal. No suspicious lung nodules or focal infiltrates are present. No enlarged mediastinal or hilar adenopathy is evident. The ascending aorta diameter at the level o f the main pulmonary artery is 4.1 cm. The main pulmonary artery diameter at the bifurcation is 2.[address] sections are obtained through the upper abdomen. Abdomen is essentially unremarkable. IMPRESSIONS: 1. Ascending thoracic aortic aneurysm.
[2019-10-21 12:55] VITALS: BMI 22.4
[2019-10-21] MEDS: HEPARIN SODIUM,PORCINE 5,000 UNIT/ML 1 ML VIAL SQ SCH (21:40)
[2019-10-21] MEDS: FAMOTIDINE 20 MG/2 ML VIAL IV SCH (21:40)
[2019-10-21] MEDS: SODIUM CHLORIDE 0.9% 1,000 ML IV SCH (21:44)
[2019-10-22] MEDS: methylPREDNISolone SOD SUCCI 125 MG/2 ML VIAL IV SCH ×3 (00:52→11:20)
[2019-10-22] MEDS ORDERED: PANTOPRAZOLE 40 MG TABLET PO SCH (07:30)
[2019-10-22] MEDS: HEPARIN SODIUM,PORCINE 5,000 UNIT/ML 1 ML VIAL SQ SCH (08:26)
[2019-10-22] MEDS: FAMOTIDINE 20 MG/2 ML VIAL IV SCH (08:26)
[2019-10-22] MEDS: SODIUM CHLORIDE 0.9% 1,000 ML IV SCH (08:30)
[2019-10-22 08:35] VITALS: BP 128/66; RESP 16; TEMP 98.3
[2019-10-22] MEDS ORDERED: FERROUS SULFATE 325 MG TAB PO SCH (09:00)
[2019-10-22] MEDS ORDERED: lisinopriL 10 MG TAB PO SCH (09:00)
[2019-10-22] MEDS ORDERED: amLODIPine 10 MG TAB PO SCH (09:00)
[2019-10-22] MEDS ORDERED: CHOLECALCIFEROL 1,000 UNIT TAB PO SCH (09:00)
[2019-10-22] MEDS ORDERED: ASPIRIN 81 MG PO SCH (09:00)
[2019-10-22] MEDS: IPRATROPIUM-ALBUTEROL 3 ML NEB INHALATION SCH (09:40)
[2019-10-22 09:53] VITALS: PULSE 72
--- NOTE | 2019-10-22 12:07 | P.DS ---
Providers Date of admission: 10/21/19 07:59 Attending physician: Cedric Soto MD Consults: 10/21/19 07:42 Consult Physician Routine Consulting Provider: Becca Tipton Consult Reason/Comments: COPD Do you want consulting provider notified?: Yes Primary care physician: [facility] Hospital Course: Diagnoses: Acute COPD exacerbation Leukocytosis, due to steroid effect, reactive or possible mild tracheobronchitis which is resolved Elevated lactic acid Hypertension Hyperlipidemia History of heart block status post permanent pacemaker. With normal cardiac cath in 2019 Hospital course: This is a pleasant 84 years old male with past medical history of hypertension, history of heart block status post permanent pacemaker, COPD. Hyperlipidemia. He follow-up with the [facility] Presents because of dyspnea of one-day duration, he could not sleep last night. This is associated with coughing and thick phlegm, not sure about the color. No chest pain. Patient has been evaluated by pulmonary service, found to have acute COPD exacerbation, CAT scan of the chest with contrast was unremarkable for pulmonary disease, however it shows 4.1 cm aortic artery aneurysm in the ascending aorta, patient informed about his aortic aneurysm with recommendation for outpatient follow-up, patient told me he already has an appointment with coffee roaster he thinks his Dr. Miramontes but he is not sure however he has to contact information at home and that he intends to follow with him On the day of discharge patient feels great, he was excited that his dyspnea is improved and his breathing is back to normal. No coughing. Patient was happy he was able to finish his meal by 100% this morning and he has good appetite, he did not have any other complaints and he was eager to go home today. Patient was cleared for discharge by pulmonary service Problems and management plan were discussed with the patient and he verbalized understanding and acceptance Patient was found stable and can be discharged home however he needs follow-up as an outpatient. Patient was instructed to follow up with PCP at the [place] [facility] within one week and patient agrees. Patient also was instructed to follow up with his coffee roaster Dr. Miramontes and healthcare receptionist Dr. Gastelum in 1-2 weeks and he agrees, patient states he can make his own appointment Gen: patient is a AAOx3, no distress CVS: S1-S2, RRR, no murmur Lungs: B/L CTA, no wheezing Abdomen: soft, no distention, no tenderness, positive bowel sounds Extremity: no leg edema or induration Time spent more than 35 minutes Patient Condition at Discharge: Fair Plan - Discharge Summary New Discharge Prescriptions: New Famotidine [Pepcid] 20 mg PO DAILY #30 tablet predniSONE 0 mg PO DIRECTED #30 tab Calcium Carbonate/Vitamin D3 [Calcium 500Mg-Vit D3 15Mcg (600 unit)] 1 each PO BID #60 tablet Continue Lovastatin [Mevacor] 40 mg PO DAILY Aspirin [Adult Low Dose Aspirin EC] 81 mg PO DAILY Omeprazole 20 mg PO DAILY [place]-3 Fatty Acids/Fish Oil [Fish Oil 1,000 mg Softgel] 1 cap PO DAILY Cholecalciferol [Vitamin D3 (25 Mcg = 1000 Iu)] 1,000 unit PO DAILY amLODIPine [Norvasc] 10 mg PO DAILY #30 tab lisinopriL [Zestril] 10 mg PO DAILY #30 tab Ferrous Sulfate [Iron] 325 mg PO DAILY Meclizine HCl 25 mg PO TID PRN PRN Reason: Vertigo predniSONE See Taper PO DAILY Fluticasone/Salmeterol [Airduo Respiclick 232-14 Mcg] 1 puff INHALATION RT- BID Albuterol Inhaler [Ventolin Hfa Inhaler] 2 puff INHALATION RT-QID PRN #1 inh PRN Reason: Wheezing Discontinued Meloxicam [Mobic] 7.5 mg PO DAILY PRN PRN Reason: Pain Discharge Medication List Aspirin [Adult Low Dose Aspirin EC] 81 mg PO DAILY 02/04/16 [History] Lovastatin [Mevacor] 40 mg PO DAILY 02/04/16 [History] [place]-3 Fatty Acids/Fish Oil [Fish Oil 1,000 mg Softgel] 1 cap PO DAILY 02/04/16 [History] Omeprazole 20 mg PO DAILY 02/04/16 [History] Cholecalciferol [Vitamin D3 (25 Mcg = 1000 Iu)] 1,000 unit PO DAILY 09/13/18 [History] amLODIPine [Norvasc] 10 mg PO DAILY #30 tab 09/18/18 [Rx] lisinopriL [Zestril] 10 mg PO DAILY #30 tab 09/18/18 [Rx] Ferrous Sulfate [Iron] 325 mg PO DAILY 10/06/19 [History] Meclizine HCl 25 mg PO TID PRN 10/06/19 [History] Fluticasone/Salmeterol [Airduo Respiclick 232-14 Mcg] 1 puff INHALATION RT-BID 10/21/19 [History] predniSONE See Taper PO DAILY 10/21/19 [History] Albuterol Inhaler [Ventolin Hfa Inhaler] 2 puff INHALATION RT-QID PRN #1 inh 10/22/19 [Rx] Calcium Carbonate/Vitamin D3 [Calcium 500Mg-Vit D3 15Mcg (600 unit)] 1 each PO BID #60 tablet 10/22/19 [Rx] Famotidine [Pepcid] 20 mg PO DAILY #30 tablet 10/22/19 [Rx] predniSONE 0 mg PO DIRECTED #30 tab 10/22/19 [Rx] Follow up Appointment(s)/Referral(s): Becca Tipton MD [STAFF PHYSICIAN] - 2 Weeks Rg Miramontes MD [STAFF PHYSICIAN] - 1 Week (coffee roaster and for your aortic aneurysm ) [facility]inic [Primary Care Provider] - 1-2 days Patient Instructions/Handouts: COPD (Chronic Obstructive Pulmonary Disease) (DC) Activity/Diet/Wound Care/Special Instructions: regular diet , and encourage oral hydration ( for 1 week) activity is limited till you see your doctor Discharge Disposition: HOME SELF-CARE
--- NOTE | 2019-10-22 12:59 | P.PN ---
Subjective Progress Note Date: 10/22/19 Principal diagnosis: Acute exacerbation of COPD 84-year-old male patient with known history of COPD and previous history of a pacemaker insertion for a high degree AV block, an ex-smoker used to smoke cigars and chewing tobacco, comes in to the hospital because of worsening shor tness of breath. The patient was in the hospital few weeks ago for the same. No chest pain. No pleurisy. No hemoptysis. He was having some mild leukocytosis with a white cell count of 15.0. Coagulation profile is within normal limits. BUN is at 36 her creatinine is 0.69. The lactic acid level was slightly elevated at 2.8 and this is being monitored. Calcium level is at 10.7, slightly elevated. 2 sets of troponins are negative. The EKG showing normal sinus rhythm with a first-degree AV block. There is a right bundle branch block pattern and no paced rhythm, the chest x-ray shows some nonspecific pleural abnormality the left lower lobe. The pacemaker is located in the left anterior chest area. He is afebrile. No exposure to covid 19. Somewhat depressed and the patient lost his . The patient was discharged home from his last admission when nebulizer and he was asked to complete a prednisone burst taper and start the maintenance of AIrduo. . He was supposed to follow with Dr. Tipton in the office and he hasn't done that still. On 10/22/2019 patient seen in follow-up on observation unit, his breathing is improving, room air pulse ox is 95%, hemodynamically stable, afebrile, breathing seems to be comfortable. No acute events overnight, no significant cough or co ngestion. Patient was treated with IV steroids, empiric antibiotics, and nebulized bronchodilators, no new labs today, CT chest with contrast showed no suspicious lung nodules or focal infiltrates, he did show ascending thoracic aortic aneurysm at the level of the main pulmonary artery measuring 4.1 cm. No acute events overnight, discharge home is in progress Objective - Vital Signs Vital signs: Vital Signs Temp 98.3 F 10/22/19 08:34 Pulse 72 10/22/19 09:52 Resp 16 10/22/19 08:34 BP 128/66 10/22/19 08:34 Pulse Ox 91 L 10/22/19 09:40 Intake & Output 10/21/19 10/22/19 10/22/19 18:59 06:59 18:59 Weight 74.843 kg Other: Voiding Method Toilet Toilet # Voids 1 1 # Bowel Movements 1 - Exam GENERAL EXAM: Alert, very pleasant, 84-year-old white male, on room air, with a pulse ox of 95% comfortable in no apparent distress. HEAD: Normocephalic/atraumatic. EYES: Normal reaction of pupils, equal size. Conjunctiva pink, sclera white. NOSE: Clear with pink turbinates. THROAT: No erythema or exudates. NECK: No masses, no JVD, no thyroid enlargement, no adenopathy. CHEST: No chest wall deformity. Symmetrical expansion. LUNGS: Equal air entry with no crackles, wheeze, rhonchi or dullness. CVS: Regular rate and rhythm, normal S1 and S2, no gallops, no murmurs, no rubs ABDOMEN: Soft, nontender. No hepatosplenomegaly, normal bowel sounds, no guarding or rigidity. EXTREMITIES: No clubbing, no edema, no cyanosis, 2+ pulses and upper and lower extremities. MUSCULOSKELETAL: Muscle strength and tone normal. SPINE: No scoliosis or deformity SKIN: No rashes CENTRAL NERVOUS SYSTEM: Alert and oriented -3. No focal deficits, tone is norm al in all 4 extremities. PSYCHIATRIC: Alert and oriented -3. Appropriate affect. Intact judgment and insight. - Labs CBC & Chem 7: 10/21/19 07:15 10/21/19 07:15 Labs: Microbiology - Last 24 Hours (Table) 10/21/19 08:06 Blood Culture - Preliminary Blood No Growth after 24 hours Assessment and Plan Plan: Assessment: 1 COPD acute exacerbation secondary shortness of breath. Chest x-ray was reviewed and there is some limited movement in the left lower lobe, probably ple ural thickening with calcification versus lesions and the CAT scan of the chest showed no pulmonary nodules or focal infiltrates 2 history of pacemaker insertion for a high degree AV block 3 History of GI bleed 4 Hypertension 5 Hyperlipidemia 6 history of DJD 7 History of diverticular disease and colonic polyps 8 History of nephrolithiasis 9 History of hydronephrosis 10 history of cholecystectomy 11 Remote history of nicotine dependence 12 nonspecific leukocytosis, being monitored 13 mild lactic acidosis, recovered 14 metabolic alkalosis, likely secondary to intravascular depletion/dehydration as the patient's BNP is also elevated at 36. 15 Ascending thoracic aneurysm measuring 4.1 cm Plan: CT chest has been noted, showing no pulmonary nodules or focal infiltrates. No acute events overnight, vital signs have been stable, breathing is comfortable, no fever or chills, from pulmonary practice patient is stable for discharge home today outpatient follow-up with Dr. Ayala in the office in 7-10 days I performed a history & physical examination of the patient and discussed their management with my nurse practitioner, Gloria Christianson. I reviewed the nurse practitioner's note and agree with the documented findings and plan of care. Lung sounds are positive for clear breath sounds, diminished at the bases. The findings and the impression was discussed with the patient. I attest to the documentation by the nurse practitioner. Time with Patient: Less than 30
== END 2019-10-22 12:15 | disposition home or self-care (01) ==
LOC: EC 06:48 → 1SOBS 07:59
PROVIDERS: ADMIT Internal Medicine; ATTEND Internal Medicine
DX: J44.1 Chronic obstructive pulmonary disease with (acute) exacerbation (principal); D72.829 Elevated white blood cell count, unspecified; E78.5 Hyperlipidemia, unspecified; E87.4 Mixed disorder of acid-base balance; I10 Essential (primary) hypertension; I25.2 Old myocardial infarction; I44.0 Atrioventricular block, first degree; I45.10 Unspecified right bundle-branch block; I45.2 Bifascicular block; I71.2 Thoracic aortic aneurysm, without rupture; T38.0X5A Adverse effect of glucocorticoids and synthetic analogues, initial encounter; Z79.1 Long term (current) use of non-steroidal anti-inflammatories (NSAID); Z79.82 Long term (current) use of aspirin; Z79.899 Other long term (current) drug therapy; Z87.19 Personal history of other diseases of the digestive system; Z87.442 Personal history of urinary calculi; Z87.891 Personal history of nicotine dependence; Z90.49 Acquired absence of other specified parts of digestive tract; Z95.0 Presence of cardiac pacemaker
CPT/HCPCS: 96361; 96372 ×2; 96375 ×2; 96376 ×2; 96374; 99285; 36415; 94640 ×3; 94760 ×2; 93005; 83880; 80053; 83605; 83735; 84484; 85025; 85610; 85730; 87040; 71046; 71260; G0378 ×2; J1644 ×2; J2930 ×2; J0696; Q9967

== ENCOUNTER 2019-10-23 07:15 | Emergency (ER) | payer OTHER ==
[2019-10-23 07:22] VITALS: TEMP 97.7
[2019-10-23] MEDS ORDERED: IPRATROPIUM-ALBUTEROL 3 ML NEB INHALATION STA (07:34)
--- NOTE | 2019-10-23 07:38 | ED ---
General Adult HPI - General Chief complaint: Shortness of Breath Stated complaint: JASPREET Time Seen by Provider: 10/23/19 07:15 Source: patient, RN notes reviewed, old records reviewed Mode of arrival: wheelchair Limitations: no limitations - History of Present Illness Initial comments: This is an 84-year-old male who presents emergency department with past history of COPD, [place], high blood pressure and recently had a pacemaker placed. Patient comes in for the fifth time in the last month for difficulty breathing. Patient was just discharged home yesterday. Patient states he has difficulty breathing every night when he goes to bed and today was no different. Patient got up and decided to come to the emergency department to be evaluated again. Patient denies any chest pain patient denies any palpitations. Patient denies any fever chills or cough. Patient denies abdominal pain patient denies nausea vomiting diarrhea. Patient denies any lightheadedness or dizziness today. - Related Data Home Medications Medication Instructions Recorded Confirmed Aspirin [Adult Low Dose Aspirin EC] 81 mg PO DAILY 02/04/16 10/23/19 Lovastatin [Mevacor] 40 mg PO DAILY 02/04/16 10/23/19 [place]-3 Fatty Acids/Fish Oil [Fish 1 cap PO DAILY 02/04/16 10/23/19 Oil 1,000 mg Softgel] Omeprazole 20 mg PO DAILY 02/04/16 10/23/19 Cholecalciferol [Vitamin D3 (25 1,000 unit PO DAILY 09/13/18 10/23/19 Mcg = 1000 Iu)] Ferrous Sulfate [Iron] 325 mg PO DAILY 10/06/19 10/23/19 Meclizine HCl 25 mg PO TID PRN 10/06/19 10/23/19 Fluticasone/Salmeterol [Airduo 1 puff INHALATION RT-BID 10/21/19 10/23/19 Respiclick 232-14 Mcg] Calcium Carbonate/Vitamin D3 1 tab PO BID 10/23/19 10/23/19 [Calcium 500Mg-Vit D3 15Mcg (600 unit)] predniSONE See Taper PO DAILY 10/23/19 10/23/19 Previous Rx's Medication Instructions Recorded amLODIPine [Norvasc] 10 mg PO DAILY #30 tab 09/18/18 lisinopriL [Zestril] 10 mg PO DAILY #30 tab 09/18/18 Albuterol Inhaler [Ventolin Hfa 2 puff INHALATION RT-QID PRN #1 inh 10/22/19 Inhaler] Famotidine [Pepcid] 20 mg PO DAILY #30 tablet 10/22/19 Allergies Allergy/AdvReac Type Severity Reaction Status Date / Time No Known Allergies Allergy Verified 10/23/19 08:34 Review of Systems ROS Statement: Those systems with pertinent positive or pertinent negative responses have been documented in the HPI. ROS Other: All systems not noted in ROS Statement are negative. Past Medical History Past Medical History: COPD, GERD/Reflux, GI Bleed, Hyperlipidemia, Hypertension, Osteoarthritis (OA) Additional Past Medical History / Comment(s): Fractured back twice, arthritis in hands/wrists/ankles, lower GI bleed, diverticular disease/colon polyps, hemorrhoids, constipation, kidney stones. permanent pacemaker implantation for what seemed to be a history of high degree AV block with symptomatic bradycardia Last Myocardial Infarction Date:: 2018 History of Any Multi-Drug Resistant Organisms: None Reported Past Surgical History: Back Surgery, Cholecystectomy, Orthopedic Surgery, Pacemaker Additional Past Surgical History / Comment(s): Lumbar laminectomy, EGD, colo noscopies/benign polypectomies, L shoulder arthroscopy. Past Anesthesia/Blood Transfusion Reactions: No Reported Reaction Past Psychological History: No Psychological Hx Reported Smoking Status: Former smoker Past Alcohol Use History: None Reported Past Drug Use History: None Reported - Past Family History Mother Family Medical History: Cancer Additional Family Medical History / Comment(s): Mother from some form of cancer at the age of 78yrs. Father History Unknown: Yes Additional Family Medical History / Comment(s): Father left when pt was 7 yrs old. General Exam - General Exam Comments Initial Comments: GENERAL: Patient is well-developed and well-nourished. Patient is nontoxic and well- hydrated and is in no acute distress. ENT: Neck is soft and supple. No significant lymphadenopathy is noted. Oropharynx is clear. Moist mucous membranes. Neck has full range of motion without eliciting any pain. EYES: The sclera were anicteric and conjunctiva were pink and moist. Extraocular movements were intact and pupils were equal round and reactive to light. Eyelids were unremarkable. PULMONARY: Unlabored respirations. Good breath sounds bilaterally. No audible rales rhonchi or wheezing was noted. CARDIOVASCULAR: There is a regular rate and rhythm without any murmurs gallops or rubs. ABDOMEN: Soft and nontender with normal bowel sounds. SKIN: Skin is clear with no lesions or rashes and otherwise unremarkable. NEUROLOGIC: Patient is alert and oriented x3. Cranial nerves II through XII are grossly intact. Motor and sensory are also intact. Normal speech, volume and content. Symmetrical smile. MUSCULOSKELETAL: Normal extremities with adequate strength and full range of motion. LYMPHATICS: No significant lymphadenopathy is noted PSYCHIATRIC: Normal psychiatric evaluation. Limitations: no limitations Course Vital Signs 10/23/19 10/23/19 10/23/19 07:20 07:58 08:00 Temperature 97.7 F Pulse Rate 97 72 89 Respiratory 19 20 Rate Blood Pressure 137/76 135/67 O2 Sat by Pulse 98 96 Oximetry 10/23/19 10/23/19 10/23/19 08:06 08:30 09:00 Temperature Pulse Rate 72 66 64 Respiratory 20 20 Rate Blood Pressure 139/60 139/62 O2 Sat by Pulse 94 L 95 Oximetry Medical Decision Making - Medical Decision Making EKG shows sinus rhythm at 67 bpm MA interval 262 QRS is 1:30 QT interval 46 QTC is 429. Patient's EKG shows a right bundle branch block and there is no ST segment elevation or depression - Lab Data Result diagrams: 10/23/19 07:53 10/23/19 07:53 Lab Results 10/23/19 10/23/19 10/23/19 Range/Units 07:53 07:53 07:53 WBC 19.7 H (3.8-10.6) k/uL RBC 4.62 (4.30-5.90) m/uL Hgb 13.7 (13.0-17.5) gm/dL Hct 42.9 (39.0-53.0) % MCV 93.0 (80.0-100.0) fL MCH 29.6 (25.0-35.0) pg MCHC 31.8 (31.0-37.0) g/dL RDW 14.2 (11.5-15.5) % Plt Count 184 (150-450) k/uL Neutrophils % 95 % Lymphocytes % 2 % Monocytes % 3 % Eosinophils % 0 % Basophils % 0 % Neutrophils # 18.7 H (1.3-7.7) k/uL Lymphocytes # 0.4 L (1.0-4.8) k/uL Monocytes # 0.5 (0-1.0) k/uL Eosinophils # 0.0 (0-0.7) k/uL Basophils # 0.0 (0-0.2) k/uL PT 10.7 (9.0-12.0) sec INR 1.0 (<1.2) APTT 21.2 L (22.0-30.0) sec Sodium 142 (137-145) mmol/L Potassium 4.6 (3.5-5.1) mmol/L Chloride 101 (98-107) mmol/L Carbon Dioxide 36 H (22-30) mmol/L Anion Gap 5 mmol/L BUN 43 H (9-20) mg/dL Creatinine 0.62 L (0.66-1.25) mg/dL Est GFR (CKD-EPI)AfAm >90 (>60 ml/min/1.73 sqM) Est GFR (CKD-EPI)NonAf >90 (>60 ml/min/1.73 sqM) Glucose 102 H (74-99) mg/dL Plasma Lactic Acid Billy (0.7-2.0) mmol/L Calcium 10.8 H (8.4-10.2) mg/dL Total Bilirubin 0.9 (0.2-1.3) mg/dL AST 30 (17-59) U/L ALT 55 H (4-49) U/L Alkaline Phosphatase 59 (38-126) U/L Troponin I (0.000-0.034) ng/mL Total Protein 6.2 L (6.3-8.2) g/dL Albumin 4.0 (3.5-5.0) g/dL 10/23/19 10/23/19 Range/Units 07:53 07:53 WBC (3.8-10.6) k/uL RBC (4.30-5.90) m/uL Hgb (13.0-17.5) gm/dL Hct (39.0-53.0) % MCV (80.0-100.0) fL MCH (25.0-35.0) pg MCHC (31.0-37.0) g/dL RDW (11.5-15.5) % Plt Count (150-450) k/uL Neutrophils % % Lymphocytes % % Monocytes % % Eosinophils % % Basophils % % Neutrophils # (1.3-7.7) k/uL Lymphocytes # (1.0-4.8) k/uL Monocytes # (0-1.0) k/uL Eosinophils # (0-0.7) k/uL Basophils # (0-0.2) k/uL PT (9.0-12.0) sec INR (<1.2) APTT (22.0-30.0) sec Sodium (137-145) mmol/L Potassium (3.5-5.1) mmol/L Chloride (98-107) mmol/L Carbon Dioxide (22-30) mmol/L Anion Gap mmol/L BUN (9-20) mg/dL Creatinine (0.66-1.25) mg/dL Est GFR (CKD-EPI)AfAm (>60 ml/min/1.73 sqM) Est GFR (CKD-EPI)NonAf (>60 ml/min/1.73 sqM) Glucose (74-99) mg/dL Plasma Lactic Acid Billy 1.8 (0.7-2.0) mmol/L Calcium (8.4-10.2) mg/dL Total Bilirubin (0.2-1.3) mg/dL AST (17-59) U/L ALT (4-49) U/L Alkaline Phosphatase (38-126) U/L Troponin I 0.017 (0.000-0.034) ng/mL Total Protein (6.3-8.2) g/dL Albumin (3.5-5.0) g/dL Disposition Clinical Impression: History of COPD Disposition: HOME SELF-CARE Condition: Good Instructions (If sedation given, give patient instructions): COPD (Chronic Obstructive Pulmonary Disease) (ED) Additional Instructions: Continue taking your inhaler and taking steroids as prescribed. Is patient prescribed a controlled substance at d/c from ED?: No Referrals: [facility],Clinic [Primary Care Provider] - 1-2 days Time of Disposition: 09:22
[2019-10-23 08:02] LABS: Basophils % (A) 0 %; Eosinophils % (A) 0 %; HCT 42.9 % (39.0-53.0); HGB 13.7 gm/dL (13.0-17.5); Lymphocytes # (A) 0.4 k/uL (1.0-4.8); Lymphocytes % (A) 2 %; MCH 29.6 pg (25.0-35.0); MCHC 31.8 g/dL (31.0-37.0); Mean Platelet Volume 8.7; Monocytes # (A) 0.5 k/uL (0-1.0); Monocytes % (A) 3 %; Neutrophils # (A) 18.7 k/uL (1.3-7.7); Neutrophils % (A) 95 %; Platelet Count 184 k/uL (150-450); RBC 4.62 m/uL (4.30-5.90); RDW 14.2 % (11.5-15.5); WBC 19.7 k/uL (3.8-10.6)
[2019-10-23 08:19] LABS: ALT 55 U/L (4-49); AST 30 U/L (17-59); African American GFR (CKD) >90 (>60 ml/min/1.73 sqM); Alkaline Phosphatase 59 U/L (38-126); Anion Gap 5 mmol/L; Blood Urea Nitrogen 43 mg/dL (9-20); Calcium 10.8 mg/dL (8.4-10.2); Carbon Dioxide 36 mmol/L (22-30); Chloride 101 mmol/L (98-107); Glucose 102 mg/dL (74-99); Non-African American GFR(CKD) >90 (>60 ml/min/1.73 sqM); Potassium 4.6 mmol/L (3.5-5.1); Sodium 142 mmol/L (137-145); Total Bilirubin 0.9 mg/dL (0.2-1.3); Total Protein 6.2 g/dL (6.3-8.2)
[2019-10-23 08:24] LABS: Prothrombin Time 10.7 sec (9.0-12.0)
[2019-10-23] MEDS ORDERED: SODIUM CHLORIDE 0.9% 500 ML 500 ML IV ONE (08:24)
[2019-10-23 08:31] LABS: Partial Thromboplastin Time 21.2 sec (22.0-30.0)
--- NOTE | 2019-10-23 08:35 | XR ---
EXAMINATION TYPE: XR chest 2V DATE OF EXAM: 10/23/2019 COMPARISON: Chest x-ray and CT chest 2 days ago. HISTORY: Shortness of breath. TECHNIQUE: Frontal and lateral views of the chest are obtained. FINDINGS: There is some chronic parenchymal change without suspicious new focal air space opacity, p leural effusion, or pneumothorax seen. The cardiac silhouette size is stable and upper limits of nor mal with dual-lead pacemaker and atherosclerotic aorta. Multilevel spurring in thoracic spine is rede monstrated. Cholecystectomy clips are noted on lateral view. IMPRESSION: No acute cardiopulmonary process. No significant change from recent prior studies.
[2019-10-23 09:47] VITALS: BP 138/58; PULSE 67; RESP 19
--- NOTE | 2019-10-23 23:21 | P.CONS ---
History of Present Illness - History of Present Illness Diagnoses Short period of dyspnea due to noncompliance with medication, resolved Acute COPD exacerbation Leukocytosis, due to steroid effect, reactive or possible mild tracheobronchitis which is resolved Elevated lactic acid Hypertension Hyperlipidemia History of heart block status post permanent pacemaker. With normal cardiac cath in 2019 Hospital course: This is a pleasant 84 years old male with past medical history of hypertension, history of heart block status post permanent pacemaker, COPD. Hyperlipidemia. He follow-up with the [facility]. He was discharged yesterday from the observation unit after 2 day stay in the hospital for acute COPD exacerbation, he was evaluated by peanut shaker and cleared him for discharge. He presents today with dyspnea. Dr. Posada asked me to see the patient to decide if he needs admission are not. Patient apparently after discharge he did not fill his prescription and he did not get his prednisone yesterday or albuterol, he felt short of breath overnight and he could not sleep so he decided to come to the emergency room, was received treatment here in ED with bronchodilator he felt better and he was breathing quietly at 18-19 breath per minute with oxygen saturation of 96% on room air, no dyspnea or chest pain, no other complaints. Patient may need problem was sleep and was taking 10 mg of medicine, probably melatonin which did not help him to sleep last night and he was asking something else sodium was provided with 2 days prescription of Benadryl 12.5, risk of falling explained for him and he verbalized understanding and acceptance, patient prescription for a paternal is provided for him as well. Also I called office for peanut shaker and made him an appointment with Dr. Ayala on 10/24 in the morning and with the advertisement distributor Dr. Miramontes on the same day 11/20 in the afternoon, and patient is made aware of these 2 appointment and he agrees to go home and follow up with them within 2 days Patient is medically stable and he can go home and follow up with pulmonary, cardiology as above as well as PCP in one week and he agrees Review of system CONSTITUTIONAL: No fever, no malaise, no fatigue. HEENT: No recent visual problems or hearing problems. Denied any sore throat. CARDIOVASCULAR: No orthopnea, PND, no palpitations, no syncope. PULMONARY: No shortness of breath, no cough, no hemoptysis. GASTROINTESTINAL: No diarrhea, no nausea, no vomiting, no abdominal pain. Normoactive bowel sounds. NEUROLOGICAL: No headaches, no weakness, no numbness. HEMATOLOGICAL: Denies any bleeding or petechiae. GENITOURINARY: Denies any burning micturition, frequency, or urgency. MUSCULOSKELETAL/RHEUMATOLOGICAL: Denies any joint pain, swelling, or any muscle pain. ENDOCRINE: Denies any polyuria or polydipsia. Physical exam GENERAL: The patient is alert and oriented x3, not in any acute distress. HEENT: Pupils are round and equally reacting to light. EOMI. No scleral icterus. No conjunctival pallor. Normocephalic, atraumatic. No pharyngeal erythema. No thyromegaly. CARDIOVASCULAR: S1 and S2 present. No murmurs, rubs, or gallops. PULMONARY: Chest is clear to auscultation, no wheezing or crackles. ABDOMEN: Soft, nontender, nondistended, normoactive bowel sounds. No palpable organomegaly. EXTREMITIES: No cyanosis, clubbing, or pedal edema. Time spent more than 35 minutes Past Medical History Past Medical History: COPD, GERD/Reflux, GI Bleed, Hyperlipidemia, Hypertension, Osteoarthritis (OA) Additional Past Medical History / Comment(s): Fractured back twice, arthritis in hands/wrists/ankles, lower GI bleed, diverticular disease/colon polyps, hemorrhoids, constipation, kidney stones. 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 Past Anesthesia/Blood Transfusion Reactions: No Reported Reaction Past Psychological History: No Psychological Hx Reported Smoking Status: Former smoker Past Alcohol Use History: None Reported Past Drug Use History: None Reported - Past Family History Mother Family Medical History: Cancer Additional Family Medical History / Comment(s): Mother from some form of cancer at the age of 78yrs. Father History Unknown: Yes Additional Family Medical History / Comment(s): Father left when pt was 7 yrs old. Medications and Allergies Home Medications Medication Instructions Recorded Confirmed Type Aspirin [Adult Low Dose Aspirin EC] 81 mg PO DAILY 02/04/16 10/23/19 History Lovastatin [Mevacor] 40 mg PO DAILY 02/04/16 10/23/19 History [place]-3 Fatty Acids/Fish Oil [Fish 1 cap PO DAILY 02/04/16 10/23/19 History Oil 1,000 mg Softgel] Omeprazole 20 mg PO DAILY 02/04/16 10/23/19 History Cholecalciferol [Vitamin D3 (25 1,000 unit PO DAILY 09/13/18 10/23/19 History Mcg = 1000 Iu)] amLODIPine [Norvasc] 10 mg PO DAILY #30 tab 09/18/18 10/23/19 Rx lisinopriL [Zestril] 10 mg PO DAILY #30 tab 09/18/18 10/23/19 Rx Ferrous Sulfate [Iron] 325 mg PO DAILY 10/06/19 10/23/19 History Meclizine HCl 25 mg PO TID PRN 10/06/19 10/23/19 History Fluticasone/Salmeterol [Airduo 1 puff INHALATION RT-BID 10/21/19 10/23/19 History Respiclick 232-14 Mcg] Famotidine [Pepcid] 20 mg PO DAILY #30 tablet 10/22/19 10/23/19 Rx Albuterol Inhaler [Ventolin Hfa 2 puff INHALATION RT-QID PRN #1 inh 10/23/19 Rx Inhaler] Calcium Carbonate/Vitamin D3 1 tab PO BID 10/23/19 10/23/19 History [Calcium 500Mg-Vit D3 15Mcg (600 unit)] diphenhydrAMINE HCL [Benadryl] 12.5 mg PO HS PRN 2 Days #1 tab 10/23/19 Rx predniSONE See Taper PO DAILY 10/23/19 10/23/19 History Allergies Allergy/AdvReac Type Severity Reaction Status Date / Time No Known Allergies Allergy Verified 10/23/19 08:34 Physical Exam Vitals: Vital Signs Temp Pulse Resp BP Pulse Ox 10/23/19 09:30 67 19 138/58 96 10/23/19 09:00 64 20 139/62 95 10/23/19 08:30 66 20 139/60 94 L 10/23/19 08:06 72 10/23/19 08:00 89 20 135/67 96 10/23/19 07:58 72 10/23/19 07:20 97.7 F 97 19 137/76 98 Intake and Output 10/22/19 10/23/19 10/23/19 22:59 06:59 14:59 Other: Weight 72.575 kg Results CBC & Chem 7: 10/23/19 07:53 10/23/19 07:53 Labs: Abnormal Lab Results - Last 24 Hours (Table) 10/23/19 10/23/19 10/23/19 Range/Units 07:53 07:53 07:53 WBC 19.7 H (3.8-10.6) k/uL Neutrophils # 18.7 H (1.3-7.7) k/uL Lymphocytes # 0.4 L (1.0-4.8) k/uL APTT 21.2 L (22.0-30.0) sec Carbon Dioxide 36 H (22-30) mmol/L BUN 43 H (9-20) mg/dL Creatinine 0.62 L (0.66-1.25) mg/dL Glucose 102 H (74-99) mg/dL Calcium 10.8 H (8.4-10.2) mg/dL ALT 55 H (4-49) U/L Total Protein 6.2 L (6.3-8.2) g/dL
== END 2019-10-23 10:14 | disposition home or self-care (01) ==
LOC: EC 07:15
DX: J44.9 Chronic obstructive pulmonary disease, unspecified (principal); I25.2 Old myocardial infarction; K21.9 Gastro-esophageal reflux disease without esophagitis; E78.5 Hyperlipidemia, unspecified; I10 Essential (primary) hypertension; M19.90 Unspecified osteoarthritis, unspecified site; Z79.82 Long term (current) use of aspirin; Z79.899 Other long term (current) drug therapy; Z87.891 Personal history of nicotine dependence; Z95.0 Presence of cardiac pacemaker; Z79.51 Long term (current) use of inhaled steroids
CPT/HCPCS: 36415; 71046; 80053; 83605; 84484; 85025; 85610; 85730; 93005; 94640; 96360; 99285

== ENCOUNTER 2019-10-24 08:52 | Inpatient (IN) | payer OTHER, MEDICARE ==
[2019-10-24] MEDS ORDERED: LORazepam 2 MG/ML INJ IV STA (09:05)
--- NOTE | 2019-10-24 09:13 | ED ---
General Adult HPI - General Chief complaint: Shortness of Breath Stated complaint: JASPREET Time Seen by Provider: 10/24/19 08:55 Source: patient, RN notes reviewed, old records reviewed Mode of arrival: wheelchair Limitations: no limitations - History of Present Illness Initial comments: This is an 84-year-old male who has been in the emergency department 6 times in the last month and was here yesterday. Patient comes in complaining that he gets short of breath while he is at home at night alone. Patient was given steroids and an inhaler but he stated it doesn't work. Patient denies any chest pain or palpitations. Patient denies any fever chills or cough. Patient denies any abdominal pain patient's nausea vomiting diarrhea. Patient denies ligh theadedness or dizziness. Patient denies any swelling to legs or calf tenderness. - Related Data Home Medications Medication Instructions Recorded Confirmed Aspirin [Adult Low Dose Aspirin EC] 81 mg PO DAILY 02/04/16 10/23/19 Lovastatin [Mevacor] 40 mg PO DAILY 02/04/16 10/23/19 [place]-3 Fatty Acids/Fish Oil [Fish 1 cap PO DAILY 02/04/16 10/23/19 Oil 1,000 mg Softgel] Omeprazole 20 mg PO DAILY 02/04/16 10/23/19 Cholecalciferol [Vitamin D3 (25 1,000 unit PO DAILY 09/13/18 10/23/19 Mcg = 1000 Iu)] Ferrous Sulfate [Iron] 325 mg PO DAILY 10/06/19 10/23/19 Meclizine HCl 25 mg PO TID PRN 10/06/19 10/23/19 Fluticasone/Salmeterol [Airduo 1 puff INHALATION RT-BID 10/21/19 10/23/19 Respiclick 232-14 Mcg] Calcium Carbonate/Vitamin D3 1 tab PO BID 10/23/19 10/23/19 [Calcium 500Mg-Vit D3 15Mcg (600 unit)] predniSONE See Taper PO DAILY 10/23/19 10/23/19 Previous Rx's Medication Instructions Recorded amLODIPine [Norvasc] 10 mg PO DAILY #30 tab 09/18/18 lisinopriL [Zestril] 10 mg PO DAILY #30 tab 09/18/18 Famotidine [Pepcid] 20 mg PO DAILY #30 tablet 10/22/19 Albuterol Inhaler [Ventolin Hfa 2 puff INHALATION RT-QID PRN #1 inh 10/23/19 Inhaler] diphenhydrAMINE HCL [Benadryl] 12.5 mg PO HS PRN 2 Days #1 tab 10/23/19 Allergies Allergy/AdvReac Type Severity Reaction Status Date / Time No Known Allergies Allergy Verified 10/24/19 08:53 Review of Systems ROS Statement: Those systems with pertinent positive or pertinent negative responses have been documented in the HPI. ROS Other: All systems not noted in ROS Statement are negative. Past Medical History Past Medical History: COPD, GERD/Reflux, GI Bleed, Hyperlipidemia, Hypertension, Osteoarthritis (OA) Additional Past Medical History / Comment(s): Fractured back twice, arthritis in hands/wrists/ankles, lower GI bleed, diverticular disease/colon polyps, hemorrhoids, constipation, kidney stones. 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 Past Anesthesia/Blood Transfusion Reactions: No Reported Reaction Past Psychological History: No Psychological Hx Reported Smoking Status: Former smoker Past Alcohol Use History: None Reported Past Drug Use History: None Reported - Past Family History Mother Family Medical History: Cancer Additional Family Medical History / Comment(s): Mother from some form of cancer at the age of 78yrs. Father History Unknown: Yes Additional Family Medical History / Comment(s): Father left when pt was 7 yrs old. General Exam - General Exam Comments Initial Comments: GENERAL: Patient is well-developed and well-nourished. Patient is nontoxic and well- hydrated and is in no acute distress. ENT: Neck is soft and supple. No significant lymphadenopathy is noted. Oropharynx is clear. Moist mucous membranes. Neck has full range of motion without eliciting any pain. EYES: The sclera were anicteric and conjunctiva were pink and moist. Extraocular movements were intact and pupils were equal round and reactive to light. Eyelids were unremarkable. PULMONARY: Unlabored respirations. Good breath sounds bilaterally. No audible rales rhonchi or wheezing was noted. CARDIOVASCULAR: There is a regular rate and rhythm without any murmurs gallops or rubs. ABDOMEN: Soft and nontender with normal bowel sounds. SKIN: Skin is clear with no lesions or rashes and otherwise unremarkable. NEUROLOGIC: Patient is alert and oriented x3. Cranial nerves II through XII are grossly intact. Motor and sensory are also intact. Normal speech, volume and content. Symmetrical smile. MUSCULOSKELETAL: Normal extremities with adequate strength and full range of motion. LYMPHATICS: No significant lymphadenopathy is noted PSYCHIATRIC: Normal psychiatric evaluation. Limitations: no limitations Course Vital Signs 10/24/19 08:54 Temperature 97.6 F Pulse Rate 108 H Respiratory 18 Rate Blood Pressure 149/83 O2 Sat by Pulse 96 Oximetry Medical Decision Making - Medical Decision Making EKG shows sinus rhythm at 97 bpm NC interval is 294 QRS is 1:30 QT interval 332 QTC is 421. Patient's EKG shows no ST segment elevation or some T-wave inversi on in the precordial leads V1 through V4. Chest x-ray shows no acute abnormality. Patient was ambulated around the emergency department and then he sat down and we took his vital signs pulse was 121 which quickly came down to low 100s. Patient's pulse ox at that time was 97% on room air I spoke with Dr. ceron he agreed to admit the patient admitted the patient wrote admitting orders. - Lab Data Result diagrams: 10/24/19 09:11 10/24/19 09:11 Lab Results 10/24/19 10/24/19 10/24/19 Range/Units 09:11 09:11 09:11 WBC 13.9 H (3.8-10.6) k/uL RBC 4.91 (4.30-5.90) m/uL Hgb 14.1 (13.0-17.5) gm/dL Hct 45.9 (39.0-53.0) % MCV 93.4 (80.0-100.0) fL MCH 28.7 (25.0-35.0) pg MCHC 30.8 L (31.0-37.0) g/dL RDW 14.4 (11.5-15.5) % Plt Count 180 (150-450) k/uL Neutrophils % 89 % Lymphocytes % 6 % Monocytes % 3 % Eosinophils % 1 % Basophils % 0 % Neutrophils # 12.4 H (1.3-7.7) k/uL Lymphocytes # 0.8 L (1.0-4.8) k/uL Monocytes # 0.4 (0-1.0) k/uL Eosinophils # 0.1 (0-0.7) k/uL Basophils # 0.0 (0-0.2) k/uL PT 16.4 H (9.0-12.0) sec INR 1.7 H (<1.2) APTT 25.0 (22.0-30.0) sec Sodium 139 (137-145) mmol/L Potassium 5.3 H (3.5-5.1) mmol/L Chloride 102 (98-107) mmol/L Carbon Dioxide 33 H (22-30) mmol/L Anion Gap 4 mmol/L BUN 35 H (9-20) mg/dL Creatinine 0.55 L (0.66-1.25) mg/dL Est GFR (CKD-EPI)AfAm >90 (>60 ml/min/1.73 sqM) Est GFR (CKD-EPI)NonAf >90 (>60 ml/min/1.73 sqM) Glucose 100 H (74-99) mg/dL Plasma Lactic Acid Billy (0.7-2.0) mmol/L Calcium 10.9 H (8.4-10.2) mg/dL Magnesium 2.2 (1.6-2.3) mg/dL Total Bilirubin 1.4 H (0.2-1.3) mg/dL AST 56 (17-59) U/L ALT 122 H (4-49) U/L Alkaline Phosphatase 57 (38-126) U/L Total Protein 6.7 (6.3-8.2) g/dL Albumin 4.3 (3.5-5.0) g/dL 10/24/19 Range/Units 09:11 WBC (3.8-10.6) k/uL RBC (4.30-5.90) m/uL Hgb (13.0-17.5) gm/dL Hct (39.0-53.0) % MCV (80.0-100.0) fL MCH (25.0-35.0) pg MCHC (31.0-37.0) g/dL RDW (11.5-15.5) % Plt Count (150-450) k/uL Neutrophils % % Lymphocytes % % Monocytes % % Eosinophils % % Basophils % % Neutrophils # (1.3-7.7) k/uL Lymphocytes # (1.0-4.8) k/uL Monocytes # (0-1.0) k/uL Eosinophils # (0-0.7) k/uL Basophils # (0-0.2) k/uL PT (9.0-12.0) sec INR (<1.2) APTT (22.0-30.0) sec Sodium (137-145) mmol/L Potassium (3.5-5.1) mmol/L Chloride (98-107) mmol/L Carbon Dioxide (22-30) mmol/L Anion Gap mmol/L BUN (9-20) mg/dL Creatinine (0.66-1.25) mg/dL Est GFR (CKD-EPI)AfAm (>60 ml/min/1.73 sqM) Est GFR (CKD-EPI)NonAf (>60 ml/min/1.73 sqM) Glucose (74-99) mg/dL Plasma Lactic Acid Billy 2.1 H* (0.7-2.0) mmol/L Calcium (8.4-10.2) mg/dL Magnesium (1.6-2.3) mg/dL Total Bilirubin (0.2-1.3) mg/dL AST (17-59) U/L ALT (4-49) U/L Alkaline Phosphatase (38-126) U/L Total Protein (6.3-8.2) g/dL Albumin (3.5-5.0) g/dL Disposition Clinical Impression: Dyspnea Disposition: ADMITTED IP TO THIS [facility] Referrals: [facility],Clinic [Primary Care Provider] - 1-2 days Time of Disposition: 09:52
[2019-10-24 09:29] LABS: Basophils % (A) 0 %; Eosinophils # (A) 0.1 k/uL (0-0.7); Eosinophils % (A) 1 %; HCT 45.9 % (39.0-53.0); HGB 14.1 gm/dL (13.0-17.5); Lymphocytes # (A) 0.8 k/uL (1.0-4.8); Lymphocytes % (A) 6 %; MCH 28.7 pg (25.0-35.0); MCHC 30.8 g/dL (31.0-37.0); MCV 93.4 fL (80.0-100.0); Mean Platelet Volume 8.7; Monocytes # (A) 0.4 k/uL (0-1.0); Monocytes % (A) 3 %; Neutrophils # (A) 12.4 k/uL (1.3-7.7); Neutrophils % (A) 89 %; Platelet Count 180 k/uL (150-450); RBC 4.91 m/uL (4.30-5.90); RDW 14.4 % (11.5-15.5); WBC 13.9 k/uL (3.8-10.6)
[2019-10-24 09:42] LABS: ALT 122 U/L (4-49); African American GFR (CKD) >90 (>60 ml/min/1.73 sqM); Albumin 4.3 g/dL (3.5-5.0); Anion Gap 4 mmol/L; Blood Urea Nitrogen 35 mg/dL (9-20); Calcium 10.9 mg/dL (8.4-10.2); Carbon Dioxide 33 mmol/L (22-30); Chloride 102 mmol/L (98-107); Glucose 100 mg/dL (74-99); Non-African American GFR(CKD) >90 (>60 ml/min/1.73 sqM); Sodium 139 mmol/L (137-145); Total Bilirubin 1.4 mg/dL (0.2-1.3); Total Protein 6.7 g/dL (6.3-8.2)
[2019-10-24 09:44] LABS: AST 56 U/L (17-59); Alkaline Phosphatase 57 U/L (38-126); Magnesium 2.2 mg/dL (1.6-2.3); Potassium 5.3 mmol/L (3.5-5.1)
[2019-10-24 09:46] LABS: INR 1.7 (<1.2); Prothrombin Time 16.4 sec (9.0-12.0)
[2019-10-24] MEDS ORDERED: SODIUM CHLORIDE 0.9% 1,000 ML IV ONE ×2 (09:50→09:57)
--- NOTE | 2019-10-24 09:51 | XR ---
EXAMINATION TYPE: XR chest 2V DATE OF EXAM: 10/24/2019 COMPARISON: 10/23/2019 HISTORY: Shortness of breath TECHNIQUE: Frontal and lateral views of the chest are obtained. FINDINGS: Scattered senescent parenchymal changes noted. Hyperinflation compatible with COPD. No evidence for infiltrate. No evidence for atelectasis. Heart size is stable. Mediastinal structures are stable and grossly unremarkable. No evidence for hilar prominence. Degenerative changes dorsal spine. IMPRESSION: 1. No evidence for acute pulmonary disease.
[2019-10-24] MEDS ORDERED: IOPAMIDOL CONTRAST (ORAL USE) VIAL PO PRN (10:28)
[2019-10-24] MEDS ORDERED: MECLIZINE 25 MG TAB PO PRN (10:34)
--- NOTE | 2019-10-24 10:36 | P.HPIM ---
History of Present Illness Hospital course: This is a pleasant 84 years old male with past medical history of hypertension, history of heart block status post permanent pacemaker, COPD. Hyperlipidemia. He follow-up with the [facility]. This is the sixth ER visit for the same complaint, he was admitted and discharged from observation units of blood 2 days ago, came back yesterday again for dyspnea because he did not take his medication, he was discharged from the emergency room with recommendation to follow up with pulmonary and cardiology tomorrow, however he came back today with similar complaint of dyspnea and cannot take care of himself. His last February. Also he was complaining of from loose bowel movement about 10 times per day but this is been going on for more than a year as per patient, he denies abdominal pain or vomiting. No chest pain. No significant dyspnea. He looks initiated and generally weak. He states that he lost about 30 pounds in 1 month and he lost his appetite. He had a CT of the chest with IV contrast on the last admission which was unremarkable view of the lungs with ascending aortic aneurysm of about 4.1 cm. Vitas looks stable. Labs show an improving leukocytosis of 13.9 K, INR 1.7, multiple hyperkalemia 5.3 creatinine is normal 0.5, lactic acid 2.1 In the emergency room he received 1 L of normal saline is started on 100 mL per hour. Cardiology team were consulted from emergency room. Review of Systems Review of systems CONSTITUTIONAL: No fever, no chills HEENT: No recent visual problems or hearing problems. Denied any sore throat. CARDIOVASCULAR: No orthopnea, PND, no palpitations, no syncope. PULMONARY: No chest wall tenderness, no hemoptysis. GASTROINTESTINAL: no nausea, no vomiting, no abdominal pain. Normoactive bowel sounds. NEUROLOGICAL: No headaches, no weakness, no numbness. HEMATOLOGICAL: Denies any bleeding or petechiae. GENITOURINARY: Denies any burning micturition, frequency, or urgency. MUSCULOSKELETAL/RHEUMATOLOGICAL: Denies any joint pain, swelling, or any muscle pain. ENDOCRINE: Denies any polyuria or polydipsia. Past Medical History Past Medical History: COPD, GERD/Reflux, GI Bleed, Hyperlipidemia, Hypertension, Osteoarthritis (OA) Additional Past Medical History / Comment(s): Fractured back twice, arthritis in hands/wrists/ankles, lower GI bleed, diverticular disease/colon polyps, hemorrhoids, constipation, kidney stones. 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 Past Anesthesia/Blood Transfusion Reactions: No Reported Reaction Past Psychological History: No Psychological Hx Reported Smoking Status: Former smoker Past Alcohol Use History: None Reported Past Drug Use History: None Reported - Past Family History Mother Family Medical History: Cancer Additional Family Medical History / Comment(s): Mother from some form of cancer at the age of 78yrs. Father History Unknown: Yes Additional Family Medical History / Comment(s): Father left when pt was 7 yrs old. Medications and Allergies Home Medications Medication Instructions Recorded Confirmed Type Aspirin [Adult Low Dose Aspirin EC] 81 mg PO DAILY 02/04/16 10/24/19 History Lovastatin [Mevacor] 40 mg PO DAILY 02/04/16 10/24/19 History [place]-3 Fatty Acids/Fish Oil [Fish 1 cap PO DAILY 02/04/16 10/24/19 History Oil 1,000 mg Softgel] Omeprazole 20 mg PO DAILY 02/04/16 10/24/19 History Cholecalciferol [Vitamin D3 (25 1,000 unit PO DAILY 09/13/18 10/24/19 History Mcg = 1000 Iu)] amLODIPine [Norvasc] 10 mg PO DAILY #30 tab 09/18/18 10/24/19 Rx lisinopriL [Zestril] 10 mg PO DAILY #30 tab 09/18/18 10/24/19 Rx Ferrous Sulfate [Iron] 325 mg PO DAILY 10/06/19 10/24/19 History Meclizine HCl 25 mg PO TID PRN 10/06/19 10/24/19 History Fluticasone/Salmeterol [Airduo 1 puff INHALATION RT-BID 10/21/19 10/24/19 Hist ory Respiclick 232-14 Mcg] Famotidine [Pepcid] 20 mg PO DAILY #30 tablet 10/22/19 10/24/19 Rx Albuterol Inhaler [Ventolin Hfa 2 puff INHALATION RT-QID PRN #1 inh 10/23/19 10/24/19 Rx Inhaler] Calcium Carbonate/Vitamin D3 1 tab PO BID 10/23/19 10/24/19 History [Calcium 500Mg-Vit D3 15Mcg (600 unit)] diphenhydrAMINE HCL [Benadryl] 12.5 mg PO HS PRN 2 Days #1 tab 10/23/19 10/24/19 Rx predniSONE See Taper PO DAILY 10/23/19 10/24/19 History Allergies Allergy/AdvReac Type Severity Reaction Status Date / Time No Known Allergies Allergy Verified 10/24/19 10:10 Physical Exam Vitals: Vital Signs Temp Pulse Resp BP Pulse Ox 10/24/19 09:55 86 18 144/75 95 10/24/19 08:54 97.6 F 108 H 18 149/83 96 Intake and Output 10/23/19 10/24/19 10/24/19 22:59 06:59 14:59 Other: Weight 72.575 kg -GENERAL: The patient is alert and oriented x3, not in any acute distress. Generally weak and emaciated HEENT: Pupils are round and equally reacting to light. EOMI. No scleral icterus. No conjunctival pallor. Normocephalic, atraumatic. No pharyngeal erythema. No thyromegaly. CARDIOVASCULAR: S1 and S2 present. No murmurs, rubs, or gallops. PULMONARY: Chest is clear to auscultation, no wheezing or crackles. ABDOMEN: Soft, nontender, nondistended, normoactive bowel sounds. No palpable organomegaly. MUSCULOSKELETAL: No joint swelling or deformity. EXTREMITIES: No cyanosis, clubbing, or pedal edema. NEUROLOGICAL: Gross neurological examination did not reveal any focal deficits. SKIN: No rashes. no petechiae. Results CBC & Chem 7: 10/24/19 09:11 10/24/19 09:11 Labs: Abnormal Lab Results - Last 24 Hours (Table) 10/24/19 10/24/19 10/24/19 Range/Units 09:11 09:11 09:11 WBC 13.9 H (3.8-10.6) k/uL MCHC 30.8 L (31.0-37.0) g/dL Neutrophils # 12.4 H (1.3-7.7) k/uL Lymphocytes # 0.8 L (1.0-4.8) k/uL PT 16.4 H (9.0-12.0) sec INR 1.7 H (<1.2) Potassium 5.3 H (3.5-5.1) mmol/L Carbon Dioxide 33 H (22-30) mmol/L BUN 35 H (9-20) mg/dL Creatinine 0.55 L (0.66-1.25) mg/dL Glucose 100 H (74-99) mg/dL Plasma Lactic Acid Billy (0.7-2.0) mmol/L Calcium 10.9 H (8.4-10.2) mg/dL Total Bilirubin 1.4 H (0.2-1.3) mg/dL ALT 122 H (4-49) U/L 10/24/19 Range/Units 09:11 WBC (3.8-10.6) k/uL MCHC (31.0-37.0) g/dL Neutrophils # (1.3-7.7) k/uL Lymphocytes # (1.0-4.8) k/uL PT (9.0-12.0) sec INR (<1.2) Potassium (3.5-5.1) mmol/L Carbon Dioxide (22-30) mmol/L BUN (9-20) mg/dL Creatinine (0.66-1.25) mg/dL Glucose (74-99) mg/dL Plasma Lactic Acid Billy 2.1 H* (0.7-2.0) mmol/L Calcium (8.4-10.2) mg/dL Total Bilirubin (0.2-1.3) mg/dL ALT (4-49) U/L Assessment and Plan Assessment: Loss of weight, he lost about 30 pounds in 1 month Deconditioning and generalized weakness Recurrent periods of dyspnea with some dry cough Mild Acute COPD exacerbation Leukocytosis, due to steroid effect Chronic diarrhea Elevated lactic acid Hypertension Hyperlipidemia History of heart block status post permanent pacemaker. With normal cardiac cath in 2019 Plan: This is a pleasant 84 years old male who presents with recurrent dyspnea, elected COPD causing his significant shortness of breath although he might have mild COPD exacerbation. Cardiology team were consulted from emergency room. We'll do CT of the abdomen and pelvis with contrast in view of his loss of weight, risks including but not limited to ALLERGIC reaction to nephrotoxicity explained for the patient and he agrees for the test. Continue with IV fluid Labs and medication were reviewed.. Continue same treatment. Continue with symptomatic treatment. Resume home medication. Monitor lytes and vitals. DVT and GI prophylaxis. Further recommendations of the clinical course of the patient DVT prophylaxis: Subcutaneous heparin GI Prophylaxis: Pepcid PT/OT: Pending Prognosis is guarded
[2019-10-24] MEDS: ALBUTEROL NEBULIZED 2.5 MG/3 ML INHALATION PRN ×2 (14:54→20:18)
--- NOTE | 2019-10-24 15:13 | CT ---
EXAMINATION TYPE: CT abdomen pelvis w con DATE OF EXAM: 10/24/2019 COMPARISON: CT abdomen pelvis 09/13/2018 HISTORY: Weight loss CT DLP: 992.2 mGycm Automated exposure control for dose reduction was used. TECHNIQUE: Helical acquisition of images from the lung bases through the pelvis have been completed. CONTRAST: Performed with Oral Contrast and with IV Contrast, patient injected with 100 mL of Isovue 300. FINDINGS: Intracardiac lead is present. LUNG BASES: No significant abnormality is appreciated. AORTA: No significant abnormality is appreciated. LIVER/GB: Patient is post cholecystectomy. No evident liver mass.. PANCREAS: Within the uncinate process there is a 17 mm low dense focus present which appears cystic.. SPLEEN: No significant abnormality is seen. ADRENALS: No significant abnormality is seen. KIDNEYS: Punctate nonobstructive calculus is present at the right kidney lower pole collecting system , no ureteral calculus.. REPRODUCTIVE ORGANS: Prostate shows some associated calcification, there is a small right inguinal he rnia containing fat BOWEL: Diverticular changes present within the sigmoid colon. No bowel obstruction. Appendix is norm al. Colonic interposition noted anterior to the lower margin of the liver. FREE AIR: No Free Air visible. ASCITES: None visible. PELVIC ADENOPATHY: None visualized. RETROPERITONEAL ADENOPATHY: No Retroperitoneal Adenopathy visible. URINARY BLADDER: No significant abnormality is seen. OSSEOUS STRUCTURES: No significant abnormality is seen. IMPRESSION: INDETERMINATE CYSTIC FOCUS UNCINATE PROCESS OF THE PANCREAS, FOLLOW-UP RECOMMENDED. POSTOP CHANGES, N ONOBSTRUCTIVE RIGHT NEPHROLITHIASIS, DIVERTICULOSIS.
[2019-10-24] MEDS: SODIUM CHLORIDE 0.9% 1,000 ML IV SCH (21:10)
[2019-10-24] MEDS: HEPARIN SODIUM,PORCINE 5,000 UNIT/ML 1 ML VIAL SQ SCH (21:11)
[2019-10-25] MEDS: ALBUTEROL NEBULIZED 2.5 MG/3 ML INHALATION PRN ×3 (02:31→15:19)
[2019-10-25] MEDS: FERROUS SULFATE 325 MG TAB PO SCH (08:21)
[2019-10-25] MEDS: ATORVASTATIN 10 MG TAB PO SCH (08:21)
[2019-10-25] MEDS: FAMOTIDINE 20 MG TAB PO SCH (08:21)
[2019-10-25] MEDS: amLODIPine 5 MG TAB PO SCH (08:21)
[2019-10-25] MEDS: ASPIRIN 81 MG PO SCH (08:21)
[2019-10-25] MEDS: HEPARIN SODIUM,PORCINE 5,000 UNIT/ML 1 ML VIAL SQ SCH ×2 (08:22→20:17)
[2019-10-25] MEDS: lisinopriL 10 MG TAB PO SCH (08:22)
[2019-10-25] MEDS ORDERED: predniSONE 10 MG TAB PO SCH (09:00)
[2019-10-25] MEDS: SODIUM CHLORIDE 0.9% 1,000 ML IV SCH ×2 (09:30→20:17)
--- NOTE | 2019-10-25 09:49 | ECHOF ---
Referral Reason:Rule out heart disease MEASUREMENTS -------- HEIGHT: 180.3 cm WEIGHT: 72.6 kg BP: 157/74 RVIDd: 4.2 cm (< 3.3) IVSd: 1.1 cm (0.6 - 1.1) LVIDd: 4.7 cm (3.9 - 5.3) LVPWd: 1.1 cm (0.6 - 1.1) IVSs: 1.5 cm LVIDs: 2.4 cm LVPWs: 1.5 cm Ao Diam: 3.0 cm (2.0 - 3.7) AV Cusp: 1.6 cm (1.5 - 2.6) LA Diam: 3.6 cm (2.7 - 3.8) MV EXCURSION: 17.961 mm (> 18.000) MV EF SLOPE: 44 mm/s (70 - 150) EPSS: 0.3 cm MV E Eulogio: 0.78 m/s MV DecT: 240 ms MV A Eulogio: 0.89 m/s MV E/A Ratio: 0.87 RAP: 5.00 mmHg RVSP: 10.90 mmHg FINDINGS -------- Paced rhythm. This was a technically difficult study with suboptimal views. The left ventricular size is normal. Left ventricular wall thickness is normal. Overall left vent ricular systolic function is low-normal with, an EF between 50 - 55 %. The diastolic filling patter n is normal for the age of the patient 8.58. The right ventricle is mildly enlarged. The left atrial size is normal. The right atrial size is normal. Lumason used The aortic valve was not well visualized. The mitral valve was not well visualized. There is trace mitral regurgitation. The tricuspid valve was not well visualized. Trace tricuspid regurgitation present. Right ventric ular systolic pressure is normal at < 35 mmHg. The pulmonic valve was not well visualized. The aortic root size is normal. IVC Not well visulized. CONCLUSIONS -------- 1. Paced rhythm. 2. The left ventricular size is normal. 3. Left ventricular wall thickness is normal. 4. Overall left ventricular systolic function is low-normal with, an EF between 50 - 55 %. 5. The diastolic filling pattern is normal for the age of the patient 8.58 6. There is trace mitral regurgitation. 7. Trace tricuspid regurgitation present. NCQA SPECIALIST: Alyssa Montejo RDCS
--- NOTE | 2019-10-25 10:31 | P.CRDCN ---
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 He follows in the office with Dr. Miramontes. We have been asked to see in consultation for dyspnea. The patient is seen and examined sitting up in bed resting comfortably in no acute distress. He states for the previous 6 months he has had inter mittent episodes of shortness of breath mostly related to exertion or activity however does at times occur at rest. He denies associated chest pain, dizziness or palpitations. This is his 6th admission this month for similar complaints. He has undergone echocardiogram 09/2019 revealing normal LV function with EF 50-55%, pacemaker interrogation assessing for RV pacing percentage that was unremarkable and not culprit for his breathing and pulmonary evaluation. He also has had a cardiac catheterization last year revealing normal coronary arteries. Primary team ordered a repeat echo revealing preserved LV systolic function with ejection fraction 50-55% and normal diastolic filling patterns. DIAGNOSTICS EKG reveals sinus mechanism with right bundle branch block T-wave inversions. Chest xray negative for an acute cardiopulmonary process. Laboratory reviewed, PVC 13.9, hemoglobin 14.1, platelets 180, INR 1.7, sodium 139, potassium 5.3, creatinine 0.55, lactic acid 2.1 on admission repeat 1.2, magnesium 2.2, cardiac enzymes negative 1 and NTproBNP 429. Current cardiac medications include lisinopril 10 mg daily, amlodipine 10 mg daily, lovastatin 40 mg daily and aspirin 81 mg daily. REVIEW OF SYSTEMS At the time of my exam: CONSTITUTIONAL: Denies fever or chills. CARDIOVASCULAR: Denies chest pain, shortness of breath, orthopnea, PND or palpitations. RESPIRATORY: Denies cough. GASTROINTESTINAL: Denies abdominal pain, diarrhea, constipation, nausea or vomiting. MUSCULOSKELETAL: Denies myalgias. NEUROLOGIC: Denies numbness, tingling or weakness. ENDOCRINE: Denies fatigue, weight change, polydipsia or polyurina. GENITOURINARY: Denies burning, hematuria or urgency with micturation. HEMATOLOGIC: Denies history of anemia or bleeding. PHYSICAL EXAMINATION Blood pressure 157/71 heart rate 70 afebrile and maintaining oxygen saturation on room air. CONSTITUTIONAL: No apparent distress. HEENT: Head is normocephalic. Pupils are equal, round. Sclerae anicteric. Mucous membranes of the mouth are moist. No JVD. No carotid bruit. CHEST EXAMINATION: Lungs are clear to auscultation. No chest wall tenderness is noted on palpation or with deep breathing. HEART EXAMINATION: Regular rate and rhythm. S1, S2 heard. No murmurs, gallops or rub. ABDOMEN: Soft, nontender. Positive bowel sounds. EXTREMITIES: 2+ peripheral pulses, no lower extremity edema and no calf tenderness. NEUROLOGIC EXAMINATION: Patient is awake, alert and oriented x3. ASSESSMENT Dyspnea Leukocytosis Hyperkalemia Lactic acidosis COPD Chronic nicotine dependence Permanent pacemaker implantation secondary to high degree AV block Hypertension Dyslipidemia PLAN The patient is clinically euvolemic and not in heart failure. Echocardiogram reveals normal diastolic filling pattern as well as normal LV systolic function. Given his history of COPD and ongoing nicotine dependence it is likely that his dyspnea is secondary to pulmonary etiology. He has undergone extensive cardiac workups in the past revealing normal coronary arteries and no evidence for cardiac etiology of his ongoing symptoms. Recent pacemaker interrogation in the office in July was unremarkable. He is supposed to have appointment in the office today. No further cardiac workup required at this time. His appointment for today with Dr. Miramontes has been rescheduled for November 12. Smoking cessation recommended. Thank you kindly for this consultation. Nurse Practitioner note has been reviewed, I agree with a documented findings a nd plan of care. Patient was seen and examined. Past Medical History Past Medical History: COPD, GERD/Reflux, GI Bleed, Hyperlipidemia, Hypertension, Osteoarthritis (OA), Pneumonia Additional Past Medical History / Comment(s): Pt recently admitted to [facility] on 10/21/19 with exacerbation COPD/tracheobronchitis/elevated lactic acid. Other hx: Lower GI bleed, benign colon polyps, hemorrhoids, diverticular disease, constipation, arhtritis in hands/wrists/ankles, occasional back pain/fractured back twice, nephrolithiasis/sepsis, UTI, anemia, pacer d/t high AV node block Last Myocardial Infarction Date:: 2018 History of Any Multi-Drug Resistant Organisms: None Reported Past Surgical History: Back Surgery, Cholecystectomy, Orthopedic Surgery, Pacemaker Additional Past Surgical History / Comment(s): Lumbar laminectomy, EGD, colo noscopies/benign polypectomies, L shoulder arthroscopy. Past Anesthesia/Blood Transfusion Reactions: No Reported Reaction Type of Cardiac Device: Permanent Pacemaker Device Placement Date:: 11/15/18 Smoking Status: Former smoker - Past Family History Mother Family Medical History: Cancer Additional Family Medical History / Comment(s): Mother from some form of cancer at the age of 78yrs. Father History Unknown: Yes Additional Family Medical History / Comment(s): Father left when pt was 7 yrs old. Medications and Allergies Home Medications Medication Instructions Recorded Confirmed Type Aspirin [Adult Low Dose Aspirin EC] 81 mg PO DAILY 02/04/16 10/24/19 History Lovastatin [Mevacor] 40 mg PO DAILY 02/04/16 10/24/19 History [place]-3 Fatty Acids/Fish Oil [Fish 1 cap PO DAILY 02/04/16 10/24/19 History Oil 1,000 mg Softgel] Omeprazole 20 mg PO DAILY 02/04/16 10/24/19 History Cholecalciferol [Vitamin D3 (25 1,000 unit PO DAILY 09/13/18 10/24/19 History Mcg = 1000 Iu)] amLODIPine [Norvasc] 10 mg PO DAILY #30 tab 09/18/18 10/24/19 Rx lisinopriL [Zestril] 10 mg PO DAILY #30 tab 09/18/18 10/24/19 Rx Ferrous Sulfate [Iron] 325 mg PO DAILY 10/06/19 10/24/19 History Meclizine HCl 25 mg PO TID PRN 10/06/19 10/24/19 History Fluticasone/Salmeterol [Airduo 1 puff INHALATION RT-BID 10/21/19 10/24/19 History Respiclick 232-14 Mcg] Famotidine [Pepcid] 20 mg PO DAILY #30 tablet 10/22/19 10/24/19 Rx Albuterol Inhaler [Ventolin Hfa 2 puff INHALATION RT-QID PRN #1 inh 10/23/19 10/24/19 Rx Inhaler] Calcium Carbonate/Vitamin D3 1 tab PO BID 10/23/19 10/24/19 History [Calcium 500Mg-Vit D3 15Mcg (600 unit)] diphenhydrAMINE HCL [Benadryl] 12.5 mg PO HS PRN 2 Days #1 tab 10/23/19 10/24/19 Rx predniSONE See Taper PO DAILY 10/23/19 10/24/19 History Allergies Allergy/AdvReac Type Severity Reaction Status Date / Time No Known Allergies Allergy Verified 10/24/19 10:10 Physical Exam Vitals: Vital Signs Temp Pulse Pulse Resp BP BP Pulse Ox 10/25/19 07:38 98.3 F 70 18 157/71 94 L 10/25/19 02:46 76 10/25/19 02:32 76 10/25/19 02:22 95 20 10/25/19 02:21 97.8 F 95 20 157/74 98 10/24/19 20:19 68 10/24/19 19:56 97.9 F 68 18 151/62 96 10/24/19 15:01 77 10/24/19 15:00 97.9 F 77 73 16 166/71 123/59 95 10/24/19 14:58 166/77 10/24/19 14:55 96 10/24/19 14:30 74 16 121/108 10/24/19 14:00 99 17 117/100 10/24/19 13:30 74 18 154/89 10/24/19 13:00 154/89 10/24/19 12:30 92 18 149/84 10/24/19 12:26 62 22 149/84 10/24/19 11:02 92 18 155/66 94 L 10/24/19 09:55 86 18 144/75 95 Intake and Output 10/24/19 10/25/19 10/25/19 22:59 06:59 14:59 Intake Total 888 683 8540 Output Total 650 Balance 100 -350 1230 Intake: Intake, IV Titration 300 650 Amount Sodium Chloride 0.9% 1, 300 650 000 ml @ 75 mls/hr IV . [id number] [facility] Rx#:[id number] Oral 580 Other 100 Output: Urine 650 Other: Voiding Method Toilet Toilet Toilet Urinal Urinal Urinal # Voids 2 Results 10/24/19 09:11 10/24/19 09:11 Cardiac Enzymes 10/24/19 10/24/19 Range/Units 09:11 09:11 AST 56 (17-59) U/L Troponin I 0.013 (0.000-0.034) ng/mL Coagulation 10/24/19 Range/Units 09:11 PT 16.4 H (9.0-12.0) sec APTT 25.0 (22.0-30.0) sec CBC 10/24/19 Range/Units 09:11 WBC 13.9 H (3.8-10.6) k/uL RBC 4.91 (4.30-5.90) m/uL Hgb 14.1 (13.0-17.5) gm/dL Hct 45.9 (39.0-53.0) % Plt Count 180 (150-450) k/uL Comprehensive Metabolic Panel 10/24/19 Range/Units 09:11 Sodium 139 (137-145) mmol/L Potassium 5.3 H (3.5-5.1) mmol/L Chloride 102 (98-107) mmol/L Carbon Dioxide 33 H (22-30) mmol/L BUN 35 H (9-20) mg/dL Creatinine 0.55 L (0.66-1.25) mg/dL Glucose 100 H (74-99) mg/dL Calcium 10.9 H (8.4-10.2) mg/dL AST 56 (17-59) U/L ALT 122 H (4-49) U/L Alkaline Phosphatase 57 (38-126) U/L Total Protein 6.7 (6.3-8.2) g/dL Albumin 4.3 (3.5-5.0) g/dL Current Medications Generic Name Dose Route Start Last Admin Trade Name Freq PRN Reason Stop Dose Admin Albuterol Sulfate 2.5 mg 10/24/19 10:34 10/25/19 02:31 Ventolin Nebulized INHALATION 2.5 mg RT-QID PRN Administration Wheezing Amlodipine Besylate 5 mg 10/25/19 09:00 10/25/19 08:21 Norvasc PO 5 mg DAILY [facility] Administration Aspirin 81 mg 10/25/19 09:00 10/25/19 08:21 Aspirin PO 81 mg DAILY [facility] Administration Atorvastatin Calcium 10 mg 10/25/19 09:00 10/25/19 08:21 Lipitor PO 10 mg DAILY [facility] Administration Famotidine 20 mg 10/25/19 09:00 10/25/19 08:21 Pepcid PO 20 mg DAILY [facility] Administration Ferrous Sulfate 325 mg 10/25/19 09:00 10/25/19 08:21 Feosol PO 325 mg DAILY [facility] Administration Heparin Sodium (Porcine) 5,000 unit 10/24/19 21:00 10/25/19 08:22 Heparin SQ 5,000 unit Q12HR [facility] Administration Sodium Chloride 1,000 mls @ 75 mls/hr 10/24/19 18:00 10/24/19 21:10 Saline 0.9% IV 75 mls/hr .[id number] [facility] Administration Iopamidol 30 ml 10/24/19 10:28 Isovue-300 (For Oral Use) PO 10/25/19 10:[address] Scan Lisinopril 10 mg 10/25/19 09:00 10/25/19 08:22 Zestril PO 10 mg DAILY [facility] Administration Meclizine HCl 25 mg 10/24/19 10:34 Antivert PO TID PRN Vertigo Prednisone 10 mg 10/25/19 09:00 10/25/19 08:21 PO 10 mg DAILY [facility] Administration Intake and Output 10/24/19 10/25/19 10/25/19 22:59 06:59 14:59 Intake Total 423 040 3757 Output Total 650 Balance 100 -350 1230 Intake: Intake, IV Titration 300 650 Amount Sodium Chloride 0.9% 1, 300 650 000 ml @ 75 mls/hr IV . [id number] [facility] Rx#:[id number] Oral 580 Other 100 Output: Urine 650 Other: Voiding Method Toilet Toilet Toilet Urinal Urinal Urinal # Voids 2 10/24/19 09:11 10/24/19 09:11
[2019-10-25 12:35] VITALS: BMI 21.7
--- NOTE | 2019-10-25 14:21 | P.PN ---
Subjective This is a pleasant 84 years old male with past medical history of hypertension, history of heart block status post permanent pacemaker, COPD. Hyperlipidemia. He follow-up with the [facility]. This is the sixth ER visit for the same complaint, he was admitted and discharged from observation units of blood 2 days ago, came back yesterday again for dyspnea because he did not take his medication, he was discharged from the emergency room with recommendation to follow up with pulmonary and cardiology tomorrow, however he came back today w ith similar complaint of dyspnea and cannot take care of himself. His last February. Also he was complaining of from loose bowel movement about 10 times per day but this is been going on for more than a year as per patient, he denies abdominal pain or vomiting. No chest pain. No significant dyspnea. He looks initiated and generally weak. He states that he lost about 30 pounds in 1 month and he lost his appetite. He had a CT of the chest with IV contrast on the last admission which was unremarkable view of the lungs with ascending aortic aneurysm of about 4.1 cm. Vitas looks stable. Labs show an improving leukocytosis of 13.9 K, INR 1.7, multiple hyperkalemia 5.3 creatinine is normal 0.5, lactic acid 2.1 In the emergency room he received 1 L of normal saline is started on 100 mL per hour. Cardiology team were consulted from emergency room. 10/25/2019 Patient is awake however his speech is lacking and he does not give a correct information, he looks forgetful. For example he told me yesterday that he has diarrhea about 10 times per day for about a year and he has loose bowel movement this morning, however her doctor at bedside does not think he has this problem and and when I checked with the staff he didn't have bowel movement since morning. Also patient has difficulty following instructions and taken his education at home, he looks breathing quietly and brieths about 18 breaths per minute with oxygen saturation of 94% on room air. His abdomen looks soft, chest and heart examination were unremarkable. Frit Burner evaluated the patient and cleared him for discharge. Patient states he is losing weight and he never had colonoscopy and EGD recently for many years. CT of the chest and abdomen was unremarkable. He has small cystic lesion in the pancreas that it will follow-up as an outpatient, patient underwent bedside were informed and they agree and patient already has an appointment made for him with GI as an outpatient. GI team also evaluated the patient and cleared him for discharge and recommended outpatient follow-up. It looks to me the patient has memory problem with possible dementia, he needs help with placement, daughter says he has no family around him and he might benefit from rehab for now with possible placement later on. wind up worker in the case. Possible discharge once he found ECF to accept his insurance Review of Systems Review of systems CONSTITUTIONAL: No fever, no chills HEENT: No recent visual problems or hearing problems. Denied any sore throat. CARDIOVASCULAR: No orthopnea, PND, no palpitations, no syncope. PULMONARY: No chest wall tenderness, no hemoptysis. GASTROINTESTINAL: no nausea, no vomiting, no abdominal pain. Normoactive bowel sounds. NEUROLOGICAL: No headaches, no weakness, no numbness. HEMATOLOGICAL: Denies any bleeding or petechiae. GENITOURINARY: Denies any burning micturition, frequency, or urgency. MUSCULOSKELETAL/RHEUMATOLOGICAL: Denies any joint pain, swelling, or any muscle pain. ENDOCRINE: Denies any polyuria or polydipsia. Active Medications Generic Name Dose Route Start Last Admin Trade Name Freq PRN Reason Stop Dose Admin Albuterol Sulfate 2.5 mg 10/24/19 10:34 10/25/19 10:49 Ventolin Nebulized INHALATION 2.5 mg RT-QID PRN Administration Wheezing Amlodipine Besylate 5 mg 10/25/19 09:00 10/25/19 08:21 Norvasc PO 5 mg DAILY [facility] Administration Aspirin 81 mg 10/25/19 09:00 10/25/19 08:21 Aspirin PO 81 mg DAILY [facility] Administration Atorvastatin Calcium 10 mg 10/25/19 09:00 10/25/19 08:21 Lipitor PO 10 mg DAILY [facility] Administration Famotidine 20 mg 10/25/19 09:00 10/25/19 08:21 Pepcid PO 20 mg DAILY [facility] Administration Ferrous Sulfate 325 mg 10/25/19 09:00 10/25/19 08:21 Feosol PO 325 mg DAILY [facility] Administration Heparin Sodium (Porcine) 5,000 unit 10/24/19 21:00 10/25/19 08:22 Heparin SQ 5,000 unit Q12HR [facility] Administration Sodium Chloride 1,000 mls @ 75 mls/hr 10/24/19 18:00 10/25/19 09:30 Saline 0.9% IV 75 mls/hr .[id number] [facility] Administration Lisinopril 10 mg 10/25/19 09:00 10/25/19 08:22 Zestril PO 10 mg DAILY [facility] Administration Meclizine HCl 25 mg 10/24/19 10:34 Antivert PO TID PRN Vertigo Prednisone 10 mg 10/25/19 09:00 10/25/19 08:21 PO 10 mg DAILY [facility]AT Administration Objective - Vital Signs Vital signs: Vital Signs Temp 98.3 F 10/25/19 07:38 Pulse 76 10/25/19 11:01 Resp 18 10/25/19 07:38 BP 157/71 10/25/19 07:38 Pulse Ox 94 L 10/25/19 07:38 Intake & Output 10/24/19 10/25/19 10/25/19 18:59 06:59 18:59 Intake Total 306 492 1453 Output Total 650 Balance 100 -350 1230 Weight 72.575 kg 72.575 kg Intake: Intake, IV Titration 300 650 Amount Sodium Chloride 0.9% 1, 300 650 000 ml @ 75 mls/hr IV . [id number] [facility] Rx#:[id number] Oral 580 Other 100 Output: Urine 650 Other: Voiding Method Toilet Toilet Urinal Urinal # Voids 2 - Exam -GENERAL: Has Memory problem and sometimes keep changing his story and inf ormation, mal-nourished, The patient is alert and oriented x2-3, not in any acute distress. HEENT: Pupils are round and equally reacting to light. EOMI. No scleral icterus. No conjunctival pallor. Normocephalic, atraumatic. No pharyngeal erythema. No thyromegaly. CARDIOVASCULAR: S1 and S2 present. No murmurs, rubs, or gallops. PULMONARY: Chest is clear to auscultation, no wheezing or crackles. ABDOMEN: Soft, nontender, nondistended, normoactive bowel sounds. No palpable organomegaly. MUSCULOSKELETAL: No joint swelling or deformity. EXTREMITIES: No cyanosis, clubbing, or pedal edema. NEUROLOGICAL: Gross neurological examination did not reveal any focal deficits. SKIN: No rashes. no petechiae. - Labs CBC & Chem 7: 10/24/19 09:11 10/24/19 09:11 Assessment and Plan Assessment: Loss of weight, he lost about 30 pounds in 1 month Deconditioning and generalized weakness Memory problem and does not follow commands well, does not take medication, possible dementia 17 mm low-density focus in the uncinate process of the pancreas, with recommendation for outpatient follow-up Recurrent subjective feeling of dyspnea with no strong organic evidence, could be due to his deconditioning and loss of weight, on the top of his dementia COPD with no exacerbation Leukocytosis, due to steroid effect Chronic diarrhea Elevated lactic acid Hypertension Hyperlipidemia History of heart block status post permanent pacemaker. With normal cardiac cath in 2019 Plan: This is a pleasant 84 years old male who presents with recurrent dyspnea, elected COPD causing his significant shortness of breath although he might have mild COPD exacerbation. Cardiology and GI team cleared him for discharge. Patient needs placement or rehab, home health care social worker on the case. Patient will need outpatient follow-up for possible EGD and colonoscopy at the follow-up on his small pancreatic cyst Labs and medication were reviewed.. Continue same treatment. Continue with symptomatic treatment. Resume home medication. Monitor lytes and vitals. DVT and GI prophylaxis. Further recommendations of the clinical course of the patient DVT prophylaxis: Subcutaneous heparin GI Prophylaxis: Pepcid PT/OT: Need ECF for rehab Prognosis is guarded
--- NOTE | 2019-10-25 17:13 | CONS ---
CONSULTATION DATE OF SERVICE: 10/25/2019 REASON FOR CONSULTATION: Abnormal CAT scan showing cystic lesion in the head of the pancreas. HISTORY OF PRESENT ILLNESS: The patient is an 84-year-old pleasant white male admitted to the hospital today with history of hypertension, heart block, status post AICD and pacemaker implantation in the past and hyperlipidemia who came to the emergency room because of persistent shortness of breath. The patient states that he came to the ER 10 times in the last 3 weeks. He was admitted to the hospital for further evaluation. He did have a CT of the abdomen and pelvis done in the emergency room that showed a 1.7 cm cystic lesion in the uncinate process of the pancreas and hence we are consulted for this issue. The patient denies any abdominal pain, reports no nausea, vomiting. No rectal bleeding or melena. No recent weight loss. No prior history of pancreatitis. He denies any alcohol use. PAST MEDICAL HISTORY: Significant for hypertension, hyperlipidemia, heart block, hypercholesteremia, gastroesophageal reflux disease and COPD. MEDICATIONS: Medications at home include tapering doses of prednisone, Zestril, Benadryl, Norvasc, omeprazole, fish oil, meclizine, Mevacor, iron, Pepcid, vitamin D3, calcium, aspirin and albuterol. ALLERGIES: None. SOCIAL HISTORY: No smoking, no alcohol use. FAMILY HISTORY: Unremarkable. REVIEW OF SYSTEMS: CARDIOPULMONARY: He does complain of severe shortness of breath for the last 3 weeks. NEUROLOGY: Unremarkable. PSYCHIATRIC: Unremarkable. ENT/VISION: Unremarkable. CONSTITUTIONAL: No recent weight loss. No fever, chills, night sweats. GI: As mentioned above. HEMATOLOGY: Unremarkable. PHYSICAL EXAMINATION: He appears comfortable. Vital signs are stable. Blood pressure is 176/71, pulse rate 76, temperature 98. HEENT: Examination unremarkable, conjunctivae are pink, sclerae nonicteric, oral cavity no lesions. NECK: No JVD or lymph node enlargement. CHEST: Clear to auscultation. HEART: Regular rate and rhythm. ABDOMEN: Soft. There was very minimal tenderness in the right lower quadrant area. Rest of the abdomen was benign. Bowel sounds are positive. EXTREMITIES: No pedal edema. SKIN: No rashes. NEUROLOGIC: Alert and oriented x3. No focal deficits. LABS: WBC 13.9, hemoglobin 14.1 platelets normal PT/INR is 1.7. AST is 55, ALT is 122, alkaline phosphatase is 57. Plasma lactic acid is 2.1, calcium 10.9, BUN 35, creatinine 0.55. C difficile toxin is negative. IMPRESSION: 1. Abnormal CAT scan showing a 17 mm hypoechoic lesion in the uncinate process of the pancreas, suspicious for pancreatic cyst. Patient with no prior history of acute pancreatitis. Most likely we are dealing with benign cyst, but possibility of a mucinous cystadenoma cannot be excluded. The patient currently asymptomatic. 2. Shortness of breath, being evaluated. 3. Mild elevation of serum transaminases and mild coagulopathy. 4. History of hypertension and hyperlipidemia. RECOMMENDATIONS: I had a lengthy discussion with the patient as well as his son, who was at the bedside in regard to the small symptomatic cystic lesion in the pancreas, this can be further investigated with an MRI of the pancreas on outpatient basis and follow this periodically every 6 months to see for the stability of the lesion. If there is any significant increase in the size of the lesion during outpatient followup, we can consider an EUS of the pancreas. The plan was discussed with the family. They are agreeable to it. He was advised to follow up in the office in 3-4 weeks following discharge from the hospital for further care and management. Thank you for this consultation. MMODL / IJN: [id number] /
[2019-10-26] MEDS: ALBUTEROL NEBULIZED 2.5 MG/3 ML INHALATION PRN ×5 (00:23→20:03)
[2019-10-26 06:23] LABS: Basophils % (A) 0 %; Eosinophils % (A) 1 %; HCT 35.9 % (39.0-53.0); HGB 11.2 gm/dL (13.0-17.5); Lymphocytes # (A) 1.4 k/uL (1.0-4.8); Lymphocytes % (A) 20 %; MCHC 31.1 g/dL (31.0-37.0); MCV 93.1 fL (80.0-100.0); Mean Platelet Volume 8.7; Monocytes # (A) 0.3 k/uL (0-1.0); Monocytes % (A) 5 %; Neutrophils % (A) 73 %; Platelet Count 117 k/uL (150-450); RBC 3.86 m/uL (4.30-5.90); RDW 14.1 % (11.5-15.5); WBC 6.9 k/uL (3.8-10.6)
[2019-10-26 06:25] LABS: INR 1.1 (<1.2); Prothrombin Time 11.7 sec (9.0-12.0)
[2019-10-26 06:50] LABS: Albumin 2.5 g/dL (3.5-5.0); Bilirubin, Delta 0.2 mg/dL (0.0-0.2); Bilirubin,Unconjugated 0.9 mg/dL (0.0-1.1); Total Bilirubin 1.1 mg/dL (0.2-1.3); Total Protein 4.4 g/dL (6.3-8.2)
[2019-10-26] MEDS: ASPIRIN 81 MG PO SCH (08:27)
[2019-10-26] MEDS: amLODIPine 5 MG TAB PO SCH (08:27)
[2019-10-26] MEDS: FAMOTIDINE 20 MG TAB PO SCH (08:27)
[2019-10-26] MEDS: FERROUS SULFATE 325 MG TAB PO SCH (08:28)
[2019-10-26] MEDS: lisinopriL 10 MG TAB PO SCH (08:28)
[2019-10-26] MEDS: HEPARIN SODIUM,PORCINE 5,000 UNIT/ML 1 ML VIAL SQ SCH ×2 (08:28→20:18)
[2019-10-26] MEDS: ATORVASTATIN 10 MG TAB PO SCH (08:28)
[2019-10-26] MEDS: THIAMINE 100 MG TAB PO SCH (08:34)
[2019-10-26 08:49] LABS: Calcium 9.2 mg/dL (8.4-10.2)
[2019-10-26 09:04] LABS: Ionized Calcium 5.6 mg/dL (4.5-5.3)
--- NOTE | 2019-10-26 09:28 | CT ---
EXAMINATION TYPE: CT brain wo con DATE OF EXAM: 10/26/2019 HISTORY: Altered mental status CT DLP: 1106.4 mGycm. Automated Exposure Control for Dose Reduction was Utilized. TECHNIQUE: CT scan of the head is performed without contrast. COMPARISON: 10/06/2019 CT brain FINDINGS: There is no acute intracranial hemorrhage, midline shift, or mass effect identified. Calcifications i n the basal ganglia. Moderate volume loss redemonstrated. The ventricles, sulci, and cisterns are normal in size and configuration. No extra-axial fluid collection. Bones and extracranial soft tissues are intact. The globes are gross ly symmetric. Visualized sinuses and mastoid air cells are clear. IMPRESSION: No acute intracranial hemorrhage, midline shift, or mass effect.
[2019-10-26] MEDS: predniSONE 5 MG TAB PO SCH (09:50)
--- NOTE | 2019-10-26 15:16 | PN ---
PROGRESS NOTE DATE OF DICTATION: 10/26/2019 Patient is an 84-year-old pleasant white male admitted to the hospital with shortness of breath and currently was noted to have a 1.7 cm cystic lesion in the uncinate process of the pancreas. The patient is doing well. He denies any symptoms. [facility]. He still continues to complain of some shortness of breath. PHYSICAL EXAMINATION: He appears comfortable, in no apparent distress. Vital signs are stable, blood pressure 113/61, pulse is 73, temperature 97.3. HEENT: Examination unremarkable, conjunctivae are pink, sclerae nonicteric. Oral cavity, no lesions. NECK: No JVD or lymph node encouragement. CHEST: Clear to auscultation. HEART: Regular rate and rhythm. ABDOMEN: Soft, bowel sounds are positive, no organomegaly. EXTREMITIES: No pedal edema. SKIN: No rashes. NEURO: He is alert and oriented x3. No focal deficits. LABS: From today WBC 6.9, hemoglobin 11.2, platelets normal. Platelets are 117. Rest of the labs are within normal limits. BUN and creatinine are normal. Stool C difficile toxin negative, lactoferrin is positive. IMPRESSION: 1. Asymptomatic 1.7 cm cystic lesion in the uncinate process of the pancreas. Rule out cystic neoplasm. 2. Shortness of breath, being investigated. 3. Diarrhea. Negative Clostridium difficile toxin, but positive lactoferrin. Today diarrhea has significantly improved. RECOMMENDATION: Patient is being discharged to rehab facility today. I suggested that he follow up in the office in a month from now for monitoring of the pancreatic cystic lesion and will consider an MRI of the pancreas in 3-4 months. The plan was discussed with the patient as well as the family and they are agreeable to it. Thank you for this consultation. MMODL / IJN: [id number] /
--- NOTE | 2019-10-26 15:22 | P.EN ---
i did peer to peer evaluation today , and they recommend PT evaluation from today before 5 pm staff informed
[2019-10-26 17:23] LABS: Folate, Serum 3.7 ng/mL
[2019-10-26] MEDS: SODIUM CHLORIDE 0.9% 1,000 ML IV SCH (17:52)
--- NOTE | 2019-10-26 21:03 | P.PN ---
Subjective This is a pleasant 84 years old male with past medical history of hypertension, history of heart block status post permanent pacemaker, COPD. Hyperlipidemia. He follow-up with the [place] [facility]. This is the sixth ER visit for the same complaint, he was admitted and discharged from observation units of blood 2 days ago, came back yesterday again for dyspnea because he did not take his medication, he was discharged from the emergency room with recommendation to follow up with pulmonary and cardiology tomorrow, however he came back today w ith similar complaint of dyspnea and cannot take care of himself. His last February. Also he was complaining of from loose bowel movement about 10 times per day but this is been going on for more than a year as per patient, he denies abdominal pain or vomiting. No chest pain. No significant dyspnea. He looks initiated and generally weak. He states that he lost about 30 pounds in 1 month and he lost his appetite. He had a CT of the chest with IV contrast on the last admission which was unremarkable view of the lungs with ascending aortic aneurysm of about 4.1 cm. Vitas looks stable. Labs show an improving leukocytosis of 13.9 K, INR 1.7, multiple hyperkalemia 5.3 creatinine is normal 0.5, lactic acid 2.1 In the emergency room he received 1 L of normal saline is started on 100 mL per hour. Cardiology team were consulted from emergency room. 10/25/2019 Patient is awake however his speech is lacking and he does not give a correct information, he looks forgetful. For example he told me yesterday that he has diarrhea about 10 times per day for about a year and he has loose bowel movement this morning, however her doctor at bedside does not think he has this problem and and when I checked with the staff he didn't have bowel movement since morning. Also patient has difficulty following instructions and taken his education at home, he looks breathing quietly and brieths about 18 breaths per minute with oxygen saturation of 94% on room air. His abdomen looks soft, chest and heart examination were unremarkable. Defensive Fire Control Systems Operator evaluated the patient and cleared him for discharge. Patient states he is losing weight and he never had colonoscopy and EGD recently for many years. CT of the chest and abdomen was unremarkable. He has small cystic lesion in the pancreas that it will follow-up as an outpatient, patient underwent bedside were informed and they agree and patient already has an appointment made for him with GI as an outpatient. GI team also evaluated the patient and cleared him for discharge and recommended outpatient follow-up. It looks to me the patient has memory problem with possible dementia, he needs help with placement, daughter says he has no family around him and he might benefit from rehab for now with possible placement later on. 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 Possible discharge once he found [facility] to accept his insurance 10/26/19 Patient is awake and alert but he is forgetful, he forgot why he came to the hospital, he is not dyspneic and he denies chest pain. Physical therapy and patient therapy for the patient woke and with no difficulty and he might not qualify for subacute rehab. However patient because of his advanced dementia he might need placement B12 is borderline, and placement is provided. TSH is normal CT of the brain is unremarkable for acute process. Patient will be evaluated for possible placement Objective - Vital Signs Vital signs: Vital Signs Temp 98.0 F 10/26/19 20:07 Pulse 72 10/26/19 20:14 Resp 18 10/26/19 20:07 BP 119/69 10/26/19 20:07 Pulse Ox 96 10/26/19 20:07 Intake & Output 10/26/19 10/26/19 10/27/19 06:59 18:59 06:59 Intake Total 325 Output Total 352 Balance -27 Intake: Oral 225 Other 100 Output: Urine 350 Stool 2 Other: Voiding Method Toilet Toilet Toilet # Voids 2 1 # Bowel Movements 1 - Exam -GENERAL: Has Memory problem and sometimes keep changing his story and information, mal-nourished, The patient is alert and oriented x2-3, not in any acute distress. HEENT: Pupils are round and equally reacting to light. EOMI. No scleral icterus. No conjunctival pallor. Normocephalic, atraumatic. No pharyngeal erythema. No thyromegaly. CARDIOVASCULAR: S1 and S2 present. No murmurs, rubs, or gallops. PULMONARY: Chest is clear to auscultation, no wheezing or crackles. ABDOMEN: Soft, nontender, nondistended, normoactive bowel sounds. No palpable organomegaly. MUSCULOSKELETAL: No joint swelling or deformity. EXTREMITIES: No cyanosis, clubbing, or pedal edema. NEUROLOGICAL: Gross neurological examination did not reveal any focal deficits. SKIN: No rashes. no petechiae. - Labs CBC & Chem 7: 10/26/19 05:37 10/24/19 09:11 Labs: Abnormal Lab Results - Last 24 Hours (Table) 10/25/19 10/26/19 10/26/19 Range/Units 06:20 05:37 05:37 RBC 3.86 L (4.30-5.90) m/uL Hgb 11.2 L (13.0-17.5) gm/dL Hct 35.9 L (39.0-53.0) % Plt Count 117 L (150-450) k/uL Ionized Calcium Cristino (4.5-5.3) mg/dL ALT 103 H (4-49) U/L Total Protein 4.4 L (6.3-8.2) g/dL Albumin 2.5 L (3.5-5.0) g/dL Stool Lactoferrin POSITIVE H (NEGATIVE) 10/26/19 Range/Units 08:26 RBC (4.30-5.90) m/uL Hgb (13.0-17.5) gm/dL Hct (39.0-53.0) % Plt Count (150-450) k/uL Ionized Calcium Cristino 5.6 H (4.5-5.3) mg/dL ALT (4-49) U/L Total Protein (6.3-8.2) g/dL Albumin (3.5-5.0) g/dL Stool Lactoferrin (NEGATIVE) Assessment and Plan Assessment: Loss of weight, he lost about 30 pounds in 1 month Deconditioning and generalized weakness Memory problem and does not follow commands well, does not take medication, possible dementia 17 mm low-density focus in the uncinate process of the pancreas, with recommendation for outpatient follow-up Recurrent subjective feeling of dyspnea with no strong organic evidence, could be due to his deconditioning and loss of weight, on the top of his dementia COPD with no exacerbation Leukocytosis, due to steroid effect Chronic diarrhea Elevated lactic acid Hypertension Hyperlipidemia History of heart block status post permanent pacemaker. With normal cardiac cath in 2019 Plan: This is a pleasant 84 years old male who presents with recurrent dyspnea, elected COPD causing his significant shortness of breath although he might have mild COPD exacerbation. Cardiology and GI team cleared him for discharge. Patient needs placement or rehab, renal social worker on the case. Patient will need outpatient follow-up for possible EGD and colonoscopy at the follow-up on his small pancreatic cyst Labs and medication were reviewed.. Continue same treatment. Continue with symptomatic treatment. Resume home medication. Monitor lytes and vitals. DVT and GI prophylaxis. Further recommendations of the clinical course of the patie nt DVT prophylaxis: Subcutaneous heparin GI Prophylaxis: Pepcid PT/OT: Need ECF for rehab Prognosis is guarded
[2019-10-26] MEDS ORDERED: CYANOCOBALAMIN 1,000 MCG/ML 1 ML VIAL IM ONE (21:15)
[2019-10-27 07:36] LABS: Basophils % (A) 0 %; Eosinophils % (A) 0 %; HCT 36.5 % (39.0-53.0); HGB 11.7 gm/dL (13.0-17.5); Lymphocytes # (A) 0.5 k/uL (1.0-4.8); Lymphocytes % (A) 7 %; MCH 29.8 pg (25.0-35.0); MCHC 31.9 g/dL (31.0-37.0); MCV 93.2 fL (80.0-100.0); Mean Platelet Volume 8.6; Monocytes # (A) 0.2 k/uL (0-1.0); Monocytes % (A) 3 %; Neutrophils # (A) 5.6 k/uL (1.3-7.7); Neutrophils % (A) 88 %; Platelet Count 122 k/uL (150-450); RBC 3.92 m/uL (4.30-5.90); RDW 14.1 % (11.5-15.5); WBC 6.3 k/uL (3.8-10.6)
[2019-10-27 07:52] LABS: Albumin 2.6 g/dL (3.5-5.0); Bilirubin, Delta 0.2 mg/dL (0.0-0.2); Bilirubin,Unconjugated 0.6 mg/dL (0.0-1.1); Total Bilirubin 0.8 mg/dL (0.2-1.3); Total Protein 4.5 g/dL (6.3-8.2)
[2019-10-27] MEDS: ATORVASTATIN 10 MG TAB PO SCH (08:06)
[2019-10-27] MEDS: amLODIPine 5 MG TAB PO SCH (08:06)
[2019-10-27] MEDS: ASPIRIN 81 MG PO SCH (08:07)
[2019-10-27] MEDS: FAMOTIDINE 20 MG TAB PO SCH (08:07)
[2019-10-27] MEDS: FERROUS SULFATE 325 MG TAB PO SCH (08:07)
[2019-10-27] MEDS: lisinopriL 10 MG TAB PO SCH (08:07)
[2019-10-27] MEDS: THIAMINE 100 MG TAB PO SCH (08:07)
[2019-10-27] MEDS: HEPARIN SODIUM,PORCINE 5,000 UNIT/ML 1 ML VIAL SQ SCH (08:08)
[2019-10-27] MEDS: predniSONE 5 MG TAB PO SCH (08:08)
[2019-10-27] MEDS: ALBUTEROL NEBULIZED 2.5 MG/3 ML INHALATION PRN ×2 (08:11→11:18)
[2019-10-27] MEDS ORDERED: CYANOCOBALAMIN 1,000 MCG/ML 1 ML VIAL IM SCH (09:00)
[2019-10-27 09:02] VITALS: BP 184/76; RESP 16; TEMP 98.6
[2019-10-27 11:29] VITALS: PULSE 72
--- NOTE | 2019-10-27 23:55 | P.DS ---
Providers Date of admission: 10/27/19 08:49 Attending physician: Cedric Soto MD Consults: 10/24/19 09:57 Consult Physician Urgent Consulting Provider: [facility] Consult Reason/Comments: Dyspnea Do you want consulting provider notified?: Yes 10/24/19 13:24 Consult Physician Urgent Consulting Provider: Clotilde Miramontes Consult Reason/Comments: chronic diarrhea and weight loss Do you want consulting provider notified?: Yes Primary care physician: [facility] Hospital Course: Diagnoses: Dementia, new diagnosis. Patient went with family care with recommendation for outpatient follow-up with the neurologist Loss of weight, he lost about 30 pounds in 1 month, CT of the abdomen, pelvis and chest were unremarkable for gross abnormality, GI recommended outpatient follow-up for EGD/colonoscopy 17 mm low-density focus in the uncinate process of the pancreas, with recommendation for outpatient follow-up Recurrent subjective feeling of dyspnea with no strong organic evidence, could be due to his deconditioning and loss of weight, on the top of his dementia (cardiology and pulmonary cleared The patient) COPD with no exacerbation Leukocytosis, due to steroid effect. Improvement No Chronic diarrhea, patient reported diarrhea due to memory problem Elevated lactic acid, came back to normal Hypertension Hyperlipidemia History of heart block status post permanent pacemaker. With normal cardiac cath in 2019 Hospital course: This is a pleasant 84 years old male with past medical history of hypertension, history of heart block status post permanent pacemaker, COPD. Hyperlipidemia. He follow-up with the [facility]. This is the sixth ER visit for the same complaint, he keeps coming to the hospital almost every day for the last 3 days complaining of from dyspnea although his breathing quietly, and desaturating 90s in room air. Also he was complaining from diarrhea about 10 times per day although no bowel movement recorded by staff. Patient has been evaluated by m any consultants including GI, pulmonary and cardiology with extensive workup with including CT of the chest, abdomen and pelvis and CT of the head were unremarkable. Patient with memory problem, patient underwent oca 8.1 version with a score of 14/30, with a normal score considered 26 and above.(By speech therapist), most likely patient is with dementia, CT of the brain is negative, TSH, folate are normal. Vitamin B12 level is normal low and his been replaced with 2 injections IM and oral pulse upon discharge. With recommendation for outpatient follow-up with the neurologist On the day of discharge patient has no other complaints, no chest pain or dyspnea. No abdominal pain, no diarrhea. No vomiting and is tolerating diet well Patient was cleared for discharge by all consultants Problems and management plan were discussed with the patient and he verbalized understanding and acceptance. I talked to the son Mr. Donaldson At [id number] and he agrees to take his father under his care for 2-3 weeks, and if he thinks he needs help for placement to [facility] he will talk to his family doctor at the OR clinic. Also I told him about the pancreatic lesion/cyst with recommendation for outpatient follow- up and he agrees with the appointments with Dr. Kulwinder Mabry on 11/19. Also I advised and instructed him to follow-up with urologist for his father dementia and to names of the neurologist provided for him to call and make appointment as today's weekend and he agrees to make the appointments. Also he agrees with cardiology appointment with Dr. Kulwinder Diez on 11/12 Patient was found stable and can be discharged home in guarded prognosis however he needs follow-up as an outpatient. Patient was instructed to follow up with PCP within one week and patient agrees Gen: patient is a AAOx2-3, no distress CVS: S1-S2, RRR, no murmur Lungs: B/L CTA, no wheezing Abdomen: soft, no distention, no tenderness, positive bowel sounds Extremity: no leg edema or induration Time spent more than 35 minutes Plan - Discharge Summary Discharge Rx Participant: No New Discharge Prescriptions: New predniSONE 5 mg PO DAILY #30 tab Thiamine [Vitamin B-1] 100 mg PO DAILY #30 tab Cyanocobalamin [Vitamin B-12] 1,000 mcg PO DAILY #60 tablet Continue Lovastatin [Mevacor] 40 mg PO DAILY Aspirin [Adult Low Dose Aspirin EC] 81 mg PO DAILY Omeprazole 20 mg PO DAILY [place]-3 Fatty Acids/Fish Oil [Fish Oil 1,000 mg Softgel] 1 cap PO DAILY amLODIPine [Norvasc] 10 mg PO DAILY #30 tab lisinopriL [Zestril] 10 mg PO DAILY #30 tab Ferrous Sulfate [Iron] 325 mg PO DAILY Meclizine HCl 25 mg PO TID PRN PRN Reason: Vertigo Fluticasone/Salmeterol [Airduo Respiclick 232-14 Mcg] 1 puff INHALATION RT- BID Famotidine [Pepcid] 20 mg PO DAILY #30 tablet Calcium Carbonate/Vitamin D3 [Calcium 500Mg-Vit D3 15Mcg (600 unit)] 1 tab PO BID Albuterol Inhaler [Ventolin Hfa Inhaler] 2 puff INHALATION RT-QID PRN #1 inh PRN Reason: Wheezing Discontinued Cholecalciferol [Vitamin D3 (25 Mcg = 1000 Iu)] 1,000 unit PO DAILY predniSONE See Taper PO DAILY diphenhydrAMINE HCL [Benadryl] 12.5 mg PO HS PRN 2 Days #1 tab PRN Reason: Insomnia Discharge Medication List Aspirin [Adult Low Dose Aspirin EC] 81 mg PO DAILY 02/04/16 [History] Lovastatin [Mevacor] 40 mg PO DAILY 02/04/16 [History] [place]-3 Fatty Acids/Fish Oil [Fish Oil 1,000 mg Softgel] 1 cap PO DAILY 02/04/16 [History] Omeprazole 20 mg PO DAILY 02/04/16 [History] amLODIPine [Norvasc] 10 mg PO DAILY #30 tab 09/18/18 [Rx] lisinopriL [Zestril] 10 mg PO DAILY #30 tab 09/18/18 [Rx] Ferrous Sulfate [Iron] 325 mg PO DAILY 10/06/19 [History] Meclizine HCl 25 mg PO TID PRN 10/06/19 [History] Fluticasone/Salmeterol [Airduo Respiclick 232-14 Mcg] 1 puff INHALATION RT-BID 10/21/19 [History] Famotidine [Pepcid] 20 mg PO DAILY #30 tablet 10/22/19 [Rx] Calcium Carbonate/Vitamin D3 [Calcium 500Mg-Vit D3 15Mcg (600 unit)] 1 tab PO BID 10/23/19 [History] Albuterol Inhaler [Ventolin Hfa Inhaler] 2 puff INHALATION RT-QID PRN #1 inh 10/27/19 [Rx] Cyanocobalamin [Vitamin B-12] 1,000 mcg PO DAILY #60 tablet 10/27/19 [Rx] Thiamine [Vitamin B-1] 100 mg PO DAILY #30 tab 10/27/19 [Rx] predniSONE 5 mg PO DAILY #30 tab 10/27/19 [Rx] Follow up Appointment(s)/Referral(s): Clotilde Miramontes MD [STAFF PHYSICIAN] - 11/20/19 1:00 pm (Please arrive 20-30 minutes early for paperwork.) Ghada Ceballos MD [REFERRING] - 2 Weeks (neurologist for dementia) Toni Woo DO [STAFF PHYSICIAN] - 2 Weeks (neurologist for dementia) Rg Miramontes MD [STAFF PHYSICIAN] - 11/13/19 11:00 am [facility],Clinic [Primary Care Provider] - 1-2 days Activity/Diet/Wound Care/Special Instructions: heart healthy diet activity is limited till you see your doctor we recommend no driving as it is risky for self and others Please make follow up appointments with physicians. Offices are currently closed. Discharge Disposition: HOME WITH HOME HEALTH SERVICES
== END 2019-10-27 15:33 | disposition home health service (06) | DRG 884 ==
LOC: EC 08:52 → 1SOBS 09:59 → OBSVTOIN 10-27 08:49
PROVIDERS: ADMIT Internal Medicine; ATTEND Internal Medicine
DX: F03.90 Unspecified dementia, unspecified severity, without behavioral disturbance, psychotic disturbance, mood disturbance, and anxiety (principal); E87.2 Acidosis; D68.9 Coagulation defect, unspecified; K86.2 Cyst of pancreas; R64 Cachexia; J44.9 Chronic obstructive pulmonary disease, unspecified; M19.90 Unspecified osteoarthritis, unspecified site; E78.5 Hyperlipidemia, unspecified; E78.00 Pure hypercholesterolemia, unspecified; I10 Essential (primary) hypertension; Z20.828 Contact with and (suspected) exposure to other viral communicable diseases; I44.30 Unspecified atrioventricular block; I45.10 Unspecified right bundle-branch block; T38.0X5A Adverse effect of glucocorticoids and synthetic analogues, initial encounter; D72.829 Elevated white blood cell count, unspecified; E87.5 Hyperkalemia; F17.200 Nicotine dependence, unspecified, uncomplicated; I71.2 Thoracic aortic aneurysm, without rupture; Z68.21 Body mass index [BMI] 21.0-21.9, adult; Z86.010 Personal history of colon polyps; Z79.82 Long term (current) use of aspirin; Z79.899 Other long term (current) drug therapy; Z87.442 Personal history of urinary calculi; I25.2 Old myocardial infarction; Z90.49 Acquired absence of other specified parts of digestive tract; Z98.890 Other specified postprocedural states; Z80.9 Family history of malignant neoplasm, unspecified; Z87.81 Personal history of (healed) traumatic fracture; Z87.01 Personal history of pneumonia (recurrent); Z87.440 Personal history of urinary (tract) infections; Z95.810 Presence of automatic (implantable) cardiac defibrillator
CPT/HCPCS: 36415; 70450; 71046; 74177; 80053; 80076; 82140; 82310; 82330; 82607; 82746; 83605; 83630; 83735; 83880; 84443; 84484; 85025; 85610; 85730; 87045; 87046; 87324; 93005; 93306; 94640; 96361; 96374; 99285

== ENCOUNTER 2019-12-06 17:17 | Inpatient (IN) | payer OTHER, MEDICARE ==
[~2019-12-06 17:17] MED LIST: ETOMIDATE 2 MG/ML 10 ML VIAL ONE; MIDAZOLAM 1 MG/ML 5 ML VIAL ONE; ROCURONIUM 10 MG/ML (10 ML VIAL) IV ONE
[2019-12-06] MEDS ORDERED: SODIUM CHLORIDE 0.9% 500 ML 500 ML IV ONE (17:28)
[2019-12-06] MEDS ORDERED: SODIUM CHLORIDE 0.9% 1,000 ML IV STA (17:28)
[2019-12-06] MEDS ORDERED: IPRATROPIUM-ALBUTEROL 3 ML NEB INHALATION STA (17:29)
[2019-12-06] MEDS ORDERED: ALBUTEROL NEBULIZED 2.5 MG/3 ML INHALATION STA (17:29)
[2019-12-06 17:42] LABS: VBG PH 7.35 (7.31-7.41)
--- NOTE | 2019-12-06 17:42 | ED ---
General Adult HPI - General Chief complaint: Altered Mental Status Stated complaint: Change in mental status Time Seen by Provider: 12/06/19 17:24 Source: patient, EMS, RN notes reviewed, old records reviewed Mode of arrival: EMS Limitations: altered mental status, physical limitation - History of Present Illness Initial comments: 84-year-old presenting with altered level of consciousness. "EMS patient had been less responsive today, but sleeping a lot. He has history of COPD and was found to be hypoxic and was placed on supplemental oxygen. According to the patient's son he had been dealing with UTI. No history is able to be obtained from the patient. From EMS this was reported throughout the day today, uncertain of the exact onset. There was no reported focal numbness or weakness. No fever. No vomiting reported. - Related Data Home Medications Medication Instructions Recorded Confirmed Aspirin [Adult Low Dose Aspirin EC] 81 mg PO DAILY 02/04/16 10/24/19 Lovastatin [Mevacor] 40 mg PO DAILY 02/04/16 10/24/19 [place]-3 Fatty Acids/Fish Oil [Fish 1 cap PO DAILY 02/04/16 10/24/19 Oil 1,000 mg Softgel] Omeprazole 20 mg PO DAILY 02/04/16 10/24/19 Ferrous Sulfate [Iron] 325 mg PO DAILY 10/06/19 10/24/19 Meclizine HCl 25 mg PO TID PRN 10/06/19 10/24/19 Fluticasone/Salmeterol [Airduo 1 puff INHALATION RT-BID 10/21/19 10/24/19 Respiclick 232-14 Mcg] Calcium Carbonate/Vitamin D3 1 tab PO BID 10/23/19 10/24/19 [Calcium 500Mg-Vit D3 15Mcg (600 unit)] Previous Rx's Medication Instructions Recorded amLODIPine [Norvasc] 10 mg PO DAILY #30 tab 09/18/18 lisinopriL [Zestril] 10 mg PO DAILY #30 tab 09/18/18 Famotidine [Pepcid] 20 mg PO DAILY #30 tablet 10/22/19 Albuterol Inhaler [Ventolin Hfa 2 puff INHALATION RT-QID PRN #1 inh 10/27/19 Inhaler] Cyanocobalamin [Vitamin B-12] 1,000 mcg PO DAILY #60 tablet 10/27/19 Thiamine [Vitamin B-1] 100 mg PO DAILY #30 tab 10/27/19 predniSONE 5 mg PO DAILY #30 tab 10/27/19 Allergies Allergy/AdvReac Type Severity Reaction Status Date / Time No Known Allergies Allergy Verified 10/24/19 10:10 Review of Systems ROS Statement: Those systems with pertinent positive or pertinent negative responses have been documented in the HPI. ROS Other: All systems not noted in ROS Statement are negative. Past Medical History Past Medical History: COPD, GERD/Reflux, GI Bleed, Hyperlipidemia, Hypertension, Osteoarthritis (OA), Pneumonia Additional Past Medical History / Comment(s): Pt recently admitted to [facility] on 10/21/19 with exacerbation COPD/tracheobronchitis/elevated lactic acid. Other hx: Lower GI bleed, benign colon polyps, hemorrhoids, diverticular disease, constipation, arhtritis in hands/wrists/ankles, occasional back pain/fractured back twice, nephrolithiasis/sepsis, UTI, anemia, pacer d/t high AV node block Last Myocardial Infarction Date:: 2018 History of Any Multi-Drug Resistant Organisms: None Reported Past Surgical History: Back Surgery, Cholecystectomy, Orthopedic Surgery, Pacemaker Additional Past Surgical History / Comment(s): Lumbar laminectomy, EGD, colonoscopies/benign polypectomies, L shoulder arthroscopy. Past Anesthesia/Blood Transfusion Reactions: No Reported Reaction Type of Cardiac Device: Permanent Pacemaker Device Placement Date:: 11/15/18 Past Psychological History: No Psychological Hx Reported Smoking Status: Former smoker - Past Family History Mother Family Medical History: Cancer Additional Family Medical History / Comment(s): Mother from some form of cancer at the age of 78yrs. Father History Unknown: Yes Additional Family Medical History / Comment(s): Father left when pt was 7 yrs old. General Exam Limitations: altered mental status, physical limitation General appearance: in no apparent distress, lethargic Head exam: Present: atraumatic, normocephalic Eye exam: Present: normal appearance, PERRL ENT exam: Present: normal exam Neck exam: Present: normal inspection. Absent: tenderness, meningismus Respiratory exam: Present: respiratory distress, wheezes, decreased breath sounds Cardiovascular Exam: Present: normal rhythm, tachycardia GI/Abdominal exam: Present: soft. Absent: distended, tenderness, guarding, rebound Extremities exam: Present: normal inspection, normal capillary refill. Absent: pedal edema Neurological exam: Present: other (Patient is able to follow simple commands, unable to contribute significantly to the history). Absent: motor sensory deficit Skin exam: Present: warm, dry, intact Course Vital Signs 12/06/19 12/06/19 12/06/19 17:20 17:29 18:45 Temperature 98.5 F Pulse Rate 109 H 100 Respiratory 18 Rate Blood Pressure 107/70 O2 Sat by Pulse 93 L 96 Oximetry 12/06/19 12/06/19 19:13 20:03 Temperature Pulse Rate 100 115 H Respiratory 22 Rate Blood Pressure 116/78 O2 Sat by Pulse 100 Oximetry EKG Findings - EKG Comments: EKG Findings:: EKG: Sinus tachycardia, right bundle branch block, left anterior fascicular block, rate of 103, SC interval 194, QRS duration 112, QTC 458, very poor baseline secondary to tremor artifact. No ST segment elevation appreciated Medical Decision Making - Medical Decision Making 84-year-old male presenting with confusion over the past 24 hours. Workup is initiated, patient has chest x-ray which is negative for focal pneumonia. CT negative for intracranial hemorrhage or mass effect. He has a CO2 of 69 and is hypercapnic which may be contributing to his encephalopathy. Patient has a normal CBC, normal electrolytes. Started on IV hydration, albuterol Atrovent and IV steroids for COPD and CO2 retention. - Lab Data Result diagrams: 12/06/19 17:32 12/06/19 17:32 Lab Results 12/06/19 12/06/19 12/06/19 Range/Units 17:32 17:32 17:32 WBC 9.3 (3.8-10.6) k/uL RBC 4.88 (4.30-5.90) m/uL Hgb 15.1 D (13.0-17.5) gm/dL Hct 47.8 (39.0-53.0) % MCV 98.0 (80.0-100.0) fL MCH 31.0 (25.0-35.0) pg MCHC 31.6 (31.0-37.0) g/dL RDW 14.8 (11.5-15.5) % Plt Count 194 D (150-450) k/uL Neutrophils % 85 % Lymphocytes % 8 % Monocytes % 4 % Eosinophils % 1 % Basophils % 1 % Neutrophils # 7.9 H (1.3-7.7) k/uL Lymphocytes # 0.8 L (1.0-4.8) k/uL Monocytes # 0.4 (0-1.0) k/uL Eosinophils # 0.1 (0-0.7) k/uL Basophils # 0.1 (0-0.2) k/uL Hypochromasia Moderate PT 10.8 (9.0-12.0) sec INR 1.0 (<1.2) APTT 23.2 (22.0-30.0) sec VBG pH (7.31-7.41) VBG pCO2 (37-51) mmHg VBG HCO3 (24-28) mmol/L Sodium 143 (137-145) mmol/L Potassium 4.4 (3.5-5.1) mmol/L Chloride 100 (98-107) mmol/L Carbon Dioxide 38 H (22-30) mmol/L Anion Gap 5 mmol/L BUN 28 H (9-20) mg/dL Creatinine 0.70 (0.66-1.25) mg/dL Est GFR (CKD-EPI)AfAm >90 (>60 ml/min/1.73 sqM) Est GFR (CKD-EPI)NonAf 88 (>60 ml/min/1.73 sqM) Glucose 104 H (74-99) mg/dL Plasma Lactic Acid Billy (0.7-2.0) mmol/L Calcium 10.1 (8.4-10.2) mg/dL Magnesium 2.0 (1.6-2.3) mg/dL Total Bilirubin 0.9 (0.2-1.3) mg/dL AST 24 (17-59) U/L ALT 13 (4-49) U/L Alkaline Phosphatase 63 (38-126) U/L Total Protein 5.7 L (6.3-8.2) g/dL Albumin 3.4 L (3.5-5.0) g/dL 12/06/19 12/06/19 Range/Units 17:32 17:32 WBC (3.8-10.6) k/uL RBC (4.30-5.90) m/uL Hgb (13.0-17.5) gm/dL Hct (39.0-53.0) % MCV (80.0-100.0) fL MCH (25.0-35.0) pg MCHC (31.0-37.0) g/dL RDW (11.5-15.5) % Plt Count (150-450) k/uL Neutrophils % % Lymphocytes % % Monocytes % % Eosinophils % % Basophils % % Neutrophils # (1.3-7.7) k/uL Lymphocytes # (1.0-4.8) k/uL Monocytes # (0-1.0) k/uL Eosinophils # (0-0.7) k/uL Basophils # (0-0.2) k/uL Hypochromasia PT (9.0-12.0) sec INR (<1.2) APTT (22.0-30.0) sec VBG pH 7.35 (7.31-7.41) VBG pCO2 69 H (37-51) mmHg VBG HCO3 37 H (24-28) mmol/L Sodium (137-145) mmol/L Potassium (3.5-5.1) mmol/L Chloride (98-107) mmol/L Carbon Dioxide (22-30) mmol/L Anion Gap mmol/L BUN (9-20) mg/dL Creatinine (0.66-1.25) mg/dL Est GFR (CKD-EPI)AfAm (>60 ml/min/1.73 sqM) Est GFR (CKD-EPI)NonAf (>60 ml/min/1.73 sqM) Glucose (74-99) mg/dL Plasma Lactic Acid Billy 1.7 (0.7-2.0) mmol/L Calcium (8.4-10.2) mg/dL Magnesium (1.6-2.3) mg/dL Total Bilirubin (0.2-1.3) mg/dL AST (17-59) U/L ALT (4-49) U/L Alkaline Phosphatase (38-126) U/L Total Protein (6.3-8.2) g/dL Albumin (3.5-5.0) g/dL Disposition Clinical Impression: Dehydration, COPD (chronic obstructive pulmonary disease) Disposition: ADMITTED IP TO THIS HOSP Condition: Stable Is patient prescribed a controlled substance at d/c from ED?: No Referrals: [facility] [Primary Care Provider] - 1-2 days Decision to Admit Reason: Admit from EC Decision Date: 12/06/19 Decision Time: 20:14
[2019-12-06 17:43] LABS: Basophils # (A) 0.1 k/uL (0-0.2); Basophils % (A) 1 %; Eosinophils # (A) 0.1 k/uL (0-0.7); Eosinophils % (A) 1 %; HCT 47.8 % (39.0-53.0); Hypochromasia Moderate; Lymphocytes # (A) 0.8 k/uL (1.0-4.8); Lymphocytes % (A) 8 %; MCHC 31.6 g/dL (31.0-37.0); Mean Platelet Volume 8.6; Monocytes # (A) 0.4 k/uL (0-1.0); Monocytes % (A) 4 %; Neutrophils # (A) 7.9 k/uL (1.3-7.7); Neutrophils % (A) 85 %; RBC 4.88 m/uL (4.30-5.90); RDW 14.8 % (11.5-15.5); WBC 9.3 k/uL (3.8-10.6)
[2019-12-06 17:52] LABS: ALT 13 U/L (4-49); AST 24 U/L (17-59); African American GFR (CKD) >90 (>60 ml/min/1.73 sqM); Albumin 3.4 g/dL (3.5-5.0); Alkaline Phosphatase 63 U/L (38-126); Blood Urea Nitrogen 28 mg/dL (9-20); Calcium 10.1 mg/dL (8.4-10.2); Chloride 100 mmol/L (98-107); Glucose 104 mg/dL (74-99); Non-African American GFR(CKD) 88 (>60 ml/min/1.73 sqM); Potassium 4.4 mmol/L (3.5-5.1); Sodium 143 mmol/L (137-145); Total Bilirubin 0.9 mg/dL (0.2-1.3); Total Protein 5.7 g/dL (6.3-8.2)
[2019-12-06 18:00] LABS: Anion Gap 5 mmol/L; Carbon Dioxide 38 mmol/L (22-30); Partial Thromboplastin Time 23.2 sec (22.0-30.0); Prothrombin Time 10.8 sec (9.0-12.0)
[2019-12-06 18:04] LABS: HGB 15.1 gm/dL (13.0-17.5); Platelet Count 194 k/uL (150-450)
--- NOTE | 2019-12-06 18:32 | CT ---
EXAMINATION TYPE: CT brain wo con DATE OF EXAM: 12/06/2019 COMPARISON: 10/26/2019 HISTORY: Altered mental status. CT DLP: 1137.4 mGycm Automated exposure control for dose reduction was used. There is cerebral atrophy. There is no mass effect nor midline shift. There is no sign of intracrania l hemorrhage. The calvarium is intact. IMPRESSION: Cerebral atrophy. No acute intracranial abnormality. No change compared to old exam.
--- NOTE | 2019-12-06 18:34 | XR ---
EXAMINATION TYPE: XR chest 2V DATE OF EXAM: 12/06/2019 COMPARISON: October 24, 2019 HISTORY: Altered mental status TECHNIQUE: FINDINGS: Heart is normal. There is no heart failure. Lungs are clear of consolidation. There is left axillary pacemaker. The bony thorax is intact. IMPRESSION: No active cardiopulmonary disease. Normal heart. No change.
[2019-12-06] MEDS ORDERED: IPRATROPIUM-ALBUTEROL 3 ML NEB INHALATION PRN (19:54)
[2019-12-06] MEDS: IPRATROPIUM-ALBUTEROL 3 ML NEB INHALATION SCH (20:28)
[2019-12-06 20:32] LABS: Appearance,Urine Clear (Clear); Bilirubin,Urine Negative (Negative); Blood,Urine Negative (Negative); Color,Urine Yellow; Glucose,Urine (UA) Negative (Negative); Ketones,Urine 1+ (Negative); Leukocyte Esterase,Urine Negative (Negative); Nitrite,Urine Negative (Negative); Protein,Urine Trace (Negative); Specific Gravity,Urine 1.019 (1.001-1.035); Urobilinogen,Urine <2.0 mg/dL (<2.0)
[2019-12-06] MEDS: methylPREDNISolone SOD SUCCI 125 MG/2 ML VIAL IV SCH (20:32)
[2019-12-07] MEDS: methylPREDNISolone SOD SUCCI 125 MG/2 ML VIAL IV SCH ×2 (00:36→06:11)
[2019-12-07 04:18] LABS: Glucose,Whole Blood 100 mg/dL (75-99)
[2019-12-07 04:44] LABS: ABG Base Excess 8.4 mmol/L; ABG HCO3 38 mmol/L (21-25); ABG Oxygen Saturation 99.3 % (94-97); ABG PO2 157 mmHg (83-108); ABG TCO2 41 mmol/L (19-24); Allen Test Performed? Yes
[2019-12-07] MEDS ORDERED: propofoL 100 ML IV ONE (05:07)
[2019-12-07] MEDS ORDERED: NALOXONE 0.4 MG/ML 1 ML VIAL IV PRN (05:28)
[2019-12-07] MEDS: NOREPINEPHRINE 4 MG in SODIUM CHLORIDE 0.9% 250 ML IV SCH ×2 (05:31→23:53)
[2019-12-07] MEDS ORDERED: NOREPINEPHRIN 4 MG-0.9% NS PMX 4 MG/250 ML ML IV ONE (05:32)
--- NOTE | 2019-12-07 05:39 | XR ---
EXAM: XR Chest, 1 View CLINICAL HISTORY: ITS.REASON XR Reason: sob TECHNIQUE: Frontal view of the chest. COMPARISON: 12/07/19 exam. FINDINGS: Lungs: Unremarkable. No consolidation. Pleural space: Unremarkable. No pneumothorax. Heart: Left sided AICD/pacer with intact wires. No cardiomegaly. Mediastinum: Unremarkable. Bones/joints: Degenerative changes of the acromioclavicular joints and spine. IMPRESSION: No acute disease.
[2019-12-07 06:00] LABS: Glucose,Whole Blood 106 mg/dL (75-99)
[2019-12-07 06:03] LABS: ABG Base Excess 8.1 mmol/L; ABG HCO3 32 mmol/L (21-25); ABG PCO2 45 mmHg (35-45); ABG PH 7.46 (7.35-7.45); ABG PO2 383 mmHg (83-108); ABG TCO2 33 mmol/L (19-24)
--- NOTE | 2019-12-07 06:05 | XR ---
EXAM: XR Chest, 1 View CLINICAL HISTORY: ITS.REASON XR Reason: intubation TECHNIQUE: Frontal view of the chest. COMPARISON: 0437 hrs. FINDINGS: Lungs: Subsegmental changes in the infrahilar regions are similar and may represent confluence of vascular structures or subtle streaky subsegmental atelectasis. No lobar consolidation. The lungs are otherwise clear. The pulmonary vasculature demonstrates no significant alteration or evidence for florid CHF. Pleural space: Unremarkable. No pneumothorax. No large pleural effusion. Heart: Unremarkable. No cardiomegaly. Mediastinum: No significant abnormality identified. The trachea is midline. Bones/joints: Unremarkable. Tubes, lines and devices: There is been interval intubation with the endotracheal tube noted immediately below the thoracic inlet, with the tip approximately 5.7 cm from the alexus. The nasogastric tube traverses the mediastinum and appears to extend in the superior abdomen. The tip is not identified on this exam. Left subclavian pacer leads identified. IMPRESSION: 1. There is been interval intubation with the endotracheal tube noted immediately below the thoracic inlet, with the tip approximately 5.7 cm from the alexus. 2. Subsegmental changes in the infrahilar regions are similar and may represent confluence of vascular structures or subtle streaky subsegmental atelectasis. No lobar consolidation.
[2019-12-07 06:43] LABS: Amorphous Sediment,Urine Rare /hpf; Appearance,Urine Cloudy (Clear); Bacteria,Urine Few /hpf; Bilirubin,Urine Negative (Negative); Blood,Urine Large (Negative); Color,Urine Yellow; Glucose,Urine (UA) Negative (Negative); Hyaline Casts,Urine 103 /lpf (0-2); Ketones,Urine 1+ (Negative); Leukocyte Esterase,Urine Small (Negative); Mucus,Urine Few /hpf; Nitrite,Urine Negative (Negative); Protein,Urine Trace (Negative); RBC,Urine 126 /hpf (0-5); Specific Gravity,Urine 1.015 (1.001-1.035); Squamous Epithelial Cell,Urine 1 /hpf (0-4); Urobilinogen,Urine <2.0 mg/dL (<2.0); WBC,Urine 16 /hpf (0-5)
[2019-12-07 08:29] LABS: Basophils % (A) 0 %; Eosinophils % (A) 0 %; HCT 37.2 % (39.0-53.0); Hypochromasia Marked; Lymphocytes # (A) 0.3 k/uL (1.0-4.8); Lymphocytes % (A) 4 %; MCH 30.4 pg (25.0-35.0); MCHC 30.2 g/dL (31.0-37.0); MCV 100.7 fL (80.0-100.0); Macrocytosis Slight; Mean Platelet Volume 8.9; Monocytes # (A) 0.1 k/uL (0-1.0); Monocytes % (A) 1 %; Neutrophils # (A) 6.9 k/uL (1.3-7.7); Neutrophils % (A) 94 %; Platelet Count 201 k/uL (150-450); RBC 3.69 m/uL (4.30-5.90); RDW 14.8 % (11.5-15.5); WBC 7.3 k/uL (3.8-10.6)
[2019-12-07] MEDS: IPRATROPIUM-ALBUTEROL 3 ML NEB INHALATION SCH ×4 (08:33→19:13)
[2019-12-07 08:37] LABS: African American GFR (CKD) >90 (>60 ml/min/1.73 sqM); Anion Gap 5 mmol/L; Blood Urea Nitrogen 23 mg/dL (9-20); Calcium 7.5 mg/dL (8.4-10.2); Carbon Dioxide 27 mmol/L (22-30); Chloride 113 mmol/L (98-107); Glucose 115 mg/dL (74-99); Non-African American GFR(CKD) >90 (>60 ml/min/1.73 sqM); Sodium 145 mmol/L (137-145)
[2019-12-07 08:46] LABS: HGB 11.2 gm/dL (13.0-17.5)
[2019-12-07 08:53] LABS: Potassium 4.1 mmol/L (3.5-5.1)
[2019-12-07] MEDS ORDERED: CHLORHEXIDINE GLUCONATE 15 ML CUP MUCOUS MEM SCH (09:00)
[2019-12-07] MEDS: PANTOPRAZOLE 40 MG/10 ML VIAL IV SCH (09:40)
--- NOTE | 2019-12-07 13:47 | P.CNPUL ---
History of Present Illness Consult date: 12/07/19 Reason for consult: COPD, other (Acute hypercapnic respiratory failure) Chief complaint: Altered mental status History of present illness: This is an 84-year-old white male with history of multiple medical problems including COPD, high degree AV block, previous pacemaker implantation, history of degenerative joint disease, patient was brought into the ER yesterday with a chief complaint of becoming less and less responsive throughout the day. Patient was noted to be sleepy and upon evaluation in the ER, patient was noted to have relatively low O2 saturation, venous ABG showed pCO2 of 69 with a pH of 7.35. I was not notified about this patient upon admission, however the patient was admitted to a monitor bed on the cardiac floor, and shortly after he was admitted, patient continued to have worsening mental status with less and less responsiveness. I was called about this patient during tar distillation supervisor hours when the rapid response team was asked to see the patient and he was noted to be hypercapnic with a pCO2 of 112 pH of 7.13 and the patient was not responding to any stimuli except deep painful stimuli. Patient was not arousable. He was on 32% FiO2 at the time. His pO2 was 157. Hence I recommended immediate intubation. And the transferred to the ICU. ABG post intubation showed a pO2 of 383 pCO2 of 45 pH of 7.46. This was on the percent FiO2. Chest x-ray showed no active disease. Brain CT done in the ER upon presentation was negative. Patient was noted to have possible urinary tract infection and he was placed on Rocephin. During my evaluation in the ICU, patient was noted on assist control of 20 tidal volume is 450 FiO2 50%. and PEEP was 5. Patient was awakened, I have discontinued his propofol, he was initially placed on norepinephrine overnight for a very brief. At this time which was related to hypotension post intubation, and this morning he is off norepinephrine. Again the patient was awakened, and after few hours off the prevent, patient was given a short trial o f pressure support of 8 and CPAP, and I have recommended extubating the patient to BiPAP with IPAP of 14, EPAP of 4, and FiO2 of 28%. Patient seems to have tolerated the extubation well. And I plan to keep him on BiPAP for now, patient will be given bronchodilators for his underlying COPD. Review of Systems ROS unobtainable: due to endotracheal tube Past Medical History Past Medical History: COPD, Dementia, GERD/Reflux, GI Bleed, Hyperlipidemia, Hypertension, Myocardial Infarction ([place]), Osteoarthritis (OA), Pneumonia Additional Past Medical History / Comment(s): Pt recently admitted to [facility] on 10/21/19 with exacerbation COPD/tracheobronchitis/elevated lactic acid. Other hx: Lower GI bleed, benign colon polyps, hemorrhoids, diverticular disease, constipation, arhtritis in hands/wrists/ankles, occasional back pain/fractured back twice, nephrolithiasis/sepsis, UTI, anemia, pacer d/t high AV node block, early onset dementia Last Myocardial Infarction Date:: 2018 History of Any Multi-Drug Resistant Organisms: None Reported Past Surgical History: Back Surgery, Cholecystectomy, Orthopedic Surgery, Pacema ker Additional Past Surgical History / Comment(s): Lumbar laminectomy, EGD, colonoscopies/benign polypectomies, L shoulder arthroscopy. Past Anesthesia/Blood Transfusion Reactions: No Reported Reaction Type of Cardiac Device: Permanent Pacemaker Device Placement Date:: 11/15/18 Past Psychological History: No Psychological Hx Reported Additional Psychological History / Comment(s): Pt's spouse in February 2019. Lives with son and daughter in law He uses a cane, no longer drives Smoking Status: Former smoker Past Alcohol Use History: None Reported Additional Past Alcohol Use History / Comment(s): Pt started smoking pipe while in the [place]. He then stopped smoking pipe and started chewing tobacco in 1954. A tin will last 2 days. Pt states he was probably an alcoholic in the past but quit drinking 30 years ago. Past Drug Use History: None Reported - Past Family History Mother Family Medical History: Cancer Additional Family Medical History / Comment(s): Mother from some form of cancer at the age of 78yrs. Father History Unknown: Yes Additional Family Medical History / Comment(s): Father left when pt was 7 yrs old. Medications and Allergies Home Medications Medication Instructions Recorded Confirmed Type Aspirin [Adult Low Dose Aspirin EC] 81 mg PO DAILY 02/04/16 12/06/19 History Lovastatin [Mevacor] 40 mg PO DAILY 02/04/16 12/06/19 History [place]-3 Fatty Acids/Fish Oil [Fish 1 cap PO DAILY 02/04/16 12/06/19 History Oil 1,000 mg Softgel] Omeprazole 20 mg PO DAILY 02/04/16 12/06/19 History amLODIPine [Norvasc] 10 mg PO DAILY #30 tab 09/18/18 12/06/19 Rx lisinopriL [Zestril] 10 mg PO DAILY #30 tab 09/18/18 12/06/19 Rx Ferrous Sulfate [Iron] 325 mg PO DAILY 10/06/19 12/06/19 History Fluticasone/Salmeterol [Airduo 1 puff INHALATION RT-BID 10/21/19 12/06/19 History Respiclick 232-14 Mcg] Calcium Carbonate/Vitamin D3 1 tab PO BID 10/23/19 12/06/19 History [Calcium 500Mg-Vit D3 15Mcg (600 unit)] Albuterol Inhaler [Ventolin Hfa 2 puff INHALATION RT-QID PRN #1 inh 10/27/19 12/06/19 Rx Inhaler] Cyanocobalamin [Vitamin B-12] 1,000 mcg PO DAILY #60 tablet 10/27/19 12/06/19 Rx Thiamine [Vitamin B-1] 100 mg PO DAILY #30 tab 10/27/19 12/06/19 Rx Albuterol Nebulized [Ventolin 3 ml INHALATION RT-Q4H PRN 12/06/19 12/06/19 History Nebulized] Metoprolol Succinate [Toprol XL] 25 mg PO DAILY 12/06/19 12/06/19 History Allergies Allergy/AdvReac Type Severity Reaction Status Date / Time No Known Allergies Allergy Verified 12/06/19 20:44 Physical Exam Vitals: Vital Signs Temp Pulse Pulse Resp BP BP BP 12/07/19 12:00 99.7 F H 99 16 93/54 12/07/19 11:38 111 H 12/07/19 11:30 98 13 115/54 12/07/19 11:19 101 H 12/07/19 11:00 103 H 28 H 93/73 12/07/19 10:30 106 H 15 105/58 12/07/19 10:00 100 24 130/111 12/07/19 09:45 101 H 23 97/78 12/07/19 09:30 93 20 111/97 12/07/19 09:15 87 20 99/51 12/07/19 09:00 86 21 95/51 12/07/19 08:45 89 22 104/52 12/07/19 08:34 93 12/07/19 08:30 89 20 98/45 12/07/19 08:25 89 12/07/19 08:15 98 20 98/45 12/07/19 08:00 99.7 F H 98 20 114/62 12/07/19 07:45 101 H 22 73/40 12/07/19 07:30 101 H 20 113/57 12/07/19 07:00 103 H 27 H 100/86 12/07/19 06:30 102 H 20 101/78 12/07/19 06:00 98 20 111/58 12/07/19 05:30 98.4 F 115 H 20 12/07/19 04:21 97.9 F 104 H 22 113/54 12/07/19 00:36 20 12/07/19 00:27 97.7 F 93 13 113/65 12/06/19 21:12 20 12/06/19 21:08 97.3 F L 113 H 15 112/68 12/06/19 20:38 98 12/06/19 20:30 98 12/06/19 20:03 115 H 22 116/78 12/06/19 19:13 100 12/06/19 18:45 100 12/06/19 17:29 12/06/19 17:20 98.5 F 109 H 18 107/70 Pulse Ox 12/07/19 12:00 98 12/07/19 11:38 12/07/19 11:30 100 12/07/19 11:19 12/07/19 11:00 97 12/07/19 10:30 98 12/07/19 10:00 100 12/07/19 09:45 100 12/07/19 09:30 100 12/07/19 09:15 100 12/07/19 09:00 100 12/07/19 08:45 100 12/07/19 08:34 12/07/19 08:30 100 12/07/19 08:25 12/07/19 08:15 100 12/07/19 08:00 100 12/07/19 07:45 100 12/07/19 07:30 100 12/07/19 07:00 99 12/07/19 06:30 100 10/16/20 06:00 99 12/07/19 05:30 99 12/07/19 04:21 97 12/07/19 00:36 12/07/19 00:27 96 12/06/19 21:12 12/06/19 21:08 94 L 12/06/19 20:38 12/06/19 20:30 12/06/19 20:03 100 12/06/19 19:13 12/06/19 18:45 12/06/19 17:29 96 12/06/19 17:20 93 L Intake and Output 12/06/19 12/07/19 12/07/19 22:59 06:59 14:59 Intake Total 140.979 728.403 Output Total 60 145 Balance 80.979 583.403 Intake: IV 130 630 Sodium Chloride 0.9% 1, 130 630 000 ml @ 130 mls/hr IV . Q7H42M STA Rx#:[id number] Intake, IV Titration 10.979 98.403 Amount Norepinephrine 4 mg In 4.2 59.550 Sodium Chloride 0.9% 250 ml @ 0.05 MCG/KG/MIN 12. 599 mls/hr IV .[id number] LIAT Rx#:[id number] propofoL 1,000 mg In 6.779 38.853 Empty Bag 1 bag @ Titrate IV .Q0M LIAT Rx#: [id number] Output: Urine 60 145 Other: Voiding Method Diaper Indwelling Catheter Indwelling Catheter Weight 66.134 kg ABP, PAP, CO, CI - Last 8 Hours Arterial Blood Pressure 89/61 Arterial Blood Pressure 120/49 Arterial Blood Pressure 125/54 Physical Exam: Revealed 84-year-old white male on mechanical ventilation, in no distress. Head: Atraumatic, normocephalic, endotracheal tube and orogastric tube are intact. HEENT:[Neck is supple.] [No neck masses.] [No thyromegaly.] [No JVD.] Chest: Diminished breath sounds at the bases, no crackles or rhonchi or wheezes, symmetrical chest expansion is noted. Cardiac Exam: [Normal S1 and S2, no S3 gallop, no murmur.] Abdomen: [Soft, nontender, no megaly, no rebound, no guarding, normal bowel sounds.] Extremities: [No clubbing, no edema, no cyanosis.] Neurological Exam: Confused, however he follows very simple instructions. On m echanical ventilation, nonverbal. Skin: No rashes. Lymphatics: No lymphadenopathy. Musculoskeletal: No deformities, no limitation in range of motion. Results - Laboratory Findings CBC and BMP: 12/07/19 08:10 12/07/19 08:10 ABG ABG pH 7.46 (7.35-7.45) H 12/07/19 05:56 ABG pCO2 45 mmHg (35-45) 12/07/19 05:56 ABG pO2 383 mmHg (83-108) H 12/07/19 05:56 ABG O2 Saturation 100.0 % (94-97) H 12/07/19 05:56 PT/INR, D-dimer PT 10.8 sec (9.0-12.0) 12/06/19 17:32 INR 1.0 (<1.2) 12/06/19 17:32 Abnormal lab findings: Abnormal Labs 12/06/19 12/06/19 12/06/19 17:32 17:32 17:32 RBC Hgb Hct MCV MCHC Neutrophils # 7.9 H Lymphocytes # 0.8 L ABG pH ABG pCO2 ABG pO2 ABG HCO3 ABG Total CO2 ABG O2 Saturation VBG pCO2 VBG HCO3 Chloride Carbon Dioxide 38 H BUN 28 H Creatinine Glucose 104 H POC Glucose (mg/dL) Plasma Lactic Acid Billy Calcium Total Protein 5.7 L Albumin 3.4 L Urine Protein Trace H Urine Ketones 1+ H Urine Blood Ur Leukocyte Esterase Urine RBC Urine WBC Amorphous Sediment Urine Bacteria Hyaline Casts Urine Mucus 12/06/19 12/07/19 12/07/19 17:32 04:16 04:42 RBC Hgb Hct MCV MCHC Neutrophils # Lymphocytes # ABG pH 7.13 L* ABG pCO2 112 H* ABG pO2 157 H ABG HCO3 38 H ABG Total CO2 41 H ABG O2 Saturation 99.3 H VBG pCO2 69 H VBG HCO3 37 H Chloride Carbon Dioxide BUN Creatinine Glucose POC Glucose (mg/dL) 100 H Plasma Lactic Acid Billy Calcium Total Protein Albumin Urine Protein Urine Ketones Urine Blood Ur Leukocyte Esterase Urine RBC Urine WBC Amorphous Sediment Urine Bacteria Hyaline Casts Urine Mucus 12/07/19 12/07/19 12/07/19 05:56 05:57 06:00 RBC Hgb Hct MCV MCHC Neutrophils # Lymphocytes # ABG pH 7.46 H ABG pCO2 ABG pO2 383 H ABG HCO3 32 H ABG Total CO2 33 H ABG O2 Saturation 100.0 H VBG pCO2 VBG HCO3 Chloride Carbon Dioxide BUN Creatinine Glucose POC Glucose (mg/dL) 106 H Plasma Lactic Acid Billy Calcium Total Protein Albumin Urine Protein Trace H Urine Ketones 1+ H Urine Blood Large H Ur Leukocyte Esterase Small H Urine RBC 126 H Urine WBC 16 H Amorphous Sediment Rare H Urine Bacteria Few H Hyaline Casts 103 H Urine Mucus Few H 12/07/19 12/07/19 12/07/19 08:10 08:10 08:10 RBC 3.69 L Hgb 11.2 L D Hct 37.2 L MCV 100.7 H MCHC 30.2 L Neutrophils # Lymphocytes # 0.3 L ABG pH ABG pCO2 ABG pO2 ABG HCO3 ABG Total CO2 ABG O2 Saturation VBG pCO2 VBG HCO3 Chloride 113 H Carbon Dioxide BUN 23 H Creatinine 0.53 L Glucose 115 H POC Glucose (mg/dL) Plasma Lactic Acid Billy 2.4 H* Calcium 7.5 L Total Protein Albumin Urine Protein Urine Ketones Urine Blood Ur Leukocyte Esterase Urine RBC Urine WBC Amorphous Sediment Urine Bacteria Hyaline Casts Urine Mucus - Diagnostic Findings Chest x-ray: image reviewed (Chest x-ray this morning is basically unremarkable. Endotracheal tube and orogastric tube are noted.) Assessment and Plan Assessment: Impression: Acute hypoxic and hypercapnic respiratory failure requiring intubation and mechanical ventilation, secondary to acute exacerbation of COPD. History of COPD, Acute toxic metabolic encephalopathy secondary to CO2 narcosis. Secondary to his hypercapnic respiratory failure. 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 History of hypertension. Previous history of GI bleeding. Dyslipidemia. History of degenerative joint disease. History of diverticular disease and colonic polyps. History of nephrolithiasis. And hydronephrosis. Remote history of nicotine dependence. Recommendation: Patient will be given a trial of pressure support and CPAP, and if tolerated will proceed to x-ray the patient. Continue bronchodilators Avoid high FiO2. GI and DVT prophylaxis. Advanced diet post extubation as tolerated. Early ambulation. Avoid and narcotics. Avoid sedatives. Resume home meds. We'll continue to monitor in the ICU. Prognosis is relatively guarded. We'll continue to follow. Time with Patient: Greater than 30
[2019-12-07] MEDS: HEPARIN SODIUM,PORCINE 5,000 UNIT/ML 1 ML VIAL SQ SCH ×2 (16:56→23:52)
[2019-12-07] MEDS: methylPREDNISolone SOD SUCCI 40 MG/ML 1 ML VIAL IV SCH ×2 (16:57→23:52)
[2019-12-07] MEDS: BUDESONIDE 1 MG/2 ML NEBU INHALATION SCH (19:13)
[2019-12-07] MEDS: FORMOTEROL FUMARATE 20 MCG/2 ML NEBU INHALATION SCH (19:13)
[2019-12-08 04:01] LABS: Basophils % (A) 0 %; Eosinophils % (A) 0 %; HCT 37.3 % (39.0-53.0); HGB 11.5 gm/dL (13.0-17.5); Hypochromasia Moderate; Lymphocytes # (A) 0.3 k/uL (1.0-4.8); Lymphocytes % (A) 3 %; MCH 30.5 pg (25.0-35.0); MCHC 30.8 g/dL (31.0-37.0); MCV 98.9 fL (80.0-100.0); Macrocytosis Slight; Mean Platelet Volume 9.5; Monocytes # (A) 0.2 k/uL (0-1.0); Monocytes % (A) 2 %; Neutrophils % (A) 95 %; Platelet Count 162 k/uL (150-450); RBC 3.77 m/uL (4.30-5.90); RDW 15.2 % (11.5-15.5); WBC 11.6 k/uL (3.8-10.6)
[2019-12-08 04:20] LABS: African American GFR (CKD) >90 (>60 ml/min/1.73 sqM); Anion Gap 0 mmol/L; Blood Urea Nitrogen 34 mg/dL (9-20); Calcium 9.7 mg/dL (8.4-10.2); Carbon Dioxide 36 mmol/L (22-30); Chloride 108 mmol/L (98-107); Glucose 122 mg/dL (74-99); Non-African American GFR(CKD) 88 (>60 ml/min/1.73 sqM); Sodium 144 mmol/L (137-145)
--- NOTE | 2019-12-08 07:11 | XR ---
EXAMINATION TYPE: XR chest 1V portable DATE OF EXAM: 12/08/2019 COMPARISON: 12/07/2019 HISTORY: Shortness of breath TECHNIQUE: Single frontal view of the chest is obtained. FINDINGS: ET and NG tube have been removed. Left-sided cardiac device stable. Heart enlarged. Bilate ral infiltrate and small effusion greater on the left. No pneumothorax. Diffuse osteopenia. IMPRESSION: 1. Infiltrate and small effusion stable findings greater on the left.
--- NOTE | 2019-12-08 08:00 | P.HPIM ---
History of Present Illness This is a pleasant 84 years old male with past medical history of hypertension, history of heart block status post permanent pacemaker, COPD. Hyperlipidemia. Most weight, 17 mm low-density focus in the uncinate process of the pancreas hyperlipidemia, also patient was not taking medications at time He follow-up with the [place] [facility]. Patient is known to me from last visit about one month ago. Patient came to emergency room 6 time last couple months because of his complaint of dyspnea, patient then will be found to be breathing quietly on saturating well, and patient was noted to be significantly forgetful where his memory started to decline after his in February. Last time I discharge patient is Dr. his son Mr. Donaldson and he wanted to take his father under his care for 2-3 weeks and if he thinks he will need help we will ask for his family physician for referral [facility]. Patient underwent mocha 8.1 version evaluation on 10/24 and he scored 14 out of 30 with an normal score consider 26. Dementia was highly suspected and recommended follow-up as an outpatient This time patient presents because of altered mental status, patient could not provide information, information was obtained from records and staff Patient has been less responsive and sleeping a lot and noted to be hypoxic. A nd he got intubated Also patient was given 1.5 L of normal saline and breathing treatment. On presentation his blood pressure was borderline but most better 120/49, he slightly tachycardic 102-115, and breathing slightly fast at 20 breaths per minute. And patient is afebrile CBC, INR, BMP and liver enzymes are unremarkable. Repeat urinalysis is suspicious of infection. He has low pH on admission with 7.1 and high pCO2 at 112, repeat ABG showing improvement CT of the brain showing cerebral atrophy with no acute changes per radiologist. Chest x-ray no active cardiopulmonary disease per radiologist. EKG showing sinus tachycardia at [address] T changes Review of Systems n/a Past Medical History Past Medical History: COPD, Dementia, GERD/Reflux, GI Bleed, Hyperlipidemia, Hypertension, Myocardial Infarction ([place]), Osteoarthritis (OA), Pneumonia Additional Past Medical History / Comment(s): Pt recently admitted to [facility] on 10/21/19 with exacerbation COPD/tracheobronchitis/elevated lactic acid. Other hx: Lower GI bleed, benign colon polyps, hemorrhoids, diverticular disease, constipation, arhtritis in hands/wrists/ankles, occasional back pain/fractured back twice, nephrolithiasis/sepsis, UTI, anemia, pacer d/t high AV node block, early onset dementia Last Myocardial Infarction Date:: 2018 History of Any Multi-Drug Resistant Organisms: None Reported Past Surgical History: Back Surgery, Cholecystectomy, Orthopedic Surgery, Pacemaker Additional Past Surgical History / Comment(s): Lumbar laminectomy, EGD, colonoscopies/benign polypectomies, L shoulder arthroscopy. Past Anesthesia/Blood Transfusion Reactions: No Reported Reaction Type of Cardiac Device: Permanent Pacemaker Device Placement Date:: 11/15/18 Past Psychological History: No Psychological Hx Reported Additional Psychological History / Comment(s): Pt's spouse in [facility] 2019. Lives with son and daughter in law He uses a cane, no longer drives Smoking Status: Former smoker Past Alcohol Use History: None Reported Additional Past Alcohol Use History / Comment(s): Pt started smoking pipe while in the [place]. He then stopped smoking pipe and started chewing tobacco in 1954. A tin will last 2 days. Pt states he was probably an alcoholic in the past but quit drinking 30 years ago. Past Drug Use History: None Reported - Past Family History Mother Family Medical History: Cancer Additional Family Medical History / Comment(s): Mother from some form of cancer at the age of 78yrs. Father History Unknown: Yes Additional Family Medical History / Comment(s): Father left when pt was 7 yrs old. Medications and Allergies Home Medications Medication Instructions Recorded Confirmed Type Aspirin [Adult Low Dose Aspirin EC] 81 mg PO DAILY 02/04/16 12/06/19 History Lovastatin [Mevacor] 40 mg PO DAILY 02/04/16 12/06/19 History [place]-3 Fatty Acids/Fish Oil [Fish 1 cap PO DAILY 02/04/16 12/06/19 History Oil 1,000 mg Softgel] Omeprazole 20 mg PO DAILY 02/04/16 12/06/19 History amLODIPine [Norvasc] 10 mg PO DAILY #30 tab 09/18/18 12/06/19 Rx lisinopriL [Zestril] 10 mg PO DAILY #30 tab 09/18/18 12/06/19 Rx Ferrous Sulfate [Iron] 325 mg PO DAILY 10/06/19 12/06/19 History Fluticasone/Salmeterol [Airduo 1 puff INHALATION RT-BID 10/21/19 12/06/19 History Respiclick 232-14 Mcg] Calcium Carbonate/Vitamin D3 1 tab PO BID 10/23/19 12/06/19 History [Calcium 500Mg-Vit D3 15Mcg (600 unit)] Albuterol Inhaler [Ventolin Hfa 2 puff INHALATION RT-QID PRN #1 inh 10/27/19 12/06/19 Rx Inhaler] Cyanocobalamin [Vitamin B-12] 1,000 mcg PO DAILY #60 tablet 10/27/19 12/06/19 Rx Thiamine [Vitamin B-1] 100 mg PO DAILY #30 tab 10/27/19 12/06/19 Rx Albuterol Nebulized [Ventolin 3 ml INHALATION RT-Q4H PRN 12/06/19 12/06/19 History Nebulized] Metoprolol Succinate [Toprol XL] 25 mg PO DAILY 12/06/19 12/06/19 History Allergies Allergy/AdvReac Type Severity Reaction Status Date / Time No Known Allergies Allergy Verified 12/06/19 20:44 Physical Exam Vitals: Vital Signs Temp Pulse Pulse Resp BP BP BP 12/07/19 07:00 103 H 27 H 100/86 12/07/19 06:30 102 H 20 101/78 12/07/19 06:00 98 20 111/58 12/07/19 05:30 98.4 F 115 H 20 12/07/19 04:21 97.9 F 104 H 22 113/54 12/07/19 00:36 20 12/07/19 00:27 97.7 F 93 13 113/65 12/06/19 21:12 20 12/06/19 21:08 97.3 F L 113 H 15 112/68 12/06/19 20:38 98 12/06/19 20:30 98 12/06/19 20:03 115 H 22 116/78 12/06/19 19:13 100 12/06/19 18:45 100 12/06/19 17:29 12/06/19 17:20 98.5 F 109 H 18 107/70 Pulse Ox 12/07/19 07:00 99 12/07/19 06:30 100 12/07/19 06:00 99 12/07/19 05:30 99 12/07/19 04:21 97 12/07/19 00:36 12/07/19 00:27 96 12/06/19 21:12 12/06/19 21:08 94 L 12/06/19 20:38 12/06/19 20:30 12/06/19 20:03 100 12/06/19 19:13 12/06/19 18:45 12/06/19 17:29 96 12/06/19 17:20 93 L Intake and Output 12/06/19 12/07/19 12/07/19 22:59 06:59 14:59 Intake Total 140.979 130 Output Total 60 25 Balance 80.979 105 Intake: IV 130 130 Sodium Chloride 0.9% 1, 130 130 000 ml @ 130 mls/hr IV . Q7H42M STA Rx#:[id number] Intake, IV Titration 10.979 Amount Norepinephrine 4 mg In 4.2 Sodium Chloride 0.9% 250 ml @ 0.05 MCG/KG/MIN 12. 599 mls/hr IV .[id number] LIAT Rx#:[id number] propofoL 1,000 mg In 6.779 Empty Bag 1 bag @ Titrate IV .Q0M LIAT Rx#: [id number] Output: Urine 60 25 Other: Voiding Method Diaper Indwelling Catheter Weight 66.134 kg ABP, PAP, CO, CI - Last 8 Hours Arterial Blood Pressure 89/61 Arterial Blood Pressure 120/49 Arterial Blood Pressure 125/54 -GENERAL: The patient is intubated and sedated HEENT: Pupils are round and equally reacting to light. EOMI. No scleral icterus. No conjunctival pallor. Normocephalic, atraumatic. No pharyngeal erythema. No thyromegaly. CARDIOVASCULAR: S1 and S2 present. No murmurs, rubs, or gallops. PULMONARY: Chest is clear to auscultation, no wheezing or crackles. ABDOMEN: Soft, nontender, nondistended, normoactive bowel sounds. No palpable organomegaly. MUSCULOSKELETAL: No joint swelling or deformity. EXTREMITIES: No cyanosis, clubbing, or pedal edema. NEUROLOGICAL: Gross neurological examination did not reveal any focal deficits. SKIN: No rashes. No petechiae Results CBC & Chem 7: 12/08/19 03:12 12/08/19 03:12 Labs: Abnormal Lab Results - Last 24 Hours (Table) 12/06/19 12/06/19 12/06/19 Range/Units 17:32 17:32 17:32 Neutrophils # 7.9 H (1.3-7.7) k/uL Lymphocytes # 0.8 L (1.0-4.8) k/uL ABG pH (7.35-7.45) ABG pCO2 (35-45) mmHg ABG pO2 (83-108) mmHg ABG HCO3 (21-25) mmol/L ABG Total CO2 (19-24) mmol/L ABG O2 Saturation (94-97) % VBG pCO2 (37-51) mmHg VBG HCO3 (24-28) mmol/L Carbon Dioxide 38 H (22-30) mmol/L BUN 28 H (9-20) mg/dL Glucose 104 H (74-99) mg/dL POC Glucose (mg/dL) (75-99) mg/dL Total Protein 5.7 L (6.3-8.2) g/dL Albumin 3.4 L (3.5-5.0) g/dL Urine Protein Trace H (Negative) Urine Ketones 1+ H (Negative) Urine Blood (Negative) Ur Leukocyte Esterase (Negative) Urine RBC (0-5) /hpf Urine WBC (0-5) /hpf Amorphous Sediment (None) /hpf Urine Bacteria (None) /hpf Hyaline Casts (0-2) /lpf Urine Mucus (None) /hpf 12/06/19 12/07/19 12/07/19 Range/Units 17:32 04:16 04:42 Neutrophils # (1.3-7.7) k/uL Lymphocytes # (1.0-4.8) k/uL ABG pH 7.13 L* (7.35-7.45) ABG pCO2 112 H* (35-45) mmHg ABG pO2 157 H (83-108) mmHg ABG HCO3 38 H (21-25) mmol/L ABG Total CO2 41 H (19-24) mmol/L ABG O2 Saturation 99.3 H (94-97) % VBG pCO2 69 H (37-51) mmHg VBG HCO3 37 H (24-28) mmol/L Carbon Dioxide (22-30) mmol/L BUN (9-20) mg/dL Glucose (74-99) mg/dL POC Glucose (mg/dL) 100 H (75-99) mg/dL Total Protein (6.3-8.2) g/dL Albumin (3.5-5.0) g/dL Urine Protein (Negative) Urine Ketones (Negative) Urine Blood (Negative) Ur Leukocyte Esterase (Negative) Urine RBC (0-5) /hpf Urine WBC (0-5) /hpf Amorphous Sediment (None) /hpf Urine Bacteria (None) /hpf Hyaline Casts (0-2) /lpf Urine Mucus (None) /hpf 12/07/19 12/07/19 12/07/19 Range/Units 05:56 05:57 06:00 Neutrophils # (1.3-7.7) k/uL Lymphocytes # (1.0-4.8) k/uL ABG pH 7.46 H (7.35-7.45) ABG pCO2 (35-45) mmHg ABG pO2 383 H (83-108) mmHg ABG HCO3 32 H (21-25) mmol/L ABG Total CO2 33 H (19-24) mmol/L ABG O2 Saturation 100.0 H (94-97) % VBG pCO2 (37-51) mmHg VBG HCO3 (24-28) mmol/L Carbon Dioxide (22-30) mmol/L BUN (9-20) mg/dL Glucose (74-99) mg/dL POC Glucose (mg/dL) 106 H (75-99) mg/dL Total Protein (6.3-8.2) g/dL Albumin (3.5-5.0) g/dL Urine Protein Trace H (Negative) Urine Ketones 1+ H (Negative) Urine Blood Large H (Negative) Ur Leukocyte Esterase Small H (Negative) Urine RBC 126 H (0-5) /hpf Urine WBC 16 H (0-5) /hpf Amorphous Sediment Rare H (None) /hpf Urine Bacteria Few H (None) /hpf Hyaline Casts 103 H (0-2) /lpf Urine Mucus Few H (None) /hpf Thrombosis Risk Factor Assmnt - Choose All That Apply Each Factor Represents 1 point: Abnormal pulmonary function (COPD) Each Risk Factor Represents 3 Points: Age 75 years or older Thrombosis Risk Factor Assessment Total Risk Factor Score: 4 Thrombosis Risk Factor Assessment Level: Moderate Risk Assessment and Plan Assessment: Metabolic encephalopathy Acute hypoxic hypercapnic failure, needing intubation and mechanical ventilation acute COPD exacerbation Dementia recent diagnosis. Nonadherence to therapy Loss of weight, he lost about 30 pounds in 1 month, CT of the abdomen, pelvis and chest were unremarkable for gross abnormality, GI recommended outpatient follow-up for EGD/colonoscopy 17 mm low-density focus in the uncinate process of the pancreas, with recommendation for outpatient follow-up Recurrent subjective feeling of dyspnea with no strong organic evidence, could be due to his deconditioning and loss of weight, on the top of his dementia (cardiology and pulmonary cleared The patient) COPD with no exacerbation Leukocytosis, due to steroid effect. Improvement No Chronic diarrhea, patient reported diarrhea due to memory problem Elevated lactic acid, came back to normal Hypertension Hyperlipidemia History of heart block status post permanent pacemaker. With normal cardiac cath in 2019 Plan: this is pleasant 84 yo M who present with resp falure and copd , continue with antibiotics and steroids and bronchodialator , pulmonary/critical care consult Labs and medication were reviewed.. Continue same treatment. Continue with symptomatic treatment. Resume home medication. Monitor lytes and vitals. DVT and GI prophylaxis. Further recommendations depends on the clinical course of the patient DVT prophylaxis: Subcutaneous heparin GI Prophylaxis: Ppi Prognosis is guard
[2019-12-08] MEDS: BUDESONIDE 1 MG/2 ML NEBU INHALATION SCH ×2 (08:16→20:02)
[2019-12-08] MEDS: IPRATROPIUM-ALBUTEROL 3 ML NEB INHALATION SCH ×4 (08:16→20:02)
[2019-12-08] MEDS: FORMOTEROL FUMARATE 20 MCG/2 ML NEBU INHALATION SCH ×2 (08:16→20:02)
[2019-12-08] MEDS: methylPREDNISolone SOD SUCCI 40 MG/ML 1 ML VIAL IV SCH ×2 (09:28→18:10)
[2019-12-08] MEDS: PANTOPRAZOLE 40 MG/10 ML VIAL IV SCH (09:28)
[2019-12-08] MEDS: HEPARIN SODIUM,PORCINE 5,000 UNIT/ML 1 ML VIAL SQ SCH ×2 (09:29→18:09)
--- NOTE | 2019-12-08 09:59 | P.PN ---
Subjective This is a pleasant 84 years old male with past medical history of hypertension, history of heart block status post permanent pacemaker, COPD. Hyperlipidemia. Most weight, 17 mm low-density focus in the uncinate process of the pancreas hyperlipidemia, also patient was not taking medications at time He follow-up with the [place] [facility]. Patient is known to me from last visit about one month ago. Patient came to emergency room 6 time last couple months because of his complaint of dyspnea, patient then will be found to be breathing quietly on saturating well, and patient was noted to be significantly forgetful where his memory started to decline after his in February. Last time I discharge patient is Dr. his son Mr. Donaldson and he wanted to take his father under his care for 2-3 weeks and if he thinks he will need help we wi ll ask for his family physician for referral for her [facility]. Patient underwent mocha 8.1 version evaluation on 10/24 and he scored 14 out of 30 with an normal score consider 26. Dementia was highly suspected and recommended follow-up as an outpatient This time patient presents because of altered mental status, patient could not provide information, information was obtained from records and staff Patient has been less responsive and sleeping a lot and noted to be hypoxic. And he got intubated Also patient was given 1.5 L of normal saline and breathing treatment. On presentation his blood pressure was borderline but most better 120/49, he slightly tachycardic 102-115, and breathing slightly fast at 20 breaths per minute. And patient is afebrile CBC, INR, BMP and liver enzymes are unremarkable. Repeat urinalysis is suspicious of infection. He has low pH on admission with 7.1 and high pCO2 at 112, repeat ABG showing improvement CT of the brain showing cerebral atrophy with no acute changes per radiologist. Chest x-ray no active cardiopulmonary disease per radiologist. EKG showing sinus tachycardia at [address] T changes 12/08/2019 Patient is extubated today and his on room air, fully awake and alert however he is disoriented to time and place and person probably due to his history of dementia. Patient also was not sure why he was in the hospital as he states he did not know that he was sick. However currently he denies chest pain. No dyspnea while sitting and resting in bed. No abdominal complaints or nausea vomiting and he tolerates diet well. He didn't complain about his bowel movements. His last Woods catheter which is recommended to be discontinued. He saturating high 90s on room air. There are some vitals are stable. He has mild le ukocytosis of 11.6, mostly due to effect of steroids. BMP is unremarkable. Lactic acid is back to normal at 2.0. Chest x-ray from this morning showing infiltrate and small effusions stable findings and greater on the left per radiologist. Patient remains on ceftriaxone. He is also on Solu-Medrol. Review of systems CONSTITUTIONAL: No fever, no malaise, no fatigue. HEENT: No recent visual problems or hearing problems. Denied any sore throat. CARDIOVASCULAR: No orthopnea, PND, no palpitations, no syncope. PULMONARY: No shortness of breath, no cough, no hemoptysis. GASTROINTESTINAL: No diarrhea, no nausea, no vomiting, no abdominal pain. Normoactive bowel sounds. NEUROLOGICAL: No headaches, no weakness, no numbness. Active Medications Generic Name Dose Route Start Last Admin Trade Name Freq PRN Reason Stop Dose Admin Albuterol/Ipratropium 3 ml 12/06/19 19:54 Ipratropium-Albuterol 3 Ml Neb INHALATION RT-Q4H PRN Shortness Of Breath Or Wheezing Albuterol/Ipratropium 3 ml 12/06/19 20:00 12/08/19 08:16 Ipratropium-Albuterol 3 Ml Neb INHALATION 3 ml RT-QID LIAT Administration Budesonide 1 mg 12/07/19 20:00 12/08/19 08:16 Budesonide 1 Mg/2 Ml Nebu INHALATION 1 mg RT-BID LIAT Administration Formoterol Fumarate 20 mcg 12/07/19 20:00 12/08/19 08:16 Formoterol Fumarate 20 Mcg/2 Ml Nebu INHALATION 20 mcg RT-BID LIAT Administration Heparin Sodium (Porcine) 5,000 unit 12/07/19 16:00 12/08/19 09:29 Heparin Sodium,Porcine 5,000 Unit/Ml 1 Ml Vial SQ 5,000 unit Q8HR LIAT Administration Norepinephrine Bitartrate 4 mg 254 mls @ 12.599 mls/hr 12/07/19 05:30 12/07/19 23:53 / Sodium Chloride IV Not Given .[id number] LIAT Protocol 0.05 MCG/KG/MIN Ceftriaxone Sodium 1 gm/ 50 mls @ 100 mls/hr 12/07/19 09:00 12/08/19 09:28 Sodium Chloride IVPB 100 mls/hr Q24HR LIAT Administration Methylprednisolone Sodium Succinate 40 mg 12/07/19 16:00 12/08/19 09:28 Methylprednisolone Sod Succi 40 Mg/Ml 1 Ml Vial IV 40 mg Q8HR LIAT Administration Naloxone HCl 0.2 mg 12/07/19 05:28 Naloxone 0.4 Mg/Ml 1 Ml Vial IV Q2M PRN Opioid Reversal Pantoprazole Sodium 40 mg 12/07/19 09:00 12/08/19 09:28 Pantoprazole 40 Mg/10 Ml Vial IV 40 mg DAILY LIAT Administration Objective - Vital Signs Vital signs: Vital Signs Temp 97.7 F 12/08/19 04:00 Pulse 78 12/08/19 08:35 Resp 18 12/08/19 07:00 BP 133/86 12/08/19 07:00 Pulse Ox 100 12/08/19 07:00 Intake & Output 12/07/19 12/08/19 12/08/19 18:59 06:59 18:59 Intake Total 1278.403 770 20 Output Total 300 340 20 Balance 978.403 430 0 Weight 69.5 kg Intake: IV 1130 770 20 .9 120 20 Sodium Chloride 0.9% 1, 1130 650 000 ml @ 130 mls/hr IV . Q7H42M STA Rx#:[id number] Intake, IV Titration 148.403 Amount Norepinephrine 4 mg In 59.550 Sodium Chloride 0.9% 250 ml @ 0.05 MCG/KG/MIN 12. 599 mls/hr IV .[id number] LIAT Rx#:[id number] cefTRIAXone 1 gm In 50 Sodium Chloride 0.9% 50 ml @ 100 mls/hr IVPB Q24HR LIAT Rx#:[id number] propofoL 1,000 mg In 38.853 Empty Bag 1 bag @ Titrate IV .Q0M LIAT Rx#: [id number] Output: Urine 300 340 20 Other: Voiding Method Indwelling Catheter Indwelling Catheter ABP, PAP, CO, CI - Last Documented Arterial Blood Pressure 89/61 - Exam -GENERAL: The patient is alert and oriented x0, however he makes logic conversation not in any acute distress. HEENT: Pupils are round and equally reacting to light. EOMI. No scleral icterus. No conjunctival pallor. Normocephalic, atraumatic. No pharyngeal erythema. No thyromegaly. CARDIOVASCULAR: S1 and S2 present. No murmurs, rubs, or gallops. -PULMONARY: Chest is clear to auscultation, no wheezing or crackles. Decreased air entry bilaterally ABDOMEN: Soft, nontender, nondistended, normoactive bowel sounds. No palpable organomegaly. MUSCULOSKELETAL: No joint swelling or deformity. EXTREMITIES: No cyanosis, clubbing, or pedal edema. NEUROLOGICAL: Gross neurological examination did not reveal any focal deficits. SKIN: No rashes. no petechiae. - Labs CBC & Chem 7: 12/08/19 03:12 12/08/19 03:12 Labs: Abnormal Lab Results - Last 24 Hours (Table) 12/08/19 12/08/19 Range/Units 03:12 03:12 WBC 11.6 H (3.8-10.6) k/uL RBC 3.77 L (4.30-5.90) m/uL Hgb 11.5 L (13.0-17.5) gm/dL Hct 37.3 L (39.0-53.0) % MCHC 30.8 L (31.0-37.0) g/dL Neutrophils # 11.0 H (1.3-7.7) k/uL Lymphocytes # 0.3 L (1.0-4.8) k/uL Chloride 108 H (98-107) mmol/L Carbon Dioxide 36 H (22-30) mmol/L BUN 34 H (9-20) mg/dL Glucose 122 H (74-99) mg/dL Microbiology - Last 24 Hours (Table) 12/06/19 17:32 Blood Culture - Preliminary Blood No Growth after 24 hours 12/07/19 05:47 Gram Stain - Preliminary Sputum Sputum Culture - Preliminary 12/07/19 06:00 Urine Culture - Preliminary Urine,Voided Assessment and Plan Assessment: Acute hypoxic hypercapnic failure, status post extubation. Metabolic encephalopathy, improved acute COPD exacerbation Dementia recent diagnosis. Nonadherence to therapy Loss of weight, he lost about 30 pounds in 1 month, CT of the abdomen, pelvis and chest were unremarkable for gross abnormality, GI recommended outpatient follow-up for EGD/colonoscopy 17 mm low-density focus in the uncinate process of the pancreas, with recommendation for outpatient follow-up Recurrent subjective feeling of dyspnea with no strong organic evidence, could be due to his deconditioning and loss of weight, on the top of his dementia (cardiology and pulmonary cleared The patient) COPD with no exacerbation Leukocytosis, due to steroid effect. Improvement No Chronic diarrhea, patient reported diarrhea due to memory problem Elevated lactic acid, came back to normal Hypertension Hyperlipidemia History of heart block status post permanent pacemaker. With normal cardiac cath in 2019 Plan: this is pleasant 84 yo M who present with resp falure and copd , continue with antibiotics and steroids and bronchodialator , pulmonary/critical care consult Labs and medication were reviewed.. Continue same treatment. Continue with symptomatic treatment. Resume home medication. Monitor lytes and vitals. DVT and GI prophylaxis. Further recommendations depends on the clinical course of the patient DVT prophylaxis: Subcutaneous heparin GI Prophylaxis: Ppi Prognosis is guard
--- NOTE | 2019-12-08 13:45 | P.PN ---
Subjective Progress Note Date: 12/08/19 Principal diagnosis: Acute hypercapnic respiratory failure secondary to COPD exacerbation. This is an 84-year-old white male with history of multiple medical problems including COPD, high degree AV block, previous pacemaker implantation, history of degenerative joint disease, patient was brought into the ER yesterday with a chief complaint of becoming less and less responsive throughout the day. Patient was noted to be sleepy and upon evaluation in the ER, patient was noted to have relatively low O2 saturation, venous ABG showed pCO2 of 69 with a pH of 7.35. I was not notified about this patient upon admission, however the patient was admitted to a monitor bed on the cardiac floor, and shortly after he was admitted, patient continued to have worsening mental status with less and less responsiveness. I was called about this patient during floor specialist hours when the rapid response team was asked to see the patient and he was noted to be hypercapnic with a pCO2 of 112 pH of 7.13 and the patient was not responding to any stimuli except deep painful stimuli. Patient was not arousable. He was on 32% FiO2 at the time. His pO2 was 157. Hence I recommended immediate intubation. And the transferred to the ICU. ABG post intubation showed a pO2 of 383 pCO2 of 45 pH of 7.46. This was on the percent FiO2. Chest x-ray showed no active disease. Brain CT done in the ER upon presentation was negative. Patient was noted to have possible urinary tract infection and he was placed on Rocephin. During my evaluation in the ICU, patient was noted on assist control of 20 tidal volume is 450 FiO2 50%. and PEEP was 5. Patient was awakened, I have discontinued his propofol, he was initially placed on norepinephrine overnight for a very brief. At this time which was related to hypotension post intubation, and this morning he is off norepinephrine. Again the patient was awakened, and after few hours off the prevent, patient was given a short trial of pressure support of 8 and CPAP, and I have recommended extubating the patient to BiPAP with IPAP of 14, EPAP of 4, and FiO2 of 28%. Patient seems to have tolerated the extubation well. And I plan to keep him on BiPAP for now, patient will be given bronchodilators for his underlying COPD. Reevaluated today on 12/08/19, patient remains in the ICU, he was extubated yesterday successfully, he was initially placed on BiPAP and we transitioned him to a nasal cannula presently on room air. Patient is doing great with that he is confused and disoriented. Patient is hemodynamically stable, chest x-ray showed minimal bibasilar atelectasis. Patient is in atrial fibrillation with fairly controlled heart rate. WBC count is 11.6 hemoglobin is 11.5. He elects lites are normal bicarb is 36 renal profile is normal. Lactic acid is back to normal. Blood sugar is 122. Objective - Vital Signs Vital signs: Vital Signs Temp 98.9 F 12/08/19 08:00 Pulse 84 12/08/19 11:41 Resp 22 12/08/19 10:00 BP 125/59 12/08/19 10:00 Pulse Ox 96 12/08/19 10:00 Intake & Output 12/07/19 12/08/19 12/08/19 18:59 06:59 18:59 Intake Total 1278.403 770 220 Output Total 300 340 85 Balance 978.403 430 135 Weight 69.5 kg Intake: IV 1130 770 220 .9 120 220 Sodium Chloride 0.9% 1, 1130 650 000 ml @ 130 mls/hr IV . [id number] STA Rx#:[id number] Intake, IV Titration 148.403 Amount Norepinephrine 4 mg In 59.550 Sodium Chloride 0.9% 250 ml @ 0.05 MCG/KG/MIN 12. 599 mls/hr IV .[id number] LIAT Rx#:[id number] cefTRIAXone 1 gm In 50 Sodium Chloride 0.9% 50 ml @ 100 mls/hr IVPB Q24HR LIAT Rx#:[id number] propofoL 1,000 mg In 38.853 Empty Bag 1 bag @ Titrate IV .Q0M LIAT Rx#: [id number] Output: Urine 300 340 85 Other: Voiding Method Indwelling Catheter Indwelling Catheter Indwelling Catheter ABP, PAP, CO, CI - Last Documented Arterial Blood Pressure 89/61 - Exam Physical Exam: Revealed 84-year-old white male on room air, in no distress. However he is disoriented. Head: Atraumatic, normocephalic, . HEENT:[Neck is supple.] [No neck masses.] [No thyromegaly.] [No JVD.] Chest: Diminished breaths on bilaterally no rhonchi and no wheezes. Cardiac Exam: Irregular irregular rhythm. [Normal S1 and S2, no S3 gallop, no murmur.] Abdomen: [Soft, nontender, no megaly, no rebound, no guarding, normal bowel sounds.] Extremities: [No clubbing, no edema, no cyanosis.] Neurological Exam: Confused, disoriented 3. Follows simple instructions, no focal deficit otherwise Skin: No rashes. Lymphatics: No lymphadenopathy. Musculoskeletal: No deformities, no limitation in range of motion. - Labs CBC & Chem 7: 12/08/19 03:12 12/08/19 03:12 Labs: Abnormal Lab Results - Last 24 Hours (Table) 12/08/19 12/08/19 Range/Units 03:12 03:12 WBC 11.6 H (3.8-10.6) k/uL RBC 3.77 L (4.30-5.90) m/uL Hgb 11.5 L (13.0-17.5) gm/dL Hct 37.3 L (39.0-53.0) % MCHC 30.8 L (31.0-37.0) g/dL Neutrophils # 11.0 H (1.3-7.7) k/uL Lymphocytes # 0.3 L (1.0-4.8) k/uL Chloride 108 H (98-107) mmol/L Carbon Dioxide 36 H (22-30) mmol/L BUN 34 H (9-20) mg/dL Glucose 122 H (74-99) mg/dL Microbiology - Last 24 Hours (Table) 12/07/19 05:47 Gram Stain - Preliminary Sputum Sputum Culture - Preliminary Moraxella(branhamella) catarra 12/07/19 09:33 Blood Culture - Preliminary Blood No Growth after 24 hours 12/06/19 17:32 Blood Culture - Preliminary Blood No Growth after 24 hours 12/07/19 06:00 Urine Culture - Preliminary Urine,Voided Assessment and Plan Assessment: Impression: Acute hypoxic and hypercapnic respiratory failure requiring intubation and mechanical ventilation, secondary to acute exacerbation of COPD. History of COPD, Acute toxic metabolic encephalopathy secondary to CO2 narcosis. Secondary to his hypercapnic respiratory failure. 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 History of hypertension. Previous history of GI bleeding. Dyslipidemia. History of degenerative joint disease. History of diverticular disease and colonic polyps. History of nephrolithiasis. And hydronephrosis. Remote history of nicotine dependence. Status post extubation on 12/07/19. Recommendation: Continue to monitor the ICU for today. Continue bronchodilators Avoid high FiO2. Continue GI and DVT prophylaxis. Advance diet as tolerates. Ambulate with assistance. Avoid and narcotics. Avoid sedatives. Resume home meds. We'll continue to follow. Time with Patient: Less than 30
[2019-12-09] MEDS: NOREPINEPHRINE 4 MG in SODIUM CHLORIDE 0.9% 250 ML IV SCH (00:03)
[2019-12-09] MEDS: methylPREDNISolone SOD SUCCI 40 MG/ML 1 ML VIAL IV SCH ×3 (00:04→17:08)
[2019-12-09] MEDS: HEPARIN SODIUM,PORCINE 5,000 UNIT/ML 1 ML VIAL SQ SCH ×3 (00:04→17:07)
[2019-12-09 03:12] LABS: Basophils % (A) 0 %; Eosinophils # (A) 0.1 k/uL (0-0.7); Eosinophils % (A) 1 %; HCT 35.7 % (39.0-53.0); Hypochromasia Moderate; Lymphocytes # (A) 0.3 k/uL (1.0-4.8); Lymphocytes % (A) 3 %; MCH 30.4 pg (25.0-35.0); MCHC 30.8 g/dL (31.0-37.0); MCV 98.9 fL (80.0-100.0); Macrocytosis Slight; Mean Platelet Volume 9.3; Monocytes # (A) 0.2 k/uL (0-1.0); Monocytes % (A) 2 %; Neutrophils # (A) 8.6 k/uL (1.3-7.7); Neutrophils % (A) 94 %; Platelet Count 138 k/uL (150-450); RBC 3.61 m/uL (4.30-5.90); RDW 15.2 % (11.5-15.5); WBC 9.2 k/uL (3.8-10.6)
[2019-12-09 03:38] LABS: African American GFR (CKD) >90 (>60 ml/min/1.73 sqM); Anion Gap -2 mmol/L; Blood Urea Nitrogen 31 mg/dL (9-20); Calcium 9.6 mg/dL (8.4-10.2); Carbon Dioxide 35 mmol/L (22-30); Chloride 106 mmol/L (98-107); Glucose 142 mg/dL (74-99); Non-African American GFR(CKD) >90 (>60 ml/min/1.73 sqM); Sodium 139 mmol/L (137-145)
[2019-12-09] MEDS: FORMOTEROL FUMARATE 20 MCG/2 ML NEBU INHALATION SCH ×2 (07:59→20:04)
[2019-12-09] MEDS: BUDESONIDE 1 MG/2 ML NEBU INHALATION SCH ×2 (07:59→20:05)
[2019-12-09] MEDS: IPRATROPIUM-ALBUTEROL 3 ML NEB INHALATION SCH ×4 (07:59→20:05)
--- NOTE | 2019-12-09 08:12 | XR ---
EXAMINATION TYPE: XR chest 1V portable DATE OF EXAM: 12/09/2019 Comparison: 12/08/2019 Clinical History: 84-year-old male pneumonia Findings: Left anterior chest wall pacemaker generator with right atrial and ventricular leads. Heart upper lobo its of normal in size. There is some retrocardiac opacity and some mild patchy right basilar opacity and left as well, increased from prior. Impression: Patchy retrocardiac and right basilar opacity/infiltrates have increased from prior
[2019-12-09] MEDS: PANTOPRAZOLE 40 MG/10 ML VIAL IV SCH (08:34)
--- NOTE | 2019-12-09 11:56 | P.PN ---
Subjective Progress Note Date: 12/09/19 Principal diagnosis: Acute hypercapnic respiratory failure secondary to COPD exacerbation. This is an 84-year-old white male with history of multiple medical problems including COPD, high degree AV block, previous pacemaker implantation, history of degenerative joint disease, patient was brought into the ER yesterday with a chief complaint of becoming less and less responsive throughout the day. Patient was noted to be sleepy and upon evaluation in the ER, patient was noted to have relatively low O2 saturation, venous ABG showed pCO2 of 69 with a pH of 7.35. I was not notified about this patient upon admission, however the patient was admitted to a monitor bed on the cardiac floor, and shortly after he was admitted, patient continued to have worsening mental status with less and less responsiveness. I was called about this patient during canopy inspector hours when the rapid response team was asked to see the patient and he was noted to be hypercapnic with a pCO2 of 112 pH of 7.13 and the patient was not responding to any stimuli except deep painful stimuli. Patient was not arousable. He was on 32% FiO2 at the time. His pO2 was 157. Hence I recommended immediate intubation. And the transferred to the ICU. ABG post intubation showed a pO2 of 383 pCO2 of 45 pH of 7.46. This was on the percent FiO2. Chest x-ray showed no active disease. Brain CT done in the ER upon presentation was negative. Patient was noted to have possible urinary tract infection and he was placed on Rocephin. During my evaluation in the ICU, patient was noted on assist control of 20 tidal volume is 450 FiO2 50%. and PEEP was 5. Patient was awakened, I have discontinued his propofol, he was initially placed on norepinephrine overnight for a very brief. At this time which was related to hypotension post intubation, and this morning he is off norepinephrine. Again the patient was awakened, and after few hours off the prevent, patient was given a short trial of pressure support of 8 and CPAP, and I have recommended extubating the patient to BiPAP with IPAP of 14, EPAP of 4, and FiO2 of 28%. Patient seems to have tolerated the extubation well. And I plan to keep him on BiPAP for now, patient will be given bronchodilators for his underlying COPD. Reevaluated today on 12/08/19, patient remains in the ICU, he was extubated yesterday successfully, he was initially placed on BiPAP and we transitioned him to a nasal cannula presently on room air. Patient is doing great with that he is confused and disoriented. Patient is hemodynamically stable, chest x-ray showed minimal bibasilar atelectasis. Patient is in atrial fibrillation with fairly controlled heart rate. WBC count is 11.6 hemoglobin is 11.5. He elects lites are normal bicarb is 36 renal profile is normal. Lactic acid is back to normal. Blood sugar is 122. Reevaluated today on 12/09/19, patient remains in the ICU, remains on nasal cannula at 2 L/m, BiPAP remains at bedside, did not have to be used today or last night. Patient is more alert today, he knew that he was in the hospital, but did not know the name of the president. Patient denies any shortness of breath cough or wheezing, denies any nausea vomiting or abdominal pain. ABC is relatively normal elects lites are normal renal profile is normal chest x-ray showed retrocardiac and right basilar atelectasis. Strongly doubt pneumonia. Objective - Vital Signs Vital signs: Vital Signs Temp 97.9 F 12/09/19 04:00 Pulse 64 12/09/19 11:52 Resp 15 12/09/19 09:00 BP 140/88 12/09/19 09:00 Pulse Ox 92 L 12/09/19 09:00 Intake & Output 12/08/19 12/09/19 12/09/19 18:59 06:59 18:59 Intake Total 1120 1200 140 Output Total 440 430 90 Balance 680 770 50 Weight 72.9 kg Intake: IV 1120 1200 140 .9 1120 1200 140 Output: Urine 440 430 90 Other: Voiding Method Indwelling Catheter Indwelling Catheter Indwelling Catheter ABP, PAP, CO, CI - Last Documented Arterial Blood Pressure 89/61 - Exam Physical Exam: Revealed 84-year-old white male on 2 L nasal cannula, in no distress. Little more oriented today compared to yesterday. Head: Atraumatic, normocephalic, . HEENT:[Neck is supple.] [No neck masses.] [No thyromegaly.] [No JVD.] Chest: Diminished breaths on bilaterally no rhonchi and no wheezes. Cardiac Exam: Irregular irregular rhythm. [Normal S1 and S2, no S3 gallop, no murmur.] Abdomen: [Soft, nontender, no megaly, no rebound, no guarding, normal bowel sounds.] Extremities: [No clubbing, no edema, no cyanosis.] Neurological Exam: Awake, oriented times one.. Follows simple instructions, no focal deficit otherwise Skin: No rashes. Lymphatics: No lymphadenopathy. Musculoskeletal: No deformities, no limitation in range of motion. - Labs CBC & Chem 7: 12/09/19 02:40 12/09/19 02:40 Labs: Abnormal Lab Results - Last 24 Hours (Table) 12/09/19 12/09/19 Range/Units 02:40 02:40 RBC 3.61 L (4.30-5.90) m/uL Hgb 11.0 L (13.0-17.5) gm/dL Hct 35.7 L (39.0-53.0) % MCHC 30.8 L (31.0-37.0) g/dL Plt Count 138 L (150-450) k/uL Neutrophils # 8.6 H (1.3-7.7) k/uL Lymphocytes # 0.3 L (1.0-4.8) k/uL Carbon Dioxide 35 H (22-30) mmol/L BUN 31 H (9-20) mg/dL Creatinine 0.56 L (0.66-1.25) mg/dL Glucose 142 H (74-99) mg/dL Microbiology - Last 24 Hours (Table) 12/07/19 09:33 Blood Culture - Preliminary Blood No Growth after 48 hours 12/07/19 05:47 Gram Stain - Final Sputum Sputum Culture - Final Moraxella(branhamella) catarra 12/07/19 06:00 Urine Culture - Final Urine,Voided Escherichia coli 12/06/19 17:32 Blood Culture - Preliminary Blood No Growth after 48 hours Assessment and Plan Assessment: Impression: Acute hypoxic and hypercapnic respiratory failure requiring intubation and mechanical ventilation, secondary to acute exacerbation of COPD. History of COPD, Acute toxic metabolic encephalopathy secondary to CO2 narcosis. Secondary to his hypercapnic respiratory failure. 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 History of hypertension. Previous history of GI bleeding. Dyslipidemia. History of degenerative joint disease. History of diverticular disease and colonic polyps. History of nephrolithiasis. And hydronephrosis. Remote history of nicotine dependence. Status post extubation on 12/07/19. Recommendation: Transfer patient to a regular medical floor. Continue bronchodilators Avoid high FiO2. Continue GI and DVT prophylaxis. Advance diet as tolerates. Physical therapy to evaluate and patient is to be ambulated with assistance. Avoid and narcotics. Avoid sedatives. Patient will definitely need placement in ECF or rehab facility early next week. We'll continue to follow. Time with Patient: Less than 30
--- NOTE | 2019-12-09 17:53 | P.PN ---
Subjective This is a pleasant 84 years old male with past medical history of hypertension, history of heart block status post permanent pacemaker, COPD. Hyperlipidemia. Most weight, 17 mm low-density focus in the uncinate process of the pancreas hyperlipidemia, also patient was not taking medications at time He follow-up with the [facility]. Patient is known to me from last visit about one month ago. Patient came to emergency room 6 time last couple months because of his complaint of dyspnea, patient then will be found to be breathing quietly on saturating well, and patient was noted to be significantly forgetful where his memory started to decline after his in February. Last time I discharge patient is Dr. his son Mr. Donaldson and he wanted to take his father under his care for 2-3 weeks and if he thinks he will need help we wi ll ask for his family physician for referral for her shelter. Patient underwent mocha 8.1 version evaluation on 10/24 and he scored 14 out of 30 with an normal score consider 26. Dementia was highly suspected and recommended follow-up as an outpatient This time patient presents because of altered mental status, patient could not provide information, information was obtained from records and staff Patient has been less responsive and sleeping a lot and noted to be hypoxic. And he got intubated Also patient was given 1.5 L of normal saline and breathing treatment. On presentation his blood pressure was borderline but most better 120/49, he slightly tachycardic 102-115, and breathing slightly fast at 20 breaths per minute. And patient is afebrile CBC, INR, BMP and liver enzymes are unremarkable. Repeat urinalysis is suspicious of infection. He has low pH on admission with 7.1 and high pCO2 at 112, repeat ABG showing improvement CT of the brain showing cerebral atrophy with no acute changes per radiologist. Chest x-ray no active cardiopulmonary disease per radiologist. EKG showing sinus tachycardia at [address] T changes 12/08/2019 Patient is extubated today and his on room air, fully awake and alert however he is disoriented to time and place and person probably due to his history of dementia. Patient also was not sure why he was in the hospital as he states he did not know that he was sick. However currently he denies chest pain. No dyspnea while sitting and resting in bed. No abdominal complaints or nausea vomiting and he tolerates diet well. He didn't complain about his bowel movements. His last Woods catheter which is recommended to be discontinued. He saturating high 90s on room air. There are some vitals are stable. He has mild le ukocytosis of 11.6, mostly due to effect of steroids. BMP is unremarkable. Lactic acid is back to normal at 2.0. Chest x-ray from this morning showing infiltrate and small effusions stable findings and greater on the left per radiologist. Patient remains on ceftriaxone. He is also on Solu-Medrol. 12/09/2019 pt is lying in bed comfortable, no chest pain or dyspnea He saturating 97% on room air. His labs looks his stable and WBC is back to normal at 9.2K His urine culture is growing E. coli which is sensitive to ceftriaxone. While urine culture growing Moraxella catarra with no sensitivity reported. Both culture showed no growth Patient remains on Rocephin now He can be transferred out of the ICU and will need physical therapy evaluation for possible rehab placement Review of systems CONSTITUTIONAL: No fever, no malaise, no fatigue. HEENT: No recent visual problems or hearing problems. Denied any sore throat. CARDIOVASCULAR: No orthopnea, PND, no palpitations, no syncope. PULMONARY: No shortness of breath, no cough, no hemoptysis. GASTROINTESTINAL: No diarrhea, no nausea, no vomiting, no abdominal pain. Normoactive bowel sounds. NEUROLOGICAL: No headaches, no weakness, no numbness. Active Medications Generic Name Dose Route Start Last Admin Trade Name Freq PRN Reason Stop Dose Admin Albuterol/Ipratropium 3 ml 12/06/19 19:54 Ipratropium-Albuterol 3 Ml Neb INHALATION RT-Q4H PRN Shortness Of Breath Or Wheezing Albuterol/Ipratropium 3 ml 12/06/19 20:00 12/09/19 15:14 Ipratropium-Albuterol 3 Ml Neb INHALATION 3 ml RT-QID LIAT Administration Budesonide 1 mg 12/07/19 20:00 12/09/19 07:59 Budesonide 1 Mg/2 Ml Nebu INHALATION 1 mg RT-BID LIAT Administration Formoterol Fumarate 20 mcg 12/07/19 20:00 12/09/19 07:59 Formoterol Fumarate 20 Mcg/2 Ml Nebu INHALATION 20 mcg RT-BID LIAT Administration Heparin Sodium (Porcine) 5,000 unit 12/07/19 16:00 12/09/19 17:07 Heparin Sodium,Porcine 5,000 Unit/Ml 1 Ml Vial SQ 5,000 unit Q8HR LIAT Administration Ceftriaxone Sodium 1 gm/ 50 mls @ 100 mls/hr 12/07/19 09:00 12/09/19 08:33 Sodium Chloride IVPB 100 mls/hr Q24HR LIAT Administration Methylprednisolone Sodium Succinate 40 mg 12/07/19 16:00 12/09/19 17:08 Methylprednisolone Sod Succi 40 Mg/Ml 1 Ml Vial IV 40 mg Q8HR LIAT Administration Naloxone HCl 0.2 mg 12/07/19 05:28 Naloxone 0.4 Mg/Ml 1 Ml Vial IV Q2M PRN Opioid Reversal Pantoprazole Sodium 40 mg 12/07/19 09:00 12/09/19 08:34 Pantoprazole 40 Mg/10 Ml Vial IV 40 mg DAILY LIAT Administration Objective - Vital Signs Vital signs: Vital Signs Temp 98 F 12/09/19 15:00 Pulse 64 12/09/19 15:23 Resp 14 12/09/19 15:00 BP 139/98 12/09/19 15:00 Pulse Ox 97 12/09/19 15:00 Intake & Output 12/08/19 12/09/19 12/09/19 18:59 06:59 18:59 Intake Total 1120 1200 140 Output Total 440 430 340 Balance 680 770 -200 Weight 72.9 kg Intake: IV 1120 1200 140 .9 1120 1200 140 Output: Urine 440 430 340 Other: Voiding Method Indwelling Catheter Indwelling Catheter Urinal ABP, PAP, CO, CI - Last Documented Arterial Blood Pressure 89/61 - Exam -GENERAL: The patient is alert and oriented x0, however he makes logic conversation not in any acute distress. HEENT: Pupils are round and equally reacting to light. EOMI. No scleral icterus. No conjunctival pallor. Normocephalic, atraumatic. No pharyngeal erythema. No thyromegaly. CARDIOVASCULAR: S1 and S2 present. No murmurs, rubs, or gallops. -PULMONARY: Chest is clear to auscultation, no wheezing or crackles. Decreased air entry bilaterally ABDOMEN: Soft, nontender, nondistended, normoactive bowel sounds. No palpable organomegaly. MUSCULOSKELETAL: No joint swelling or deformity. EXTREMITIES: No cyanosis, clubbing, or pedal edema. NEUROLOGICAL: Gross neurological examination did not reveal any focal deficits. SKIN: No rashes. no petechiae. - Labs CBC & Chem 7: 12/09/19 02:40 12/09/19 02:40 Labs: Abnormal Lab Results - Last 24 Hours (Table) 12/09/19 12/09/19 Range/Units 02:40 02:40 RBC 3.61 L (4.30-5.90) m/uL Hgb 11.0 L (13.0-17.5) gm/dL Hct 35.7 L (39.0-53.0) % MCHC 30.8 L (31.0-37.0) g/dL Plt Count 138 L (150-450) k/uL Neutrophils # 8.6 H (1.3-7.7) k/uL Lymphocytes # 0.3 L (1.0-4.8) k/uL Carbon Dioxide 35 H (22-30) mmol/L BUN 31 H (9-20) mg/dL Creatinine 0.56 L (0.66-1.25) mg/dL Glucose 142 H (74-99) mg/dL Microbiology - Last 24 Hours (Table) 12/07/19 09:33 Blood Culture - Preliminary Blood No Growth after 48 hours 12/07/19 05:47 Gram Stain - Final Sputum Sputum Culture - Final Moraxella(branhamella) catarra 12/07/19 06:00 Urine Culture - Final Urine,Voided Escherichia coli 12/06/19 17:32 Blood Culture - Preliminary Blood No Growth after 48 hours Assessment and Plan Assessment: Acute hypoxic hypercapnic failure, status post extubation. Acute urinary tract infection with E. coli Metabolic encephalopathy, improved acute COPD exacerbation Dementia recent diagnosis. Nonadherence to therapy Loss of weight, he lost about 30 pounds in 1 month, CT of the abdomen, pelvis and chest were unremarkable for gross abnormality, GI recommended outpatient fo llow-up for EGD/colonoscopy 17 mm low-density focus in the uncinate process of the pancreas, with re commendation for outpatient follow-up Recurrent subjective feeling of dyspnea with no strong organic evidence, could be due to his deconditioning and loss of weight, on the top of his dementia (cardiology and pulmonary cleared The patient) COPD with no exacerbation Leukocytosis, due to steroid effect. Improvement No Chronic diarrhea, patient reported diarrhea due to memory problem Elevated lactic acid, came back to normal Hypertension Hyperlipidemia History of heart block status post permanent pacemaker. With normal cardiac cath in 2019 Plan: this is pleasant 84 yo M who present with resp falure and copd , continue with antibiotics and steroids and bronchodialator , pulmonary/critical care consult . Continue with antibiotic Labs and medication were reviewed.. Continue same treatment. Continue with symptomatic treatment. Resume home medication. Monitor lytes and vitals. DVT and GI prophylaxis. Further recommendations depends on the clinical course of the patient DVT prophylaxis: Subcutaneous heparin GI Prophylaxis: Ppi PT/OT: Pending Prognosis is guard
[2019-12-10] MEDS: methylPREDNISolone SOD SUCCI 40 MG/ML 1 ML VIAL IV SCH ×2 (00:11→08:43)
[2019-12-10] MEDS: HEPARIN SODIUM,PORCINE 5,000 UNIT/ML 1 ML VIAL SQ SCH ×3 (00:11→15:12)
[2019-12-10] MEDS: IPRATROPIUM-ALBUTEROL 3 ML NEB INHALATION SCH ×4 (07:45→20:16)
[2019-12-10] MEDS: BUDESONIDE 1 MG/2 ML NEBU INHALATION SCH ×2 (07:45→20:16)
[2019-12-10] MEDS: FORMOTEROL FUMARATE 20 MCG/2 ML NEBU INHALATION SCH ×2 (07:45→20:16)
[2019-12-10] MEDS: PANTOPRAZOLE 40 MG/10 ML VIAL IV SCH (08:42)
[2019-12-10] MEDS ORDERED: predniSONE 20 MG TAB PO SCH (09:00)
--- NOTE | 2019-12-10 11:51 | PN ---
PROGRESS NOTE PULMONARY/CRITICAL CARE PROGRESS NOTE: DATE OF SERVICE: 12/10/2019 This is an 84-year-old male who was admitted back on December 05 with COPD exacerbation and dehydration. The patient developed acute respiratory failure with hypoxemia and severe hypercapnia, required intubation on December 06 and had subsequent extubation on the same day, December 06. Currently, he is on room air. He is not receiving any IV fluids. The patient did have evidence of E coli in the urine and Moraxella catarrhalis in the sputum. He is currently on Rocephin. The patient is a patient who could be transferred out to the general medical floor. The patient is a FULL CODE and has severe underlying dementia. Currently resting comfortably. Current vital signs include a temperature 97.7, heart rate 95, respiratory rate 20, blood pressure 115/68 mean 98 and room air saturation 94%-95%. Appears in no acute distress. HEENT: Examination is grossly unremarkable. No supplemental oxygen. NECK: Supple, full range of motion. No adenopathy. Neck veins flat. CARDIOVASCULAR: Examination reveals regular rhythm and rate. S1 and S2 normal. LUNGS: Reveal mostly clear breath sounds. A few scattered rhonchi. No wheezes or crackles. ABDOMEN: Soft. EXTREMITIES: Intact. No edema. SKIN: Without rash. NEUROLOGIC: Examination reveals severe mental status changes secondary to dementia. LAB DATA: Reviewed. White count 9.2, hemoglobin 11, hematocrit 35.7, platelet count 138,000, sodium, potassium, chloride normal. CO2 is 35, anion gap is -2, BUN and creatinine were 31 and 0.56. Microbiology is reviewed. E coli in the urine from December 06 and Moraxella catarrhalis in the sputum from December 06. The most recent chest x-ray was done on December 08. It shows some patchy retrocardiac and right basilar infiltrates or atelectasis. CURRENT MEDICATIONS: Reviewed. The patient is on Pulmicort, Rocephin, formoterol, subcu heparin, DuoNeb, Narcan, Protonix, and prednisone 40 mg a day. ASSESSMENT: 1. Acute hypoxemic hypercapnic respiratory failure, requiring intubation and mechanical ventilation 12/06 with extubation on 12/06, secondary to COPD exacerbation. 2. History of chronic obstructive pulmonary disease. 3. Severe dementia. 4. Metabolic encephalopathy. 5. Status post pacemaker insertion for high-degree AV block. 6. Essential hypertension. 7. Previous history of GI bleed. 8. Hyperlipidemia. 9. Degenerative joint disease. 10.History of diverticular disease and colonic polyps. 11.History of kidney stones. 12.Remote history of nicotine dependence. PLAN: The patient is doing well. The patient could be transferred out to the general medical floor. The patient remains on Rocephin. Culture data is reviewed. He has severe dementia. No additional recommendations are made. Prognosis is guarded. MMODL / IJN: [id number] /
[2019-12-10 14:37] LABS: ABG PCO2 112 mmHg (35-45); ABG PH 7.13 (7.35-7.45)
--- NOTE | 2019-12-10 20:27 | P.PN ---
Subjective This is a pleasant 84 years old male with past medical history of hypertension, history of heart block status post permanent pacemaker, COPD. Hyperlipidemia. Most weight, 17 mm low-density focus in the uncinate process of the pancreas hyperlipidemia, also patient was not taking medications at time He follow-up with the [facility]. Patient is known to me from last visit about one month ago. Patient came to emergency room 6 time last couple months because of his complaint of dyspnea, patient then will be found to be breathing quietly on saturating well, and patient was noted to be significantly forgetful where his memory started to decline after his in February. Last time I discharge patient is Dr. his son Mr. Donaldson and he wanted to take his father under his care for 2-3 weeks and if he thinks he will need help we wi ll ask for his family physician for referral for her care home. Patient underwent mocha 8.1 version evaluation on 10/24 and he scored 14 out of 30 with an normal score consider 26. Dementia was highly suspected and recommended follow-up as an outpatient This time patient presents because of altered mental status, patient could not provide information, information was obtained from records and staff Patient has been less responsive and sleeping a lot and noted to be hypoxic. And he got intubated Also patient was given 1.5 L of normal saline and breathing treatment. On presentation his blood pressure was borderline but most better 120/49, he slightly tachycardic 102-115, and breathing slightly fast at 20 breaths per minute. And patient is afebrile CBC, INR, BMP and liver enzymes are unremarkable. Repeat urinalysis is suspicious of infection. He has low pH on admission with 7.1 and high pCO2 at 112, repeat ABG showing improvement CT of the brain showing cerebral atrophy with no acute changes per radiologist. Chest x-ray no active cardiopulmonary disease per radiologist. EKG showing sinus tachycardia at [address] T changes 12/08/2019 Patient is extubated today and his on room air, fully awake and alert however he is disoriented to time and place and person probably due to his history of dementia. Patient also was not sure why he was in the hospital as he states he did not know that he was sick. However currently he denies chest pain. No dyspnea while sitting and resting in bed. No abdominal complaints or nausea vomiting and he tolerates diet well. He didn't complain about his bowel movements. His last Woods catheter which is recommended to be discontinued. He saturating high 90s on room air. There are some vitals are stable. He has mild le ukocytosis of 11.6, mostly due to effect of steroids. BMP is unremarkable. Lactic acid is back to normal at 2.0. Chest x-ray from this morning showing infiltrate and small effusions stable findings and greater on the left per radiologist. Patient remains on ceftriaxone. He is also on Solu-Medrol. 12/09/2019 pt is lying in bed comfortable, no chest pain or dyspnea He saturating 97% on room air. His labs looks his stable and WBC is back to normal at 9.2K His urine culture is growing E. coli which is sensitive to ceftriaxone. While urine culture growing Moraxella catarra with no sensitivity reported. Both culture showed no growth Patient remains on Rocephin now He can be transferred out of the ICU and will need physical therapy evaluation for possible rehab placement 12/10/2019 Patient has been on room air for 3 days. Pulmonary team still on the case and recommended patient to be transferred to the general medical floor today Possible discharge in 24 hours once cleared by pulmonary team Objective - Vital Signs Vital signs: Vital Signs Temp 97.7 F 12/10/19 14:48 Pulse 100 12/10/19 16:28 Resp 20 12/10/19 14:48 BP 180/85 12/10/19 14:48 Pulse Ox 93 L 12/10/19 14:48 Intake & Output 12/10/19 12/10/19 12/11/19 06:59 18:59 06:59 Intake Total 100 Output Total 300 175 Balance -300 -75 Intake: IV 100 cefTRIAXone 1 gm In 100 Sodium Chloride 0.9% 50 ml @ 100 mls/hr IVPB Q24HR [facility] Rx#:[id number] Output: Urine 300 175 Other: Voiding Method Urinal # Voids 1 1 ABP, PAP, CO, CI - Last Documented Arterial Blood Pressure 89/61 - Exam -GENERAL: The patient is alert and oriented x0, however he makes logic conversation not in any acute distress. HEENT: Pupils are round and equally reacting to light. EOMI. No scleral icterus. No conjunctival pallor. Normocephalic, atraumatic. No pharyngeal erythema. No thyromegaly. CARDIOVASCULAR: S1 and S2 present. No murmurs, rubs, or gallops. -PULMONARY: Chest is clear to auscultation, no wheezing or crackles. Decreased air entry bilaterally ABDOMEN: Soft, nontender, nondistended, normoactive bowel sounds. No palpable organomegaly. MUSCULOSKELETAL: No joint swelling or deformity. EXTREMITIES: No cyanosis, clubbing, or pedal edema. NEUROLOGICAL: Gross neurological examination did not reveal any focal deficits. SKIN: No rashes. no petechiae. - Labs CBC & Chem 7: 12/09/19 02:40 12/09/19 02:40 Labs: Abnormal Lab Results - Last 24 Hours (Table) 12/07/19 Range/Units 04:42 ABG pH 7.13 L* (7.35-7.45) ABG pCO2 112 H* (35-45) mmHg Microbiology - Last 24 Hours (Table) 12/07/19 09:33 Blood Culture - Preliminary Blood No Growth after 72 hours 12/06/19 17:32 Blood Culture - Preliminary Blood No Growth after 72 hours Assessment and Plan Assessment: Acute hypoxic hypercapnic failure, status post extubation. Acute urinary tract infection with E. coli Metabolic encephalopathy, improved acute COPD exacerbation Dementia recent diagnosis. Nonadherence to therapy Loss of weight, he lost about 30 pounds in 1 month, CT of the abdomen, pelvis and chest were unremarkable for gross abnormality, GI recommended outpatient follow-up for EGD/colonoscopy 17 mm low-density focus in the uncinate process of the pancreas, with recommendation for outpatient follow-up Recurrent subjective feeling of dyspnea with no strong organic evidence, could be due to his deconditioning and loss of weight, on the top of his dementia (cardiology and pulmonary cleared The patient) COPD with no exacerbation Leukocytosis, due to steroid effect. Improvement No Chronic diarrhea, patient reported diarrhea due to memory problem Elevated lactic acid, came back to normal Hypertension Hyperlipidemia History of heart block status post permanent pacemaker. With normal cardiac cath in 2019 Plan: this is pleasant 84 yo M who present with resp falure and copd , continue with antibiotics and steroids and bronchodialator , pulmonary/critical care consult . Continue with antibiotic Labs and medication were reviewed.. Continue same treatment. Continue with symptomatic treatment. Resume home medication. Monitor lytes and vitals. DVT and GI prophylaxis. Further recommendations depends on the clinical course of the patient DVT prophylaxis: Subcutaneous heparin GI Prophylaxis: Ppi PT/OT: Pending Prognosis is guard
[2019-12-10 20:35] LABS: Glucose,Whole Blood 137 mg/dL (75-99)
[2019-12-11 07:05] LABS: Glucose,Whole Blood 83 mg/dL (75-99)
[2019-12-11] MEDS: BUDESONIDE 1 MG/2 ML NEBU INHALATION SCH (07:32)
[2019-12-11] MEDS: FORMOTEROL FUMARATE 20 MCG/2 ML NEBU INHALATION SCH (07:32)
[2019-12-11] MEDS: IPRATROPIUM-ALBUTEROL 3 ML NEB INHALATION SCH ×2 (07:32→10:59)
[2019-12-11] MEDS ORDERED: PANTOPRAZOLE 40 MG TABLET PO SCH (09:00)
[2019-12-11] MEDS ORDERED: predniSONE 20 MG TAB PO SCH (09:00)
[2019-12-11] MEDS: HEPARIN SODIUM,PORCINE 5,000 UNIT/ML 1 ML VIAL SQ SCH ×2 (09:27)
[2019-12-11 12:14] VITALS: BP 118/76; PULSE 77; RESP 16; TEMP 97.5
[2019-12-11 12:41] LABS: Glucose,Whole Blood 97 mg/dL (75-99)
--- NOTE | 2019-12-11 14:44 | P.PN ---
Subjective Progress Note Date: 12/11/19 Principal diagnosis: Shortness of breath On 12/11/2019 patient seen in follow-up on a general medical surgical floor, he is ambulating in the room, he is not any oxygen, his room air pulse ox is 98%, hemodynamically stable, he has had no fever or chills, breathing comfortably, he states his breathing has significantly improved. His last chest x-ray was on Tuesday showing patchy retrocardiac and right basilar opacity. Vital signs have been stable. Has had no acute events overnight. Remains on empiric antibiotics, in no form of Rocephin, which transitioned to oral steroids. Sputum culture showed Moraxella catarrhalis, and urine cultures positive for E. coli. Objective - Vital Signs Vital signs: Vital Signs Temp 97.5 F L 12/11/19 12:08 Pulse 77 12/11/19 12:08 Resp 16 12/11/19 12:08 BP 118/76 12/11/19 12:08 Pulse Ox 98 12/11/19 12:08 Intake & Output 12/10/19 12/11/19 12/11/19 18:59 06:59 18:59 Intake Total 100 Output Total 175 Balance -75 Intake: IV 100 cefTRIAXone 1 gm In 100 Sodium Chloride 0.9% 50 ml @ 100 mls/hr IVPB Q24HR [facility] Rx#:[id number] Output: Urine 175 Other: Voiding Method Urinal # Voids 1 1 # Bowel Movements 1 ABP, PAP, CO, CI - Last Documented Arterial Blood Pressure 89/61 - Exam GENERAL EXAM: Alert, very pleasant, 84-year-old white male, on room air, and the pulse ox of 98% comfortable in no apparent distress. HEAD: Normocephalic/atraumatic. EYES: Normal reaction of pupils, equal size. Conjunctiva pink, sclera white. NOSE: Clear with pink turbinates. THROAT: No erythema or exudates. NECK: No masses, no JVD, no thyroid enlargement, no adenopathy. CHEST: No chest wall deformity. Symmetrical expansion. LUNGS: Equal air entry with no crackles, wheeze, rhonchi or dullness. CVS: Regular rate and rhythm, normal S1 and S2, no gallops, no murmurs, no rubs ABDOMEN: Soft, nontender. No hepatosplenomegaly, normal bowel sounds, no guardi ng or rigidity. EXTREMITIES: No clubbing, no edema, no cyanosis, 2+ pulses and upper and lower extremities. MUSCULOSKELETAL: Muscle strength and tone normal. SPINE: No scoliosis or deformity SKIN: No rashes CENTRAL NERVOUS SYSTEM: Alert and oriented -3. No focal deficits, tone is normal in all 4 extremities. PSYCHIATRIC: Alert and oriented -3. Appropriate affect. Intact judgment and insight. - Labs CBC & Chem 7: 12/09/19 02:40 12/09/19 02:40 Labs: Abnormal Lab Results - Last 24 Hours (Table) 12/10/19 Range/Units 20:34 POC Glucose (mg/dL) 137 H (75-99) mg/dL Microbiology - Last 24 Hours (Table) 12/07/19 09:33 Blood Culture - Preliminary Blood No Growth after 96 hours 12/06/19 17:32 Blood Culture - Preliminary Blood No Growth after 96 hours Assessment and Plan Plan: Assessment: Acute hypoxic and hypercapnic respiratory failure requiring intubation and mechanical ventilation, secondary to acute exacerbation of COPD. History of COPD, Acute toxic metabolic encephalopathy secondary to CO2 narcosis. Secondary to his hypercapnic respiratory failure. 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 History of hypertension. Previous history of GI bleeding. Dyslipidemia. History of degenerative joint disease. History of diverticular disease and colonic polyps. History of nephrolithiasis. And hydronephrosis. Remote history of nicotine dependence. Status post extubation on 12/07/19. Plan Continue current medical treatment, breathing has improved, no acute events overnight, breathing has improved, no fever or chills, and can be considered for discharge today, without patient follow-up in the office with Dr. Gastelum in 7-10 days I performed a history & physical examination of the patient and discussed their management with my nurse practitioner, Gloria Christianson. I reviewed the nurse practitioner's note and agree with the documented findings and plan of care. Lung sounds are positive for diminished breath sounds. The findings and the impression was discussed with the patient. I attest to the documentation by the nurse practitioner. Time with Patient: Less than 30
--- NOTE | 2019-12-11 23:30 | P.DS ---
Providers Date of admission: 12/06/19 19:55 Attending physician: Rios Antony Consults: 12/07/19 08:10 Consult Physician Stat Consulting Provider: Becca Tipton Reason/Comments: mechanical ventilator/ icu management Do you want consulting provider notified?: Already Contacted Primary care physician: [facility] Hospital Course: Diagnoses: Acute hypoxic hypercapnic failure, status post extubation. Improved and currently he is on Coumadin Acute urinary tract infection with E. coli Metabolic encephalopathy, improved acute COPD exacerbation Dementia recent diagnosis. Nonadherence to therapy Loss of weight, he lost about 30 pounds in 1 month, CT of the abdomen, pelvis and chest were unremarkable for gross abnormality, GI recommended outpatient follow-up for EGD/colonoscopy 17 mm low-density focus in the uncinate process of the pancreas, with recommendation for outpatient follow-up Recurrent subjective feeling of dyspnea with no strong organic evidence, could be due to his deconditioning and loss of weight, on the top of his dementia (cardiology and pulmonary cleared The patient) COPD with no exacerbation Leukocytosis, due to steroid effect. Improvement No Chronic diarrhea, patient reported diarrhea due to memory problem Elevated lactic acid, came back to normal Hypertension Hyperlipidemia History of heart block status post permanent pacemaker. With normal cardiac cath in 2019 Hospital course: This is a pleasant 84 years old male with past medical history of hypertension, history of heart block status post permanent pacemaker, COPD. Hyperlipidemia. Most weight, 17 mm low-density focus in the uncinate process of the pancreas hyperlipidemia, also patient was not taking medications at time He follow-up with the [facility]. This time patient presents because of altered mental status, due to be hypoxic and hypercapnic. And he got intubated for 1 day and placed on mechanical ventilation in the ICU. Post extubation patient was improving gradually his mentation improved gradually as well. Patient was treated with steroids and antibiotics with COPD exacerbation and possible pneumonia and UTI secondary to E. coli. Patient was awake however he felt generally weak. Denies chest pain or dyspnea or abdominal pain or nausea vomiting or change in urine or bowel habits or fever. Patient was on room air for the last 3 days. Prior to discharge his mentation significantly improved and he was alert and awake to the surrounding Patient was cleared for discharge by pulmonary team Patient will be discharged on short course of oral antibiotics with Ceftin and tapering steroids Problems and management plan were discussed with the patient and he verbalized understanding and acceptance Patient was found stable and can be discharged home however he needs follow-up as an outpatient. Patient was instructed to follow up with PCP at the [facility] within one week and patient agrees with the appointments made for him. Also instructed to follow up with program advocate Dr. Chong in 7-10 days and he agrees to make appointment. Written instructions provided Gen: patient is a AAOx3, no distress CVS: S1-S2, RRR, no murmur Lungs: B/L CTA, no wheezing Abdomen: soft, no distention, no tenderness, positive bowel sounds Extremity: no leg edema or induration Time spent more than 35 minutes Patient Condition at Discharge: Stable Plan - Discharge Summary Discharge Rx Participant: Yes New Discharge Prescriptions: New Cefuroxime Axetil [Ceftin] 500 mg PO BID 7 Days #1 tab predniSONE 10 mg PO DIRECTED #30 tab Albuterol Inhaler [Ventolin Hfa Inhaler] 1 puff INHALATION RT-QID #1 inh Continue Lovastatin [Mevacor] 40 mg PO DAILY Aspirin [Adult Low Dose Aspirin EC] 81 mg PO DAILY Omeprazole 20 mg PO DAILY Truro-3 Fatty Acids/Fish Oil [Fish Oil 1,000 mg Softgel] 1 cap PO DAILY Ferrous Sulfate [Iron] 325 mg PO DAILY Fluticasone/Salmeterol [Airduo Respiclick 232-14 Mcg] 1 puff INHALATION RT- BID Calcium Carbonate/Vitamin D3 [Calcium 500Mg-Vit D3 15Mcg (600 unit)] 1 tab PO BID Thiamine [Vitamin B-1] 100 mg PO DAILY #30 tab Cyanocobalamin [Vitamin B-12] 1,000 mcg PO DAILY #60 tablet Albuterol Inhaler [Ventolin Hfa Inhaler] 2 puff INHALATION RT-QID PRN #1 inh PRN Reason: Wheezing Metoprolol Succinate [Toprol XL] 25 mg PO DAILY Albuterol Nebulized [Ventolin Nebulized] 3 ml INHALATION RT-Q4H PRN PRN Reason: Shortness Of Breath Discontinued amLODIPine [Norvasc] 10 mg PO DAILY #30 tab lisinopriL [Zestril] 10 mg PO DAILY #30 tab Discharge Medication List Aspirin [Adult Low Dose Aspirin EC] 81 mg PO DAILY 02/04/16 [History] Lovastatin [Mevacor] 40 mg PO DAILY 02/04/16 [History] Truro-3 Fatty Acids/Fish Oil [Fish Oil 1,000 mg Softgel] 1 cap PO DAILY 02/04/16 [History] Omeprazole 20 mg PO DAILY 02/04/16 [History] Ferrous Sulfate [Iron] 325 mg PO DAILY 10/06/19 [History] Fluticasone/Salmeterol [Airduo Respiclick 232-14 Mcg] 1 puff INHALATION RT-BID 10/21/19 [History] Calcium Carbonate/Vitamin D3 [Calcium 500Mg-Vit D3 15Mcg (600 unit)] 1 tab PO BID 10/23/19 [History] Albuterol Inhaler [Ventolin Hfa Inhaler] 2 puff INHALATION RT-QID PRN #1 inh 10/27/19 [Rx] Cyanocobalamin [Vitamin B-12] 1,000 mcg PO DAILY #60 tablet 10/27/19 [Rx] Thiamine [Vitamin B-1] 100 mg PO DAILY #30 tab 10/27/19 [Rx] Albuterol Nebulized [Ventolin Nebulized] 3 ml INHALATION RT-Q4H PRN 12/06/19 [History] Metoprolol Succinate [Toprol XL] 25 mg PO DAILY 12/06/19 [History] Albuterol Inhaler [Ventolin Hfa Inhaler] 1 puff INHALATION RT-QID #1 inh 12/11/19 [Rx] Cefuroxime Axetil [Ceftin] 500 mg PO BID 7 Days #1 tab 12/11/19 [Rx] predniSONE 10 mg PO DIRECTED #30 tab 12/11/19 [Rx] Follow up Appointment(s)/Referral(s): Ashwin Chong DO [Doctor of Osteopathic Medicine] - 10 Days [facility] [Primary Care Provider] - 12/19/19 3:00 pm Patient Instructions/Handouts: Urinary Tract Infection in Men (DC), COPD (Chronic Obstructive Pulmonary Disease) (DC) Activity/Diet/Wound Care/Special Instructions: Home Care order was faxed to MD and should be setting this up. Please follow up with MD. NursePatient will need to fill 2 weeks worth of new Rx in our pharmacy. Discharge Disposition: HOME WITH HOME HEALTH SERVICES
--- NOTE | 2019-12-12 07:36 | CDI ---
Documentation Clarification Form Date: 12/12/19 From: Shelli Serrano Phone: If you have a question about this query, please contact Greer Mullins, Inbound Sales Advisor at [phone] between 8am and 5pm. Admit Date: 12/06/19 Discharge Date: 12/11/19 Patient Name: CARLOS CORTEZ Visit Number: [id number] ATTENTION: The Clinical Documentation Specialists (CDI) and [facility] Coding Staff appreciate your assistance in clarifying documentation. Please respond to the clarification below the line at the bottom and electronically sign. The CDI & [facility] Coding staff will review the response and follow-up if needed. Please note: Queries are made part of the Legal Health Record. If you have any questions, please contact the author of this message via ITS. Dear Dr. Cedric Soto, a Atrial Fibrillation is documented in PN 12/07 & 12/[address] Tipton. History/Risk Factors: acute hypoxic & hypercapnia respiratory failure, AECOPD, toxic metabolic encephalopathy, poss PNA, UTI w E coli, HTN Clinical Indicators: Normal rhythm, tachycardia EKG/telemetry: Sinus tachycardia, right bundle branch block, left anterior fascicular block, rate of 103, CA interval 194, QRS duration 112, QTC 458, very poor baseline secondary to tremor artifact. No ST segment elevation. Treatment: currently not on anticoagulant In your professional opinion, can you please clarify the type of Atrial Fibrillation, if known? Chronic Permanent Paroxysmal Persistent, longstanding Persistent, other Persistent, permanent Other, please specify Unable to determine Unable to determine MTDD
--- NOTE | 2019-12-13 08:11 | P.DS ---
Providers Date of admission: 12/06/19 19:55 Attending physician: Rios Antony Consults: 12/07/19 08:10 Consult Physician Stat Consulting Provider: Becca Tipton Reason/Comments: mechanical ventilator/ icu management Do you want consulting provider notified?: Already Contacted Primary care physician: [facility] Hospital Course: Date of service is 12/11/2019 Diagnoses: Acute hypoxic hypercapnic failure, status post extubation. Improved and currently he is on Coumadin Acute urinary tract infection with E. coli Metabolic encephalopathy, improved acute COPD exacerbation Dementia recent diagnosis. Nonadherence to therapy Loss of weight, he lost about 30 pounds in 1 month, CT of the abdomen, pelvis and chest were unremarkable for gross abnormality, GI recommended outpatient follow-up for EGD/colonoscopy 17 mm low-density focus in the uncinate process of the pancreas, with recommendation for outpatient follow-up Recurrent subjective feeling of dyspnea with no strong organic evidence, could be due to his deconditioning and loss of weight, on the top of his dementia (cardiology and pulmonary cleared The patient) COPD with no exacerbation Leukocytosis, due to steroid effect. Improvement No Chronic diarrhea, patient reported diarrhea due to memory problem Elevated lactic acid, came back to normal Hypertension Hyperlipidemia History of heart block status post permanent pacemaker. With normal cardiac cath in 2019 Hospital course: This is a pleasant 84 years old male with past medical history of hypertension, history of heart block status post permanent pacemaker, COPD. Hyperlipidemia. Most weight, 17 mm low-density focus in the uncinate process of the pancreas hyperlipidemia, also patient was not taking medications at time He follow-up with the [facility]. This time patient presents because of altered mental status, due to be hypoxic and hypercapnic. And he got intubated for 1 day and placed on mechanical ventilation in the ICU. Post extubation patient was improving gradually his mentation improved gradually as well. Patient was treated with steroids and antibiotics with COPD exacerbation and possible pneumonia and UTI secondary to E. coli. Patient was awake however he felt generally weak. Denies chest pain or dyspnea or abdominal pain or nausea vomiting or change in urine or bowel habits or fever. Patient was on room air for the last 3 days. Prior to discharge his mentation significantly improved and he was alert and awake to the surrounding Patient was cleared for discharge by pulmonary team Patient will be discharged on short course of oral antibiotics with Ceftin and tapering steroids Problems and management plan were discussed with the patient and he verbalized understanding and acceptance Patient was found stable and can be discharged home however he needs follow-up as an outpatient. Patient was instructed to follow up with PCP at the [facility] clinic within one week and patient agrees with the appointments made for him. Also instructed to follow up with labor delivery rn Dr. Chong in 7-10 days and he agrees to make appointment. Written instructions provided Gen: patient is a AAOx3, no distress CVS: S1-S2, RRR, no murmur Lungs: B/L CTA, no wheezing Abdomen: soft, no distention, no tenderness, positive bowel sounds Extremity: no leg edema or induration Time spent more than 35 minutes Patient Condition at Discharge: Stable Plan - Discharge Summary Discharge Rx Participant: Yes New Discharge Prescriptions: New Cefuroxime Axetil [Ceftin] 500 mg PO BID 7 Days #1 tab Albuterol Inhaler [Ventolin Hfa Inhaler] 1 puff INHALATION RT-QID #1 inh Continue Lovastatin [Mevacor] 40 mg PO DAILY Aspirin [Adult Low Dose Aspirin EC] 81 mg PO DAILY Omeprazole 20 mg PO DAILY [place]-3 Fatty Acids/Fish Oil [Fish Oil 1,000 mg Softgel] 1 cap PO DAILY Ferrous Sulfate [Iron] 325 mg PO DAILY Fluticasone/Salmeterol [Airduo Respiclick 232-14 Mcg] 1 puff INHALATION RT- BID Calcium Carbonate/Vitamin D3 [Calcium 500Mg-Vit D3 15Mcg (600 unit)] 1 tab PO BID Thiamine [Vitamin B-1] 100 mg PO DAILY #30 tab Cyanocobalamin [Vitamin B-12] 1,000 mcg PO DAILY #60 tablet Metoprolol Succinate [Toprol XL] 25 mg PO DAILY Albuterol Nebulized [Ventolin Nebulized] 3 ml INHALATION RT-Q4H PRN PRN Reason: Shortness Of Breath Discontinued amLODIPine [Norvasc] 10 mg PO DAILY #30 tab lisinopriL [Zestril] 10 mg PO DAILY #30 tab No Action predniSONE See Taper PO DIRECTED Discharge Medication List Aspirin [Adult Low Dose Aspirin EC] 81 mg PO DAILY 02/04/16 [History] Lovastatin [Mevacor] 40 mg PO DAILY 02/04/16 [History] [place]-3 Fatty Acids/Fish Oil [Fish Oil 1,000 mg Softgel] 1 cap PO DAILY 02/04/16 [History] Omeprazole 20 mg PO DAILY 02/04/16 [History] Ferrous Sulfate [Iron] 325 mg PO DAILY 10/06/19 [History] Fluticasone/Salmeterol [Airduo Respiclick 232-14 Mcg] 1 puff INHALATION RT-BID 10/21/19 [History] Calcium Carbonate/Vitamin D3 [Calcium 500Mg-Vit D3 15Mcg (600 unit)] 1 tab PO BID 10/23/19 [History] Cyanocobalamin [Vitamin B-12] 1,000 mcg PO DAILY #60 tablet 10/27/19 [Rx] Thiamine [Vitamin B-1] 100 mg PO DAILY #30 tab 10/27/19 [Rx] Albuterol Nebulized [Ventolin Nebulized] 3 ml INHALATION RT-Q4H PRN 12/06/19 [History] Metoprolol Succinate [Toprol XL] 25 mg PO DAILY 12/06/19 [History] Albuterol Inhaler [Ventolin Hfa Inhaler] 1 puff INHALATION RT-QID #1 inh 12/11/19 [Rx] Cefuroxime Axetil [Ceftin] 500 mg PO BID 7 Days #1 tab 12/11/19 [Rx] predniSONE See Taper PO DIRECTED 12/12/19 [History] Follow up Appointment(s)/Referral(s): Ashwin Chong DO [Doctor of Osteopathic Medicine] - 10 Days [facility] [Primary Care Provider] - 12/19/19 3:00 pm Patient Instructions/Handouts: Urinary Tract Infection in Men (DC), COPD (Chronic Obstructive Pulmonary Disease) (DC) Activity/Diet/Wound Care/Special Instructions: Home Care order was faxed to [place] and should be setting this up. Please follow up with [place]. NursePatient will need to fill 2 weeks worth of new Rx in our pharmacy. Discharge Disposition: HOME WITH HOME HEALTH SERVICES
== END 2019-12-11 16:17 | disposition home health service (06) | DRG 208 ==
LOC: EC 17:17 → 4SSUR 19:55 → 2SICU 12-07 04:56 → 4SSUR 12-10 09:53
PROVIDERS: ADMIT Hospitalist; ATTEND Hospitalist
PROC: 0BH17EZ Insertion of Endotracheal Airway into Trachea, Via Natural or Artificial Opening (ICD-10-PCS; principal; 2019-12-07)
PROC: 3E033XZ Introduction of Vasopressor into Peripheral Vein, Percutaneous Approach (ICD-10-PCS; principal; 2019-12-07)
PROC: 5A1935Z Respiratory Ventilation, Less than 24 Consecutive Hours (ICD-10-PCS; principal; 2019-12-07)
PROC: 0D9670Z Drainage of Stomach with Drainage Device, Via Natural or Artificial Opening (ICD-10-PCS; principal; 2019-12-07)
PROC: 5A09457 Assistance with Respiratory Ventilation, 24-96 Consecutive Hours, Continuous Positive Airway Pressure (ICD-10-PCS; 2019-12-07)
DX: J96.01 Acute respiratory failure with hypoxia (principal); G92 Toxic encephalopathy; J18.9 Pneumonia, unspecified organism; J44.1 Chronic obstructive pulmonary disease with (acute) exacerbation; J44.0 Chronic obstructive pulmonary disease with (acute) lower respiratory infection; E87.2 Acidosis; I45.2 Bifascicular block; J98.11 Atelectasis; N39.0 Urinary tract infection, site not specified; I95.9 Hypotension, unspecified; B96.20 Unspecified Escherichia coli [E. coli] as the cause of diseases classified elsewhere; J96.02 Acute respiratory failure with hypercapnia; F03.90 Unspecified dementia, unspecified severity, without behavioral disturbance, psychotic disturbance, mood disturbance, and anxiety; E86.0 Dehydration; I44.1 Atrioventricular block, second degree; I48.91 Unspecified atrial fibrillation; G31.9 Degenerative disease of nervous system, unspecified; D64.9 Anemia, unspecified; E78.5 Hyperlipidemia, unspecified; I10 Essential (primary) hypertension; K21.9 Gastro-esophageal reflux disease without esophagitis; M19.032 Primary osteoarthritis, left wrist; M19.031 Primary osteoarthritis, right wrist; M19.042 Primary osteoarthritis, left hand; M19.041 Primary osteoarthritis, right hand; M19.072 Primary osteoarthritis, left ankle and foot; K64.9 Unspecified hemorrhoids; K57.90 Diverticulosis of intestine, part unspecified, without perforation or abscess without bleeding; K59.00 Constipation, unspecified; M54.9 Dorsalgia, unspecified; M19.071 Primary osteoarthritis, right ankle and foot; I25.2 Old myocardial infarction; R63.4 Abnormal weight loss; Z91.19 Patient's noncompliance with other medical treatment and regimen; Z79.82 Long term (current) use of aspirin; Z79.899 Other long term (current) drug therapy; Z87.891 Personal history of nicotine dependence; Z87.19 Personal history of other diseases of the digestive system; Z87.01 Personal history of pneumonia (recurrent); Z87.81 Personal history of (healed) traumatic fracture; Z87.442 Personal history of urinary calculi; Z87.440 Personal history of urinary (tract) infections; Z86.19 Personal history of other infectious and parasitic diseases; Z90.49 Acquired absence of other specified parts of digestive tract; Z98.890 Other specified postprocedural states; Z95.0 Presence of cardiac pacemaker; Z80.9 Family history of malignant neoplasm, unspecified
CPT/HCPCS: 36415; 36600; 70450; 71045; 71046; 80048; 80053; 81001; 81003; 82803; 82805; 83605; 83735; 85025; 85610; 85730; 87040; 87070; 87077; 87086; 87186; 87205; 93005; 94002; 94640; 94660; 96361; 96374; 99285

== ENCOUNTER 2019-12-12 03:33 | Inpatient (IN) | payer OTHER, MEDICARE ==
--- NOTE | 2019-12-12 04:30 | XR ---
EXAM: XR Chest, 1 View CLINICAL HISTORY: ITS.REASON XR Reason: difficulty breathing TECHNIQUE: Frontal view of the chest. COMPARISON: December 09, 2019 FINDINGS: Lungs: There is perihilar and medial basilar hazy increased density, increased since previous suggesting mild pulmonary edema. Pleural space: Slight blunting of the right costophrenic angle. A small right pleural effusion cannot be excluded. No pneumothorax. Heart: The cardiac silhouette is mildly enlarged. Mediastinum: Unremarkable. Bones/joints: Mild degenerative changes throughout the thoracic spine. Tubes, lines and devices: There is a pacing device on the left. Upper abdomen: There is no pneumoperitoneum under the diaphragm. IMPRESSION: There is perihilar and medial basilar hazy increased density, increased since previous suggesting mild pulmonary edema. Pacing device in place with mild cardiomegaly.
[2019-12-12 05:00] LABS: ALT 56 U/L (4-49); AST 37 U/L (17-59); African American GFR (CKD) >90 (>60 ml/min/1.73 sqM); Albumin 3.1 g/dL (3.5-5.0); Alkaline Phosphatase 52 U/L (38-126); Anion Gap 0 mmol/L; Blood Urea Nitrogen 22 mg/dL (9-20); Calcium 10.3 mg/dL (8.4-10.2); Carbon Dioxide 36 mmol/L (22-30); Chloride 100 mmol/L (98-107); Glucose 105 mg/dL (74-99); Non-African American GFR(CKD) >90 (>60 ml/min/1.73 sqM); Potassium 4.2 mmol/L (3.5-5.1); Sodium 136 mmol/L (137-145); Total Bilirubin 0.9 mg/dL (0.2-1.3); Total Protein 5.3 g/dL (6.3-8.2)
[2019-12-12 05:05] LABS: INR 1.1 (<1.2); Prothrombin Time 11.1 sec (9.0-12.0)
[2019-12-12 05:10] LABS: Basophils % (A) 1 %; Eosinophils % (A) 1 %; HCT 47.6 % (39.0-53.0); Hypochromasia Slight; Lymphocytes # (A) 0.3 k/uL (1.0-4.8); Lymphocytes % (A) 7 %; MCH 30.5 pg (25.0-35.0); MCHC 31.5 g/dL (31.0-37.0); MCV 96.6 fL (80.0-100.0); Mean Platelet Volume 9.3; Monocytes # (A) 0.3 k/uL (0-1.0); Monocytes % (A) 6 %; Neutrophils # (A) 4.4 k/uL (1.3-7.7); Neutrophils % (A) 86 %; Partial Thromboplastin Time 21.3 sec (22.0-30.0); Platelet Count 125 k/uL (150-450); RBC 4.92 m/uL (4.30-5.90); RDW 15.1 % (11.5-15.5); WBC 5.1 k/uL (3.8-10.6)
[2019-12-12] MEDS ORDERED: ALBUTEROL HFA INHALER INHALATION PRN (06:49)
--- NOTE | 2019-12-12 06:53 | ED ---
SOB HPI - General Chief Complaint: Shortness of Breath Stated Complaint: JASPREET, weakness Time Seen by Provider: 12/12/19 03:35 Source: patient, EMS Mode of arrival: EMS Limitations: no limitations - History of Present Illness Initial Comments: This patient is an 84-year-old man brought by ambulance to have evaluation for shortness of breath. The patient had been admitted for approximately 4 days, leaving the hospital yesterday. The patient states that tonight he became acutely short of breath. He also was having a nonproductive cough. He states that he did attempt to take his inhalational medication tonight without much relief. Patient reports that after being picked up by the embolus and placed on oxygen and given additional treatment he does feel a little bit better though not back to normal. Patient denies fever or chills. No chest pain. He has not noted any leg swelling or pain. MD Complaint: shortness of breath -: hour(s) Consistency: constant Improves With: oxygen Worsens With: nothing Known History Of: COPD Associated Symptoms: cough Treatments Prior to Arrival: oxygen, bronchodilator - Related Data Home Oxygen Therapy: No Home Medications Medication Instructions Recorded Confirmed Aspirin [Adult Low Dose Aspirin EC] 81 mg PO DAILY 02/04/16 12/12/19 Lovastatin [Mevacor] 40 mg PO DAILY 02/04/16 12/12/19 [place]-3 Fatty Acids/Fish Oil [Fish 1 cap PO DAILY 02/04/16 12/12/19 Oil 1,000 mg Softgel] Omeprazole 20 mg PO DAILY 02/04/16 12/12/19 Ferrous Sulfate [Iron] 325 mg PO DAILY 10/06/19 12/12/19 Fluticasone/Salmeterol [Airduo 1 puff INHALATION RT-BID 10/21/19 12/12/19 Respiclick 232-14 Mcg] Calcium Carbonate/Vitamin D3 1 tab PO BID 10/23/19 12/12/19 [Calcium 500Mg-Vit D3 15Mcg (600 unit)] Albuterol Nebulized [Ventolin 3 ml INHALATION RT-Q4H PRN 12/06/19 12/12/19 Nebulized] Metoprolol Succinate [Toprol XL] 25 mg PO DAILY 12/06/19 12/12/19 predniSONE See Taper PO DIRECTED 12/12/19 12/12/19 Previous Rx's Medication Instructions Recorded Cyanocobalamin [Vitamin B-12] 1,000 mcg PO DAILY #60 tablet 10/27/19 Thiamine [Vitamin B-1] 100 mg PO DAILY #30 tab 10/27/19 Albuterol Inhaler [Ventolin Hfa 1 puff INHALATION RT-QID #1 inh 12/11/19 Inhaler] Cefuroxime Axetil [Ceftin] 500 mg PO BID 7 Days #1 tab 12/11/19 Furosemide [Lasix] 40 mg PO DAILY #0 tab 12/14/19 Ipratropium-Albuterol Nebulize 3 ml INHALATION QID #1 neb 12/14/19 [Duoneb 0.5 mg-3 mg/3 ml Soln] predniSONE 10 mg PO DIRECTED #30 tab 12/14/19 Allergies Allergy/AdvReac Type Severity Reaction Status Date / Time No Known Allergies Allergy Verified 12/12/19 06:59 Review of Systems ROS Statement: Those systems with pertinent positive or pertinent negative responses have been documented in the HPI. ROS Other: All systems not noted in ROS Statement are negative. Constitutional: Denies: fever, chills Respiratory: Reports: cough, dyspnea. Denies: hemoptysis Cardiovascular: Reports: orthopnea. Denies: chest pain, palpitations, edema, syncope Gastrointestinal: Denies: abdominal pain, vomiting, diarrhea, melena, hematochezia Genitourinary: Denies: dysuria Musculoskeletal: Denies: back pain Skin: Denies: rash Neurological: Denies: headache, weakness, numbness Past Medical History Past Medical History: COPD, Dementia, GERD/Reflux, GI Bleed, Hyperlipidemia, Hypertension, Myocardial Infarction ([place]), Osteoarthritis (OA), Pneumonia Additional Past Medical History / Comment(s): Pt recently admitted to [facility] on 10/21/19 with exacerbation COPD/tracheobronchitis/elevated lactic acid. Other hx: Lower GI bleed, benign colon polyps, hemorrhoids, diverticular disease, constipation, arhtritis in hands/wrists/ankles, occasional back pain/fractured back twice, nephrolithiasis/sepsis, UTI, anemia, pacer d/t high AV node block, early onset dementia Last Myocardial Infarction Date:: 2019 History of Any Multi-Drug Resistant Organisms: None Reported Past Surgical History: Back Surgery, Cholecystectomy, Orthopedic Surgery, Pacemaker Additional Past Surgical History / Comment(s): Lumbar laminectomy, EGD, colonoscopies/benign polypectomies, L shoulder arthroscopy. Past Anesthesia/Blood Transfusion Reactions: No Reported Reaction Type of Cardiac Device: Permanent Pacemaker Device Placement Date:: 11/15/18 Past Psychological History: No Psychological Hx Reported Smoking Status: Former smoker Past Alcohol Use History: None Reported Past Drug Use History: None Reported - Past Family History Mother Family Medical History: Cancer Additional Family Medical History / Comment(s): Mother from some form of cancer at the age of 78yrs. Father History Unknown: Yes Additional Family Medical History / Comment(s): Father left when pt was 7 yrs old. General Exam Limitations: no limitations General appearance: alert, in no apparent distress Head exam: Present: atraumatic ENT exam: Present: normal oropharynx Neck exam: Present: normal inspection Respiratory exam: Present: respiratory distress (Mild tachypnea), wheezes (Trace expiratory wheeze), rales (Bilateral bases). Absent: rhonchi, accessory muscle use, prolonged expiratory Cardiovascular Exam: Present: regular rate, normal rhythm, normal heart sounds. Absent: systolic murmur, diastolic murmur, rubs, gallop GI/Abdominal exam: Present: soft. Absent: distended, tenderness, guarding, rebound, rigid, mass Extremities exam: Present: normal inspection, normal capillary refill. Absent: pedal edema, calf tenderness Back exam: Present: normal inspection. Absent: CVA tenderness (R), CVA tenderness (L) Neurological exam: Present: alert Skin exam: Present: warm, dry, intact, normal color. Absent: rash Course Vital Signs 12/12/19 12/12/19 12/12/19 03:34 04:40 05:11 Temperature 97.9 F Pulse Rate 105 H 83 Pulse Rate [ Pulse Oximetery ] Respiratory 26 H 22 20 Rate Blood Pressure 138/83 121/74 Blood Pressure [Left Arm] O2 Sat by Pulse 95 100 Oximetry 12/12/19 12/12/19 12/12/19 06:30 07:37 08:00 Temperature 98 F 97.1 F L Pulse Rate 62 53 L Pulse Rate [ 81 Pulse Oximetery ] Respiratory 20 18 20 Rate Blood Pressure 171/81 147/74 Blood Pressure 153/80 [Left Arm] O2 Sat by Pulse 95 98 Oximetry Medical Decision Making - Medical Decision Making Patient is a 84-year-old man with history of COPD who presents with clinical picture consistent with CHF exacerbation. We will admit for diuresis and to have echocardiogram as well as cardiology consultation. - Lab Data Result diagrams: 12/15/19 07:25 12/15/19 07:25 Lab Results 12/12/19 12/12/19 12/12/19 Range/Units 04:42 04:42 04:42 WBC 5.1 (3.8-10.6) k/uL RBC 4.92 (4.30-5.90) m/uL Hgb 15.0 D (13.0-17.5) gm/dL Hct 47.6 (39.0-53.0) % MCV 96.6 (80.0-100.0) fL MCH 30.5 (25.0-35.0) pg MCHC 31.5 (31.0-37.0) g/dL RDW 15.1 (11.5-15.5) % Plt Count 125 L (150-450) k/uL Neutrophils % 86 % Lymphocytes % 7 % Monocytes % 6 % Eosinophils % 1 % Basophils % 1 % Neutrophils # 4.4 (1.3-7.7) k/uL Lymphocytes # 0.3 L (1.0-4.8) k/uL Monocytes # 0.3 (0-1.0) k/uL Eosinophils # 0.0 (0-0.7) k/uL Basophils # 0.0 (0-0.2) k/uL Hypochromasia Slight PT 11.1 (9.0-12.0) sec INR 1.1 (<1.2) APTT 21.3 L (22.0-30.0) sec Sodium 136 L (137-145) mmol/L Potassium 4.2 (3.5-5.1) mmol/L Chloride 100 (98-107) mmol/L Carbon Dioxide 36 H (22-30) mmol/L Anion Gap 0 mmol/L BUN 22 H (9-20) mg/dL Creatinine 0.52 L (0.66-1.25) mg/dL Est GFR (CKD-EPI)AfAm >90 (>60 ml/min/1.73 sqM) Est GFR (CKD-EPI)NonAf >90 (>60 ml/min/1.73 sqM) Glucose 105 H (74-99) mg/dL Plasma Lactic Acid Billy (0.7-2.0) mmol/L Calcium 10.3 H (8.4-10.2) mg/dL Magnesium (1.6-2.3) mg/dL Total Bilirubin 0.9 (0.2-1.3) mg/dL AST 37 (17-59) U/L ALT 56 H (4-49) U/L Alkaline Phosphatase 52 (38-126) U/L Troponin I (0.000-0.034) ng/mL NT-Pro-B Natriuret Pep pg/mL Total Protein 5.3 L (6.3-8.2) g/dL Albumin 3.1 L (3.5-5.0) g/dL Vitamin B12 (200.0-944.0) pg/mL Urine Color Urine Appearance (Clear) Urine pH (5.0-8.0) Ur Specific [place] (1.001-1.035) Urine Protein (Negative) Urine Glucose (UA) (Negative) Urine Ketones (Negative) Urine Blood (Negative) Urine Nitrite (Negative) Urine Bilirubin (Negative) Urine Urobilinogen (<2.0) mg/dL Ur Leukocyte Esterase (Negative) Urine RBC (0-5) /hpf Urine WBC (0-5) /hpf Ur Squamous Epith Cells (0-4) /hpf Urine Bacteria (None) /hpf Hyaline Casts (0-2) /lpf Urine Mucus (None) /hpf 12/12/19 12/12/19 12/12/19 Range/Units 04:42 04:42 04:42 WBC (3.8-10.6) k/uL RBC (4.30-5.90) m/uL Hgb (13.0-17.5) gm/dL Hct (39.0-53.0) % MCV (80.0-100.0) fL MCH (25.0-35.0) pg MCHC (31.0-37.0) g/dL RDW (11.5-15.5) % Plt Count (150-450) k/uL Neutrophils % % Lymphocytes % % Monocytes % % Eosinophils % % Basophils % % Neutrophils # (1.3-7.7) k/uL Lymphocytes # (1.0-4.8) k/uL Monocytes # (0-1.0) k/uL Eosinophils # (0-0.7) k/uL Basophils # (0-0.2) k/uL Hypochromasia PT (9.0-12.0) sec INR (<1.2) APTT (22.0-30.0) sec Sodium (137-145) mmol/L Potassium (3.5-5.1) mmol/L Chloride (98-107) mmol/L Carbon Dioxide (22-30) mmol/L Anion Gap mmol/L BUN (9-20) mg/dL Creatinine (0.66-1.25) mg/dL Est GFR (CKD-EPI)AfAm (>60 ml/min/1.73 sqM) Est GFR (CKD-EPI)NonAf (>60 ml/min/1.73 sqM) Glucose (74-99) mg/dL Plasma Lactic Acid Billy 1.7 (0.7-2.0) mmol/L Calcium (8.4-10.2) mg/dL Magnesium (1.6-2.3) mg/dL Total Bilirubin (0.2-1.3) mg/dL AST (17-59) U/L ALT (4-49) U/L Alkaline Phosphatase (38-126) U/L Troponin I 0.025 (0.000-0.034) ng/mL NT-Pro-B Natriuret Pep 3010 pg/mL Total Protein (6.3-8.2) g/dL Albumin (3.5-5.0) g/dL Vitamin B12 (200.0-944.0) pg/mL Urine Color Urine Appearance (Clear) Urine pH (5.0-8.0) Ur Specific [place] (1.001-1.035) Urine Protein (Negative) Urine Glucose (UA) (Negative) Urine Ketones (Negative) Urine Blood (Negative) Urine Nitrite (Negative) Urine Bilirubin (Negative) Urine Urobilinogen (<2.0) mg/dL Ur Leukocyte Esterase (Negative) Urine RBC (0-5) /hpf Urine WBC (0-5) /hpf Ur Squamous Epith Cells (0-4) /hpf Urine Bacteria (None) /hpf Hyaline Casts (0-2) /lpf Urine Mucus (None) /hpf 12/12/19 12/12/19 12/13/19 Range/Units 08:42 23:17 09:14 WBC (3.8-10.6) k/uL RBC (4.30-5.90) m/uL Hgb (13.0-17.5) gm/dL Hct (39.0-53.0) % MCV (80.0-100.0) fL MCH (25.0-35.0) pg MCHC (31.0-37.0) g/dL RDW (11.5-15.5) % Plt Count (150-450) k/uL Neutrophils % % Lymphocytes % % Monocytes % % Eosinophils % % Basophils % % Neutrophils # (1.3-7.7) k/uL Lymphocytes # (1.0-4.8) k/uL Monocytes # (0-1.0) k/uL Eosinophils # (0-0.7) k/uL Basophils # (0-0.2) k/uL Hypochromasia PT (9.0-12.0) sec INR (<1.2) APTT (22.0-30.0) sec Sodium (137-145) mmol/L Potassium (3.5-5.1) mmol/L Chloride (98-107) mmol/L Carbon Dioxide (22-30) mmol/L Anion Gap mmol/L BUN (9-20) mg/dL Creatinine (0.66-1.25) mg/dL Est GFR (CKD-EPI)AfAm (>60 ml/min/1.73 sqM) Est GFR (CKD-EPI)NonAf (>60 ml/min/1.73 sqM) Glucose (74-99) mg/dL Plasma Lactic Acid Billy (0.7-2.0) mmol/L Calcium (8.4-10.2) mg/dL Magnesium (1.6-2.3) mg/dL Total Bilirubin (0.2-1.3) mg/dL AST (17-59) U/L ALT (4-49) U/L Alkaline Phosphatase (38-126) U/L Troponin I 0.026 0.017 (0.000-0.034) ng/mL NT-Pro-B Natriuret Pep pg/mL Total Protein (6.3-8.2) g/dL Albumin (3.5-5.0) g/dL Vitamin B12 (200.0-944.0) pg/mL Urine Color Colorless Urine Appearance Clear (Clear) Urine pH 5.5 (5.0-8.0) Ur Specific [place] 1.006 (1.001-1.035) Urine Protein Negative (Negative) Urine Glucose (UA) Negative (Negative) Urine Ketones Negative (Negative) Urine Blood Negative (Negative) Urine Nitrite Negative (Negative) Urine Bilirubin Negative (Negative) Urine Urobilinogen <2.0 (<2.0) mg/dL Ur Leukocyte Esterase Small H (Negative) Urine RBC 1 (0-5) /hpf Urine WBC 1 (0-5) /hpf Ur Squamous Epith Cells <1 (0-4) /hpf Urine Bacteria Rare H (None) /hpf Hyaline Casts 10 H (0-2) /lpf Urine Mucus Rare H (None) /hpf 12/13/19 Range/Units 09:31 WBC (3.8-10.6) k/uL RBC (4.30-5.90) m/uL Hgb (13.0-17.5) gm/dL Hct (39.0-53.0) % MCV (80.0-100.0) fL MCH (25.0-35.0) pg MCHC (31.0-37.0) g/dL RDW (11.5-15.5) % Plt Count (150-450) k/uL Neutrophils % % Lymphocytes % % Monocytes % % Eosinophils % % Basophils % % Neutrophils # (1.3-7.7) k/uL Lymphocytes # (1.0-4.8) k/uL Monocytes # (0-1.0) k/uL Eosinophils # (0-0.7) k/uL Basophils # (0-0.2) k/uL Hypochromasia PT (9.0-12.0) sec INR (<1.2) APTT (22.0-30.0) sec Sodium 135 L (137-145) mmol/L Potassium 4.0 (3.5-5.1) mmol/L Chloride 92 L (98-107) mmol/L Carbon Dioxide 45 H* (22-30) mmol/L Anion Gap -2 mmol/L BUN 19 (9-20) mg/dL Creatinine 0.53 L (0.66-1.25) mg/dL Est GFR (CKD-EPI)AfAm >90 (>60 ml/min/1.73 sqM) Est GFR (CKD-EPI)NonAf >90 (>60 ml/min/1.73 sqM) Glucose 111 H (74-99) mg/dL Plasma Lactic Acid Billy (0.7-2.0) mmol/L Calcium 9.6 (8.4-10.2) mg/dL Magnesium 1.8 (1.6-2.3) mg/dL Total Bilirubin (0.2-1.3) mg/dL AST (17-59) U/L ALT (4-49) U/L Alkaline Phosphatase (38-126) U/L Troponin I (0.000-0.034) ng/mL NT-Pro-B Natriuret Pep pg/mL Total Protein (6.3-8.2) g/dL Albumin (3.5-5.0) g/dL Vitamin B12 770.0 (200.0-944.0) pg/mL Urine Color Urine Appearance (Clear) Urine pH (5.0-8.0) Ur Specific [place] (1.001-1.035) Urine Protein (Negative) Urine Glucose (UA) (Negative) Urine Ketones (Negative) Urine Blood (Negative) Urine Nitrite (Negative) Urine Bilirubin (Negative) Urine Urobilinogen (<2.0) mg/dL Ur Leukocyte Esterase (Negative) Urine RBC (0-5) /hpf Urine WBC (0-5) /hpf Ur Squamous Epith Cells (0-4) /hpf Urine Bacteria (None) /hpf Hyaline Casts (0-2) /lpf Urine Mucus (None) /hpf - EKG Data -: EKG Interpreted by [place] EKG shows normal: sinus rhythm, intervals (MO interval was prolonged consistent with first-degree AV block. QRS duration prolonged consistent with right bundle-branch block), QRS complexes (There is a regular bundle-branch block pattern and a left anterior fascicular block consistent with bifascicular block.) Rate: normal (Rate 98 bpm) Interpretation: LVH (By voltage criteria) Critical Care Time Critical Care Time: Yes (35 minutes) Disposition Clinical Impression: Congestive heart failure Disposition: ADMITTED IP TO THIS [facility] Condition: Fair
[2019-12-12] MEDS: FUROSEMIDE 10 MG/ML 4 ML VIAL IV SCH ×2 (07:14→19:39)
[2019-12-12] MEDS: ASPIRIN 81 MG PO SCH (08:43)
[2019-12-12] MEDS: CALCIUM CARB-VIT D 500MG-200UN 1 EACH TAB PO SCH ×2 (08:43→20:36)
[2019-12-12] MEDS: METOPROLOL SUCCINATE (ER) 25 MG TAB.ER.24H PO SCH (08:43)
[2019-12-12] MEDS: ATORVASTATIN 10 MG TAB PO SCH (08:43)
[2019-12-12] MEDS: FERROUS SULFATE 325 MG TAB PO SCH (08:43)
[2019-12-12] MEDS ORDERED: NITROGLYCERIN OINT 1 INCH/GM PACKET TOPICAL SCH (09:00)
--- NOTE | 2019-12-12 11:55 | P.CRDCN ---
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 He follows in the office with Dr. Miramontes. We have been asked to see in consultation for heart failure. He presented to the hospital with symptoms of shortness of breath. He has a poor historian. Information is obtained from the medical record and no nursing staff. He is seen and examined resting comfortably lying flat in no acute distress. He is complaining of feeling short of breath. He has no chest pain, dizziness, palpitations, nausea, vomiting or diaphoresis. He was recently discharged from the hospital with a diagnosis of metabolic encephalopathy and hypoxic hypercapnic respiratory failure. EKG obtained on this admission reveals sinus mechanism, right bundle branch block and left anterior fascicular block. Chest x-ray suggesting mild pulmonary edema. Laboratory data reviewed, WBC 5.1, hemoglobin 15, platelets 125, sodium 136, potassium 4.2, creatinine 0.52, troponin 0.025 0.026 and NT proBNP 3010. He has been initiated on IV diuretics in the emergency department. t home cardiac medications include aspirin 8mg, lo vastatin 40 mg daily and Toprol 25 mg daily. Most recent echocardiogram obtained 10/25/2019 revealed preserved LV systolic function with ejection fraction 50-55% with normal diastolic filling pattern. REVIEW OF SYSTEMS At the time of my exam: CONSTITUTIONAL: Denies fever or chills. CARDIOVASCULAR: Complains of shortness of breath. Denies chest pain, orthopnea, PND or palpitations. RESPIRATORY: Denies cough. GASTROINTESTINAL: Denies abdominal pain, diarrhea, constipation, nausea or vomiting. MUSCULOSKELETAL: Denies myalgias. NEUROLOGIC: Denies numbness, tingling or weakness. ENDOCRINE: Denies fatigue, weight change, polydipsia or polyurina. GENITOURINARY: Denies burning, hematuria or urgency with micturation. HEMATOLOGIC: Denies history of anemia or bleeding. PHYSICAL EXAMINATION Blood pressure 153/80 heart rate 81 afebrile and maintaining oxygen saturation on nasal cannula. CONSTITUTIONAL: No apparent distress. Frail. HEENT: Head is normocephalic. Pupils are equal, round. Sclerae anicteric. Mucous membranes of the mouth are moist. No JVD. No carotid bruit. CHEST EXAMINATION: Lungs are clear to auscultation. No chest wall tenderness is noted on palpation or with deep breathing. HEART EXAMINATION: Regular rate and rhythm. S1, S2 heard. No murmurs, gallops or rub. ABDOMEN: Soft, nontender. Positive bowel sounds. EXTREMITIES: 2+ peripheral pulses, no lower extremity edema and no calf tenderness. NEUROLOGIC EXAMINATION: Patient is awake, alert to self. 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 Clinically he appears euvolemic however is continuing to complain of shortness of breath. We will continue the diuretics for another 24 hours. Consider possibly placement as the patient has had 6 admissions in the previous 2 months and is clearly not maintaining quality of life at home. Recommend dietary evaluation. Follow renal function and electrolytes in the morning. Document accurate intake and output along with daily weights. Further recommendations to follow based upon clinical course. Thank you kindly for this consultation. Nurse Practitioner note has been reviewed, I agree with a documented findings and plan of care. Patient was seen and examined. Past Medical History Past Medical History: COPD, Dementia, GERD/Reflux, GI Bleed, Hyperlipidemia, Hypertension, Myocardial Infarction (MS), Osteoarthritis (OA), Pneumonia Additional Past Medical History / Comment(s): Pt recently admitted to [facility] on 10/21/19 with exacerbation COPD/tracheobronchitis/elevated lactic acid. Other hx: Lower GI bleed, benign colon polyps, hemorrhoids, diverticular disease, constipation, arhtritis in hands/wrists/ankles, occasional back pain/fractured back twice, nephrolithiasis/sepsis, UTI, anemia, pacer d/t high AV node block, early onset dementia Last Myocardial Infarction Date:: 2018 History of Any Multi-Drug Resistant Organisms: None Reported Past Surgical History: Back Surgery, Cholecystectomy, Orthopedic Surgery, Pacemaker Additional Past Surgical History / Comment(s): Lumbar laminectomy, EGD, colonoscopies/benign polypectomies, L shoulder arthroscopy. Past Anesthesia/Blood Transfusion Reactions: No Reported Reaction Type of Cardiac Device: Permanent Pacemaker Device Placement Date:: 11/15/18 Smoking Status: Former smoker - Past Family History Mother Family Medical History: Cancer Additional Family Medical History / Comment(s): Mother from some form of cancer at the age of 78yrs. Father History Unknown: Yes Additional Family Medical History / Comment(s): Father left when pt was 7 yrs old. Medications and Allergies Home Medications Medication Instructions Recorded Confirmed Type Aspirin [Adult Low Dose Aspirin EC] 81 mg PO DAILY 02/04/16 12/12/19 History Lovastatin [Mevacor] 40 mg PO DAILY 02/04/16 12/12/19 History [place]-3 Fatty Acids/Fish Oil [Fish 1 cap PO DAILY 02/04/16 12/12/19 History Oil 1,000 mg Softgel] Omeprazole 20 mg PO DAILY 02/04/16 12/12/19 History Ferrous Sulfate [Iron] 325 mg PO DAILY 10/06/19 12/12/19 History Fluticasone/Salmeterol [Airduo 1 puff INHALATION RT-BID 10/21/19 12/12/19 History Respiclick 232-14 Mcg] Calcium Carbonate/Vitamin D3 1 tab PO BID 10/23/19 12/12/19 History [Calcium 500Mg-Vit D3 15Mcg (600 unit)] Cyanocobalamin [Vitamin B-12] 1,000 mcg PO DAILY #60 tablet 10/27/19 12/12/19 Rx Thiamine [Vitamin B-1] 100 mg PO DAILY #30 tab 10/27/19 12/12/19 Rx Albuterol Nebulized [Ventolin 3 ml INHALATION RT-Q4H PRN 12/06/19 12/12/19 History Nebulized] Metoprolol Succinate [Toprol XL] 25 mg PO DAILY 12/06/19 12/12/19 History Albuterol Inhaler [Ventolin Hfa 1 puff INHALATION RT-QID #1 inh 12/11/19 12/12/19 Rx Inhaler] Cefuroxime Axetil [Ceftin] 500 mg PO BID 7 Days #1 tab 12/11/19 12/12/19 Rx predniSONE See Taper PO DIRECTED 12/12/19 12/12/19 History Allergies Allergy/AdvReac Type Severity Reaction Status Date / Time No Known Allergies Allergy Verified 12/12/19 06:59 Physical Exam Vitals: Vital Signs Temp Pulse Pulse Resp BP BP Pulse Ox 12/12/19 08:00 97.1 F L 81 20 153/80 98 12/12/19 07:37 98 F 53 L 18 147/74 12/12/19 06:30 62 20 171/81 95 12/12/19 05:11 83 20 121/74 100 12/12/19 04:40 22 12/12/19 03:34 97.9 F 105 H 26 H 138/83 95 Intake and Output 12/11/19 12/12/19 12/12/19 22:59 06:59 14:59 Intake Total 0 Balance 0 Intake: Oral 0 Other: # Voids 0 Weight 70.307 kg 70.307 kg Results 12/12/19 04:42 12/12/19 04:42 Cardiac Enzymes 12/12/19 12/12/19 12/12/19 Range/Units 04:42 04:42 08:42 AST 37 (17-59) U/L Troponin I 0.025 0.026 (0.000-0.034) ng/mL Coagulation 12/12/19 Range/Units 04:42 PT 11.1 (9.0-12.0) sec APTT 21.3 L (22.0-30.0) sec CBC 12/12/19 Range/Units 04:42 WBC 5.1 (3.8-10.6) k/uL RBC 4.92 (4.30-5.90) m/uL Hgb 15.0 D (13.0-17.5) gm/dL Hct 47.6 (39.0-53.0) % Plt Count 125 L (150-450) k/uL Comprehensive Metabolic Panel 12/12/19 Range/Units 04:42 Sodium 136 L (137-145) mmol/L Potassium 4.2 (3.5-5.1) mmol/L Chloride 100 (98-107) mmol/L Carbon Dioxide 36 H (22-30) mmol/L BUN 22 H (9-20) mg/dL Creatinine 0.52 L (0.66-1.25) mg/dL Glucose 105 H (74-99) mg/dL Calcium 10.3 H (8.4-10.2) mg/dL AST 37 (17-59) U/L ALT 56 H (4-49) U/L Alkaline Phosphatase 52 (38-126) U/L Total Protein 5.3 L (6.3-8.2) g/dL Albumin 3.1 L (3.5-5.0) g/dL Current Medications Generic Name Dose Route Start Last Admin Trade Name Freq PRN Reason Stop Dose Admin Albuterol Sulfate 2.5 mg 12/12/19 06:49 Albuterol Nebulized 2.5 Mg/3 Ml INHALATION RT-Q4H PRN Shortness Of Breath Aspirin 81 mg 12/12/19 09:00 12/12/19 08:43 Aspirin 81 Mg PO 81 mg DAILY LIAT Administration Atorvastatin Calcium 10 mg 12/12/19 09:00 12/12/19 08:43 Atorvastatin 10 Mg Tab PO 10 mg DAILY LIAT Administration Budesonide/Formoterol Fumarate 2 puff 12/12/19 08:00 Symbicort 160-4.5 Mcg Inhaler INHALATION RT-BID LIAT Calcium Carbonate 1 each 12/12/19 09:00 12/12/19 08:43 Calcium Carb-Vit D 500mg-200un 1 Each Tab PO 1 each BID LIAT Administration Ferrous Sulfate 325 mg 12/12/19 09:00 12/12/19 08:43 Ferrous Sulfate 325 Mg Tab PO 325 mg DAILY LIAT Administration Furosemide 40 mg 12/12/19 07:00 12/12/19 07:14 Furosemide 10 Mg/Ml 4 Ml Vial IV 40 mg Q12H LIAT Administration Metoprolol Succinate 25 mg 12/12/19 09:00 12/12/19 08:43 Metoprolol Succinate (Er) 25 Mg Tab.Er.24h PO 25 mg DAILY LIAT Administration Pantoprazole Sodium 40 mg 12/12/19 09:00 Pantoprazole 40 Mg Tablet PO AC-BRKFST LIAT Sodium Chloride 10 ml 12/12/19 09:00 Sodium Chloride 0.9% Flush 10 Ml Syringe IV BID LIAT Intake and Output 12/11/19 12/12/19 12/12/19 22:59 06:59 14:59 Intake Total 0 Balance 0 Intake: Oral 0 Other: # Voids 0 Weight 70.307 kg 70.307 kg Patient Weight 12/13/19 06:59 Weight 70.307 kg 12/12/19 04:42 12/12/19 04:42
[2019-12-12] MEDS: SYMBICORT 160-4.5 MCG INHALER INHALATION SCH ×2 (11:59→20:51)
--- NOTE | 2019-12-12 13:46 | ECHOF ---
Referral Reason:Heart Failure MEASUREMENTS -------- HEIGHT: 177.8 cm WEIGHT: 70.3 kg BP: 171/81 IVSd: 1.2 cm (0.6 - 1.1) LVIDd: 4.1 cm (3.9 - 5.3) LVPWd: 1.2 cm (0.6 - 1.1) IVSs: 1.7 cm LVIDs: 2.4 cm LVPWs: 1.4 cm Ao Diam: 3.4 cm (2.0 - 3.7) AV Cusp: 1.7 cm (1.5 - 2.6) LA Diam: 4.6 cm (2.7 - 3.8) MV EXCURSION: 21.692 mm (> 18.000) MV EF SLOPE: 59 mm/s (70 - 150) EPSS: 0.6 cm MV E Eulogio: 0.48 m/s MV DecT: 249 ms MV A Eulogio: 0.87 m/s MV E/A Ratio: 0.56 RAP: 5.00 mmHg RVSP: 11.33 mmHg FINDINGS -------- Pacerwire seen in RV and RA. This was a technically difficult study with suboptimal views. The left ventricular size is normal. There is mild concentric left ventricular hypertrophy. Overa ll left ventricular systolic function is normal with, an EF between 55 - 60 %. Right ventricle appears mild to moderately enlarged. The left atrial size is normal. The right atrial size is normal. Lumason used The aortic valve was not well visualized. The mitral valve is normal. There is trace mitral regurgitation. The tricuspid valve appears structurally normal. Trace tricuspid regurgitation present. Right dameon tricular systolic pressure is normal at < 35 mmHg. The pulmonic valve was not well visualized. The aortic root size is normal. IVC Not well visulized. There is no pericardial effusion. CONCLUSIONS -------- 1. Pacerwire seen in RV and RA. 2. The left ventricular size is normal. 3. There is mild concentric left ventricular hypertrophy. 4. Overall left ventricular systolic function is normal with, an EF between 55 - 60 %. 5. Right side appears enlarged. 6. There is trace mitral regurgitation. 7. Trace tricuspid regurgitation present. 8. There is no pericardial effusion. [employer]ENTER ASSOCIATE: Alyssa Montejo [facility]
[2019-12-12 14:09] VITALS: BMI 20.9
[2019-12-12] MEDS: ALBUTEROL NEBULIZED 2.5 MG/3 ML INHALATION PRN ×2 (15:54→20:51)
[2019-12-12] MEDS: PANTOPRAZOLE 40 MG TABLET PO SCH (18:16)
[2019-12-13] MEDS: FUROSEMIDE 10 MG/ML 4 ML VIAL IV SCH (06:35)
[2019-12-13] MEDS: PANTOPRAZOLE 40 MG TABLET PO SCH (06:35)
[2019-12-13] MEDS: SYMBICORT 160-4.5 MCG INHALER INHALATION SCH ×2 (08:02→19:39)
[2019-12-13] MEDS: ALBUTEROL NEBULIZED 2.5 MG/3 ML INHALATION PRN (08:02)
--- NOTE | 2019-12-13 08:18 | P.HPIM ---
History of Present Illness This is a pleasant 84 years old male with past medical history of dementia and COPD and hypertension, hyperlipidemia. He was recently discharged from the hospital 1 day ago for acute hypoxic hypercapnic respiratory failure that needed short period of intubation in the emergency room. Patient also had urinary tract infection and he was discharged on antibiotic. At that time physical therapy evaluated the patient and recommended home with home care rather than rehab probably because of his dementia and inability to follow commands very well. However after he went home he was so weak and they have hard time getting him into the bed with some shortness of breath, the middle of night he was trying to get up and go to the restroom when he fell on the floor and his son brought him to the emergency room. He follow-up with the [facility] clinic. This time patient presents because of generalized weakness with full Cardiology team were consulted from emergency room and they evaluated him for diastolic CHF with gentle diuresis. Review of Systems CONSTITUTIONAL: No fever, no malaise, no fatigue. HEENT: No recent visual problems or hearing problems. Denied any sore throat. CARDIOVASCULAR: No orthopnea, PND, no palpitations, no syncope. PULMONARY: no cough, no hemoptysis. GASTROINTESTINAL: No diarrhea, no nausea, no vomiting, no abdominal pain. Normoactive bowel sounds. NEUROLOGICAL: No headaches, no weakness, no numbness. HEMATOLOGICAL: Denies any bleeding or petechiae. GENITOURINARY: Denies any burning micturition, frequency, or urgency. MUSCULOSKELETAL/RHEUMATOLOGICAL: Denies any joint pain, swelling, or any muscle pain. ENDOCRINE: Denies any polyuria or polydipsia. Past Medical History Past Medical History: COPD, Dementia, GERD/Reflux, GI Bleed, Hyperlipidemia, Hypertension, Myocardial Infarction (NM), Osteoarthritis (OA), Pneumonia Additional Past Medical History / Comment(s): Pt recently admitted to [facility] on 10/21/19 with exacerbation COPD/tracheobronchitis/elevated lactic acid. Other hx: Lower GI bleed, benign colon polyps, hemorrhoids, diverticular disease, constipation, arhtritis in hands/wrists/ankles, occasional back pain/fractured back twice, nephrolithiasis/sepsis, UTI, anemia, pacer d/t high AV node block, early onset dementia Last Myocardial Infarction Date:: 2018 History of Any Multi-Drug Resistant Organisms: None Reported Past Surgical History: Back Surgery, Cholecystectomy, Orthopedic Surgery, Pacemaker Additional Past Surgical History / Comment(s): Lumbar laminectomy, EGD, colonoscopies/benign polypectomies, L shoulder arthroscopy. Past Anesthesia/Blood Transfusion Reactions: No Reported Reaction Type of Cardiac Device: Permanent Pacemaker Device Placement Date:: 11/15/18 Smoking Status: Former smoker - Past Family History Mother Family Medical History: Cancer Additional Family Medical History / Comment(s): Mother from some form of cancer at the age of 78yrs. Father History Unknown: Yes Additional Family Medical History / Comment(s): Father left when pt was 7 yrs old. Medications and Allergies Home Medications Medication Instructions Recorded Confirmed Type RX: Aspirin [Adult Low Dose 81 mg PO DAILY 02/04/16 12/12/19 History Aspirin EC] RX: Lovastatin [Mevacor] 40 mg PO DAILY 02/04/16 12/12/19 History RX: [place]-3 Fatty Acids/Fish Oil 1 cap PO DAILY 02/04/16 12/12/19 History [Fish Oil 1,000 mg Softgel] RX: Omeprazole 20 mg PO DAILY 02/04/16 12/12/19 History RX: Ferrous Sulfate [Iron] 325 mg PO DAILY 10/06/19 12/12/19 History RX: Fluticasone/Salmeterol [Airduo 1 puff INHALATION RT-BID 10/21/19 12/12/19 History Respiclick 232-14 Mcg] RX: Calcium Carbonate/Vitamin D3 1 tab PO BID 10/23/19 12/12/19 History [Calcium 500Mg-Vit D3 15Mcg (600 unit)] RX: Cyanocobalamin [Vitamin B-12] 1,000 mcg PO DAILY #60 tablet 10/27/1912/11 Rx RX: Thiamine [Vitamin B-1] 100 mg PO DAILY #30 tab 10/27/19 12/12/19 Rx RX: Albuterol Nebulized [Ventolin 3 ml INHALATION RT-Q4H PRN 12/06/19 12/12/19 History Nebulized] RX: Metoprolol Succinate [Toprol 25 mg PO DAILY 12/06/19 12/12/19 History XL] Cefuroxime Axetil [Ceftin] 500 mg PO BID 7 Days #1 tab 12/11/19 12/12/19 Rx RX: Albuterol Inhaler [Ventolin 1 puff INHALATION RT-QID #1 inh 12/11/19 12/12/19 Rx Hfa Inhaler] RX: predniSONE See Taper PO DIRECTED 12/12/19 12/12/19 History Allergies Allergy/AdvReac Type Severity Reaction Status Date / Time No Known Allergies Allergy Verified 12/12/19 06:59 Physical Exam Vitals: Vital Signs Temp Pulse Pulse Resp BP BP Pulse Ox 12/12/19 18:52 20 12/12/19 17:19 97.5 F L 64 18 128/72 99 12/12/19 16:02 86 12/12/19 16:00 64 18 12/12/19 15:54 84 12/12/19 12:00 64 18 12/12/19 08:00 97.1 F L 81 20 153/80 98 12/12/19 07:37 98 F 53 L 18 147/74 12/12/19 06:30 62 20 171/81 95 12/12/19 05:11 83 20 121/74 100 12/12/19 04:40 22 12/12/19 03:34 97.9 F 105 H 26 H 138/83 95 Intake and Output 12/12/19 12/12/19 12/12/19 06:59 14:59 22:59 Intake Total 100 100 Output Total 100 Balance 100 0 Intake: Oral 100 100 Output: Urine 100 Other: Voiding Method Urinal # Voids 0 Weight 70.307 kg 70.307 kg GENERAL: The patient is alert and oriented x2-3, not in any acute distress. Well developed, well nourished. HEENT: Pupils are round and equally reacting to light. EOMI. No scleral icterus. No conjunctival pallor. Normocephalic, atraumatic. No pharyngeal erythema. No thyromegaly. CARDIOVASCULAR: S1 and S2 present. No murmurs, rubs, or gallops. -PULMONARY: Chest is clear to auscultation, no wheezing . Bilateral mild basal crepitation ABDOMEN: Soft, nontender, nondistended, normoactive bowel sounds. No palpable organomegaly. MUSCULOSKELETAL: No joint swelling or deformity. EXTREMITIES: No cyanosis, clubbing, or pedal edema. NEUROLOGICAL: Gross neurological examination did not reveal any focal deficits. SKIN: No rashes. no petechiae. Results CBC & Chem 7: 12/12/19 04:42 12/12/19 04:42 Labs: Abnormal Lab Results - Last 24 Hours (Table) 12/12/19 12/12/19 12/12/19 Range/Units 04:42 04:42 04:42 Plt Count 125 L (150-450) k/uL Lymphocytes # 0.3 L (1.0-4.8) k/uL APTT 21.3 L (22.0-30.0) sec Sodium 136 L (137-145) mmol/L Carbon Dioxide 36 H (22-30) mmol/L BUN 22 H (9-20) mg/dL Creatinine 0.52 L (0.66-1.25) mg/dL Glucose 105 H (74-99) mg/dL Calcium 10.3 H (8.4-10.2) mg/dL ALT 56 H (4-49) U/L Total Protein 5.3 L (6.3-8.2) g/dL Albumin 3.1 L (3.5-5.0) g/dL Thrombosis Risk Factor Assmnt - Choose All That Apply Any of the Below Risk Factors Present?: Yes Each Factor Represents 1 point: Abnormal pulmonary function (COPD) Other Risk Factors: Yes Each Risk Factor Represents 3 Points: Age 75 years or older Other congenital or acquired thrombophilia - If yes, enter type in comment: No Thrombosis Risk Factor Assessment Total Risk Factor Score: 4 Thrombosis Risk Factor Assessment Level: Moderate Risk Assessment and Plan Assessment: Generalized weakness, secondary to deconditioning and recent hospitalization with multiple medical problems as below mild diastolic CHF Acute hypoxic hypercapnic failure, status post extubation. Improved and currently he is on Coumadin Recent history of Acute urinary tract infection with E. coli COPD without acute exacerbation Dementia recent diagnosis. Nonadherence to therapy Loss of weight, he lost about 30 pounds in 1 month, CT of the abdomen, pelvis and chest were unremarkable for gross abnormality, GI recommended outpatient follow-up for EGD/colonoscopy 17 mm low-density focus in the uncinate process of the pancreas, with recommendation for outpatient follow-up Recurrent subjective feeling of dyspnea with no strong organic evidence, could be due to his deconditioning and loss of weight, on the top of his dementia (cardiology and pulmonary cleared The patient) Hypertension Hyperlipidemia History of heart block status post permanent pacemaker. With normal cardiac cath in 2019 Plan: This is a pleasant 84 years old male with multiple medical problems who presents with generalized weakness and fall. 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 Continue same treatment. Continue with symptomatic treatment. Resume home medication. Monitor lytes and vitals. DVT and GI prophylaxis. Further recommendationsas per clinical course of the pat ient DVT prophylaxis: Subcutaneous heparin GI Prophylaxis: Pepcid PT/OT: Pending
--- NOTE | 2019-12-13 08:21 | P.PN ---
Subjective This is a pleasant 84 years old male with past medical history of dementia and COPD and hypertension, hyperlipidemia. He was recently discharged from the hospital 1 day ago for acute hypoxic hypercapnic respiratory failure that needed short period of intubation in the emergency room. Patient also had urinary tract infection and he was discharged on antibiotic. At that time physical therapy evaluated the patient and recommended home with home care rather than rehab probably because of his dementia and inability to follow commands very well. However after he went home he was so weak and they have hard time getting him into the bed with some shortness of breath, the middle of night he was trying to get up and go to the restroom when he fell on the floor and his son brought him to the emergency room. He follow-up with the [facility] clinic. This time patient presents because of generalized weakness with full Cardiology team were consulted from emergency room and they evaluated him for diastolic CHF with gentle diuresis. 12/13/2019 Patient is awake and alert today, he has some memory lapse but he remember why he is in the hospital for, he admits generalized weakness however he is not short of breath although very mildly tachypneic with denying chest pain or abdominal problems no dysuria or diarrhea. Patient is afebrile and dressing vital signs stable. Labs are pending from today. Last time he was discharged on antibiotics for UTI, we will check urinalysis and a still pending to see if he needs to be an antibiotic Continue with vitamin B12 and recheck level physical therapist evaluated the patient for possible rehab placement Continue with diuresis for CHF with budget assistant Discussed with the staff Objective - Vital Signs Vital signs: Vital Signs Temp 97.9 F 12/13/19 04:00 Pulse 80 12/13/19 08:17 Resp 18 12/13/19 04:00 BP 138/64 12/13/19 04:00 Pulse Ox 94 L 12/13/19 04:00 Intake & Output 12/12/19 12/13/19 12/13/19 18:59 06:59 18:59 Intake Total 200 Output Total 100 800 Balance 100 -800 Weight 70.307 kg Intake: Oral 200 Output: Urine 100 800 Other: Voiding Method Urinal Urinal Diaper # Voids 0 1 - Labs CBC & Chem 7: 12/12/19 04:42 12/12/19 04:42 Assessment and Plan Assessment: Generalized weakness, secondary to deconditioning and recent hospitalization with multiple medical problems as below mild diastolic CHF Acute hypoxic hypercapnic failure, status post extubation. Improved and currently he is on Coumadin Recent history of Acute urinary tract infection with E. coli COPD without acute exacerbation Dementia recent diagnosis. Nonadherence to therapy Loss of weight, he lost about 30 pounds in 1 month, CT of the abdomen, pelvis and chest were unremarkable for gross abnormality, GI recommended outpatient follow-up for EGD/colonoscopy 17 mm low-density focus in the uncinate process of the pancreas, with recommendation for outpatient follow-up Recurrent subjective feeling of dyspnea with no strong organic evidence, could be due to his deconditioning and loss of weight, on the top of his dementia (cardiology and pulmonary cleared The patient) Hypertension Hyperlipidemia History of heart block status post permanent pacemaker. With normal cardiac c ath in 2019 Plan: This is a pleasant 84 years old male with multiple medical problems who presents with generalized weakness and fall. 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 Continue same treatment. Continue with symptomatic treatment. Resume home medication. Monitor lytes and vitals. DVT and GI prophylaxis. Further recommendationsas per clinical course of the patient DVT prophylaxis: Subcutaneous heparin GI Prophylaxis: Pepcid PT/OT: Pending
[2019-12-13] MEDS: FERROUS SULFATE 325 MG TAB PO SCH (09:09)
[2019-12-13] MEDS: METOPROLOL SUCCINATE (ER) 25 MG TAB.ER.24H PO SCH (09:09)
[2019-12-13] MEDS: CYANOCOBALAMIN 500 MCG TAB PO SCH (09:09)
[2019-12-13] MEDS: ATORVASTATIN 10 MG TAB PO SCH (09:09)
[2019-12-13] MEDS: THIAMINE 100 MG TAB PO SCH (09:09)
[2019-12-13] MEDS: CALCIUM CARB-VIT D 500MG-200UN 1 EACH TAB PO SCH ×2 (09:09→20:06)
[2019-12-13] MEDS: ASPIRIN 81 MG PO SCH (09:09)
[2019-12-13 09:36] LABS: Appearance,Urine Clear (Clear); Bacteria,Urine Rare /hpf; Bilirubin,Urine Negative (Negative); Blood,Urine Negative (Negative); Color,Urine Colorless; Glucose,Urine (UA) Negative (Negative); Hyaline Casts,Urine 10 /lpf (0-2); Ketones,Urine Negative (Negative); Leukocyte Esterase,Urine Small (Negative); Mucus,Urine Rare /hpf; Nitrite,Urine Negative (Negative); PH, Urine 5.5 (5.0-8.0); Protein,Urine Negative (Negative); RBC,Urine 1 /hpf (0-5); Specific Gravity,Urine 1.006 (1.001-1.035); Squamous Epithelial Cell,Urine <1 /hpf (0-4); Urobilinogen,Urine <2.0 mg/dL (<2.0); WBC,Urine 1 /hpf (0-5)
[2019-12-13 09:54] LABS: African American GFR (CKD) >90 (>60 ml/min/1.73 sqM); Blood Urea Nitrogen 19 mg/dL (9-20); Calcium 9.6 mg/dL (8.4-10.2); Chloride 92 mmol/L (98-107); Glucose 111 mg/dL (74-99); Magnesium 1.8 mg/dL (1.6-2.3); Non-African American GFR(CKD) >90 (>60 ml/min/1.73 sqM); Sodium 135 mmol/L (137-145)
[2019-12-13 10:00] LABS: Anion Gap -2 mmol/L
[2019-12-13 10:08] LABS: Carbon Dioxide 45 mmol/L (22-30)
[2019-12-13] MEDS: ALBUTEROL NEBULIZED 2.5 MG/3 ML INHALATION SCH ×3 (11:31→19:39)
--- NOTE | 2019-12-13 14:27 | P.PN ---
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 He follows in the office with Dr. Miramontes. He is seen and examined sitting up in bed undergoing a breathing treatment. He states he has been urinating a lot in the urinal. He feels like his breathing is improving. No chest pain, dizziness or palpitations. Blood pressure 96/50 heart rate 66 pulse ox 88% on room air and afebrile. Laboratory data reviewed, sodium 135, potassium 4.0, creatinine 0.53, magnesium 1.8. Output for the previous 24 hours is 900ml. PHYSICAL EXAMINATION CONSTITUTIONAL: No apparent distress. Frail. HEENT: Head is normocephalic. Pupils are equal, round. Sclerae anicteric. Mucous membranes of the mouth are moist. No JVD. No carotid bruit. CHEST EXAMINATION: Lungs are clear to auscultation. No chest wall tenderness is noted on palpation or with deep breathing. HEART EXAMINATION: Regular rate and rhythm. S1, S2 heard. No murmurs, gallops or rub. EXTREMITIES: 2+ peripheral pulses, no lower extremity edema and no calf tenderness. ASSESSMENT Acute diastolic heart failure Hypercapnia History of high degree AV block status post permanent pacemaker implantation Hypertension Dyslipidemia COPD Chronic nicotine dependence PLAN Transition to oral diuretics. Plan is for transfer to [facility] tomorrow. Nurse Practitioner note has been reviewed, I agree with a documented findings and plan of care. Patient was seen and examined. Objective - Vital Signs Vital signs: Vital Signs Temp 97.9 F 12/13/19 04:00 Pulse 80 12/13/19 08:17 Resp 18 12/13/19 04:00 BP 138/64 12/13/19 04:00 Pulse Ox 94 L 12/13/19 04:00 Intake & Output 12/12/19 12/13/19 12/13/19 18:59 06:59 18:59 Intake Total 200 118 Output Total 100 800 Balance 100 -800 118 Weight 70.307 kg Intake: Oral 200 118 Output: Urine 100 800 Other: Voiding Method Urinal Urinal Diaper # Voids 0 1 - Labs CBC & Chem 7: 12/12/19 04:42 12/13/19 09:31
[2019-12-13] MEDS: methylPREDNISolone SOD SUCCI 125 MG/2 ML VIAL IV SCH ×3 (16:15→23:04)
[2019-12-14] MEDS: PANTOPRAZOLE 40 MG TABLET PO SCH (06:29)
[2019-12-14] MEDS: methylPREDNISolone SOD SUCCI 125 MG/2 ML VIAL IV SCH ×3 (06:29→17:27)
[2019-12-14] MEDS: ALBUTEROL NEBULIZED 2.5 MG/3 ML INHALATION SCH ×4 (07:45→19:54)
[2019-12-14] MEDS: SYMBICORT 160-4.5 MCG INHALER INHALATION SCH ×2 (07:45→19:54)
[2019-12-14] MEDS: ASPIRIN 81 MG PO SCH (09:01)
[2019-12-14] MEDS: CYANOCOBALAMIN 500 MCG TAB PO SCH (09:02)
[2019-12-14] MEDS: THIAMINE 100 MG TAB PO SCH (09:02)
[2019-12-14] MEDS: FERROUS SULFATE 325 MG TAB PO SCH (09:02)
[2019-12-14] MEDS: ATORVASTATIN 10 MG TAB PO SCH (09:02)
[2019-12-14] MEDS: CALCIUM CARB-VIT D 500MG-200UN 1 EACH TAB PO SCH ×2 (09:02→21:01)
[2019-12-14] MEDS: METOPROLOL SUCCINATE (ER) 25 MG TAB.ER.24H PO SCH (09:03)
[2019-12-14] MEDS: FUROSEMIDE 40 MG TAB PO SCH (09:03)
[2019-12-14 09:34] LABS: African American GFR (CKD) >90 (>60 ml/min/1.73 sqM); Blood Urea Nitrogen 25 mg/dL (9-20); Calcium 9.9 mg/dL (8.4-10.2); Chloride 90 mmol/L (98-107); Glucose 149 mg/dL (74-99); Magnesium 1.8 mg/dL (1.6-2.3); Non-African American GFR(CKD) >90 (>60 ml/min/1.73 sqM); Potassium 4.1 mmol/L (3.5-5.1); Sodium 134 mmol/L (137-145)
[2019-12-14 09:40] LABS: Anion Gap 3 mmol/L
[2019-12-14 09:59] LABS: Carbon Dioxide 41 mmol/L (22-30)
[2019-12-14 12:10] LABS: Glucose,Whole Blood 215 mg/dL (75-99)
[2019-12-14] MEDS: INSULIN ASPART (NovoLOG) 100 UNIT/ML VIAL SQ SCH ×3 (12:15→21:01)
--- NOTE | 2019-12-14 12:30 | P.PN ---
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 He follows in the office with Dr. Miramontes. He is seen and examined sitting up in bed in no acute distress. Blood pressure 105/50 heart rate 72 afebrile maintaining oxygen saturation on room air. Laboratory data reviewed, sodium 134, potassium 4.1, CO2 41, magnesium 1.8 and creatinine 0.52. Currently maintained on aspirin 81 mg daily, atorvastatin 10 mg daily, Lasix 40 mg daily and Toprol 25 mg daily. PHYSICAL EXAMINATION CONSTITUTIONAL: No apparent distress. Frail. HEENT: Head is normocephalic. Pupils are equal, round. Sclerae anicteric. Mucous membranes of the mouth are moist. No JVD. No carotid bruit. CHEST EXAMINATION: Lungs are clear to auscultation. No chest wall tenderness is noted on palpation or with deep breathing. HEART EXAMINATION: Regular rate and rhythm. S1, S2 heard. No murmurs, gallops or rub. EXTREMITIES: 2+ peripheral pulses, no lower extremity edema and no calf tend erness. ASSESSMENT Acute diastolic heart failure Hypercapnia History of high degree AV block status post permanent pacemaker implantation Hypertension Dyslipidemia COPD Chronic nicotine dependence PLAN Stable for discharge from a cardiac perspective. Follow-up in the office with Dr. Miramontes in 2 weeks. Nurse Practitioner note has been reviewed, I agree with a documented findings and plan of care. Patient was seen and examined. Objective - Vital Signs Vital signs: Vital Signs Temp 98.1 F 12/14/19 11:09 Pulse 72 12/14/19 12:06 Resp 16 12/14/19 11:12 BP 105/50 12/14/19 11:09 Pulse Ox 95 12/14/19 11:09 Intake & Output 12/13/19 12/14/19 12/14/19 18:59 06:59 18:59 Intake Total 458 120 236 Balance 458 120 236 Intake: IV 20 Invasive Line 1 10 Invasive Line 2 10 Oral 458 100 236 Other: Voiding Method Urinal Diaper # Voids 1 - Labs CBC & Chem 7: 12/12/19 04:42 12/14/19 09:03 Labs: Abnormal Lab Results - Last 24 Hours (Table) 12/14/19 12/14/19 Range/Units 09:03 12:09 Sodium 134 L (137-145) mmol/L Chloride 90 L (98-107) mmol/L Carbon Dioxide 41 H* (22-30) mmol/L BUN 25 H (9-20) mg/dL Creatinine 0.52 L (0.66-1.25) mg/dL Glucose 149 H (74-99) mg/dL POC Glucose (mg/dL) 215 H (75-99) mg/dL
[2019-12-14 17:03] LABS: Glucose,Whole Blood 126 mg/dL (75-99)
--- NOTE | 2019-12-14 17:08 | P.DS ---
Providers Date of admission: 12/13/19 12:58 Attending physician: Rios Antony Consults: 12/12/19 09:07 Consult Physician Routine Consulting Provider: Patrick Watkins Consult Reason/Comments: CHF Do you want consulting provider notified?: Already Contacted Primary care physician: [facility] Hospital Course: Final diagnosis COPD acute exacerbation as well as CHF acute exacerbation with acute on chronic diastolic dysfunction with acute hypoxic hypercapnic respiratory failure Coumadin monitoring History dementia History of nonadherence to therapy history of weight loss Hypertension Hyperlipidemia History of heart block status post permanent pacemaker Discharge disposition The patient discharged in a stable condition with guarded prognosis total time taken is 35 minutes patient be discharged to ECF at this time History of present illness this 84-year-old gentleman with a past medical history multiple medical problems admitted with the significant shortness of breath which was thought to be a combination of COPD and CHF. Patient was treated with the IV Lasix and the steroids and bronchodilators and antibiotics patient improved significantly. Cardiology saw the patient. Patient be transferred to ECF at this time.: Covid 19 is negative. On exam vitals are stable cardio S1 and S2 normal respirator system few scattered rhonchi abdomen soft nontender Please refer to the medication reconciliation sheet for list of medications follow-up labs in the ECF arranged for follow-up with cardiology Patient Condition at Discharge: Fair Plan - Discharge Summary New Discharge Prescriptions: New Ipratropium-Albuterol Nebulize [Duoneb 0.5 mg-3 mg/3 ml Soln] 3 ml INHALATION QID #1 neb Furosemide [Lasix] 40 mg PO DAILY #0 tab predniSONE 10 mg PO DIRECTED #30 tab No Action Lovastatin [Mevacor] 40 mg PO DAILY Aspirin [Adult Low Dose Aspirin EC] 81 mg PO DAILY Omeprazole 20 mg PO DAILY [place]-3 Fatty Acids/Fish Oil [Fish Oil 1,000 mg Softgel] 1 cap PO DAILY Ferrous Sulfate [Iron] 325 mg PO DAILY Fluticasone/Salmeterol [Airduo Respiclick 232-14 Mcg] 1 puff INHALATION RT- BID Calcium Carbonate/Vitamin D3 [Calcium 500Mg-Vit D3 15Mcg (600 unit)] 1 tab PO BID Thiamine [Vitamin B-1] 100 mg PO DAILY #30 tab Cyanocobalamin [Vitamin B-12] 1,000 mcg PO DAILY #60 tablet Metoprolol Succinate [Toprol XL] 25 mg PO DAILY Albuterol Nebulized [Ventolin Nebulized] 3 ml INHALATION RT-Q4H PRN PRN Reason: Shortness Of Breath Cefuroxime Axetil [Ceftin] 500 mg PO BID 7 Days #1 tab Albuterol Inhaler [Ventolin Hfa Inhaler] 1 puff INHALATION RT-QID #1 inh predniSONE See Taper PO DIRECTED Discharge Medication List Aspirin [Adult Low Dose Aspirin EC] 81 mg PO DAILY 02/04/16 [History] Lovastatin [Mevacor] 40 mg PO DAILY 02/04/16 [History] [place]-3 Fatty Acids/Fish Oil [Fish Oil 1,000 mg Softgel] 1 cap PO DAILY 02/04/16 [History] Omeprazole 20 mg PO DAILY 02/04/16 [History] Ferrous Sulfate [Iron] 325 mg PO DAILY 10/06/19 [History] Fluticasone/Salmeterol [Airduo Respiclick 232-14 Mcg] 1 puff INHALATION RT-BID 10/21/19 [History] Calcium Carbonate/Vitamin D3 [Calcium 500Mg-Vit D3 15Mcg (600 unit)] 1 tab PO BID 10/23/19 [History] Cyanocobalamin [Vitamin B-12] 1,000 mcg PO DAILY #60 tablet 10/27/19 [Rx] Thiamine [Vitamin B-1] 100 mg PO DAILY #30 tab 10/27/19 [Rx] Albuterol Nebulized [Ventolin Nebulized] 3 ml INHALATION RT-Q4H PRN 12/06/19 [History] Metoprolol Succinate [Toprol XL] 25 mg PO DAILY 12/06/19 [History] Albuterol Inhaler [Ventolin Hfa Inhaler] 1 puff INHALATION RT-QID #1 inh 12/11/19 [Rx] Cefuroxime Axetil [Ceftin] 500 mg PO BID 7 Days #1 tab 12/11/19 [Rx] predniSONE See Taper PO DIRECTED 12/12/19 [History] Furosemide [Lasix] 40 mg PO DAILY #0 tab 12/14/19 [Rx] Ipratropium-Albuterol Nebulize [Duoneb 0.5 mg-3 mg/3 ml Soln] 3 ml INHALATION QID #1 neb 12/14/19 [Rx] predniSONE 10 mg PO DIRECTED #30 tab 12/14/19 [Rx] Follow up Appointment(s)/Referral(s): Rg Miramontes MD [STAFF PHYSICIAN] - 2 Weeks [facility],Clinic [Primary Care Provider] - 1-2 days Ambulatory/Diagnostic Orders: Complete Blood Count w/diff [LAB.AMB] Location: None Selected Activity/Diet/Wound Care/Special Instructions: Diet cardiac Activity Limited until follow up follow-up with the pulmonary in 2 weeks
--- NOTE | 2019-12-14 17:24 | PN ---
PROGRESS NOTE DATE OF SERVICE: 12/14/2019 DATE OF SERVICE: This 84-year-old gentleman who was admitted with generalized weakness, secondary to deconditioning, also had acute hypoxic hypercarbic respiratory failure, secondary to CHF acute exacerbation. Patient also hypercapnia. Patient also had COPD. Patient will be closely monitored at this time. The CO2 is 41. PAST MEDICAL HISTORY: Reviewed. REVIEW OF SYSTEMS: CARDIOVASCULAR SYSTEM: No angina. RESPIRATORY: As mentioned earlier. GI: As mentioned earlier. : As mentioned earlier. NERVOUS SYSTEM: No numbness or weakness. CURRENT MEDICATIONS: Reviewed include: 1. Ventolin. 2. Aspirin. 3. Lipitor. 4. Symbicort. 5. [place]. 6. Vitamin B1. 7. Lasix. 8. NovoLog. 9. Solu-Medrol. 10.Toprol. 11.Protonix. PHYSICAL EXAMINATION: Patient is alert, oriented. x3. Pulse is 73, blood pressure 92/50, respiration 16, temperature 98.1, pulse ox 99% on 1 L. HEENT: Conjunctivae normal. Oral mucosa moist. NECK: No jugular venous distention. No lymph node enlargement. CARDIOVASCULAR SYSTEM: S1, S2, muffled. RESPIRATION: Breath sounds diminished at the bases. Bilateral scattered rhonchi, expiratory wheezing. ABDOMEN: Soft, nontender. LEGS: No edema, no swelling. LABS: COVID-19 is negative, sodium 130, potassium 4.1. ASSESSMENT: 1. Shortness of breath, multifactorial with COPD exacerbation as well as acute on chronic diastolic dysfunction with congestive heart failure acute exacerbation. 2. Acute hypoxic hypercarbic respiratory failure. 3. Coumadin monitoring. 4. Acute UTI, recently with E coli. 5. Dementia. 6. Nonadherence to therapy. 7. Loss of weight. 8. Hypertension. 9. Hyperlipidemia. 10.Hyponatremia. 11.Mild thrombocytopenia. 12.History of dementia. 13.History of gastrointestinal bleed. 14.History of myocardial infarction. 15.History of pneumonia. 16.History of recent COPD exacerbation. 17.History of benign polyps. 18.History of high-degree AV block and pacemaker. 19.History of cholecystectomy. 20.History of lumbar laminectomy. 21.Gait dysfunction. 22.FULL CODE. RECOMMENDATION: In this 84-year-old gentleman who presented with multiple complex medical issues, will monitor the patient closely. Continue with the current management and continue with the bronchodilators, cut down steroids, otherwise will continue to monitor. Possible ECF rehab. Guarded prognosis. Further recommendations to follow. MMODL / IJN: [id number] /
[2019-12-14] MEDS: methylPREDNISolone SOD SUCCI 40 MG/ML 1 ML VIAL IV SCH ×2 (17:28→22:33)
--- NOTE | 2019-12-14 17:42 | XR ---
EXAMINATION TYPE: XR chest 1V portable DATE OF EXAM: 12/14/2019 COMPARISON: 12/12/2019. HISTORY: Shortness of breath. TECHNIQUE: Single frontal view of the chest is obtained. FINDINGS: There is decreased bibasilar opacities and minimal residual. There is persistent trace ple ural effusions. No pneumothorax. The cardiac silhouette size is stable. The osseous structures are intact. Left pacemaker is again seen. IMPRESSION: Resolving bibasilar opacities and small pleural effusions with minimal residual.
[2019-12-14 20:29] LABS: Glucose,Whole Blood 155 mg/dL (75-99)
[2019-12-15 05:27] VITALS: RESP 18
[2019-12-15 06:23] LABS: Glucose,Whole Blood 129 mg/dL (75-99)
[2019-12-15] MEDS: INSULIN ASPART (NovoLOG) 100 UNIT/ML VIAL SQ SCH ×2 (06:43→13:14)
[2019-12-15] MEDS: PANTOPRAZOLE 40 MG TABLET PO SCH (06:49)
[2019-12-15] MEDS: SYMBICORT 160-4.5 MCG INHALER INHALATION SCH (08:01)
[2019-12-15] MEDS: ALBUTEROL NEBULIZED 2.5 MG/3 ML INHALATION SCH ×2 (08:01→11:02)
[2019-12-15 08:25] LABS: Basophils % (A) 0 %; Eosinophils % (A) 0 %; HCT 42.5 % (39.0-53.0); HGB 13.1 gm/dL (13.0-17.5); Lymphocytes # (A) 0.5 k/uL (1.0-4.8); Lymphocytes % (A) 3 %; MCH 29.4 pg (25.0-35.0); MCHC 30.7 g/dL (31.0-37.0); MCV 95.7 fL (80.0-100.0); Monocytes # (A) 0.5 k/uL (0-1.0); Monocytes % (A) 3 %; Neutrophils # (A) 15.6 k/uL (1.3-7.7); Neutrophils % (A) 93 %; Platelet Count 138 k/uL (150-450); RBC 4.44 m/uL (4.30-5.90); WBC 16.7 k/uL (3.8-10.6)
[2019-12-15 08:40] LABS: African American GFR (CKD) >90 (>60 ml/min/1.73 sqM); Blood Urea Nitrogen 30 mg/dL (9-20); Calcium 10.2 mg/dL (8.4-10.2); Chloride 89 mmol/L (98-107); Glucose 133 mg/dL (74-99); Magnesium 1.8 mg/dL (1.6-2.3); Non-African American GFR(CKD) >90 (>60 ml/min/1.73 sqM); Potassium 3.8 mmol/L (3.5-5.1); Sodium 133 mmol/L (137-145)
[2019-12-15 08:48] LABS: Anion Gap 0 mmol/L
[2019-12-15 08:49] LABS: Carbon Dioxide 44 mmol/L (22-30)
[2019-12-15] MEDS ORDERED: NON FORMULARY DRUG (Omega-3 Fatty Acids/Fish Oil [Fish Oil 1,000 Mg Softgel] 1 EACH Capsul PO SCH (09:00)
[2019-12-15 09:54] VITALS: BP 132/67; TEMP 98.6
[2019-12-15] MEDS: FERROUS SULFATE 325 MG TAB PO SCH (10:43)
[2019-12-15] MEDS: FUROSEMIDE 40 MG TAB PO SCH (10:43)
[2019-12-15] MEDS: ASPIRIN 81 MG PO SCH (10:43)
[2019-12-15] MEDS: CYANOCOBALAMIN 500 MCG TAB PO SCH (10:43)
[2019-12-15] MEDS: ATORVASTATIN 10 MG TAB PO SCH (10:43)
[2019-12-15] MEDS: THIAMINE 100 MG TAB PO SCH (10:43)
[2019-12-15] MEDS: CALCIUM CARB-VIT D 500MG-200UN 1 EACH TAB PO SCH (10:43)
[2019-12-15] MEDS: methylPREDNISolone SOD SUCCI 40 MG/ML 1 ML VIAL IV SCH (10:44)
[2019-12-15] MEDS: METOPROLOL SUCCINATE (ER) 25 MG TAB.ER.24H PO SCH (10:44)
[2019-12-15 11:18] VITALS: PULSE 69
[2019-12-15 12:08] LABS: Glucose,Whole Blood 123 mg/dL (75-99)
--- NOTE | 2019-12-15 17:15 | DS ---
DISCHARGE SUMMARY DATE OF SERVICE: 12/15/2019. HISTORY: This 84-year-old gentleman who was admitted with COPD and CHF exacerbation, has improved significantly. The patient has recommended outpatient medications. The patient will be transferred to [facility] at this time. Please refer to my previous dictation for list of diagnosis and list of medications. Overall, the patient is stable but prognosis is guarded. See medication reconciliation for list of medications. Total time taken 35 minutes. Please also see the multiple consultations and progress notes for further information. On exam, vitals are stable. Cardiovascular normal. Abdomen soft. Nervous system no focal deficits. MMODL / IJN: [id number] /
== END 2019-12-15 13:30 | DRG 291 ==
LOC: EC 03:33 → 3SCARD 06:49 → OBSVTOIN 12-13 12:58
PROVIDERS: ADMIT Hospitalist; ATTEND Hospitalist
DX: I11.0 Hypertensive heart disease with heart failure (principal); J96.01 Acute respiratory failure with hypoxia; J96.02 Acute respiratory failure with hypercapnia; J44.1 Chronic obstructive pulmonary disease with (acute) exacerbation; E87.1 Hypo-osmolality and hyponatremia; N39.0 Urinary tract infection, site not specified; I45.2 Bifascicular block; D69.6 Thrombocytopenia, unspecified; I50.33 Acute on chronic diastolic (congestive) heart failure; F03.90 Unspecified dementia, unspecified severity, without behavioral disturbance, psychotic disturbance, mood disturbance, and anxiety; Z20.828 Contact with and (suspected) exposure to other viral communicable diseases; B96.20 Unspecified Escherichia coli [E. coli] as the cause of diseases classified elsewhere; I44.0 Atrioventricular block, first degree; R63.4 Abnormal weight loss; Z68.21 Body mass index [BMI] 21.0-21.9, adult; K21.9 Gastro-esophageal reflux disease without esophagitis; E78.5 Hyperlipidemia, unspecified; M19.042 Primary osteoarthritis, left hand; M19.041 Primary osteoarthritis, right hand; M19.032 Primary osteoarthritis, left wrist; M19.031 Primary osteoarthritis, right wrist; M19.072 Primary osteoarthritis, left ankle and foot; M19.071 Primary osteoarthritis, right ankle and foot; M54.9 Dorsalgia, unspecified; K64.9 Unspecified hemorrhoids; K57.90 Diverticulosis of intestine, part unspecified, without perforation or abscess without bleeding; K59.00 Constipation, unspecified; I25.2 Old myocardial infarction; R26.9 Unspecified abnormalities of gait and mobility; Z79.82 Long term (current) use of aspirin; Z79.51 Long term (current) use of inhaled steroids; Z79.899 Other long term (current) drug therapy; Z71.3 Dietary counseling and surveillance; Z87.19 Personal history of other diseases of the digestive system; Z87.01 Personal history of pneumonia (recurrent); Z86.010 Personal history of colon polyps; Z87.81 Personal history of (healed) traumatic fracture; Z87.442 Personal history of urinary calculi; Z86.19 Personal history of other infectious and parasitic diseases; Z87.440 Personal history of urinary (tract) infections; Z95.0 Presence of cardiac pacemaker; Z90.49 Acquired absence of other specified parts of digestive tract; Z87.891 Personal history of nicotine dependence; Z87.39 Personal history of other diseases of the musculoskeletal system and connective tissue; Z86.2 Personal history of diseases of the blood and blood-forming organs and certain disorders involving the immune mechanism; Z98.890 Other specified postprocedural states; W18.30XA Fall on same level, unspecified, initial encounter; Z80.9 Family history of malignant neoplasm, unspecified
CPT/HCPCS: 36415; 71045; 80048; 80053; 81001; 82607; 83605; 83735; 83880; 84484; 85025; 85610; 85730; 87635; 93005; 93306; 94640; 94760; 96374; 99291

== ENCOUNTER 2019-12-26 09:05 | Inpatient (IN) | payer OTHER, MEDICARE ==
[2019-12-26] MEDS ORDERED: SODIUM CHLORIDE 0.9% 500 ML 500 ML IV ONE (09:34)
[2019-12-26 09:49] LABS: Basophils % (A) 0 %; Eosinophils # (A) 0.1 k/uL (0-0.7); Eosinophils % (A) 0 %; HCT 37.4 % (39.0-53.0); HGB 11.8 gm/dL (13.0-17.5); Lymphocytes # (A) 0.6 k/uL (1.0-4.8); Lymphocytes % (A) 4 %; MCH 30.7 pg (25.0-35.0); MCHC 31.5 g/dL (31.0-37.0); MCV 97.6 fL (80.0-100.0); Mean Platelet Volume 8.4; Monocytes # (A) 0.5 k/uL (0-1.0); Monocytes % (A) 3 %; Neutrophils # (A) 13.8 k/uL (1.3-7.7); Neutrophils % (A) 92 %; Platelet Count 131 k/uL (150-450); RBC 3.83 m/uL (4.30-5.90); RDW 14.6 % (11.5-15.5)
--- NOTE | 2019-12-26 09:58 | XR ---
EXAMINATION TYPE: XR chest 2V DATE OF EXAM: 12/26/2019 COMPARISON: 12/14/2019 TECHNIQUE: PA and lateral views submitted. HISTORY: Shortness of breath FINDINGS: Small bilateral pleural effusions without overt failure. Heart size normal. Cardiac device seen. Biap ical pleural thickening. Diffuse osteopenia and arthropathy of the shoulders. IMPRESSION: 1. COPD with bilateral infiltrate and small effusion similar appearance to the prior exam. No overt f ailure.
[2019-12-26 10:02] LABS: INR 1.1 (<1.2); Prothrombin Time 11.4 sec (9.0-12.0)
--- NOTE | 2019-12-26 10:08 | ED ---
General Adult HPI - General Chief complaint: Altered Mental Status Stated complaint: ams Time Seen by Provider: 12/26/19 09:14 Source: EMS, RN notes reviewed Mode of arrival: EMS Limitations: no limitations - History of Present Illness Initial comments: 84-year-old male presents to the emergency room from shelter for altered mental status. Patient has a history of dementia with baseline AO2 2. Patient was apparently more confused than normal and was not speaking to staff at his shelter so they sent him to the emergency room. He did apparently have an elevated white blood cell count 3 days ago although urinalysis at that time was negative. Patient is oriented 2 now and is denying any complaints stating he feels well today. Patient was recently admitted and intubated for altered mental status, encephalopathy, hypercapnia. Patient has no other complaints at this time including shortness of breath, chest pain, abdominal pain, nausea or vomiting, headache, or visual changes. - Related Data Home Medications Medication Instructions Recorded Confirmed Aspirin [Adult Low Dose Aspirin EC] 81 mg PO DAILY@1700 02/04/16 12/26/19 Lovastatin [Mevacor] 40 mg PO HS@2100 02/04/16 12/26/19 [place]-3 Fatty Acids/Fish Oil [Fish 1 cap PO DAILY@1700 02/04/16 12/26/19 Oil 1,000 mg Softgel] Omeprazole 20 mg PO DAILY@0800 02/04/16 12/26/19 Ferrous Sulfate [Iron] 325 mg PO DAILY@1700 10/06/19 12/26/19 Fluticasone/Salmeterol [Airduo 1 puff INHALATION RT-BID@0800,1700 10/21/19 12/26/19 Respiclick 232-14 Mcg] Calcium Carbonate/Vitamin D3 1 tab PO BID@0800,1700 10/23/19 12/26/19 [Calcium 500Mg-Vit D3 15Mcg (600 unit)] Albuterol Nebulized [Ventolin 3 ml INHALATION RT-Q4H PRN 12/06/19 12/26/19 Nebulized] Metoprolol Succinate [Toprol XL] 25 mg PO DAILY@0800 12/06/19 12/26/19 predniSONE See Taper PO DAILY 12/12/19 12/26/19 Cyanocobalamin [Vitamin B-12] 1,000 mcg PO DAILY@1700 12/26/19 12/26/19 Furosemide [Lasix] 40 mg PO DAILY@0800 12/26/19 12/26/19 Ipratropium-Albuterol Nebulize 3 ml INHALATION RT-QID 12/26/19 12/26/19 [Duoneb 0.5 mg-3 mg/3 ml Soln] Lactose-Reduced Food [Ensure Plus] 1 can PO BID@0800,1700 12/26/19 12/26/19 Magnesium Hydroxide [Milk of 2,400 mg PO DAILY PRN 12/26/19 12/26/19 Magnesia] Na Phos,M-B/Na Phos,Di-Ba [Fleet 133 ml RECTAL DAILY PRN 12/26/19 12/26/19 Adult] Thiamine [Vitamin B-1] 100 mg PO DAILY@1700 12/26/19 12/26/19 bisacodyL [Dulcolax] 10 mg RECTAL DAILY PRN 12/26/19 12/26/19 Previous Rx's Medication Instructions Recorded Albuterol Inhaler [Ventolin Hfa 1 puff INHALATION RT-QID #1 inh 12/11/19 Inhaler] Allergies Allergy/AdvReac Type Severity Reaction Status Date / Time No Known Allergies Allergy Verified 12/26/19 09:29 Review of Systems ROS Statement: Those systems with pertinent positive or pertinent negative responses have been documented in the HPI. ROS Other: All systems not noted in ROS Statement are negative. Past Medical History Past Medical History: COPD, Dementia, GERD/Reflux, GI Bleed, Hyperlipidemia, Hypertension, Myocardial Infarction ([place]), Osteoarthritis (OA), Pneumonia Additional Past Medical History / Comment(s): Pt recently admitted to [facility] on 10/21/19 with exacerbation COPD/tracheobronchitis/elevated lactic acid. Other hx: Lower GI bleed, benign colon polyps, hemorrhoids, diverticular disease, constipation, arhtritis in hands/wrists/ankles, occasional back pain/fractured back twice, nephrolithiasis/sepsis, UTI, anemia, pacer d/t high AV node block, early onset dementia Last Myocardial Infarction Date:: 2018 History of Any Multi-Drug Resistant Organisms: None Reported Past Surgical History: Back Surgery, Cholecystectomy, Orthopedic Surgery, Pacemaker Additional Past Surgical History / Comment(s): Lumbar laminectomy, EGD, colonoscopies/benign polypectomies, L shoulder arthroscopy. Past Anesthesia/Blood Transfusion Reactions: No Reported Reaction Type of Cardiac Device: Permanent Pacemaker Device Placement Date:: 11/15/18 Past Psychological History: No Psychological Hx Reported Smoking Status: Former smoker Past Alcohol Use History: None Reported Past Drug Use History: None Reported - Past Family History Mother Family Medical History: Cancer Additional Family Medical History / Comment(s): Mother from some form of cancer at the age of 78yrs. Father History Unknown: Yes Additional Family Medical History / Comment(s): Father left when pt was 7 yrs old. General Exam Limitations: no limitations General appearance: alert, in no apparent distress Head exam: Present: atraumatic, normocephalic, normal inspection Eye exam: Present: normal appearance, PERRL, EOMI. Absent: scleral icterus, conjunctival injection, periorbital swelling ENT exam: Present: normal exam, mucous membranes moist Neck exam: Present: normal inspection, full ROM. Absent: tenderness, me ningismus, lymphadenopathy Respiratory exam: Present: normal lung sounds bilaterally. Absent: respiratory distress, wheezes, rales, rhonchi, stridor Cardiovascular Exam: Present: regular rate, normal rhythm, normal heart sounds. Absent: systolic murmur, diastolic murmur, rubs, gallop, clicks GI/Abdominal exam: Present: soft, normal bowel sounds. Absent: distended, tenderness, guarding, rebound, rigid Neurological exam: Present: alert. Absent: oriented X3 (AOx2, baseline) Course Vital Signs 12/26/19 12/26/19 09:06 10:55 Temperature 97.7 F Pulse Rate 74 60 Respiratory 18 18 Rate Blood Pressure 107/60 113/49 O2 Sat by Pulse 100 98 Oximetry EKG Findings - EKG Comments: EKG Findings:: EKG performed at 1102 shows sinus bradycardia, ventricular rate 56, Pr int 258, QTC 407 Medical Decision Making - Medical Decision Making Vitals are stable. Patient is afebrile. Patient does have leukocytosis which s eems to be worsening. Hemoglobin stable. CMP does show an elevated carbon dioxide of 49 which is increased compared to previous labs. ABG will be added. Patient does have a persistent pneumonia on chest x-ray which could be contributing and will be treated. Also has a possible urinary tract infection with positive nitrites. Patient will be admitted for IV hydration and IV antibiotics. - Lab Data Result diagrams: 12/26/19 09:39 12/26/19 09:39 Lab Results 12/26/19 12/26/19 12/26/19 Range/Units 09:39 09:39 09:39 WBC 15.0 H (3.8-10.6) k/uL RBC 3.83 L (4.30-5.90) m/uL Hgb 11.8 L (13.0-17.5) gm/dL Hct 37.4 L (39.0-53.0) % MCV 97.6 (80.0-100.0) fL MCH 30.7 (25.0-35.0) pg MCHC 31.5 (31.0-37.0) g/dL RDW 14.6 (11.5-15.5) % Plt Count 131 L (150-450) k/uL Neutrophils % 92 % Lymphocytes % 4 % Monocytes % 3 % Eosinophils % 0 % Basophils % 0 % Neutrophils # 13.8 H (1.3-7.7) k/uL Lymphocytes # 0.6 L (1.0-4.8) k/uL Monocytes # 0.5 (0-1.0) k/uL Eosinophils # 0.1 (0-0.7) k/uL Basophils # 0.0 (0-0.2) k/uL PT 11.4 (9.0-12.0) sec INR 1.1 (<1.2) APTT 22.0 (22.0-30.0) sec Sodium 137 (137-145) mmol/L Potassium 3.2 L (3.5-5.1) mmol/L Chloride 88 L (98-107) mmol/L Carbon Dioxide 49 H* (22-30) mmol/L Anion Gap 0 mmol/L BUN 42 H (9-20) mg/dL Creatinine 0.66 (0.66-1.25) mg/dL Est GFR (CKD-EPI)AfAm >90 (>60 ml/min/1.73 sqM) Est GFR (CKD-EPI)NonAf >90 (>60 ml/min/1.73 sqM) Glucose 93 (74-99) mg/dL Calcium 9.8 (8.4-10.2) mg/dL Total Bilirubin 1.9 H (0.2-1.3) mg/dL AST 25 (17-59) U/L ALT 37 (4-49) U/L Alkaline Phosphatase 47 (38-126) U/L Total Protein 5.0 L (6.3-8.2) g/dL Albumin 2.9 L (3.5-5.0) g/dL Urine Color Urine Appearance (Clear) Urine pH (5.0-8.0) Ur Specific [place] (1.001-1.035) Urine Protein (Negative) Urine Glucose (UA) (Negative) Urine Ketones (Negative) Urine Blood (Negative) Urine Nitrite (Negative) Urine Bilirubin (Negative) Urine Urobilinogen (<2.0) mg/dL Ur Leukocyte Esterase (Negative) Urine RBC (0-5) /hpf Urine WBC (0-5) /hpf Urine Bacteria (None) /hpf Urine Mucus (None) /hpf 12/26/19 Range/Units 10:06 WBC (3.8-10.6) k/uL RBC (4.30-5.90) m/uL Hgb (13.0-17.5) gm/dL Hct (39.0-53.0) % MCV (80.0-100.0) fL MCH (25.0-35.0) pg MCHC (31.0-37.0) g/dL RDW (11.5-15.5) % Plt Count (150-450) k/uL Neutrophils % % Lymphocytes % % Monocytes % % Eosinophils % % Basophils % % Neutrophils # (1.3-7.7) k/uL Lymphocytes # (1.0-4.8) k/uL Monocytes # (0-1.0) k/uL Eosinophils # (0-0.7) k/uL Basophils # (0-0.2) k/uL PT (9.0-12.0) sec INR (<1.2) APTT (22.0-30.0) sec Sodium (137-145) mmol/L Potassium (3.5-5.1) mmol/L Chloride (98-107) mmol/L Carbon Dioxide (22-30) mmol/L Anion Gap mmol/L BUN (9-20) mg/dL Creatinine (0.66-1.25) mg/dL Est GFR (CKD-EPI)AfAm (>60 ml/min/1.73 sqM) Est GFR (CKD-EPI)NonAf (>60 ml/min/1.73 sqM) Glucose (74-99) mg/dL Calcium (8.4-10.2) mg/dL Total Bilirubin (0.2-1.3) mg/dL AST (17-59) U/L ALT (4-49) U/L Alkaline Phosphatase (38-126) U/L Total Protein (6.3-8.2) g/dL Albumin (3.5-5.0) g/dL Urine Color Yellow Urine Appearance Clear (Clear) Urine pH 5.0 (5.0-8.0) Ur Specific [place] 1.018 (1.001-1.035) Urine Protein Negative (Negative) Urine Glucose (UA) Negative (Negative) Urine Ketones Negative (Negative) Urine Blood Moderate H (Negative) Urine Nitrite Positive (Negative) Urine Bilirubin Negative (Negative) Urine Urobilinogen <2.0 (<2.0) mg/dL Ur Leukocyte Esterase Small H (Negative) Urine RBC 27 H (0-5) /hpf Urine WBC 3 (0-5) /hpf Urine Bacteria Few H (None) /hpf Urine Mucus Few H (None) /hpf Disposition Clinical Impression: Altered mental status, Pneumonia, UTI (urinary tract infection) Disposition: ADMITTED IP TO THIS HOSP Is patient prescribed a controlled substance at d/c from ED?: No Referrals: [facility] [Primary Care Provider] - 1-2 days Time of Disposition: 11:42
[2019-12-26 10:23] LABS: ALT 37 U/L (4-49); AST 25 U/L (17-59); African American GFR (CKD) >90 (>60 ml/min/1.73 sqM); Albumin 2.9 g/dL (3.5-5.0); Alkaline Phosphatase 47 U/L (38-126); Blood Urea Nitrogen 42 mg/dL (9-20); Calcium 9.8 mg/dL (8.4-10.2); Chloride 88 mmol/L (98-107); Glucose 93 mg/dL (74-99); Non-African American GFR(CKD) >90 (>60 ml/min/1.73 sqM); Potassium 3.2 mmol/L (3.5-5.1); Sodium 137 mmol/L (137-145); Total Bilirubin 1.9 mg/dL (0.2-1.3)
[2019-12-26 10:31] LABS: Anion Gap 0 mmol/L
[2019-12-26 10:37] LABS: Appearance,Urine Clear (Clear); Bacteria,Urine Few /hpf; Bilirubin,Urine Negative (Negative); Blood,Urine Moderate (Negative); Color,Urine Yellow; Glucose,Urine (UA) Negative (Negative); Ketones,Urine Negative (Negative); Leukocyte Esterase,Urine Small (Negative); Mucus,Urine Few /hpf; Nitrite,Urine Positive (Negative); Protein,Urine Negative (Negative); RBC,Urine 27 /hpf (0-5); Specific Gravity,Urine 1.018 (1.001-1.035); Urobilinogen,Urine <2.0 mg/dL (<2.0); WBC,Urine 3 /hpf (0-5)
[2019-12-26 11:00] LABS: Carbon Dioxide 49 mmol/L (22-30)
[2019-12-26] MEDS ORDERED: SODIUM CHLORIDE 0.9% 500 ML 500 ML IV STA (11:18)
[2019-12-26] MEDS ORDERED: cefTRIAXone IN SWFI 1,000 MG/10 ML SYRINGE IVP STA (11:19)
[2019-12-26] MEDS ORDERED: AZITHROMYCIN 500 MG in SODIUM CHLORIDE 0.9% 250 ML IVPB STA (11:38)
[2019-12-26] MEDS ORDERED: NALOXONE 0.4 MG/ML 1 ML VIAL IV PRN (11:39)
[2019-12-26] MEDS: SODIUM CHLORIDE 0.9% 1,000 ML IV SCH (12:11)
[2019-12-26 13:59] LABS: ABG Base Excess 24.8 mmol/L; ABG Oxygen Saturation 98.6 % (94-97); ABG PH 7.37 (7.35-7.45); ABG PO2 100 mmHg (83-108); ABG TCO2 53 mmol/L (19-24); Allen Test Performed? Yes
[2019-12-26 14:07] LABS: ABG PCO2 87 mmHg (35-45)
[2019-12-26 14:09] LABS: ABG HCO3 50 mmol/L (21-25)
[2019-12-26] MEDS ORDERED: IPRATROPIUM-ALBUTEROL 3 ML NEB INHALATION PRN (17:16)
[2019-12-26] MEDS ORDERED: bisacodyL 10 MG SUPP RECTAL PRN (17:17)
[2019-12-26] MEDS: ATORVASTATIN 10 MG TAB PO SCH (22:34)
[2019-12-27] MEDS: AZITHROMYCIN 500 MG TAB PO SCH ×2 (01:31→08:35)
[2019-12-27] MEDS: HEPARIN SODIUM,PORCINE 5,000 UNIT/ML 1 ML VIAL SQ SCH ×3 (01:32→16:44)
[2019-12-27] MEDS: SODIUM CHLORIDE 0.9% 1,000 ML IV SCH ×2 (01:36→14:25)
[2019-12-27 06:37] LABS: Basophils % (A) 0 %; Eosinophils % (A) 0 %; HCT 42.4 % (39.0-53.0); HGB 13.2 gm/dL (13.0-17.5); Hypochromasia Marked; Lymphocytes # (A) 0.4 k/uL (1.0-4.8); Lymphocytes % (A) 2 %; MCH 31.3 pg (25.0-35.0); Macrocytosis Slight; Mean Platelet Volume 8.4; Monocytes # (A) 0.5 k/uL (0-1.0); Monocytes % (A) 3 %; Neutrophils # (A) 14.5 k/uL (1.3-7.7); Neutrophils % (A) 94 %; Platelet Count 121 k/uL (150-450); RDW 14.4 % (11.5-15.5); WBC 15.5 k/uL (3.8-10.6)
[2019-12-27] MEDS: SYMBICORT 160-4.5 MCG INHALER INHALATION SCH ×2 (07:57→15:41)
[2019-12-27] MEDS ORDERED: METOPROLOL SUCCINATE (ER) 25 MG TAB.ER.24H PO SCH (08:00)
[2019-12-27] MEDS ORDERED: PANTOPRAZOLE 40 MG TABLET PO SCH (08:00)
[2019-12-27 09:53] LABS: African American GFR (CKD) 128.2 (60.0-200.0); Anion Gap 10.7 mmol/L (4.00-12.00); BUN/Creat Ratio 97.5 Ratio (12.00-20.00); Calcium 10.1 mg/dL (8.7-10.3); Carbon Dioxide 39.3 mmol/L (21.6-31.8); Non-African American GFR(CKD) 110.6 (60.0-200.0)
--- NOTE | 2019-12-27 11:22 | P.HPIM ---
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 Patient is alert and oriented 2 at baseline and has been more confused than normal. Patient was not speaking to staff at residential and patient was sent to ER. Patient is awake alert but could not speak at this time. Patient recently admitted and intubated due to altered mental status, encephalopathy and hypercapnia. Currently patient is saturating well on nasal cannula oxygen. No commerce of chest pain. No nausea vomiting or diarrhea. Patient is a poor historian overall. Chest x-ray showed COPD with bilateral infiltrate and small effusion similar in appearance to prior exam. No overt failure. EKG showed first-degree AV block. Laboratory data showed obesity 15.0, hemoglobin 11.8, platelets 131 Sodium 137, potassium 3.2, lower 88, bicarb is 49, BUN 42 and creatinine 0.66 Total bilirubin is 1.9 Urinalysis showed moderate blood and positive nitrite and small leukocyte esterase with 27 RBCs. WBC 3. Patient has been afebrile on admission. Review of Systems Complete review of systems could not be apparent from the patient. Past Medical History Past Medical History: COPD, Dementia, GERD/Reflux, GI Bleed, Hyperlipidemia, Hypertension, Myocardial Infarction ([place]), Osteoarthritis ([place]), Pneumonia Additional Past Medical History / Comment(s): Pt recently admitted to [facility] on 10/21/19 with exacerbation COPD/tracheobronchitis/elevated lactic acid. Other hx: Lower GI bleed, benign colon polyps, hemorrhoids, diverticular disease, constipation, arhtritis in hands/wrists/ankles, occasional back pain/fractured back twice, nephrolithiasis/sepsis, UTI, anemia, pacer d/t high AV node block, early onset dementia Last Myocardial Infarction Date:: 2018 History of Any Multi-Drug Resistant Organisms: None Reported Past Surgical History: Back Surgery, Cholecystectomy, Orthopedic Surgery, Pacemaker Additional Past Surgical History / Comment(s): Lumbar laminectomy, EGD, colonoscopies/benign polypectomies, L shoulder arthroscopy. Past Anesthesia/Blood Transfusion Reactions: No Reported Reaction Type of Cardiac Device: Permanent Pacemaker Device Placement Date:: 11/15/18 Past Psychological History: No Psychological Hx Reported Smoking Status: Former smoker Past Alcohol Use History: None Reported Past Drug Use History: None Reported - Past Family History Mother Family Medical History: Cancer Additional Family Medical History / Comment(s): Mother from some form of cancer at the age of 78yrs. Father History Unknown: Yes Additional Family Medical History / Comment(s): Father left when pt was 7 yrs old. Medications and Allergies Home Medications Medication Instructions Recorded Confirmed Type Aspirin [Adult Low Dose Aspirin EC] 81 mg PO DAILY@1700 02/04/16 12/26/19 History Lovastatin [Mevacor] 40 mg PO HS@2100 02/04/16 12/26/19 History [place]-3 Fatty Acids/Fish Oil [Fish 1 cap PO DAILY@1700 02/04/16 12/26/19 History Oil 1,000 mg Softgel] Omeprazole 20 mg PO DAILY@0800 02/04/16 12/26/19 History Ferrous Sulfate [Iron] 325 mg PO DAILY@1700 10/06/19 12/26/19 History Fluticasone/Salmeterol [Airduo 1 puff INHALATION RT-BID@0800,1700 10/21/19 12/26/19 History Respiclick 232-14 Mcg] Calcium Carbonate/Vitamin D3 1 tab PO BID@0800,1700 10/23/19 12/26/19 History [Calcium 500Mg-Vit D3 15Mcg (600 unit)] Albuterol Nebulized [Ventolin 3 ml INHALATION RT-Q4H PRN 12/06/19 12/26/19 History Nebulized] Metoprolol Succinate [Toprol XL] 25 mg PO DAILY@0800 12/06/19 12/26/19 History Albuterol Inhaler [Ventolin Hfa 1 puff INHALATION RT-QID #1 inh 12/11/19 12/26/19 Rx Inhaler] predniSONE See Taper PO DAILY 12/12/19 12/26/19 History Cyanocobalamin [Vitamin B-12] 1,000 mcg PO DAILY@1700 12/26/19 12/26/19 History Furosemide [Lasix] 40 mg PO DAILY@0800 12/26/19 12/26/19 History Ipratropium-Albuterol Nebulize 3 ml INHALATION RT-QID 12/26/19 12/26/19 History [Duoneb 0.5 mg-3 mg/3 ml Soln] Lactose-Reduced Food [Ensure Plus] 1 can PO BID@0800,1700 12/26/19 12/26/19 History Magnesium Hydroxide [Milk of 2,400 mg PO DAILY PRN 12/26/19 12/26/19 History Magnesia] Na Phos,M-B/Na Phos,Di-Ba [Fleet 133 ml RECTAL DAILY PRN 12/26/19 12/26/19 History Adult] Thiamine [Vitamin B-1] 100 mg PO DAILY@1700 12/26/19 12/26/19 History bisacodyL [Dulcolax] 10 mg RECTAL DAILY PRN 12/26/19 12/26/19 History Allergies Allergy/AdvReac Type Severity Reaction Status Date / Time No Known Allergies Allergy Verified 12/26/19 09:29 Physical Exam Vitals: Vital Signs Temp Pulse Pulse Resp BP BP Pulse Ox 12/26/19 21:20 97.5 F L 84 16 141/67 90 L 12/26/19 19:38 80 16 121/61 100 12/26/19 16:53 87 24 133/62 94 L 12/26/19 10:55 60 18 113/49 98 12/26/19 09:06 97.7 F 74 18 107/60 100 Intake and Output 12/26/19 12/26/19 12/27/19 14:59 22:59 06:59 Other: # Voids 1 Weight 81.647 kg PHYSICAL EXAMINATION: Patient is lying in the bed comfortably, no acute distress, awake alert but lethargic and drowsy and confused... HEENT: Atraumatic. Neck is supple. Pupils reactive. Nostrils clear. Oral cavity is moist. Ears reveal no drainage. Neck reveals no JVD, carotid bruits, or thyromegaly. CHEST EXAMINATION: Trachea is central. Symmetrical expansion. Bibasilar diminished air entry. Lung schroeder clear to auscultation and percussion. CARDIAC: Normal S1, S2 with no gallops. No murmurs ABDOMEN: Soft. Bowel sounds normal. No organomegaly. No abdominal bruits. Extremities: reveal no edema. No clubbing or cyanosis Neurologically awake, alert but not oriented. Able to move his extremities while in bed. No cross focal deficits noted Skin: No rash or skin lesions. Psychiatric: [id number]. Could not be assessed completely. Musculoskeletal: No joint swelling or deformity. Normal range of motion. Results CBC & Chem 7: 12/27/19 05:49 12/27/19 05:49 Labs: Abnormal Lab Results - Last 24 Hours (Table) 12/26/19 12/26/19 12/26/19 Range/Units 09:39 09:39 10:06 WBC 15.0 H (3.8-10.6) k/uL RBC 3.83 L (4.30-5.90) m/uL Hgb 11.8 L (13.0-17.5) gm/dL Hct 37.4 L (39.0-53.0) % Plt Count 131 L (150-450) k/uL Neutrophils # 13.8 H (1.3-7.7) k/uL Lymphocytes # 0.6 L (1.0-4.8) k/uL ABG pCO2 (35-45) mmHg ABG HCO3 (21-25) mmol/L ABG Total CO2 (19-24) mmol/L ABG O2 Saturation (94-97) % Potassium 3.2 L (3.5-5.1) mmol/L Chloride 88 L (98-107) mmol/L Carbon Dioxide 49 H* (22-30) mmol/L BUN 42 H (9-20) mg/dL Total Bilirubin 1.9 H (0.2-1.3) mg/dL Total Protein 5.0 L (6.3-8.2) g/dL Albumin 2.9 L (3.5-5.0) g/dL Urine Blood Moderate H (Negative) Ur Leukocyte Esterase Small H (Negative) Urine RBC 27 H (0-5) /hpf Urine Bacteria Few H (None) /hpf Urine Mucus Few H (None) /hpf 12/26/19 Range/Units 13:53 WBC (3.8-10.6) k/uL RBC (4.30-5.90) m/uL Hgb (13.0-17.5) gm/dL Hct (39.0-53.0) % Plt Count (150-450) k/uL Neutrophils # (1.3-7.7) k/uL Lymphocytes # (1.0-4.8) k/uL ABG pCO2 87 H* (35-45) mmHg ABG HCO3 50 H* (21-25) mmol/L ABG Total CO2 53 H (19-24) mmol/L ABG O2 Saturation 98.6 H (94-97) % Potassium (3.5-5.1) mmol/L Chloride (98-107) mmol/L Carbon Dioxide (22-30) mmol/L BUN (9-20) mg/dL Total Bilirubin (0.2-1.3) mg/dL Total Protein (6.3-8.2) g/dL Albumin (3.5-5.0) g/dL Urine Blood (Negative) Ur Leukocyte Esterase (Negative) Urine RBC (0-5) /hpf Urine Bacteria (None) /hpf Urine Mucus (None) /hpf Thrombosis Risk Factor Assmnt - DVT/VTE Prophylaxis DVT/VTE Prophylaxis: Pharmacologic Prophylaxis ordered Assessment and Plan Assessment: Altered mental status due to metabolic encephalopathy. No focal weakness noted. Severe hypercapnia/ severe Co2 Norcosis Possible urinary tract infection Respiratory acidosis and metabolic alkalosis Dementia Hypertension Hyponatremia Chronic CHF with diastolic dysfunction History of heart block status post permanent pacemaker placement DVT prophylaxis Plan: Patient will be continued on gentle IV hydration and antibiotics. Continue with breathing treatments and follow up culture reports. Pulmonary will be consulted due to severe hypercapnia. Lasix is on hold. Follow closely and further admissions based on the clinical course. Current with home medications. Prognosis is guarded with multiple medical problems and comorbid conditions. Time with Patient: Greater than 30
[2019-12-27 11:42] LABS: Glucose,Whole Blood 71 mg/dL (75-99)
--- NOTE | 2019-12-27 12:22 | CT ---
EXAMINATION TYPE: CT brain wo con DATE OF EXAM: 12/27/2019 COMPARISON: 12/06/2019 HISTORY: altered mental status CT DLP: 1171 mGycm Automated exposure control for dose reduction was used. FINDINGS: There is mild to moderate degenerative change of the greater frontal lobe component unchanged from th e prior exam. Asymmetric atrophy versus chronic chronic subdural hygroma or hematoma. No acute hemorr sylvie. No midline shift. No mass effect. Calvarium intact. Nonspecific low-attenuation the white matte r could be on the basis of remote microvascular ischemia. No midline shift. IMPRESSION: NO ACUTE HEMORRHAGE OR MASS EFFECT. DEGENERATIVE CHANGES ARE SEEN. CSF PROMINENCE IN THE FRONTAL SPAC ES COULD BE ON THE BASIS OF A ASYMMETRIC ATROPHY, CHRONIC SUBDURAL HEMATOMA OR SUBDURAL HYGROMA. NO S IGNIFICANT INTERVAL CHANGE FROM THE PRIOR EXAM.
--- NOTE | 2019-12-27 13:40 | P.CNPUL ---
History of Present Illness Consult date: 12/27/19 Requesting physician: Cedric E Sheet Chief complaint: Altered mental status History of present illness: This is an 84-year-old gentleman who resides in extended care facility and was brought into the emergency room yesterday with altered mental status. He does have a history of dementia and he is usually alert and oriented 2. He is more confused than normal and was not speaking to the staff at all. Upon arrival he was found to have evidence of COPD with bilateral infiltrates and small effusion. Similar compared to previous in November 2019. No overt heart failure. Arterial blood gases on 28% FiO2 did reveal a pO2 of 100, pCO2 of 87 and a pH of 7.37. White count 15.5. Hemoglobin 13.2. Sodium 146. Potassium 4.0. Creatinine 0.4. Urinalysis with moderate blood, small leukocyte esterase, few bacteria. He was initiated on ceftriaxone. He has remained afebrile. He is up to 100% O2 saturation on 3 L nasal cannula. He is seen in consultation on the regular medical floor. He is currently resting fairly comfortably in bed. Laying flat. He is not responding to questions at this time. His eyes are open. He is moving all 4 extremities. Computed tomography scan of the brain revealed no acute hemorrhage or mass effect. There are degenerative changes seen. Chronic subdural hematoma or subdural hygroma. No significant interval change compared to previous CAT scan in 12/06/2019. He was seen by our group in November 2019 where he had a similar presentation of altered mental status. He was hypercapnic at the time with a pCO2 of 112 and a pH of 7.13. He was subsequently intubated and seen and evaluated in the ICU. Subsequently extubated to BiPAP and discharged to the [facility] on 12/15/2019. Review of Systems ROS unobtainable: due to mental status Past Medical History Past Medical History: COPD, Dementia, GERD/Reflux, GI Bleed, Hyperlipidemia, Hypertension, Myocardial Infarction (ID), Osteoarthritis (OA), Pneumonia Additional Past Medical History / Comment(s): Pt had recent admission to [facility] on 12/13/19 with exacerbation COPD/chf and another recent admit with acute hypoxic respiratory failure with intubation. Other hx; Lower GI bleed, benign colon polyps, hemorrhoids, diverticular disease, constipation, arhtritis in hands/wrists/ankles, occasional back pain/fractured back twice, nephrolithiasis/sepsis, UTI, anemia, pacer d/t high AV node block, early onset dementia Last Myocardial Infarction Date:: 2018 History of Any Multi-Drug Resistant Organisms: None Reported Past Surgical History: Back Surgery, Cholecystectomy, Orthopedic Surgery, Pacemaker Additional Past Surgical History / Comment(s): Lumbar laminectomy, EGD, colonoscopies/benign polypectomies, L shoulder arthroscopy. Past Anesthesia/Blood Transfusion Reactions: No Reported Reaction Type of Cardiac Device: Permanent Pacemaker Device Placement Date:: 11/15/18 Smoking Status: Former smoker - Past Family History Mother Family Medical History: Cancer Additional Family Medical History / Comment(s): Mother from some form of cancer at the age of 78yrs. Father History Unknown: Yes Additional Family Medical History / Comment(s): Father left when pt was 7 yrs old. Medications and Allergies Home Medications Medication Instructions Recorded Confirmed Type Aspirin [Adult Low Dose Aspirin EC] 81 mg PO DAILY@1700 02/04/16 12/26/19 History Lovastatin [Mevacor] 40 mg PO HS@2100 02/04/16 12/26/19 History [place]-3 Fatty Acids/Fish Oil [Fish 1 cap PO DAILY@1700 02/04/16 12/26/19 History Oil 1,000 mg Softgel] Omeprazole 20 mg PO DAILY@0800 02/04/16 12/26/19 History Ferrous Sulfate [Iron] 325 mg PO DAILY@1700 10/06/19 12/26/19 History Fluticasone/Salmeterol [Airduo 1 puff INHALATION RT-BID@0800,1700 10/21/19 12/26/19 History Respiclick 232-14 Mcg] Calcium Carbonate/Vitamin D3 1 tab PO BID@0800,1700 10/23/19 12/26/19 History [Calcium 500Mg-Vit D3 15Mcg (600 unit)] Albuterol Nebulized [Ventolin 3 ml INHALATION RT-Q4H PRN 12/06/19 12/26/19 History Nebulized] Metoprolol Succinate [Toprol XL] 25 mg PO DAILY@0800 12/06/19 12/26/19 History Albuterol Inhaler [Ventolin Hfa 1 puff INHALATION RT-QID #1 inh 12/11/19 12/26/19 Rx Inhaler] predniSONE See Taper PO DAILY 12/12/19 12/26/19 History Cyanocobalamin [Vitamin B-12] 1,000 mcg PO DAILY@1700 12/26/19 12/26/19 History Furosemide [Lasix] 40 mg PO DAILY@0800 12/26/19 12/26/19 History Ipratropium-Albuterol Nebulize 3 ml INHALATION RT-QID 12/26/19 12/26/19 History [Duoneb 0.5 mg-3 mg/3 ml Soln] Lactose-Reduced Food [Ensure Plus] 1 can PO BID@0800,1700 12/26/19 12/26/19 History Magnesium Hydroxide [Milk of 2,400 mg PO DAILY PRN 12/26/19 12/26/19 History Magnesia] Na Phos,M-B/Na Phos,Di-Ba [Fleet 133 ml RECTAL DAILY PRN 12/26/19 12/26/19 History Adult] Thiamine [Vitamin B-1] 100 mg PO DAILY@1700 12/26/19 12/26/19 History bisacodyL [Dulcolax] 10 mg RECTAL DAILY PRN 12/26/19 12/26/19 History Allergies Allergy/AdvReac Type Severity Reaction Status Date / Time No Known Allergies Allergy Verified 12/26/19 09:29 Physical Exam Vitals: Vital Signs Temp Pulse Pulse Resp BP BP Pulse Ox 12/27/19 11:30 96.6 F L 75 30 H 145/57 99 12/27/19 04:15 97.5 F L 88 16 125/72 100 12/27/19 00:00 84 16 12/26/19 21:20 97.5 F L 84 16 141/67 90 L 12/26/19 19:38 80 16 121/61 100 12/26/19 16:53 87 24 133/62 94 L Intake and Output 12/26/19 12/27/19 12/27/19 22:59 06:59 14:59 Intake Total 75 0 Output Total 350 Balance 75 0 -350 Intake: Intake, IV Titration 75 Amount Sodium Chloride 0.9% 1, 75 000 ml @ 75 mls/hr IV . [id number] [facility] Rx#:[id number] Oral 0 Output: Urine 350 Uretheral (Woods) 350 Other: Voiding Method Incontinent Incontinent # Voids 1 1 1 Weight 81.647 kg GENERAL EXAM: Alert, tracking with eyes, nonverbal currently, on 3 L nasal cannula, comfortable in no apparent distress. HEAD: Normocephalic. EYES: Normal reaction of pupils, equal size. NOSE: Clear with pink turbinates. THROAT: No erythema or exudates. NECK: No masses, no JVD. CHEST: No chest wall deformity. LUNGS: Equal air entry with faint crackles in the posterior bases. CVS: S1 and S2 normal with no audible murmur, regular rhythm. ABDOMEN: No hepatosplenomegaly, normal bowel sounds, no guarding or rigidity. SPINE: No scoliosis or deformity SKIN: No rashes CENTRAL NERVOUS SYSTEM: Altered mental status, not answering questions. Tone is normal in all 4 extremities. EXTREMITIES: There is no peripheral edema. No clubbing, no cyanosis. Elvia pheral pulses are intact. Results - Laboratory Findings CBC and BMP: 12/27/19 05:49 12/27/19 05:49 ABG ABG pH 7.37 (7.35-7.45) 12/26/19 13:53 ABG pCO2 87 mmHg (35-45) H* 12/26/19 13:53 ABG pO2 100 mmHg (83-108) 12/26/19 13:53 ABG O2 Saturation 98.6 % (94-97) H 12/26/19 13:53 PT/INR, D-dimer PT 11.4 sec (9.0-12.0) 12/26/19 09:39 INR 1.1 (<1.2) 12/26/19 09:39 Abnormal lab findings: Abnormal Labs 12/26/19 12/26/19 12/26/19 09:39 09:39 10:06 WBC 15.0 H RBC 3.83 L Hgb 11.8 L Hct 37.4 L MCV Plt Count 131 L Neutrophils # 13.8 H Lymphocytes # 0.6 L ABG pCO2 ABG HCO3 ABG Total CO2 ABG O2 Saturation Sodium Potassium 3.2 L Chloride 88 L Carbon Dioxide 49 H* BUN 42 H Creatinine BUN/Creatinine Ratio Glucose POC Glucose (mg/dL) Total Bilirubin 1.9 H Total Protein 5.0 L Albumin 2.9 L Urine Blood Moderate H Ur Leukocyte Esterase Small H Urine RBC 27 H Urine Bacteria Few H Urine Mucus Few H 12/26/19 12/27/19 12/27/19 13:53 05:49 05:49 WBC 15.5 H RBC 4.20 L Hgb Hct MCV 101.0 H Plt Count 121 L Neutrophils # 14.5 H Lymphocytes # 0.4 L ABG pCO2 87 H* ABG HCO3 50 H* ABG Total CO2 53 H ABG O2 Saturation 98.6 H Sodium 146 H Potassium Chloride Carbon Dioxide 39.3 H BUN 39.0 H Creatinine 0.4 L BUN/Creatinine Ratio 97.50 H Glucose 67 L POC Glucose (mg/dL) Total Bilirubin Total Protein Albumin Urine Blood Ur Leukocyte Esterase Urine RBC Urine Bacteria Urine Mucus 12/27/19 11:34 WBC RBC Hgb Hct MCV Plt Count Neutrophils # Lymphocytes # ABG pCO2 ABG HCO3 ABG Total CO2 ABG O2 Saturation Sodium Potassium Chloride Carbon Dioxide BUN Creatinine BUN/Creatinine Ratio Glucose POC Glucose (mg/dL) 71 L Total Bilirubin Total Protein Albumin Urine Blood Ur Leukocyte Esterase Urine RBC Urine Bacteria Urine Mucus - Diagnostic Findings Chest x-ray: image reviewed Assessment and Plan Assessment: 1 Altered mental status of unclear etiology, most likely secondary to CO2 narcosis and the patient does have underlying dementia and baseline is oriented 2. 2 Acute on chronic hypercapnic respiratory failure secondary to COPD 3 Recent admission for acute hypoxic/hypercapnic respiratory failure requiring intubation mechanical ventilatory support 4 Remote history of chronic tobacco dependence 5 Hypertension 6 History of high degree AV block, status post pacemaker insertion 7 Hyperlipidemia 8 History of GI bleed 9 Degenerative joint disease 10 History of nephrolithiasis and hydronephrosis Plan: The patient was seen and evaluated by Dr. Tipton Titrate down the FiO2 maintaining O2 saturations greater than 90% Avoid narcotics/sedatives Add Diamox 250 mg IV every 12 hours Repeat labs in a.m. We will continue to follow and make further recommendations based on his clinical status I, the cosigning physician, performed a history & physical examination of the patient. Lungs sounds with faint crackles in the posterior bases. Maintaining good O2 saturations in the 90s on 3 L/m per nasal cannula. I discussed the assessment and plan of care with my nurse practitioner, Melissa Cancino. I attest to the above consultation as dictated by her. Time with Patient: Greater than 30
[2019-12-27] MEDS ORDERED: FOLIC ACID 1 MG TAB PO SCH (16:00)
[2019-12-27] MEDS ORDERED: ASPIRIN 81 MG PO SCH (17:00)
[2019-12-27] MEDS ORDERED: THIAMINE 100 MG TAB PO SCH (17:00)
--- NOTE | 2019-12-27 18:27 | P.CNNES ---
History of Present Illness Consult date: 12/27/19 Requesting physician: Lucrecia Rosales Reason for Consult: altered mental status History of Present Illness: This is a 84-year-old gentleman with medical history of dementia, hyperlipidemia, hypertension, myocardial infarction, high degree AV block status post pacemaker insertion, history of GI bleed, remote chronic tobacco dependence who presented to the emergency department on 12/26/2019 for altered mental status from custodial. History was obtained from the medical record since patient unable to provide any information. Patient apparently more confused than normal and the not speaking to the staff at his custodial. He apparently has elevated white blood cell count for the last 3 days. He was found to have acute COPD exacerbation with bilateral infiltrates and small effusion. Per the pulmonology note, team saw him in November 2019 and he had similar presentation of altered mental status. And at that time the patient had to be intubated and placed on the mechanical ventilation support. Per Medical record the patient's baseline is alert oriented 2. Also according to the nurse he is able to walk on his own. Workup in the hospital consisted of: Initial vital signs: Blood pressure of 107/60, heart rate of 74, respiratory of 18, temperature of 97.7 Fahrenheit oral and pulse ox off 100% on [address] of the head is reported as no acute hemorrhage or mass effect. Degenerative changes are seen. CSF prominence in the frontal spaces could be on the basis of a asymmetric atrophy, chronic subdural hematoma or subdural hygroma. No significant interval change from the prior exam. I did personally review the CT of the head and I agree with the findings. I agree that one of the possibilities and the bilateral frontal old bilateral subdural hematoma vs hygroma. Chest x-ray was reported as COPD with bilateral infiltrates and small effusion similar appearance to the prior exam. Initial white blood cell on presentations 15.0 and on next is 15.5 and and seems to predominantly neutrophilic. Also the patient had a potassium 3.2 on presentation and a carbon dioxide of 49 , albumin of 2.9. Blood gases showed the pCO2 was 87 bicarb was 50. Review of Systems Review of system is unable to obtain from the patient because the condition but the prone positive and negative per HPI. Past Medical History Past Medical History: COPD, Dementia, GERD/Reflux, GI Bleed, Hyperlipidemia, Hypertension, Myocardial Infarction (NH), Osteoarthritis (OA), Pneumonia Additional Past Medical History / Comment(s): Pt had recent admission to [facility] on 12/13/19 with exacerbation COPD/chf and another recent admit with acute hypoxic respiratory failure with intubation. Other hx; Lower GI bleed, benign colon polyps, hemorrhoids, diverticular disease, constipation, arhtritis in hands/wrists/ankles, occasional back pain/fractured back twice, nephrolithiasis/sepsis, UTI, anemia, pacer d/t high AV node block, early onset dementia Last Myocardial Infarction Date:: 2018 History of Any Multi-Drug Resistant Organisms: None Reported Past Surgical History: Back Surgery, Cholecystectomy, Orthopedic Surgery, Pacemaker Additional Past Surgical History / Comment(s): Lumbar laminectomy, EGD, colo noscopies/benign polypectomies, L shoulder arthroscopy. Past Anesthesia/Blood Transfusion Reactions: No Reported Reaction Type of Cardiac Device: Permanent Pacemaker Device Placement Date:: 11/15/18 Smoking Status: Former smoker - Past Family History Mother Family Medical History: Cancer Additional Family Medical History / Comment(s): Mother from some form of cancer at the age of 78yrs. Father History Unknown: Yes Additional Family Medical History / Comment(s): Father left when pt was 7 yrs old. Medications and Allergies Home Medications Medication Instructions Recorded Confirmed Type Aspirin [Adult Low Dose Aspirin EC] 81 mg PO DAILY@1700 02/04/16 12/26/19 History Lovastatin [Mevacor] 40 mg PO HS@2100 02/04/16 12/26/19 History [place]-3 Fatty Acids/Fish Oil [Fish 1 cap PO DAILY@1700 02/04/16 12/26/19 History Oil 1,000 mg Softgel] Omeprazole 20 mg PO DAILY@0800 02/04/16 12/26/19 History Ferrous Sulfate [Iron] 325 mg PO DAILY@1700 10/06/19 12/26/19 History Fluticasone/Salmeterol [Airduo 1 puff INHALATION RT-BID@0800,1700 10/21/19 12/26/19 History Respiclick 232-14 Mcg] Calcium Carbonate/Vitamin D3 1 tab PO BID@0800,1700 10/23/19 12/26/19 History [Calcium 500Mg-Vit D3 15Mcg (600 unit)] Albuterol Nebulized [Ventolin 3 ml INHALATION RT-Q4H PRN 12/06/19 12/26/19 History Nebulized] Metoprolol Succinate [Toprol XL] 25 mg PO DAILY@0800 12/06/19 12/26/19 History Albuterol Inhaler [Ventolin Hfa 1 puff INHALATION RT-QID #1 inh 12/11/19 12/26/19 Rx Inhaler] predniSONE See Taper PO DAILY 12/12/19 12/26/19 History Cyanocobalamin [Vitamin B-12] 1,000 mcg PO DAILY@1700 12/26/19 12/26/19 History Furosemide [Lasix] 40 mg PO DAILY@0800 12/26/19 12/26/19 History Ipratropium-Albuterol Nebulize 3 ml INHALATION RT-QID 12/26/19 12/26/19 History [Duoneb 0.5 mg-3 mg/3 ml Soln] Lactose-Reduced Food [Ensure Plus] 1 can PO BID@0800,1700 12/26/19 12/26/19 History Magnesium Hydroxide [Milk of 2,400 mg PO DAILY PRN 12/26/19 12/26/19 History Magnesia] Na Phos,M-B/Na Phos,Di-Ba [Fleet 133 ml RECTAL DAILY PRN 12/26/19 12/26/19 History Adult] Thiamine [Vitamin B-1] 100 mg PO DAILY@1700 12/26/19 12/26/19 History bisacodyL [Dulcolax] 10 mg RECTAL DAILY PRN 12/26/19 12/26/19 History Allergies Allergy/AdvReac Type Severity Reaction Status Date / Time No Known Allergies Allergy Verified 12/26/19 09:29 Physical Examination - Vital Signs Vital Signs: Vital Signs Temp Pulse Pulse Resp BP BP Pulse Ox 12/27/19 14:47 30 H 12/27/19 11:30 96.6 F L 75 30 H 145/57 99 12/27/19 04:15 97.5 F L 88 16 125/72 100 12/27/19 00:00 84 16 12/26/19 21:20 97.5 F L 84 16 141/67 90 L 12/26/19 19:38 80 16 121/61 100 12/26/19 16:53 87 24 133/62 94 L Intake and Output 12/27/19 12/27/19 12/27/19 06:59 14:59 22:59 Intake Total 0 650 Output Total 350 Balance 0 300 Intake: Intake, IV Titration 650 Amount Sodium Chloride 0.9% 1, 600 000 ml @ 75 mls/hr IV . [id number] [facility] Rx#:[id number] cefTRIAXone 1 gm In 50 Sodium Chloride 0.9% 50 ml @ 100 mls/hr IVPB Q24HR [facility] Rx#:[id number] Oral 0 0 Output: Urine 350 Uretheral (Woods) 350 Other: Voiding Method Incontinent Incontinent # Voids 1 1 Weight 81.647 kg GENERAL: The patient is lying in bed and seemed in respiratory distress (per patient nurse he is improving) CHEST: The heart rate is regular rate rhythm. No murmurs to auscultation. No carotid bruit bilaterally. LUNG: Clear to auscultation bilaterally no wheezing noted throughout. Seemed in respiratory distress. ABDOMEN/GI: Bowel sounds present in all 4 quadrants. No tenderness to palpation throughout. NEUROLOGICAL: Higher mental function: The patient is awake but no verberally responsive. He is not following any commands. Cranial nerves: The pupils are round, equal (3mm) and reactive to light. Visual schroeder are full to threat throughout. Primary gaze is midline bilaterally. Facial sensation is unable to assess. There is no facial weakness noted bilaterally. Motor: The strength is unable to assess. Was able to squeeze both hand symetrically. Normal tone and bulk. Cerebellum: Unable to assess. Sensation: Unable to assess light touch. Reflexes (right/left): 2+ throughout except ankles 1+ bilaterally. Plantars are mute bilaterally. Results Glucose of 93 on presentation. AST of 25, ALT of 37. Urinalysis is date nitrite was positive leukocyte was small urine 1 blood cell is 30 urine bacteria is few possibly urinary tract infection. - Laboratory Findings CBC and BMP: 12/27/19 05:49 12/27/19 05:49 Abnormal Lab Findings: Abnormal Labs 12/26/19 12/26/19 12/26/19 09:39 09:39 10:06 WBC 15.0 H RBC 3.83 L Hgb 11.8 L Hct 37.4 L MCV Plt Count 131 L Neutrophils # 13.8 H Lymphocytes # 0.6 L ABG pCO2 ABG HCO3 ABG Total CO2 ABG O2 Saturation Sodium Potassium 3.2 L Chloride 88 L Carbon Dioxide 49 H* BUN 42 H Creatinine BUN/Creatinine Ratio Glucose POC Glucose (mg/dL) Total Bilirubin 1.9 H Total Protein 5.0 L Albumin 2.9 L Urine Blood Moderate H Ur Leukocyte Esterase Small H Urine RBC 27 H Urine Bacteria Few H Urine Mucus Few H 12/26/19 12/27/19 12/27/19 13:53 05:49 05:49 WBC 15.5 H RBC 4.20 L Hgb Hct MCV 101.0 H Plt Count 121 L Neutrophils # 14.5 H Lymphocytes # 0.4 L ABG pCO2 87 H* ABG HCO3 50 H* ABG Total CO2 53 H ABG O2 Saturation 98.6 H Sodium 146 H Potassium Chloride Carbon Dioxide 39.3 H BUN 39.0 H Creatinine 0.4 L BUN/Creatinine Ratio 97.50 H Glucose 67 L POC Glucose (mg/dL) Total Bilirubin Total Protein Albumin Urine Blood Ur Leukocyte Esterase Urine RBC Urine Bacteria Urine Mucus 12/27/19 11:34 WBC RBC Hgb Hct MCV Plt Count Neutrophils # Lymphocytes # ABG pCO2 ABG HCO3 ABG Total CO2 ABG O2 Saturation Sodium Potassium Chloride Carbon Dioxide BUN Creatinine BUN/Creatinine Ratio Glucose POC Glucose (mg/dL) 71 L Total Bilirubin Total Protein Albumin Urine Blood Ur Leukocyte Esterase Urine RBC Urine Bacteria Urine Mucus Assessment and Plan Assessment: This is an 84-year-old gentleman that presented to the emergency department on 12/26/2019 from his extended nursing facility because of altered mental status. Toxic metabolic encephalopathy : Mentation likely due to secondary CO2 narcosis (has similar presentation on 11/2019) Dementia with baseline the mentation alert oriented 2 ? old bilateral frontal subdural hematoma vs hygroma Acute on chronic hypercapnic respiratory failure secondary due to COPD Hyperlipidemia Hypertension History of high degree AV block status post pacemaker insertion Myocardial infarction Hx of GI bleed Remote tobacco use Plan: Ordered EEG which is unlikely the patient is having the seizure. We'll not star t the patient on antiepileptic drug unless the patient the has epileptiform discharges or seizure on the EEG Ordered Ammonia level. TSH (10/26/19): 1.43 (normal). Vit B12 (12/13/19): 770 (normal), folate (10/26/19): 3.7 (low)-->will start on folic acid. None of labs need to be repeated. Regarding his respiratory status will defer it to the pulmonology team. Thank You for the consultation. Sameer Chong M.D. Neuro-hospitalist Time with Patient: Greater than 30
[2019-12-27 19:46] LABS: Glucose,Whole Blood 88 mg/dL (75-99)
--- NOTE | 2019-12-27 20:17 | EEG ---
ELECTROENCEPHALOGRAM REPORT DATE OF SERVICE: 12/27/2019 CLINICAL HISTORY: This is an 84-year-old gentleman who presented to the emergency department on 12/26/2019 for altered mental status. This video EEG was obtained to evaluate for seizure and epileptiform activity. RELEVANT MEDICATION: The patient is not on any central-acting medication. EEG TYPE: A routine 21 channel EEG is performed with video using 10/20 electrode placement system. DESCRIPTION: Only wakefulness is obtained. During wakefulness, there is no clear posterior- dominant rhythm over bilateral hemispheres. The background consists of moderate voltage of 5-6 hertz theta activity that is nonrhythmic over bilateral hemispheres and at times intermixed with delta activity. There is significant myogenic artifact over bilateral hemispheres as seen throughout the EEG study. INTERICTAL AND ICTAL: None. ACTIVATION PROCEDURES: Photic stimulation and hyperventilation were not performed because of the patient's clinical history. CLINICAL INTERPRETATION: This is an abnormal routine EEG. The background slowing is suggestive of moderate to severe encephalopathy of unspecified etiology. There are no focal slowing, epileptiform discharges or seizure during the study. There is significant myogenic artifact during the study. Clinical correlation is recommended. MMODL / IJN: [id number] / MTDD
[2019-12-27 20:46] LABS: ABG Base Excess 18.9 mmol/L; ABG PH 7.32 (7.35-7.45); ABG TCO2 48 mmol/L (19-24); Allen Test Performed? Yes
[2019-12-27 20:50] LABS: ABG PCO2 89 mmHg (35-45)
[2019-12-27 20:51] LABS: ABG PO2 52 mmHg (83-108)
[2019-12-27 21:00] LABS: ABG HCO3 45 mmol/L (21-25)
[2019-12-27 22:19] LABS: Hemoglobin A1C 5.3 % (4.0-6.0)
--- NOTE | 2019-12-27 22:49 | P.PN ---
Subjective Progress Note Date: 12/27/19 Principal diagnosis: Metabolic encephalopathy due to CO2 narcosis. 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 Patient is alert and orie nted 2 at baseline and has been more confused than normal. Patient was not speaking to staff at correction and patient was sent to ER. Patient is awake alert but could not speak at this time. Patient recently admitted and intubated due to altered mental status, encephalopathy and hypercapnia. Currently patient is saturating well on nasal cannula oxygen. No commerce of chest pain. No nausea vomiting or diarrhea. Patient is a poor historian overall. Chest x-ray showed COPD with bilateral infiltrate and small effusion similar in appearance to prior exam. No overt failure. EKG showed first-degree AV block. Laboratory data showed obesity 15.0, hemoglobin 11.8, platelets 131 Sodium 137, potassium 3.2, lower 88, bicarb is 49, BUN 42 and creatinine 0.66 Total bilirubin is 1.9 Urinalysis showed moderate blood and positive nitrite and small leukocyte esterase with 27 RBCs. WBC 3. Patient has been afebrile on admission. 12/27/2019 Patient is still confused but awake and alert. Bicarb level is still elevated at 39. Patient has CO2 narcosis and altered mental status. CT head showed no acute hemorrhage or mass-effect. CSF prominence in the frontal space could be on the basis of asymmetric atrophy, chronic subdural hematoma or subdural hemorrhage hygroma. No significant interval change. Neurology and pulmonary is on board.. Patient was started on Diamox Patient has been afebrile. Cultures showed no growth. Currently being continued on antibiotics in the form of ceftriaxone. Current medications reviewed. Objective - Vital Signs Vital signs: Vital Signs Temp 97.5 F L 12/27/19 19:43 Pulse 83 12/27/19 19:43 Resp 40 H 12/27/19 19:43 BP 117/70 12/27/19 19:43 Pulse Ox 96 12/27/19 19:43 Intake & Output 12/27/19 12/27/19 12/28/19 06:59 18:59 06:59 Intake Total 75 650 Output Total 1000 Balance 75 -350 Weight 81.647 kg Intake: Intake, IV Titration 75 650 Amount Sodium Chloride 0.9% 1, 75 600 000 ml @ 75 mls/hr IV . [id number] [facility] Rx#:[id number] cefTRIAXone 1 gm In 50 Sodium Chloride 0.9% 50 ml @ 100 mls/hr IVPB Q24HR [facility] Rx#:[id number] Oral 0 0 Output: Urine 1000 Uretheral ([place]) 1000 Other: Voiding Method Incontinent Incontinent # Voids 1 1 - Exam PHYSICAL EXAMINATION: Patient is lying in the bed comfortably, no acute distress, awake alert but lethargic and drowsy and confused... HEENT: Atraumatic. Neck is supple. Pupils reactive. Nostrils clear. Oral cavity is moist. Ears reveal no drainage. Neck reveals no JVD, carotid bruits, or thyromegaly. CHEST EXAMINATION: Trachea is central. Symmetrical expansion. Bibasilar diminished air entry. Lung schroeder clear to auscultation and percussion. CARDIAC: Normal S1, S2 with no gallops. No murmurs ABDOMEN: Soft. Bowel sounds normal. No organomegaly. No abdominal bruits. Extremities: reveal no edema. No clubbing or cyanosis Neurologically awake, alert but not oriented. Able to move his extremities while in bed. No cross focal deficits noted Skin: No rash or skin lesions. Psychiatric: [id number]. Could not be assessed completely. Musculoskeletal: No joint swelling or deformity. Normal range of motion. - Labs CBC & Chem 7: 12/27/19 05:49 12/27/19 05:49 Labs: Abnormal Lab Results - Last 24 Hours (Table) 12/27/19 12/27/19 12/27/19 Range/Units 05:49 05:49 11:34 WBC 15.5 H (3.8-10.6) k/uL RBC 4.20 L (4.30-5.90) m/uL MCV 101.0 H (80.0-100.0) fL Plt Count 121 L (150-450) k/uL Neutrophils # 14.5 H (1.3-7.7) k/uL Lymphocytes # 0.4 L (1.0-4.8) k/uL ABG pH (7.35-7.45) ABG pCO2 (35-45) mmHg ABG pO2 (83-108) mmHg ABG HCO3 (21-25) mmol/L ABG Total CO2 (19-24) mmol/L ABG O2 Saturation (94-97) % Sodium 146 H (135-145) mmol/L Carbon Dioxide 39.3 H (21.6-31.8) mmol/L BUN 39.0 H (9.0-27.0) mg/dL Creatinine 0.4 L (0.6-1.5) mg/dL BUN/Creatinine Ratio 97.50 H (12.00-20.00) Ratio Glucose 67 L (70-110) mg/dL POC Glucose (mg/dL) 71 L (75-99) mg/dL Vitamin B12 (200.0-944.0) pg/mL 12/27/19 12/27/19 Range/Units 12:13 20:37 WBC (3.8-10.6) k/uL RBC (4.30-5.90) m/uL MCV (80.0-100.0) fL Plt Count (150-450) k/uL Neutrophils # (1.3-7.7) k/uL Lymphocytes # (1.0-4.8) k/uL ABG pH 7.32 L (7.35-7.45) ABG pCO2 89 H* (35-45) mmHg ABG pO2 52 L* (83-108) mmHg ABG HCO3 45 H* (21-25) mmol/L ABG Total CO2 48 H (19-24) mmol/L ABG O2 Saturation 89.0 L (94-97) % Sodium (135-145) mmol/L Carbon Dioxide (21.6-31.8) mmol/L BUN (9.0-27.0) mg/dL Creatinine (0.6-1.5) mg/dL BUN/Creatinine Ratio (12.00-20.00) Ratio Glucose (70-110) mg/dL POC Glucose (mg/dL) (75-99) mg/dL Vitamin B12 1970.0 H (200.0-944.0) pg/mL Microbiology - Last 24 Hours (Table) 12/26/19 12:36 Blood Culture - Preliminary Blood No Growth after 24 hours Assessment and Plan Assessment: Altered mental status due to metabolic toxic encephalopathy. No focal weakness noted. Severe hypercapnia/CO2 narcosis. Possible urinary tract infection Respiratory acidosis and metabolic alkalosis Dementia Hypertension Hyponatremia Chronic CHF with diastolic dysfunction History of heart block status post permanent pacemaker placement DVT prophylaxis Plan: Patient will be continued on gentle IV hydration and antibiotics. Continue with breathing treatments and follow up culture reports. Pulmonary was consulted due to severe hypercapnia. Lasix is on hold. Follow closely and further admissions based on the clinical course. Current with home medications. Prognosis is guarded with multiple medical problems and comorbid conditions. Time with Patient: Greater than 30
[2019-12-27] MEDS: ATORVASTATIN 10 MG TAB PO SCH (23:23)
[2019-12-28] MEDS: HEPARIN SODIUM,PORCINE 5,000 UNIT/ML 1 ML VIAL SQ SCH (01:11)
[2019-12-28 01:46] VITALS: BP 109/49; PULSE 65; RESP 28; TEMP 97.2
--- NOTE | 2020-01-02 12:02 | CDI ---
Documentation Clarification Form Date: 01/02/2020 11:54:19 AM From: Sophie HeltonValentinoTISHA, CCDS Admit Date: 12/26/2019 02:05:00 PM Patient Name: Klaus Ni Visit Number: [id number] Discharge Date: 12/28/2019 06:30:00 AM ATTENTION: The Clinical Documentation Specialists (CDI) and [facility] Coding Staff appreciate your assistance in clarifying documentation. Please respond to the clarification below the line at the bottom and electronically sign. The CDI & [facility] Coding staff will review the response and follow-up if needed. Please note: Queries are made part of the Legal Health Record. If you have any questions, please contact the author of this message via ITS. Dr. Lucrecia Rosales: Conflicting documentation has been found in the medical record: Hyponatremia is documented with Na Lab Value (137) - 146^. History/Risk Factors: COPD, Dementia, Hypertension, Chronic Diastolic CHF, [place], Pacemaker with 1st Degree AV Block, Hyperlipidemia and history of Exacerbation of COPD with Tracheobronchitis, Sepsis, UTI, GI Bleed & Anemia. Former Smoker. Clinical Indicators: Patient presented to the ED on 12/25 from a half-way with increased confusion and altered mental status, diagnosed with Pneumonia & UTI. LAB: 12/25: Na 137, 12/26: 146^ Treatment: IV fluid bolus 500 mls @ 999 mls/hr x2, IV Rocephin, IV Azithromycin, O2 2-3Lnc increased to BiPAP on 12/26. In your opinion, what is the most clinically appropriate diagnosis for this patient? Hyponatremia Hypernatremia Other explanation of clinical findings Unable to determine (Last Revision: May 2017) mild Hypernatremia MTDD
--- NOTE | 2020-01-02 12:19 | CDI ---
Documentation Clarification Form Date: 01/02/2020 12:07:00 PM From: Sophie ValentinoTISHA pitts, CCDS Admit Date: 12/26/2019 02:05:00 PM Patient Name: Klaus Ni Visit Number: [id number] Discharge Date: 12/28/2019 06:30:00 AM ATTENTION: The Clinical Documentation Specialists (CDI) and [facility] Coding Staff appreciate your assistance in clarifying documentation. Please respond to the clarification below the line at the bottom and electronically sign. The CDI & [facility] Coding staff will review the response and follow-up if needed. Please note: Queries are made part of the Legal Health Record. If you have any questions, please contact the author of this message via ITS. Dr. Lucrecia Rosales: Per the ED Note and History & Physical on 12/25: "possible urinary tract infection" is documented. Per the 12/26 Pulmonary/Critical Care Consult on 12/26: "Urinalysis is nitrite positive, leukocyte was small urine 1 blood cell is 30 urine bacteria is few, possibly urinary tract infection." History/Risk Factors: COPD, Dementia, Hypertension, Chronic Diastolic CHF, [place], Pacemaker with 1st Degree AV Block, Hyperlipidemia and history of Exacerbation of COPD with Tracheobronchitis, Sepsis, UTI, GI Bleed & Anemia. Former Smoker. Clinical Indicators: Patient presented to the ED on 12/25 from a [facility]pc with increased confusion and altered mental status, diagnosed with Pneumonia & UTI. Patient was incontinent of urine. 12/27. VS 12/25: T 97.7 - 97.5*; P 74, R 18 - 24; BP 107/60, PO 100 3Lnc - 100 4Lnc. LAB 12/25: WBC 15.0^, Hgb 11.8*, Pl Ct 131*, Neut 13.8^, Na 137 - 12/26: 146^; K 3.2*, CO2 49^^, BUN 42^, Total Bili 1.9^. Blood cultures: 12/25 Final: negative @ 144 hrs. 12/26: Preliminary: negative @ 120 hrs UA: Yellow, clear, Moderate blood, small esterase, Nitrite positive, RBC 27^, WBC (3) Urine culture: none Treatment: IV fluid bolus 500 mls @ 999 mls/hr x2, IV Rocephin, IV Azithromycin, O2 2-3Lnc increased to BiPAP on 12/26. Please clarify the following condition: Urinary Tract Infection ruled out Urinary Tract Infection ruled in o Present on Admission: Yes or No Other, please specify Unable to determine (Last Revision: November 2016) Urinary Tract Infection ruled out MTDD
--- NOTE | 2020-01-02 12:40 | CDI ---
Documentation Clarification Form Date: 01/02/2020 12:25:38 PM From: Sophie HeltonValentinoTISHA pitts, CCDS Admit Date: 12/26/2019 02:05:00 PM Patient Name: Klaus Ni Visit Number: [id number] Discharge Date: 12/28/2019 06:30:00 AM ATTENTION: The Clinical Documentation Specialists (CDI) and [facility] Coding Staff appreciate your assistance in clarifying documentation. Please respond to the clarification below the line at the bottom and electronically sign. The CDI & [facility] Coding staff will review the response and follow-up if needed. Please note: Queries are made part of the Legal Health Record. If you have any questions, please contact the author of this message via ITS. Dr. Lucrecia Rosales: Per the 12/25 ED note: "84-year-old male [facility] emergency room [facility] jail for altered mental status. Patient has a history of dementia with baseline AO2 2. Patient was apparently more confused than normal and was not speaking to staff at [facility] jail so they sent him to the emergency room. He did apparently have an elevated white blood cell count 3 days ago although urinalysis at that time was negative. Patient is oriented 2 now and is denying any complaints stating he feels well today. Patient was recently admitted and intubated for altered mental status, encephalopathy, hypercapnia." Recent admission: 12/1212/15/2019, dcd home on Lasix, Duoneb: Ipratropium- Albuterol, Prednisone & continued on Ceftin. History/Risk Factors: COPD, Dementia, Hypertension, Chronic Diastolic CHF, [place], Pacemaker with 1st Degree AV Block, Hyperlipidemia and history of Exacerbation of COPD with Tracheobronchitis, Sepsis, UTI, GI Bleed & Anemia. Former Smoker. Clinical Indicators: Patient presented to the ED on 12/25 from a jail as above, diagnosed with Pneumonia & possible UTI. Patient was incontinent of urine. Per the 12/26 Pulmonary Consult: Acute on chronic hypercapnic respiratory failure second to COPD. 12/27. VS 12/25: T 97.7 - 97.5*; P 74, R 18 - 24; BP 107/60, PO 100 3Lnc - 100 4Lnc. LAB 12/25: WBC 15.0^, Hgb 11.8*, Pl Ct 131*, Neut 13.8^, Na 137 - 12/26: 146^; K 3.2*, CO2 49^^, BUN 42^, Total Bili 1.9^, Lactic Acid 1.3 - 1.0. ABG 12/26: pH 7.32*, pCO2 89^^, pO2 52*, HCO3 45^^, Total CO2 48^, O2 Sat 89.0* Blood cultures: 12/25 Final: negative @ 144 hrs. 12/26: Preliminary: negative @ 120 hrs UA: Yellow, clear, Moderate blood, small esterase, Nitrite positive, RBC 27^, WBC (3) Urine culture: none Treatment: IV fluid bolus 500 mls @ 999 mls/hr x2, IV Rocephin, IV Azithromycin, O2 2-3Lnc increased to BiPAP on 12/26. In your professional opinion, please clarify if these findings signify one of the following conditions, whether the condition is POA, and cause, if known: Sepsis, due to: Severe Sepsis Other, please specify Unable to determine Present on Admission: Yes or No Link or clarify if there is associated (due to/with): Organ failure (Last Revision: May 2017) Unable to determine MTDD
== END 2019-12-28 06:30 | disposition expired | DRG 193 ==
LOC: EC 09:05 → 6NMEDSUR 14:05 → 2SICU 12-27 20:22
PROVIDERS: ADMIT Internal Medicine; ATTEND Internal Medicine
PROC: 5A09357 Assistance with Respiratory Ventilation, Less than 24 Consecutive Hours, Continuous Positive Airway Pressure (ICD-10-PCS; principal; 2019-12-27)
DX: J18.9 Pneumonia, unspecified organism (principal); I62.03 Nontraumatic chronic subdural hemorrhage; G92 Toxic encephalopathy; J96.22 Acute and chronic respiratory failure with hypercapnia; E87.4 Mixed disorder of acid-base balance; J44.0 Chronic obstructive pulmonary disease with (acute) lower respiratory infection; J44.1 Chronic obstructive pulmonary disease with (acute) exacerbation; I50.32 Chronic diastolic (congestive) heart failure; E87.0 Hyperosmolality and hypernatremia; F03.90 Unspecified dementia, unspecified severity, without behavioral disturbance, psychotic disturbance, mood disturbance, and anxiety; I11.0 Hypertensive heart disease with heart failure; Z66 Do not resuscitate; I44.0 Atrioventricular block, first degree; E78.5 Hyperlipidemia, unspecified; K21.9 Gastro-esophageal reflux disease without esophagitis; M19.042 Primary osteoarthritis, left hand; M19.041 Primary osteoarthritis, right hand; M19.032 Primary osteoarthritis, left wrist; M19.031 Primary osteoarthritis, right wrist; M19.072 Primary osteoarthritis, left ankle and foot; M19.071 Primary osteoarthritis, right ankle and foot; E66.9 Obesity, unspecified; Z68.24 Body mass index [BMI] 24.0-24.9, adult; K57.90 Diverticulosis of intestine, part unspecified, without perforation or abscess without bleeding; K64.9 Unspecified hemorrhoids; M54.9 Dorsalgia, unspecified; K59.00 Constipation, unspecified; R32 Unspecified urinary incontinence; I25.2 Old myocardial infarction; Z79.82 Long term (current) use of aspirin; Z79.899 Other long term (current) drug therapy; Z87.891 Personal history of nicotine dependence; Z95.0 Presence of cardiac pacemaker; Z87.442 Personal history of urinary calculi; Z87.440 Personal history of urinary (tract) infections; Z90.49 Acquired absence of other specified parts of digestive tract; Z87.19 Personal history of other diseases of the digestive system; Z86.010 Personal history of colon polyps; Z86.19 Personal history of other infectious and parasitic diseases; Z87.81 Personal history of (healed) traumatic fracture; Z87.01 Personal history of pneumonia (recurrent); Z86.2 Personal history of diseases of the blood and blood-forming organs and certain disorders involving the immune mechanism; Z98.890 Other specified postprocedural states; Z80.9 Family history of malignant neoplasm, unspecified
CPT/HCPCS: 36415; 36600; 70450; 71046; 80048; 80053; 81001; 82607; 82747; 82805; 83036; 83605; 84443; 85025; 85610; 85730; 87040; 93005; 94660; 95816; 96361; 96365; 96375; 99285